=== PATIENT | male | born 1935 | race Caucasian/White ===

== ENCOUNTER 2017-03-03 11:01 | Day surgery (SDC) | payer OTHER ==
--- NOTE | 2017-03-03 15:06 | OPR ---
DATE OF OPERATION: 03/03/2017 PREOPERATIVE DIAGNOSIS: Renal failure. POSTOPERATIVE DIAGNOSIS: Renal failure. OPERATION PERFORMED: 1. Right internal jugular vein tunneled hemodialysis catheter placement. 2. Ultrasound guidance into the central vein. 3. Fluoroscopy. SURGEON: Tom Kiser MD ANESTHESIA: Local plus IV sedation. CONSENT: Risks, benefits, complications, alternative therapies explained to the patient and the fam nandini, consent obtained. OPERATIVE TECHNIQUE: The patient was placed in supine position, prepped and draped in the usual luc rile fashion, 1% lidocaine was used throughout the operation for local anesthesia. Under ultrasonic guidance, access was gained in the right internal jugular vein. Guidewire was advanced through wit hout any difficulties. Subcutaneous tissues dilated. A 19 cm tunneled hemodialysis catheter was br ought into the subcutaneous tunnel, advanced into the right internal jugular vein and superior vena cava, all under fluoroscopic guidance. The tip was placed at the junction of the superior vena cava and right atrium. Both ports of the catheter were aspirated and injected using heparinized saline solution. The catheter was secured to skin using 2-0 nylon sutures. The neck site and the exit sit e were closed using a single 3-0 Vicryl suture in interrupted fashion. Patient tolerated procedure well. Dictated By: TOM SCHROEDER/LUZMARIA Conf#: [id number] DID#: [id number]
== END 2017-03-03 13:22 | disposition short-term general hospital (02) ==
LOC: SDS 11:01
PROVIDERS: ATTEND Thoracic Surgery (Cardiothoracic Vascular Surgery)
DX: I12.9 Hypertensive chronic kidney disease with stage 1 through stage 4 chronic kidney disease, or unspecified chronic kidney disease (principal); N18.9 Chronic kidney disease, unspecified; E11.9 Type 2 diabetes mellitus without complications; E78.5 Hyperlipidemia, unspecified; Q21.1 Atrial septal defect; I25.5 Ischemic cardiomyopathy; J96.00 Acute respiratory failure, unspecified whether with hypoxia or hypercapnia; Z99.81 Dependence on supplemental oxygen
CPT/HCPCS: 36558; C1750; C1769

== ENCOUNTER 2017-03-23 10:14 | Day surgery (SDC) | payer OTHER ==
[2017-03-23] VITALS (13 sets, daily range): BP systolic 132–162; BP diastolic 60–76; PULSE 56–68; RESP 18–26
[~2017-03-23] VITALS: Ht 172.7 cm; Wt 71.4 kg
[2017-03-23] MEDS ORDERED: POLYMYXIN/BACITRACIN 1L IRRIG IRR ONE (11:00)
[2017-03-23] MEDS ORDERED: CHLO473M4 MM (11:11)
[2017-03-23] MEDS ORDERED: BALS60OI TOP (11:13)
[2017-03-23] MEDS ORDERED: POLY30OI TOP (11:14)
[2017-03-23] MEDS ORDERED: ATOR20TA38 GTB (11:15)
[2017-03-23] MEDS ORDERED: ACET325S GTB (11:17)
[2017-03-23] MEDS ORDERED: DEXT38GE15 PO (11:21)
[2017-03-23] MEDS ORDERED: HYDR-3670 PO (11:21)
[2017-03-23] MEDS ORDERED: HYDR-906 PO (11:22)
[2017-03-23] MEDS ORDERED: HDRP454O TOP (11:23)
[2017-03-23] MEDS ORDERED: LORA2ORA2 IV (11:25)
[2017-03-23] MEDS ORDERED: ATILIQ PEG (11:26)
[2017-03-23] MEDS ORDERED: METO-429 PO (11:27)
[2017-03-23] MEDS ORDERED: MORP10DI10 IV (11:29)
[2017-03-23] MEDS ORDERED: AMIKACIN IVPB (11:33)
[2017-03-23] MEDS ORDERED: LIDOCAINE 1%/EPI 30 ML INJ ONE (11:40)
[2017-03-23] MEDS ORDERED: CEFAZOLIN 1 GM/50 ML (PMX) 50 ML IVPB ONE (11:40)
[2017-03-23] MEDS ORDERED: MIDAZOLAM 1 MG/ML 2 ML INJ ONE (11:53)
[2017-03-23] MEDS ORDERED: FENTAnyl 50 MCG/ML VIAL ONE (11:54)
[2017-03-23] MEDS ORDERED: PROPOFOL 20 ML ONE (12:06)
--- NOTE | 2017-03-23 14:42 | SP ---
DATE OF PROCEDURE: 03/23/2017 NAME OF PROCEDURE: 1. Left subclavian venogram radiological interpretation. 2. Implantation of dual-chamber ICD both RV and RA leads. 3. Intracardiac electrocardiogram. SURGEON: Mookie Guajardo MD ANESTHESIOLOGIST: Teodoro Dimas MD CLINICAL INDICATIONS: This is an 81-year-old gentleman with multiple complicated medical history wh o has severe ischemic cardiomyopathy, ejection fraction of 30% despite optimal medical therapy. The last intervention was more than 3 months ago. The patient has had sick sinus syndrome intermittent ly and complete heart block with up to 15 second pauses, for which he required to have pacemaker belen cement. Since the patient already meets the criteria for ICD placement based on the ischemic cardio myopathy and congestive heart failure, he meets the MADIT-II criteria as well as ____ criteria, it w as felt that since we are going to pacemaker, it is better to just get an ICD at this point, so we d o not have to do the procedure twice later on. DESCRIPTION OF PROCEDURE: Written informed consent was obtained after risks and benefits were discu ssed with the patient's brother in detail. The patient was brought to the catheterization lab and p laced in supine position. The patient underwent anesthesia by the anesthesiologist. Left chest are a was prepped and draped in sterile fashion. Left subclavian venogram was performed through the pat ient's subclavian vein and a small cephalic vein. Left AC groove was anesthetized with 1% lidocaine . A 4 cm incision was made in the left AC groove and blunt dissection was carried out. Cephalic vein was identified. It was cannulated and a 0.014 wire was advanced into the inferior vena cava. Micro puncture sheath was placed over it. Exchanged the sheath to a 6-Gibraltarian sheath. Two wires were adva nced through it. It was removed and another 7-Gibraltarian sheath was placed over the one of the cephalic vein into the cephalic vein. Then, right ventricular lead was placed and advanced to the right char tricular apex. Once a good position was found, it was screwed into place. Then, the sheath was pee led away. A second 6-Gibraltarian sheath was placed over the second wire into the left cephalic vein. Ri ght atrial lead was advanced to the right atrial appendage. Once it was in good position, it was sc rewed into place. Thresholds were both checked and showed excellent threshold, no diaphragmatic sti mulation at 10 volts. Leads were tied down with 0 Ethibond. Pocket was irrigated with antibiotic s olution. Device was placed into the pocket and irrigated again. The device was tied down with 0 Et hibond. Leads were tied down with 0 Ethibond. The wound was closed with 1 layer of 2-0 Vicryl and 2 layers of 3-0 Vicryl. Steri-strips were ____. The patient tolerated the procedure without compl ication. The patient is to be transferred back to the recovery room in stable condition. INFORMATION OF DEVICE: The device itself is a [employer] Fortify Assura DR ICD. Right atrial lead i s [employer] E[employer] Tendril lead. Right ventricular lead is [employer] E[employer] Durata lead. P-wave amplitude was 2.7, threshold of 1 at 0.5 msec, impedance 340. RV amplitude is 11.8, threshold of 0.5 at 0.5 msec, imp edance 550. Shock ____ was 29. DFT testing was not performed because the patient had intermittent paroxysmal atrial fibrillation, w orried about the concern about possible clot. CONCLUSION: Successful implantation of ICD. Dictated By: MOOKIE POTTER/LUZMARIA Conf#: [id number] DID#: [id number] CC: NATHALIE NAVARRETE DO;*EndCC*
[2017-03-23] MEDS ORDERED: CEFAZOLIN 1 GM/50 ML (PMX) 50 ML IVPB SCH (21:00)
== END 2017-03-23 18:52 ==
LOC: SDS 10:14 → CCL 10:14
PROVIDERS: ATTEND Internal Medicine Interventional Cardiology
DX: I49.5 Sick sinus syndrome (principal); I10 Essential (primary) hypertension; E11.9 Type 2 diabetes mellitus without complications; E78.5 Hyperlipidemia, unspecified; I50.9 Heart failure, unspecified; N17.9 Acute kidney failure, unspecified; I25.5 Ischemic cardiomyopathy; Z93.0 Tracheostomy status
CPT/HCPCS: 33249; 94002; C1894; J0690; J2250; J3010

== ENCOUNTER 2017-04-06 11:47 | Inpatient (IN) | payer OTHER, MEDICARE ==
[~2017-04-06] VITALS: Ht 170.2 cm; Wt 73.4 kg
[2017-04-06] VITALS (15 sets, daily range): BP systolic 119–146; BP diastolic 51–87; PULSE 58–66; RESP 16–50; TEMP 98.2; Ht 170.2 cm; Wt 73.4 kg
[~2017-04-06 11:47] MED LIST: ACET325S GTB; AMIKACIN IVPB; ATILIQ PEG; ATOR20TA38 GTB; BALS60OI TOP; CHLO473M4 MM; DEXT38GE15 PO; HDRP454O TOP; HYDR-3670 PO; HYDR-906 PO; LORA2ORA2 IV; METO-429 PO; MORP10DI10 IV; POLY30OI TOP
[2017-04-06 12:26] LABS: ADD SCAN DIFF NO
[2017-04-06 12:28] LABS: BASOPHILS % 0.4 % (0.0-2.0); EOSINOPHILS # 0.2 10^3/ul (0.0-0.5); EOSINOPHILS % 2.1 % (0.0-7.0); HEMATOCRIT 25.4 % (42.0-52.0); HEMOGLOBIN 7.9 g/dl (14.0-18.0); LYMPHOCYTES # 1.8 10^3/ul (0.8-2.9); LYMPHOCYTES % 16.8 % (15.0-51.0); MEAN CORPUSCULAR HGB CONC 31.1 g/dl (32.0-37.0); MEAN CORPUSCULAR VOLUME 96.6 fl (82.0-101.0); MEAN PLATELET VOLUME 11.9 fl (7.4-10.4); MONOCYTE # 0.6 10^3/ul (0.3-0.9); NEUTROPHIL # 7.7 10^3/ul (1.6-7.5); NEUTROPHILS % 73.7 % (39.0-77.0); PLATELET COUNT 182 10^3/UL (140-415); RED BLOOD COUNT 2.63 10^6/ul (4.70-6.10); RED CELL DISTRIBUTION WIDTH 16.2 % (11.5-14.5); WHITE BLOOD COUNT 10.5 10^3/ul (4.8-10.8)
[2017-04-06] MEDS ORDERED: LIDOCAINE 1% (MPF) 5 ML VIAL SC ONE (12:30)
[2017-04-06 12:44] LABS: INR 1.33; PROTIME 16.6 Sec (12.2-14.2); PT RATIO 1.3
[2017-04-06 12:45] LABS: PARTIAL THROMBOPLASTIN TIME 39.7 Sec (25.0-35.0)
[2017-04-06 12:48] LABS: ALBUMIN 3.6 g/dl (3.3-4.9); ALBUMIN/GLOBULIN RATIO 0.97; CALCIUM 9.2 mg/dl (8.4-10.2); CREATININE 2.45 mg/dl (0.61-1.24); POTASSIUM 4.6 mmol/L (3.5-5.1); TOTAL PROTEIN 7.3 g/dl (6.1-8.1)
[2017-04-06 12:58] LABS: TROPONIN-I 0.018 ng/ml (0.00-0.12)
[2017-04-06] MEDS ORDERED: CLON-379 GTB (13:04)
[2017-04-06] MEDS ORDERED: CARV3.1260 GTB (13:04)
[2017-04-06] MEDS ORDERED: CLOP75TA27 GTB (13:05)
[2017-04-06] MEDS ORDERED: DIPH12.59 GTB (13:06)
[2017-04-06] MEDS ORDERED: ISOS10TA2 GTB (13:07)
[2017-04-06] MEDS ORDERED: LEVE100018 GTB (13:07)
[2017-04-06] MEDS ORDERED: LACT1CAP57 GTB (13:08)
[2017-04-06] MEDS ORDERED: LANS30CA GTB (13:09)
[2017-04-06] MEDS ORDERED: LEVO88TA42 GTB (13:09)
--- NOTE | 2017-04-06 13:09 | ERA ---
ER Documentation Chief Complaint Date/Time DATE: 04/06/17 TIME: 13:04 Chief Complaint HPI 81-year-old male trach and G-tube dependent with a history of cardiac arrest, chronic respiratory failure, ischemic cardiomyopathy with EF 45%, atrial fibrillation, diabetes, hypertension, ESRD on hemodialysis who was sent from his care facility for a low hemoglobin of 6.8. There was no report of any active bleeding at the facility. ROS Limited review of systems as patient is nonverbal Medications Home Meds Reported Medications Insulin Aspart* (Novolog Insulin Pen*) 100 Unit/Ml Soln, 0 SC .SLIDING SCALE AC , EA 71-150 = 0 UNITS 151-200 = 2 UNITS 201-250 = 4 UNITS 251-300 = 6 UNITS 301-350 = 8 UNITS 351-400 =10 UNITS OVER 400 = 12 UNITS AND CALL MD UNDER 70 GIVE ORANGE JUICE OR IM GLUCAGON AND CALL MD 04/06/17 Spironolactone* (Aldactone*) 25 Mg Tablet, 25 MG GTB DAILY, #30 TAB 04/06/17 Multivitamins* (Theragran*) 1 Tab Tab, 1 TAB GTB DAILY, TAB 04/06/17 Lorazepam* (Lorazepam*) 0.5 Mg Tablet, 0.5 MG GTB Q4 Y for ANXIETY, TAB 04/06/17 Lisinopril* (Lisinopril*) 5 Mg Tablet, 5 MG GTB BID, #30 TAB 04/06/17 Levothyroxine Sodium* (Levoxyl*) 88 Mcg Tablet, 88 MCG GTB BEFORE BREAKFAST, # 30 TAB 04/06/17 Lansoprazole* (Lansoprazole*) 30 Mg Capsule., 30 MG GTB DAILY, CAP 04/06/17 Lactobacillus Rhamnosus* (Culturelle*) 1 Each Cap.sprink, 1 CAP GTB DAILY, CAP 04/06/17 Levetiracetam* (Keppra*) 1,000 Mg Tablet, 1000 MG GTB BID, TAB 04/06/17 Isosorbide Dinitrate* (Isosorbide Dinitrate*) 10 Mg Tablet, 10 MG GTB TID, TAB 04/06/17 Diphenhydramine Hcl* (Diphenhydramine Hcl*) 12.5 Mg/5 Ml Elixir, 25 MG GTB Q6H Y for ITCHING, ML 04/06/17 Clopidogrel Bisulfate (Clopidogrel) 75 Mg Tablet, 75 MG GTB DAILY, #30 TAB 04/06/17 Clonidine Hcl* (Clonidine Hcl*) 0.1 Mg Tab, 0.1 MG GTB Q4H Y for ELEVATED BLOOD PRESSURE, TAB 04/06/17 Carvedilol* (Carvedilol*) 3.125 Mg Tablet, 3.125 MG GTB BID, #60 TAB 04/06/17 Acetaminophen* (Acetaminophen* Susp) 325 Mg/10.15 Ml Solution, 650 MG GTB Q6 Y for PAIN OR TEMP ABOVE 38C, ML 03/23/17 Atorvastatin Calcium* (Atorvastatin Calcium*) 20 Mg Tablet, 20 MG GTB QHS, #30 TAB 03/23/17 Balsam Eddi/Gillespie Oil (Venelex Ointment) 60 Gm Oint..gm., 1 APPLIC TOP NEEDED Y for PRN, #1 TUB APPLY TO SCRITAL AREA 03/23/17 Chlorhexidine Gluconate (Peridex) 473 Ml Mouthwash, 10 ML MM Q12, BOTTLE SWAB AMND SUCTION 03/23/17 Discontinued Reported Medications [Amikacin] No Conflict Check, 340 MG IVPB AFTER DIALYSIS ITEM COMPOUNDED BY PHARMACY WITH 100 ML SODIUM CHLORIDE 0.9% 03/23/17 Morphine Sulfate* (Morphine* Liq) 10 Mg/0.5 Ml Disp.syrin, 2 MG IV Q2H Y for PAIN, ML 03/23/17 Metoprolol Tartrate* (Lopressor*) 50 Mg Tab, 50 MG PO Q8, #60 TAB 03/23/17 Lorazepam* (Ativan* Intensol) 2 Mg/Ml Soln, 0.5 MG PEG Q4H Y for ANXIETY, #1 BOTTLE 03/23/17 Lorazepam* (Ativan* Intensol) 2 Mg/1 Ml Oral.conc, 2 MG IV Q4 Y for ANXIETY, ML 03/23/17 Hydrophilic Base* (Aquaphor*) 454 Gm-Topical Oint, 1 APPLIC TOP BID Y for ITCHING, JAR APPLY TO SKIN AND SCALP 03/23/17 Hydrocodone/Acetaminophen ([place] 5-325 Tablet) 1 Each Tablet, 2 EACH PO Q6, TAB 03/23/17 Hydralazine Hcl* (Hydralazine Hcl*) 10 Mg Tablet, 10 MG PO Q6H Y for ELEVATED BLOOD PRESSURE, #60 TAB 03/23/17 Dextrose (Glucose Gel) 38 Gm Gel..gram., 15 GM PO FOR PT WHO CAN SWALLOW FOR BLOOD SUGAR 51-69 REPEAT EVERY 15 MIN UNTIL GLUCOSE IS GREATER THAN OR EQUAL TO 80 03/23/17 Bacitracin-Polymyxin* (Polysporin* Topical) 28.35 Gm Oint, 1 APPLIC TOP DAILY, TUB APPLY TO PENILE ULCER 03/23/17 Allergies Allergies: Coded Allergies: No Known Allergy (Unverified , 04/06/17) PMhx/Soc History of Surgery: Yes (tracheostomy) Hx Respiratory Disorders: Yes (ventalator dependent ) Hx Cardiac Disorders: No (afib, cardiomyopathy) Hx Miscellaneous Medical Probl: Yes (gout, ESRF, anxiety , hypothyroidism.) Hx Alcohol Use: No Hx Substance Use: No Hx Tobacco Use: No Smoking Status: Unknown if ever smoked FmHx Family History: other (unable to obtain) Physical Exam Vitals Vital Signs Date Time Temp Pulse Resp B/P Pulse Ox O2 Delivery O2 Flow Rate FiO2 04/06/17 12:48 59 17 129/76 100 Mechanical Ventilator 04/06/17 11:49 99.8 70 20 142/67 97 Physical Exam Const: no apparent distress, nontoxic Head: Atraumatic Eyes: Normal Conjunctiva, no scleral icterus ENT: Normal External Ears, Nose and Mouth. Neck: Supple, tracheostomy in place Resp: Clear to auscultation bilaterally Cardio: Regular rate and rhythm, no murmurs Abd: Soft, non tender, non distended. G-tube in place and upper abdomen. Normal bowel sounds Skin: No petechiae or rashes Ext: No cyanosis, trace bilateral lower extremity edema. Extremities warm to palpation distally Neur: Awake and alert, tracks with eyes but does not speak or nod Result Diagram: 04/06/17 1220 04/06/17 1220 Results 24 hrs Laboratory Tests Test 04/06/17 12:20 White Blood Count 10.510^3/ul Red Blood Count 2.6310^6/ul Hemoglobin 7.9g/dl Hematocrit 25.4% Mean Corpuscular Volume 96.6fl Mean Corpuscular Hemoglobin 30.0pg Mean Corpuscular Hemoglobin Concent 31.1g/dl Red Cell Distribution Width 16.2% Platelet Count 57102^3/UL Mean Platelet Volume 11.9fl Neutrophils % 73.7% Lymphocytes % 16.8% Monocytes % 6.0% Eosinophils % 2.1% Basophils % 0.4% Nucleated Red Blood Cells % 0.0/100WBC Neutrophils # 7.710^3/ul Lymphocytes # 1.810^3/ul Monocytes # 0.610^3/ul Eosinophils # 0.210^3/ul Basophils # 0.010^3/ul Nucleated Red Blood Cells # 0.010^3/ul Prothrombin Time 16.6Sec Prothrombin Time Ratio 1.3 INR International Normalized Ratio 1.33 Activated Partial Thromboplast Time 39.7Sec Sodium Level 138mmol/L Potassium Level 4.6mmol/L Chloride Level 97mmol/L Carbon Dioxide Level 24mmol/L Anion Gap 22 Blood Urea Nitrogen 55mg/dl Creatinine 2.45mg/dl Glucose Level 137mg/dl Calcium Level 9.2mg/dl Total Bilirubin 0.0mg/dl Direct Bilirubin 0.00mg/dl Indirect Bilirubin 0.0mg/dl Aspartate Amino Transf (AST/SGOT) 35IU/L Alanine Aminotransferase (ALT/SGPT) 28IU/L Alkaline Phosphatase 256IU/L Troponin I 0.018ng/ml Total Protein 7.3g/dl Albumin 3.6g/dl Globulin 3.70g/dl Albumin/Globulin Ratio 0.97 Current Medications Medications (Trade) Dose Ordered Sig/Khushi Route PRN Reason Start Time Stop Time Status Last Admin Dose Admin Lidocaine (Xylocaine 1% (Mpf)) 5 ml ONCE ONCE SC 04/06/17 12:30 04/06/17 12:31 DC Ondansetron HCl (Zofran Inj) 4 mg ER BRIDGE PRN IV NAUSEA AND/OR VOMITING 04/06/17 14:00 04/07/17 13:59 Acetaminophen (Tylenol Tab) 650 mg ER BRIDGE PRN PO MILD PAIN/FEVER 04/06/17 14:00 04/07/17 13:59 Procedures/MDM EKG: Rate/Rhythm: Normal Sinus Rhythm QRS, ST, T-waves: Nonspecific ST changes, no changes consistent w/ acute ischemia Impression: No evidence of ischemia or arrhythmia Chest x-ray: IMPRESSION: 1. Moderate cardiomegaly with pulmonary venous congestion, unchanged. 2. Overinflated lungs. 3. Mild bilateral pleural effusion, unchanged. Labs: CBC: Hemoglobin 7.9 CMP: Evidence of chronic renal failure Coags: Elevated PT, PTT Troponin within normal limits MDM Patient is presenting with anemia of unknown etiology. He is on a blood thinner but there is no signs of active bleeding on exam. His vitals are stable and he is in no apparent distress. EKG does not show evidence of acute ischemia. Patient will be admitted for further workup of anemia. 2 units of PRBCs ordered. Chest x-ray did show evidence of fluid overload so the patient will need dialysis today after the transfusion most likely. I spoke with Dr. Darby, the admitting physician, who will arrange this. Accepting Care Team: Current data and ongoing care discussed. Time: Time of admission Primary Provider: Wilner Consulting: None Outstanding Data: none Departure Diagnosis: Primary Impression: Anemia of unknown etiology Additional Impressions: Chronic renal failure Qualified Code: N18.9 - Chronic renal failure, unspecified stage Pulmonary vascular congestion Condition: Serious ROCIO REYES MD Apr 06, 2017 13:09
[2017-04-06] MEDS ORDERED: LISI-313 GTB (13:10)
[2017-04-06] MEDS ORDERED: LORA0.5T GTB (13:11)
[2017-04-06] MEDS ORDERED: MULTI GTB (13:11)
[2017-04-06] MEDS ORDERED: SPIR25TA GTB (13:12)
[2017-04-06] MEDS ORDERED: NOVO3I SC (13:16)
--- NOTE | 2017-04-06 13:38 | RADRPT ---
PROCEDURE: XR, Chest. CLINICAL INDICATION: Respiratory distress/GI bleeding. TECHNIQUE: AP chest. COMPARISON: Chest, 03/31/2017. FINDINGS: The heart is moderately enlarged with pulmonary venous congestion. The lungs are overinflated. The re is mild bilateral pleural effusion. The left defibrillator wires/leads remain in good position. The right Perma-Cath remains in good po sition. The tracheostomy tube remains in good position. IMPRESSION: 1. Moderate cardiomegaly with pulmonary venous congestion, unchanged. 2. Overinflated lungs. 3. Mild bilateral pleural effusion, unchanged. RPTAT: GG .Genaro Naylor MD, MD Date Time Electronically viewed and signed by .Genaro Naylor MD, MD on 04/06/2017 13:38 .Y/
[2017-04-06] MEDS ORDERED: ACETAMINOPHEN 325 MG TAB PO PRN (14:00)
[2017-04-06] MEDS ORDERED: ONDANSETRON 4 MG INJ IV PRN (14:00)
[2017-04-06] MEDS ORDERED: DIPHENHYDRAMINE 2.5 MG/ML PO SYG GTB PRN (15:00)
[2017-04-06] MEDS ORDERED: BALSAM PERU/CASTOR OIL 60 GM TUBE TOP PRN (15:00)
--- NOTE | 2017-04-06 15:26 | RADRPT ---
PROCEDURE: XR Chest. CLINICAL INDICATION: Post PICC placement TECHNIQUE: Single frontal chest x-ray. COMPARISON: Same day radiographs at 12:56 p.m. and 03:06 p.m. FINDINGS: There is a left PICC in which the tip is in the region of the upper SVC. A left-sided pacer with pa cer leads are visualized in the region of the right atrium and right ventricle. There is a right in ternal jugular central venous catheter with the tip in the atrial caval junction. A tracheostomy tub e is also visualized. Mild to moderate pulmonary edema is again noted. There are small bilateral pleural effusions with m ild bibasilar atelectasis. No pneumothorax is visualized. The heart is enlarged. There are atherosclerotic calcifications within the aortic arch. Median luc rnotomy wires are noted. There are no acute fractures. RPTAT: QQ IMPRESSION: 1. Left PICC with the tip in the region of the upper SVC. 2. Mild to moderate pulmonary edema with small bilateral pleural effusions and cardiomegaly which c an be seen with congestive heart failure. .Farideh Soler MD, MD Date Time Electronically viewed and signed by .Farideh Soler MD, on 04/06/2017 15:25 .T/
--- NOTE | 2017-04-06 15:26 | RADRPT ---
PROCEDURE: XR Chest. CLINICAL INDICATION: Post PICC placement TECHNIQUE: Single frontal chest x-ray. COMPARISON: Same day radiographs at 12:56 p.m. FINDINGS: There is a new left PICC in which the tip is in the region of the upper SVC. A left-sided pacer wit h pacer leads are visualized in the region of the right atrium and right ventricle. There is a righ t internal jugular central venous catheter with the tip in the atrial caval junction. A tracheostomy tube is also visualized. Mild to moderate pulmonary edema is again noted. There are small bilateral pleural effusions with m ild bibasilar atelectasis. No pneumothorax is visualized. The heart is enlarged. There are atherosclerotic calcifications within the aortic arch. Median luc rnotomy wires are noted. There are no acute fractures. RPTAT: QQ IMPRESSION: 1. Left PICC with the tip in the region of the upper SVC. 2. Mild to moderate pulmonary edema with small bilateral pleural effusions and cardiomegaly which c an be seen with congestive heart failure. .Farideh Soler MD, MD Date Time Electronically viewed and signed by .Farideh Soler MD, MD on 04/06/2017 15:26 .T/
--- NOTE | 2017-04-06 15:28 | RADRPT ---
PROCEDURE: XR Chest. CLINICAL INDICATION: Post PICC placement TECHNIQUE: Single frontal chest x-ray. COMPARISON: Same day radiographs at 12:56 p.m. and 03:06 p.m. FINDINGS: There is a left PICC in which the tip is in the region of the mid to low SVC. A left-sided pacer wi th pacer leads are visualized in the region of the right atrium and right ventricle. There is a rig ht internal jugular central venous catheter with the tip in the atrial caval junction. A tracheostom y tube is also visualized. Mild to moderate pulmonary edema is again noted. There are small bilateral pleural effusions with m ild bibasilar atelectasis. No pneumothorax is visualized. The heart is enlarged. There are atherosclerotic calcifications within the aortic arch. Median luc rnotomy wires are noted. There are no acute fractures. RPTAT: QQ IMPRESSION: 1. Left PICC with the tip in the region of the mid to low SVC. 2. Mild to moderate pulmonary edema with small bilateral pleural effusions and cardiomegaly which c an be seen with congestive heart failure. .Farideh Soler MD, MD Date Time Electronically viewed and signed by .Farideh Soler MD, MD on 04/06/2017 15:28 .T/
[2017-04-06] MEDS ORDERED: [UNRECOGNIZED DRUG - REMARK] XX SCH (15:30)
--- NOTE | 2017-04-06 15:53 | RADRPT ---
PROCEDURE: Ultrasound guidance for placement of needle in left upper extremity vein. CLINICAL INDICATION: Venous access. TECHNIQUE: Limited sonography of the left upper extremity was performed. Ultrasound images were recorded and s tored in the patient's medical record. COMPARISON: None. FINDINGS: The ultrasound images demonstrate a patent left upper extremity vein. The PICC line was inserted by the PICC line nurse. IMPRESSION: 1. Ultrasound guidance for a needle placement in a left upper extremity vein. 2. The left upper extremity vein is patent. RPTAT: QQ .Nic Smith MD, MD Date Time Electronically viewed and signed by .Nic Smith MD, MD on 04/06/2017 15:53 .R/
[2017-04-06] MEDS ORDERED: PENDING SANTYL ORDER FOR WOUND CARE XX PRN (20:30)
[2017-04-06] MEDS: CHLORHEXIDINE GLUCONATE 15 ML UD CUP MM SCH (21:23)
[2017-04-06] MEDS: LORAZEPAM 0.5 MG TAB GTB PRN (21:23)
[2017-04-06] MEDS: ISOSORBIDE DINITRATE 10 MG TAB GTB SCH (21:24)
[2017-04-06] MEDS: LEVETIRACETAM 500 MG TAB GTB SCH (21:24)
[2017-04-06] MEDS: LISINOPRIL 5 MG TAB GTB SCH (21:25)
[2017-04-06] MEDS: ATORVASTATIN 20 MG TAB GTB SCH (21:25)
[2017-04-06] MEDS: ACETAMINOPHEN 650MG/20.3ML CUP GTB PRN (21:40)
[2017-04-07] VITALS (23 sets, daily range): BP systolic 128–162; BP diastolic 60–75; PULSE 50–58; RESP 18–28
[2017-04-07] MEDS: ACETAMINOPHEN 650MG/20.3ML CUP GTB PRN (03:55)
[2017-04-07] MEDS: LORAZEPAM 0.5 MG TAB GTB PRN ×2 (03:55→13:46)
[2017-04-07 06:07] LABS: ADD SCAN DIFF NO
[2017-04-07 06:15] LABS: BASOPHILS % 0.4 % (0.0-2.0); EOSINOPHILS # 0.1 10^3/ul (0.0-0.5); EOSINOPHILS % 1.2 % (0.0-7.0); HEMATOCRIT 27.1 % (42.0-52.0); LYMPHOCYTES # 1.5 10^3/ul (0.8-2.9); LYMPHOCYTES % 15.8 % (15.0-51.0); MEAN CORPUSCULAR HEMOGLOBIN 30.6 pg (29.0-33.0); MEAN CORPUSCULAR HGB CONC 33.2 g/dl (32.0-37.0); MEAN CORPUSCULAR VOLUME 92.2 fl (82.0-101.0); MEAN PLATELET VOLUME 11.4 fl (7.4-10.4); MONOCYTE # 0.6 10^3/ul (0.3-0.9); MONOCYTES % 6.1 % (0.0-11.0); NEUTROPHIL # 7.2 10^3/ul (1.6-7.5); NEUTROPHILS % 76.1 % (39.0-77.0); PLATELET COUNT 169 10^3/UL (140-415); RED BLOOD COUNT 2.94 10^6/ul (4.70-6.10); RED CELL DISTRIBUTION WIDTH 15.6 % (11.5-14.5); WHITE BLOOD COUNT 9.4 10^3/ul (4.8-10.8)
[2017-04-07] MEDS: LEVOTHYROXINE 88 MCG TAB GTB SCH (06:19)
[2017-04-07] MEDS: LANSOPRAZOLE 30 MG CAP GTB SCH (06:19)
[2017-04-07 06:57] LABS: CALCIUM 9.3 mg/dl (8.4-10.2); CREATININE 2.13 mg/dl (0.61-1.24); MAGNESIUM 2.1 mg/dl (1.7-2.5); POTASSIUM 3.5 mmol/L (3.5-5.1)
--- NOTE | 2017-04-07 08:52 | CONS ---
Date/Time of Note Date/Time of Note DATE: 04/07/17 TIME: 08:34 Assessment/Plan Assessment/Plan Additional Assessment/Plan 1. Extensive history of coronary artery disease: Currently with no angina Continue Plavix. off of aspirin due to concerns about anemia and bleeding. Continue Coreg 2. 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 Defer to the pulmonary consultations. 3. Severe anemia: Etiology is unclear. Status post transfusions. To continue with the Plavix 4. History of coronary artery bypass graft. 5. History of multiple PCI most recent PCI was in November 2016 using a drug- eluting stent: Continue with the Plavix Continue beta-staci as tolerated. 6. Congestive heart failure: Chronic and stable due to severe LV dysfunction Continue with ARABELLA inhibitor and Coreg as tolerated. Fluid management as per dialysis per renal. 7. Dyslipidemia: Continue statin 8. History of hypertension currently stable on Coreg and ARABELLA inhibitor. 9. End-stage renal disease on hemodialysis. Will refer to the renal team 10. Sick sinus syndrome: Status post [employer] ICD device 11. Status post dual-chamber ICD: Coronary appears to be stable with no malfunction of the device. We will continue to monitor. Thank you for this referral will continue to follow along with you. Consultation Date/Type/Reason Admit Date/Time Apr 06, 2017 at 14:01 Date of Consultation: Apr 07, 2017 Type of Consultation: CARDIOLOGY Reason for Consultation CAD. CHF, ISCHEMIC CARDIOMYOPATHY. S/P ICD. antiplatelet recommendation Hx of Present Illness Dear Dr. Darby thank you for this referral. History was obtained from extensive review of the old chart discussion with the staff and physicians include Dr. Darby. This is an unfortunate 81-year-old gentleman well-known to me from previous admissions to [facility], who was admitted last night with complaint of severe anemia. She has multiple complicated medical history. He has chronic respiratory failure with tracheostomy on the vent. He has been subacute and was noted to be severely anemic. There is no reported signs of active bleeding that I could obtain. Patient denies any chest pain or pressure to me at this point. Patient has extensive history of coronary artery disease including coronary bypass graft as well as history of PCI in November 2016. He is currently on Plavix. While at the [facility] previously he had noted recurrent tracheal bleeding. Aspirin was discontinued at that time however Plavix was continued due to concern about significant coronary artery disease and recent stents. Past medical history: Significant coronary artery disease history of coronary bypass or history of multiple PCI's. Most recent PCI was in November 2016. At that time using drug- eluting stent was used. Patient with severe ischemic cardiomyopathy. Congestive heart failure. History of sick sinus syndrome. On last admission to [facility] he had episode of up to 15 second sinus arrest and pauses as well as episodes of complete A-V dissociation. He required to have an ICD placed. Patient also respiratory failure with tracheostomy on the vent. Renal failure on dialysis now. History of hypertension. Dyslipidemia anemia. Hypothyroidism. Family history: No reported eloquently artery disease. Medication was reviewed with the medical reconciliation sheet which was personally reviewed. Past surgical history: Coronary bypass graft history of multiple PCI including most recent one in November 2016. Dual-chamber ICD placement by myself ([employer] ICD done a very depressed by myself) in March 2017. Tracheostomy. PEG placement Review of system: As above only the basic was obtained. However limited history can be obtained from the patient since he is trached Social History Smoking Status: Unknown if ever smoked Exam/Review of Systems Vital Signs Vitals Vital Signs Date Time Temp Pulse Resp B/P Pulse Ox O2 Delivery O2 Flow Rate FiO2 04/07/17 08:08 55 04/07/17 07:41 26 98 35 04/07/17 07:34 98.5 128/64 04/06/17 18:45 Mechanical Ventilator Trach Collar Intake and Output 04/06/17 04/06/17 04/07/17 15:00 23:00 07:00 Intake Total 1000 ml 120 ml Output Total 2800 ml Balance -1800 ml 120 ml Exam General: no acute distress. s/p trach on vent HEENT: NC/AT. pupils are equal. round. NECK: s/p trach. no stridor. CV: RRR. systolic murmur; no gallop or rubs. PULM: no wheezing. + mild rhonchi. GI: SOFT, NT, ND, no rebound or guarding s/p PEG Extremity: trace B/L LE edema.+ Upper ext edema. neuro: awake and alert, responds appropriately Psych: calm and pleasant rectal: deferred : normal male Derm: diffuse echymosis in the body chest: s/p ICD left side. no hematoma or bleeding. s/p HD access right chest. ECG reviewed NSR nonspecific ST abn. Results Result Diagram: 04/07/17 0555 04/07/17 0555 Results 24 hrs Laboratory Tests Test 04/06/17 12:20 04/07/17 05:55 White Blood Count 10.5 9.4 Red Blood Count 2.63 L 2.94 L Hemoglobin 7.9 L 9.0 L Hematocrit 25.4 L 27.1 L Mean Corpuscular Volume 96.6 92.2 Mean Corpuscular Hemoglobin 30.0 30.6 Mean Corpuscular Hemoglobin Concent 31.1 L 33.2 Red Cell Distribution Width 16.2 H 15.6 H Platelet Count 182 169 Mean Platelet Volume 11.9 H 11.4 H Neutrophils % 73.7 76.1 Lymphocytes % 16.8 15.8 Monocytes % 6.0 6.1 Eosinophils % 2.1 1.2 Basophils % 0.4 0.4 Nucleated Red Blood Cells % 0.0 0.0 Neutrophils # 7.7 H 7.2 Lymphocytes # 1.8 1.5 Monocytes # 0.6 0.6 Eosinophils # 0.2 0.1 Basophils # 0.0 0.0 Nucleated Red Blood Cells # 0.0 0.0 Prothrombin Time 16.6 H Prothrombin Time Ratio 1.3 INR International Normalized Ratio 1.33 Activated Partial Thromboplast Time 39.7 H Sodium Level 138 142 Potassium Level 4.6 3.5 Chloride Level 97 100 Carbon Dioxide Level 24 24 Anion Gap 22 H 22 H Blood Urea Nitrogen 55 H 37 #H Creatinine 2.45 H 2.13 H Glucose Level 137 88 # Calcium Level 9.2 9.3 Total Bilirubin 0.0 L Direct Bilirubin 0.00 Indirect Bilirubin 0.0 Aspartate Amino Transf (AST/SGOT) 35 Alanine Aminotransferase (ALT/SGPT) 28 Alkaline Phosphatase 256 H Troponin I 0.018 Total Protein 7.3 Albumin 3.6 Globulin 3.70 H Albumin/Globulin Ratio 0.97 Phosphorus Level 2.0 L Magnesium Level 2.1 Medications Medications Current Medications Acetaminophen (Tylenol Liquid) 650 mg Q6H PRN GTB PAIN OR TEMP ABOVE 38C Last administered on 04/07/17 03:55; Admin Dose 650 MG; Start 04/06/17 at 15:00 Atorvastatin Calcium (Lipitor) 20 mg QHS GTB Last administered on 04/06/17 21: 25; Admin Dose 20 MG; Start 04/06/17 at 21:00 Carvedilol (Coreg) 3.125 mg BID GTB Last administered on 04/06/17 21:27; Admin Dose 3.125 MG; Start 04/06/17 at 21:00 Chlorhexidine Gluconate (Peridex) 10 ml Q12 MM Last administered on 04/06/17 21 :23; Admin Dose 10 ML; Start 04/06/17 at 21:00 Clonidine (Catapres) 0.1 mg Q4H PRN GTB SBP > 170; Start 04/06/17 at 15:00 Clopidogrel Bisulfate (plaVIX) 75 mg DAILY GTB ; Start 04/07/17 at 09:00 Diphenhydramine HCl (Benadryl Liquid Po Syr) 25 mg Q6H PRN GTB ITCHING; Start 04/06/17 at 15:00 Isosorbide Dinitrate (Isordil) 10 mg TID GTB Last administered on 04/06/17 21: 24; Admin Dose 10 MG; Start 04/06/17 at 21:00 Lactobacillus Acidophilus/ Rhamnosus (Culturelle) 1 cap DAILY GTB ; Start at 09:00 Lansoprazole (Prevacid) 30 mg DAILY@06 GTB Last administered on 04/07/17 06:19 ; Admin Dose 30 MG; Start 04/07/17 at 06:00 Levetiracetam (Keppra) 1,000 mg BID GTB Last administered on 04/06/17 21:24; Admin Dose 1,000 MG; Start 04/06/17 at 21:00 Lisinopril (Zestril) 5 mg BID GTB Last administered on 04/06/17 21:25; Admin Dose 5 MG; Start 04/06/17 at 21:00 Lorazepam (Ativan) 0.5 mg Q4H PRN GTB ANXIETY Last administered on 04/07/17 03: 55; Admin Dose 0.5 MG; Start 04/06/17 at 15:00 Multivitamins Therapeutic (Theragran) 1 tab DAILY GTB ; Start 04/07/17 at 09:00 Spironolactone (Aldactone) 25 mg DAILY GTB ; Start 04/07/17 at 09:00 IV Flush (NS 10 ml) 10 ml PRN PRN IV flush; Start 04/06/17 at 16:30 Miscellaneous Information (Pending [facility] Order For Wound Care) This patient jenkins... PRN PRN XX WOUND CARE; Start 04/06/17 at 20:30 MOOKIE BESS MD Apr 07, 2017 08:45
--- NOTE | 2017-04-07 08:53 | HP ---
Date/Time of Note Date/Time of Note DATE: 04/07/17 TIME: 08:50 Assessment/Plan Lines/Catheters IV Catheter Type (from Nrs): PICC Line Assessment/Plan Chief Complaint/Hosp Course 1. Anemia, etiology likely from chronic disease, rule out GI bleed. -Patient status post blood transfusion with appropriate response -Plan is to check iron panel, ferritin, stool occult ob -Continue Protonix, GI evaluation, continue Epogen 2. End-stage renal disease. -Continue intermittent hemodialysis 3. Mineral bone disorder -Monitor calcium phosphorus levels 4 volume overload secondary to CHF end-stage renal disease -Continue ultrafiltration with dialysis 5. Dependent respiratory failure -Vent settings, ABG reviewed -Follow-up with pulmonary 6. Coronary disease,/cardiomyopathy -Status post pacemaker ICD placement -Continue medical management -Follow-up with cardiology 7. Seizure disorder -Continue Keppra 8. Hypothyroidism -Continue Synthroid 9. Dysphagia status post PEG -Continue tube feeds 10. Acute on chronic encephalotomy -Etiology toxic metabolic -Continue to monitor 11. Hypertension continue current blood pressure regimen 12. GI/DVT prophylaxis Problems: HPI/ROS Admit Date/Time Admit Date/Time Apr 06, 2017 at 14:01 Hx of Present Illness This is a 81-year-old male with a past medical history of ventilator dependent respiratory failure, end-stage renal disease, coronary artery disease, cardiomyopathy, arrhythmia status post ICD pacemaker placement, hypothyroidism, history of tracheal bleed, who presents to outpatient hospital for evaluation of anemia. Patient was noted to have a hemoglobin of 6.8 g/dL on routine laboratory draw. Patient was transferred to [facility]. In the emergency room patient had laboratory data drawn which showed hemoglobin around 7.5 g/dL. Patient had chest x-ray showed pulmonary congestion. In the emergency room patient was typed and crossed 2 units of PRBC and admitted to telemetry for evaluation. Upon my evaluation of the patient. He is stable no acute distress ROS 14 point ros conducted, positives stated in hpi PMH/Family/Social Past Medical History Per H PI Past Surgical History Status post trach, status post PEG, status post permacath placement, status post AICD placement Social History Smoking Status: Unknown if ever smoked Exam/Review of Systems Vital Signs Vitals Vital Signs Date Time Temp Pulse Resp B/P Pulse Ox O2 Delivery O2 Flow Rate FiO2 04/07/17 08:08 55 04/07/17 07:41 26 98 35 04/07/17 07:34 98.5 128/64 04/06/17 18:45 Mechanical Ventilator Trach Collar Intake and Output 04/06/17 04/06/17 04/07/17 15:00 23:00 07:00 Intake Total 1000 ml 120 ml Output Total 2800 ml Balance -1800 ml 120 ml Exam Exam HEENT head is normocephalic able to react Neck is supple positive straight Cardiovascular regular rate no gallops Lungs show diminished breath sounds at the base Abdomen soft nontender palpation positive Extremity nephrocalcinosis positive Dermatologically no rash Muscle skeletal no joint Neurologically no change in exam Labs Result Diagram: 04/07/1755404/07/1755 Medications Medications Current Medications Acetaminophen (Tylenol Liquid) 650 mg Q6H PRN GTB PAIN OR TEMP ABOVE 38C Last administered on 04/07/17 03:55; Admin Dose 650 MG; Start 04/06/17 at 15:00 Atorvastatin Calcium (Lipitor) 20 mg QHS GTB Last administered on 04/06/17 21: 25; Admin Dose 20 MG; Start 04/06/17 at 21:00 Carvedilol (Coreg) 3.125 mg BID GTB Last administered on 04/06/17 21:27; Admin Dose 3.125 MG; Start 04/06/17 at 21:00 Chlorhexidine Gluconate (Peridex) 10 ml Q12 MM Last administered on 04/06/17 21 :23; Admin Dose 10 ML; Start 04/06/17 at 21:00 Clonidine (Catapres) 0.1 mg Q4H PRN GTB SBP > 170; Start 04/06/17 at 15:00 Clopidogrel Bisulfate (plaVIX) 75 mg DAILY GTB ; Start 04/07/17 at 09:00 Diphenhydramine HCl (Benadryl Liquid Po Syr) 25 mg Q6H PRN GTB ITCHING; Start 04/06/17 at 15:00 Isosorbide Dinitrate (Isordil) 10 mg TID GTB Last administered on 04/06/17 21: 24; Admin Dose 10 MG; Start 04/06/17 at 21:00 Lactobacillus Acidophilus/ Rhamnosus (Culturelle) 1 cap DAILY GTB ; Start at 09:00 Lansoprazole (Prevacid) 30 mg DAILY@06 GTB Last administered on 04/07/17 06:19 ; Admin Dose 30 MG; Start 04/07/17 at 06:00 Levetiracetam (Keppra) 1,000 mg BID GTB Last administered on 04/06/17 21:24; Admin Dose 1,000 MG; Start 04/06/17 at 21:00 Lisinopril (Zestril) 5 mg BID GTB Last administered on 04/06/17 21:25; Admin Dose 5 MG; Start 04/06/17 at 21:00 Lorazepam (Ativan) 0.5 mg Q4H PRN GTB ANXIETY Last administered on 04/07/17 03: 55; Admin Dose 0.5 MG; Start 04/06/17 at 15:00 Multivitamins Therapeutic (Theragran) 1 tab DAILY GTB ; Start 04/07/17 at 09:00 Spironolactone (Aldactone) 25 mg DAILY GTB ; Start 04/07/17 at 09:00 IV Flush (NS 10 ml) 10 ml PRN PRN IV flush; Start 04/06/17 at 16:30 Miscellaneous Information (Pending Santyl Order For Wound Care) This patient jenkins... PRN PRN XX WOUND CARE; Start 04/06/17 at 20:30 ANNABELLE MENDOZA DO Apr 07, 2017 08:53
[2017-04-07] MEDS: MULTIVITAMINS THERAPEUTIC TAB GTB SCH (09:06)
[2017-04-07] MEDS: ISOSORBIDE DINITRATE 10 MG TAB GTB SCH ×3 (09:06→21:16)
[2017-04-07] MEDS: LACTOBACILLUS RHAMNOSUS CAP GTB SCH (09:06)
[2017-04-07] MEDS: LISINOPRIL 5 MG TAB GTB SCH ×2 (09:06→21:16)
[2017-04-07] MEDS: LEVETIRACETAM 500 MG TAB GTB SCH ×2 (09:06→21:16)
[2017-04-07] MEDS: CLOPIDOGREL 75 MG TAB GTB SCH (09:06)
[2017-04-07] MEDS: SPIRONOLACTONE 25 MG TAB GTB SCH (09:06)
[2017-04-07] MEDS: CHLORHEXIDINE GLUCONATE 15 ML UD CUP MM SCH ×2 (09:06→21:16)
[2017-04-07 09:42] LABS: IRON 35 ug/dl (35-150)
[2017-04-07 09:51] LABS: TOTAL IRON BINDING CAPACITY 213 ug/dl (241-421)
--- NOTE | 2017-04-07 17:00 | CONS ---
Date/Time of Note Date/Time of Note DATE: 04/07/17 TIME: 16:56 Assessment/Plan Assessment/Plan Additional Assessment/Plan Assessment 1. Anemia likely multifactorial combination of chronic kidney disease, possible dilutional possible GI bleed. 2. Vent dependent respiratory failure 3. Encephalopathy acute on chronic 4. Dysphagia with G-tube 5. Seizure disorder 6. History of ischemic heart disease with ICD, mild pulmonary edema on chest x- ray Plan 1. Continue mechanical ventilation 2. Anemia workup 3. Monitor H&H posttransfusion 4. Renal recommendations with hemodialysis as needed. 5. Telemetry monitoring Consultation Date/Type/Reason Admit Date/Time Apr 06, 2017 at 14:01 Date of Consultation: Apr 07, 2017 Type of Consultation: Pulmonary Reason for Consultation Ventilator management Hx of Present Illness 81-year-old gentleman with a history of ventilator dependent respiratory failure transferred from [facility] for evaluation of anemia. No evidence of acute GI bleeding no hemodynamic instability patient remains stable on mechanical ventilation. Past Medical History Vent dependent respiratory failure Dysphagia with G-tube Chronic anemia End-stage renal failure requiring hemodialysis Seizure disorder Hypothyroidism Social History Smoking Status: Unknown if ever smoked Exam/Review of Systems Vital Signs Vitals Vital Signs Date Time Temp Pulse Resp B/P Pulse Ox O2 Delivery O2 Flow Rate FiO2 04/07/17 16:18 58 04/07/17 15:44 98.5 18 162/75 99 04/07/17 15:23 35 04/06/17 18:45 Mechanical Ventilator Trach Collar Intake and Output 04/06/17 04/06/17 04/07/17 15:00 23:00 07:00 Intake Total 1000 ml 120 ml Output Total 2800 ml Balance -1800 ml 120 ml Exam PHYSICAL EXAMINATION GENERAL: Elderly gentleman, on mechanical ventilation via tracheostomy VITAL SIGNS: see below. HEENT: Pupils equal, round, and reactive to light. Tracheostomy site clean and intact. CARDIAC: S1, S2, 1/6 systolic ejection murmur CHEST: Diminished air entry bilaterally. ABDOMEN: Mildly distended. Bowel sounds present no guarding or rebound EXTREMITIES: No cyanosis, clubbing edema +1 NEUROLOGIC: Generalized weakness Results Result Diagram: 04/07/17 0555 04/07/17 0555 Results 24 hrs Laboratory Tests Test 04/07/17 05:55 White Blood Count 9.4 Red Blood Count 2.94 L Hemoglobin 9.0 L Hematocrit 27.1 L Mean Corpuscular Volume 92.2 Mean Corpuscular Hemoglobin 30.6 Mean Corpuscular Hemoglobin Concent 33.2 Red Cell Distribution Width 15.6 H Platelet Count 169 Mean Platelet Volume 11.4 H Neutrophils % 76.1 Lymphocytes % 15.8 Monocytes % 6.1 Eosinophils % 1.2 Basophils % 0.4 Nucleated Red Blood Cells % 0.0 Neutrophils # 7.2 Lymphocytes # 1.5 Monocytes # 0.6 Eosinophils # 0.1 Basophils # 0.0 Nucleated Red Blood Cells # 0.0 Sodium Level 142 Potassium Level 3.5 Chloride Level 100 Carbon Dioxide Level 24 Anion Gap 22 H Blood Urea Nitrogen 37 #H Creatinine 2.13 H Glucose Level 88 # Calcium Level 9.3 Phosphorus Level 2.0 L Magnesium Level 2.1 Iron Level 35 Total Iron Binding Capacity 213 L Percent Iron Saturation 16 L Ferritin 471.0 H Medications Medications Current Medications Acetaminophen (Tylenol Liquid) 650 mg Q6H PRN GTB PAIN OR TEMP ABOVE 38C Last administered on 04/07/17 03:55; Admin Dose 650 MG; Start 04/06/17 at 15:00 Atorvastatin Calcium (Lipitor) 20 mg QHS GTB Last administered on 04/06/17 21: 25; Admin Dose 20 MG; Start 04/06/17 at 21:00 Carvedilol (Coreg) 3.125 mg BID GTB Last administered on 04/06/17 21:27; Admin Dose 3.125 MG; Start 04/06/17 at 21:00 Chlorhexidine Gluconate (Peridex) 10 ml Q12 MM Last administered on 04/07/17 09 :06; Admin Dose 10 ML; Start 04/06/17 at 21:00 Clonidine (Catapres) 0.1 mg Q4H PRN GTB SBP > 170; Start 04/06/17 at 15:00 Clopidogrel Bisulfate (plaVIX) 75 mg DAILY GTB Last administered on 04/07/17 09 :06; Admin Dose 75 MG; Start 04/07/17 at 09:00 Diphenhydramine HCl (Benadryl Liquid Po Syr) 25 mg Q6H PRN GTB ITCHING; Start 04/06/17 at 15:00 Isosorbide Dinitrate (Isordil) 10 mg TID GTB Last administered on 04/07/17 12: 46; Admin Dose 10 MG; Start 04/06/17 at 21:00 Lactobacillus Acidophilus/ Rhamnosus (Culturelle) 1 cap DAILY GTB Last administered on 04/07/17 09:06; Admin Dose 1 CAP; Start 04/07/17 at 09:00 Lansoprazole (Prevacid) 30 mg DAILY@06 GTB Last administered on 04/07/17 06:19 ; Admin Dose 30 MG; Start 04/07/17 at 06:00 Levetiracetam (Keppra) 1,000 mg BID GTB Last administered on 04/07/17 09:06; Admin Dose 1,000 MG; Start 04/06/17 at 21:00 Lisinopril (Zestril) 5 mg BID GTB Last administered on 04/07/17 09:06; Admin Dose 5 MG; Start 04/06/17 at 21:00 Lorazepam (Ativan) 0.5 mg Q4H PRN GTB ANXIETY Last administered on 04/07/17 13: 46; Admin Dose 0.5 MG; Start 04/06/17 at 15:00 Multivitamins Therapeutic (Theragran) 1 tab DAILY GTB Last administered on 09:06; Admin Dose 1 TAB; Start 04/07/17 at 09:00 Spironolactone (Aldactone) 25 mg DAILY GTB Last administered on 04/07/17 09:06 ; Admin Dose 25 MG; Start 04/07/17 at 09:00 IV Flush (NS 10 ml) 10 ml PRN PRN IV flush; Start 04/06/17 at 16:30 Miscellaneous Information (Pending [facility] Order For Wound Care) This patient jenkins... PRN PRN XX WOUND CARE; Start 04/06/17 at 20:30 ZULMA MAE MD, [facility] Apr 07, 2017 16:59
[2017-04-07] MEDS: ATORVASTATIN 20 MG TAB GTB SCH (21:16)
[2017-04-08] VITALS (33 sets, daily range): BP systolic 107–164; BP diastolic 47–93; PULSE 51–72; RESP 19–56
[2017-04-08] MEDS: LANSOPRAZOLE 30 MG CAP GTB SCH (05:29)
[2017-04-08] MEDS: LEVOTHYROXINE 88 MCG TAB GTB SCH (06:04)
[2017-04-08 06:49] LABS: ADD SCAN DIFF NO
[2017-04-08 07:02] LABS: BASOPHILS % 0.3 % (0.0-2.0); EOSINOPHILS # 0.1 10^3/ul (0.0-0.5); EOSINOPHILS % 1.1 % (0.0-7.0); HEMOGLOBIN 8.5 g/dl (14.0-18.0); LYMPHOCYTES # 1.3 10^3/ul (0.8-2.9); LYMPHOCYTES % 11.9 % (15.0-51.0); MEAN CORPUSCULAR HEMOGLOBIN 30.1 pg (29.0-33.0); MEAN CORPUSCULAR HGB CONC 31.5 g/dl (32.0-37.0); MEAN CORPUSCULAR VOLUME 95.7 fl (82.0-101.0); MEAN PLATELET VOLUME 12.3 fl (7.4-10.4); MONOCYTE # 0.6 10^3/ul (0.3-0.9); MONOCYTES % 5.4 % (0.0-11.0); NEUTROPHIL # 8.7 10^3/ul (1.6-7.5); NEUTROPHILS % 80.7 % (39.0-77.0); PLATELET COUNT 170 10^3/UL (140-415); RED BLOOD COUNT 2.82 10^6/ul (4.70-6.10); RED CELL DISTRIBUTION WIDTH 16.7 % (11.5-14.5); WHITE BLOOD COUNT 10.8 10^3/ul (4.8-10.8)
[2017-04-08 07:36] LABS: CALCIUM 8.5 mg/dl (8.4-10.2); CREATININE 2.84 mg/dl (0.61-1.24); PHOSPHORUS 1.7 mg/dl (2.5-4.9); POTASSIUM 3.5 mmol/L (3.5-5.1)
--- NOTE | 2017-04-08 08:53 | PN ---
Date/Time of Note Date/Time of Note DATE: 04/08/17 TIME: 08:50 Assessment/Plan VTE Prophylaxis VTE Prophylaxis Intervention: SCD's Lines/Catheters IV Catheter Type (from [facility], [place]): PICC Line Central line still needed: Yes Urinary Cath still in place: No Assessment/Plan Chief Complaint/Hosp Course 1. History of extensive coronary artery disease: Currently with no angina Continue Plavix. off of aspirin due to concerns about anemia and bleeding. Continue Coreg 2. 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 Defer to the pulmonary consultations. 3. Severe anemia: Etiology is unclear. Status post transfusions. will need to continue with the Plavix unfortunately given his recent PCI. 4. History of coronary artery bypass graft. 5. History of multiple PCI. most recent PCI was in November 2016 using a drug- eluting stent: Continue with the Plavix Continue beta-staci as tolerated. 6. Congestive heart failure: Chronic and stable due to severe LV dysfunction Continue with ARABELLA inhibitor and Coreg as tolerated. Fluid management as per dialysis per renal. 7. Dyslipidemia: Continue statin 8. History of hypertension currently stable on Coreg and ARABELLA inhibitor. 9. End-stage renal disease on hemodialysis. Will refer to the renal team 10. Sick sinus syndrome: Status post [employer] Efe's ICD device 11. Status post dual-chamber ICD: Coronary appears to be stable with no malfunction of the device. We will continue to monitor. Problems: Subjective 24 Hr Interval Summary Free Text/Dictation CARDIOLOGY FOLLOW UP NOTE: D/W staff and rhythm was reviewed pt remains in NSR. HR has remained stable pt still s/p trach on vent no reports of chest pain or pressure or palpitations. Meds reviewed. PHYSICAL EXAM: General: no acute distress. s/p trach on vent HEENT: NC/AT. pupils are equal. round. NECK: s/p trach. no stridor. CV: RRR. systolic murmur; no gallop or rubs. PULM: no wheezing. + mild rhonchi. GI: SOFT, NT, ND, no rebound or guarding s/p PEG Extremity: 1+ B/L LE edema.+ Upper ext edema. neuro: awake and alert, responds appropriately Psych: calm and pleasant rectal: deferred : normal male Derm: diffuse echymosis in the body chest: s/p ICD left side. no hematoma or bleeding. s/p HD access right chest. Exam/Review of Systems Vital Signs Vitals Vital Signs Date Time Temp Pulse Resp B/P Pulse Ox O2 Delivery O2 Flow Rate FiO2 04/08/17 08:09 59 04/08/17 07:36 98.1 19 164/74 99 04/08/17 07:15 35 04/06/17 18:45 Mechanical Ventilator Trach Collar Intake and Output 04/07/17 04/07/17 04/08/17 15:00 23:00 07:00 Intake Total 750 ml 800 ml Output Total 50 ml Balance 700 ml 800 ml Results Result Diagram: 04/08/17 0608 04/08/17 0608 Results 24 hrs Laboratory Tests Test 04/08/17 06:08 White Blood Count 10.8 Red Blood Count 2.82 L Hemoglobin 8.5 L Hematocrit 27.0 L Mean Corpuscular Volume 95.7 Mean Corpuscular Hemoglobin 30.1 Mean Corpuscular Hemoglobin Concent 31.5 L Red Cell Distribution Width 16.7 H Platelet Count 170 Mean Platelet Volume 12.3 H Neutrophils % 80.7 H Lymphocytes % 11.9 L Monocytes % 5.4 Eosinophils % 1.1 Basophils % 0.3 Nucleated Red Blood Cells % 0.0 Neutrophils # 8.7 H Lymphocytes # 1.3 Monocytes # 0.6 Eosinophils # 0.1 Basophils # 0.0 Nucleated Red Blood Cells # 0.0 Sodium Level 137 Potassium Level 3.5 Chloride Level 99 Carbon Dioxide Level 24 Anion Gap 18 H Blood Urea Nitrogen 52 H Creatinine 2.84 H Glucose Level 168 Calcium Level 8.5 Phosphorus Level 1.7 L Magnesium Level 2.0 Medications Medications Current Medications Acetaminophen (Tylenol Liquid) 650 mg Q6H PRN GTB PAIN OR TEMP ABOVE 38C Last administered on 04/07/17 03:55; Admin Dose 650 MG; Start 04/06/17 at 15:00 Atorvastatin Calcium (Lipitor) 20 mg QHS GTB Last administered on 04/07/17 21: 16; Admin Dose 20 MG; Start 04/06/17 at 21:00 Carvedilol (Coreg) 3.125 mg BID GTB Last administered on 04/06/17 21:27; Admin Dose 3.125 MG; Start 04/06/17 at 21:00 Chlorhexidine Gluconate (Peridex) 10 ml Q12 MM Last administered on 04/07/17 21 :16; Admin Dose 10 ML; Start 04/06/17 at 21:00 Clonidine (Catapres) 0.1 mg Q4H PRN GTB SBP > 170; Start 04/06/17 at 15:00 Clopidogrel Bisulfate (plaVIX) 75 mg DAILY GTB Last administered on 04/07/17 09 :06; Admin Dose 75 MG; Start 04/07/17 at 09:00 Diphenhydramine HCl (Benadryl Liquid Po Syr) 25 mg Q6H PRN GTB ITCHING; Start 04/06/17 at 15:00 Isosorbide Dinitrate (Isordil) 10 mg TID GTB Last administered on 04/07/17 21: 16; Admin Dose 10 MG; Start 04/06/17 at 21:00 Lactobacillus Acidophilus/ Rhamnosus (Culturelle) 1 cap DAILY GTB Last administered on 04/07/17 09:06; Admin Dose 1 CAP; Start 04/07/17 at 09:00 Lansoprazole (Prevacid) 30 mg DAILY@06 GTB Last administered on 04/08/17 05:29 ; Admin Dose 30 MG; Start 04/07/17 at 06:00 Levetiracetam (Keppra) 1,000 mg BID GTB Last administered on 04/07/17 21:16; Admin Dose 1,000 MG; Start 04/06/17 at 21:00 Lisinopril (Zestril) 5 mg BID GTB Last administered on 04/07/17 21:16; Admin Dose 5 MG; Start 04/06/17 at 21:00 Lorazepam (Ativan) 0.5 mg Q4H PRN GTB ANXIETY Last administered on 04/07/17 13: 46; Admin Dose 0.5 MG; Start 04/06/17 at 15:00 Multivitamins Therapeutic (Theragran) 1 tab DAILY GTB Last administered on 09:06; Admin Dose 1 TAB; Start 04/07/17 at 09:00 Spironolactone (Aldactone) 25 mg DAILY GTB Last administered on 04/07/17 09:06 ; Admin Dose 25 MG; Start 04/07/17 at 09:00 IV Flush (NS 10 ml) 10 ml PRN PRN IV flush; Start 04/06/17 at 16:30 Miscellaneous Information (Pending [facility] Order For Wound Care) This patient jenkins... PRN PRN XX WOUND CARE; Start 04/06/17 at 20:30 MOOKIE BESS MD Apr 08, 2017 08:53
[2017-04-08] MEDS: SPIRONOLACTONE 25 MG TAB GTB SCH (10:43)
[2017-04-08] MEDS: ISOSORBIDE DINITRATE 10 MG TAB GTB SCH ×3 (10:43→20:01)
[2017-04-08] MEDS: MULTIVITAMINS THERAPEUTIC TAB GTB SCH (10:43)
[2017-04-08] MEDS: LACTOBACILLUS RHAMNOSUS CAP GTB SCH (10:43)
[2017-04-08] MEDS: CLOPIDOGREL 75 MG TAB GTB SCH (10:43)
[2017-04-08] MEDS: LEVETIRACETAM 500 MG TAB GTB SCH ×2 (10:44→20:01)
[2017-04-08] MEDS: LISINOPRIL 5 MG TAB GTB SCH ×2 (10:45→20:00)
[2017-04-08] MEDS: CHLORHEXIDINE GLUCONATE 15 ML UD CUP MM SCH ×2 (10:45→20:00)
[2017-04-08] MEDS: NEUTRA-PHOS 250 MG PACKET NGT SCH ×2 (12:53→20:02)
--- NOTE | 2017-04-08 13:36 | CONS ---
Date/Time of Note Date/Time of Note DATE: 04/08/17 TIME: 13:34 Consult Date/Type/Reason Admit Date/Time Apr 08, 2017 at 10:24 Initial Consult Date 04/07/17 Type of Consultation: Pulmonary Subjective Patient appears comfortable this morning no new events Objective Vital Signs Date Time Temp Pulse Resp B/P Pulse Ox O2 Delivery O2 Flow Rate FiO2 04/08/17 13:00 66 25 97 35 04/08/17 11:37 98.3 125/93 04/06/17 18:45 Mechanical Ventilator Trach Collar Intake and Output 04/07/17 04/07/17 04/08/17 15:00 23:00 07:00 Intake Total 750 ml 800 ml Output Total 50 ml Balance 700 ml 800 ml Exam PHYSICAL EXAMINATION GENERAL: Elderly gentleman, on mechanical ventilation via tracheostomy VITAL SIGNS: see below. HEENT: Pupils equal, round, and reactive to light. Tracheostomy site clean and intact. CARDIAC: S1, S2, 1/6 systolic ejection murmur CHEST: Diminished air entry bilaterally. ABDOMEN: Mildly distended. Bowel sounds present no guarding or rebound EXTREMITIES: No cyanosis, clubbing edema +1 NEUROLOGIC: Generalized weakness Results/Medications Result Diagram: 04/08/17 0608 04/08/17 0608 Results 24 hrs Laboratory Tests Test 04/08/17 06:08 White Blood Count 10.8 Red Blood Count 2.82 L Hemoglobin 8.5 L Hematocrit 27.0 L Mean Corpuscular Volume 95.7 Mean Corpuscular Hemoglobin 30.1 Mean Corpuscular Hemoglobin Concent 31.5 L Red Cell Distribution Width 16.7 H Platelet Count 170 Mean Platelet Volume 12.3 H Neutrophils % 80.7 H Lymphocytes % 11.9 L Monocytes % 5.4 Eosinophils % 1.1 Basophils % 0.3 Nucleated Red Blood Cells % 0.0 Neutrophils # 8.7 H Lymphocytes # 1.3 Monocytes # 0.6 Eosinophils # 0.1 Basophils # 0.0 Nucleated Red Blood Cells # 0.0 Sodium Level 137 Potassium Level 3.5 Chloride Level 99 Carbon Dioxide Level 24 Anion Gap 18 H Blood Urea Nitrogen 52 H Creatinine 2.84 H Glucose Level 168 Calcium Level 8.5 Phosphorus Level 1.7 L Magnesium Level 2.0 Medications Current Medications Acetaminophen (Tylenol Liquid) 650 mg Q6H PRN GTB PAIN OR TEMP ABOVE 38C Last administered on 04/07/17 03:55; Admin Dose 650 MG; Start 04/06/17 at 15:00 Atorvastatin Calcium (Lipitor) 20 mg QHS GTB Last administered on 04/07/17 21: 16; Admin Dose 20 MG; Start 04/06/17 at 21:00 Carvedilol (Coreg) 3.125 mg BID GTB Last administered on 04/08/17 10:44; Admin Dose 3.125 MG; Start 04/06/17 at 21:00 Chlorhexidine Gluconate (Peridex) 10 ml Q12 MM Last administered on 04/08/17 10 :45; Admin Dose 10 ML; Start 04/06/17 at 21:00 Clonidine (Catapres) 0.1 mg Q4H PRN GTB SBP > 170; Start 04/06/17 at 15:00 Clopidogrel Bisulfate (plaVIX) 75 mg DAILY GTB Last administered on 04/08/17 10 :43; Admin Dose 75 MG; Start 04/07/17 at 09:00 Diphenhydramine HCl (Benadryl Liquid Po Syr) 25 mg Q6H PRN GTB ITCHING; Start 04/06/17 at 15:00 Isosorbide Dinitrate (Isordil) 10 mg TID GTB Last administered on 04/08/17 10: 43; Admin Dose 10 MG; Start 04/06/17 at 21:00 Lactobacillus Acidophilus/ Rhamnosus (Culturelle) 1 cap DAILY GTB Last administered on 04/08/17 10:43; Admin Dose 1 CAP; Start 04/07/17 at 09:00 Lansoprazole (Prevacid) 30 mg DAILY@06 GTB Last administered on 04/08/17 05:29 ; Admin Dose 30 MG; Start 04/07/17 at 06:00 Levetiracetam (Keppra) 1,000 mg BID GTB Last administered on 04/08/17 10:44; Admin Dose 1,000 MG; Start 04/06/17 at 21:00 Lisinopril (Zestril) 5 mg BID GTB Last administered on 04/08/17 10:45; Admin Dose 5 MG; Start 04/06/17 at 21:00 Lorazepam (Ativan) 0.5 mg Q4H PRN GTB ANXIETY Last administered on 04/07/17 13: 46; Admin Dose 0.5 MG; Start 04/06/17 at 15:00 Multivitamins Therapeutic (Theragran) 1 tab DAILY GTB Last administered on 10:43; Admin Dose 1 TAB; Start 04/07/17 at 09:00 Spironolactone (Aldactone) 25 mg DAILY GTB Last administered on 04/08/17 10:43 ; Admin Dose 25 MG; Start 04/07/17 at 09:00 IV Flush (NS 10 ml) 10 ml PRN PRN IV flush; Start 04/06/17 at 16:30 Miscellaneous Information (Pending [facility] Order For Wound Care) This patient jenkins... PRN PRN XX WOUND CARE; Start 04/06/17 at 20:30 Sodium Phosphate (Neutra-Phos) 250 mg BID NGT Last administered on 04/08/17 12: 53; Admin Dose 250 MG; Start 04/08/17 at 12:00 Assessment/Plan Chief Complaint/Hosp Course 81-year-old gentleman with a history of ventilator dependent respiratory failure transferred from [facility] facility for evaluation of anemia. No evidence of acute GI bleeding no hemodynamic instability patient remains stable on mechanical ventilation. Problems: Additional Assessment/Plan Assessment 1. Anemia likely multifactorial combination of chronic kidney disease, possible dilutional possible GI bleed. 2. Vent dependent respiratory failure 3. Encephalopathy acute on chronic 4. Dysphagia with G-tube 5. Seizure disorder 6. History of ischemic heart disease with ICD, mild pulmonary edema on chest x- ray Plan 1. Continue mechanical ventilation 2. Anemia workup 3. Monitor H&H posttransfusion 4. Renal recommendations with hemodialysis as needed. 5. Telemetry monitoring ZULMA MAE MD, [facility] Apr 08, 2017 13:36
[2017-04-08] MEDS: ATORVASTATIN 20 MG TAB GTB SCH (20:04)
--- NOTE | 2017-04-08 20:56 | CONS ---
Date/Time of Note Date/Time of Note DATE: 04/08/17 TIME: 20:56 Assessment/Plan Assessment/Plan Additional Assessment/Plan Patient examined full notes to follow Consultation Date/Type/Reason Admit Date/Time Apr 08, 2017 at 10:24 Social History Smoking Status: Unknown if ever smoked Exam/Review of Systems Vital Signs Vitals Vital Signs Date Time Temp Pulse Resp B/P Pulse Ox O2 Delivery O2 Flow Rate FiO2 04/08/17 19:59 99.2 57 20 137/65 97 04/08/17 19:42 35 04/06/17 18:45 Mechanical Ventilator Trach Collar Intake and Output 04/07/17 04/07/17 04/08/17 15:00 23:00 07:00 Intake Total 750 ml 800 ml Output Total 50 ml Balance 700 ml 800 ml Results Result Diagram: 04/08/17 0608 04/08/17 0608 Results 24 hrs Laboratory Tests Test 04/08/17 06:08 04/08/17 09:15 White Blood Count 10.8 Red Blood Count 2.82 L Hemoglobin 8.5 L Hematocrit 27.0 L Mean Corpuscular Volume 95.7 Mean Corpuscular Hemoglobin 30.1 Mean Corpuscular Hemoglobin Concent 31.5 L Red Cell Distribution Width 16.7 H Platelet Count 170 Mean Platelet Volume 12.3 H Neutrophils % 80.7 H Lymphocytes % 11.9 L Monocytes % 5.4 Eosinophils % 1.1 Basophils % 0.3 Nucleated Red Blood Cells % 0.0 Neutrophils # 8.7 H Lymphocytes # 1.3 Monocytes # 0.6 Eosinophils # 0.1 Basophils # 0.0 Nucleated Red Blood Cells # 0.0 Sodium Level 137 Potassium Level 3.5 Chloride Level 99 Carbon Dioxide Level 24 Anion Gap 18 H Blood Urea Nitrogen 52 H Creatinine 2.84 H Glucose Level 168 Calcium Level 8.5 Phosphorus Level 1.7 L Magnesium Level 2.0 Stool Occult Blood NEGATIVE Medications Medications Current Medications Acetaminophen (Tylenol Liquid) 650 mg Q6H PRN GTB PAIN OR TEMP ABOVE 38C Last administered on 04/07/17 03:55; Admin Dose 650 MG; Start 04/06/17 at 15:00 Atorvastatin Calcium (Lipitor) 20 mg QHS GTB Last administered on 04/08/17 20: 04; Admin Dose 20 MG; Start 04/06/17 at 21:00 Carvedilol (Coreg) 3.125 mg BID GTB Last administered on 04/08/17 10:44; Admin Dose 3.125 MG; Start 04/06/17 at 21:00 Chlorhexidine Gluconate (Peridex) 10 ml Q12 MM Last administered on 04/08/17 20 :00; Admin Dose 10 ML; Start 04/06/17 at 21:00 Clonidine (Catapres) 0.1 mg Q4H PRN GTB SBP > 170; Start 04/06/17 at 15:00 Clopidogrel Bisulfate (plaVIX) 75 mg DAILY GTB Last administered on 04/08/17 10 :43; Admin Dose 75 MG; Start 04/07/17 at 09:00 Diphenhydramine HCl (Benadryl Liquid Po Syr) 25 mg Q6H PRN GTB ITCHING; Start 04/06/17 at 15:00 Isosorbide Dinitrate (Isordil) 10 mg TID GTB Last administered on 04/08/17 20: 01; Admin Dose 10 MG; Start 04/06/17 at 21:00 Lactobacillus Acidophilus/ Rhamnosus (Culturelle) 1 cap DAILY GTB Last administered on 04/08/17 10:43; Admin Dose 1 CAP; Start 04/07/17 at 09:00 Lansoprazole (Prevacid) 30 mg DAILY@06 GTB Last administered on 04/08/17 05:29 ; Admin Dose 30 MG; Start 04/07/17 at 06:00 Levetiracetam (Keppra) 1,000 mg BID GTB Last administered on 04/08/17 20:01; Admin Dose 1,000 MG; Start 04/06/17 at 21:00 Lisinopril (Zestril) 5 mg BID GTB Last administered on 04/08/17 20:00; Admin Dose 5 MG; Start 04/06/17 at 21:00 Lorazepam (Ativan) 0.5 mg Q4H PRN GTB ANXIETY Last administered on 04/07/17 13: 46; Admin Dose 0.5 MG; Start 04/06/17 at 15:00 Multivitamins Therapeutic (Theragran) 1 tab DAILY GTB Last administered on 10:43; Admin Dose 1 TAB; Start 04/07/17 at 09:00 Spironolactone (Aldactone) 25 mg DAILY GTB Last administered on 04/08/17 10:43 ; Admin Dose 25 MG; Start 04/07/17 at 09:00 IV Flush (NS 10 ml) 10 ml PRN PRN IV flush; Start 04/06/17 at 16:30 Miscellaneous Information (Pending [facility] Order For Wound Care) This patient jenkins... PRN PRN XX WOUND CARE; Start 04/06/17 at 20:30 Sodium Phosphate (Neutra-Phos) 250 mg BID NGT Last administered on 04/08/17 20: 02; Admin Dose 250 MG; Start 04/08/17 at 12:00 LASHAY PATEL MD Apr 08, 2017 20:56
[2017-04-09] VITALS (22 sets, daily range): BP systolic 116–143; BP diastolic 54–76; PULSE 49–64; RESP 16–28
[2017-04-09] MEDS: LORAZEPAM 0.5 MG TAB GTB PRN ×3 (01:03→22:21)
[2017-04-09] MEDS: LANSOPRAZOLE 30 MG CAP GTB SCH (05:11)
[2017-04-09] MEDS: LEVOTHYROXINE 88 MCG TAB GTB SCH (06:03)
[2017-04-09 06:18] LABS: ADD SCAN DIFF NO
[2017-04-09 06:36] LABS: BASOPHILS % 0.2 % (0.0-2.0); EOSINOPHILS # 0.2 10^3/ul (0.0-0.5); EOSINOPHILS % 1.4 % (0.0-7.0); HEMATOCRIT 26.7 % (42.0-52.0); HEMOGLOBIN 8.7 g/dl (14.0-18.0); LYMPHOCYTES # 1.3 10^3/ul (0.8-2.9); MEAN CORPUSCULAR HEMOGLOBIN 31.1 pg (29.0-33.0); MEAN CORPUSCULAR HGB CONC 32.6 g/dl (32.0-37.0); MEAN CORPUSCULAR VOLUME 95.4 fl (82.0-101.0); MONOCYTE # 0.7 10^3/ul (0.3-0.9); MONOCYTES % 5.4 % (0.0-11.0); NEUTROPHIL # 10.7 10^3/ul (1.6-7.5); NEUTROPHILS % 82.5 % (39.0-77.0); PLATELET COUNT 182 10^3/UL (140-415)
[2017-04-09 06:47] LABS: CALCIUM 8.6 mg/dl (8.4-10.2); CREATININE 2.21 mg/dl (0.61-1.24); MAGNESIUM 1.9 mg/dl (1.7-2.5); PHOSPHORUS 1.4 mg/dl (2.5-4.9); POTASSIUM 3.4 mmol/L (3.5-5.1)
--- NOTE | 2017-04-09 08:58 | PN ---
Date/Time of Note Date/Time of Note DATE: 04/09/17 TIME: 08:57 Assessment/Plan VTE Prophylaxis VTE Prophylaxis Intervention: SCD's Lines/Catheters [facility] Central line still needed: Yes Urinary Cath still in place: No Assessment/Plan Chief Complaint/Hosp Course 1. History of extensive coronary artery disease: Currently with no angina Continue Plavix. off of aspirin due to concerns about anemia and bleeding. cont Coreg 2. 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 Defer to the pulmonary consultations. 3. Severe anemia: Etiology is unclear. Status post transfusions. will need to continue with the Plavix unfortunately given his recent PCI. 4. History of coronary artery bypass graft. 5. History of multiple PCI. most recent PCI was in November 2016 using a drug- eluting stent: Continue with the Plavix Continue beta-staci as tolerated. 6. Congestive heart failure: Chronic and stable due to severe LV dysfunction Continue and inc with ARABELLA inhibitor and Coreg as tolerated. Fluid management as per dialysis per renal. 7. Dyslipidemia: Continue statin 8. History of hypertension currently stable on Coreg and ARABELLA inhibitor. 9. End-stage renal disease on hemodialysis. Will refer to the renal team 10. Sick sinus syndrome: Status post [facility] ICD device 11. Status post dual-chamber ICD: Coronary appears to be stable with no malfunction of the device. We will continue to monitor. Problems: Subjective 24 Hr Interval Summary Free Text/Dictation CARDIOLOGY FOLLOW UP NOTE: D/W staff and rhythm was reviewed pt remains in NSR. HR has remained stable pt still s/p trach on vent no reports of chest pain or pressure or palpitations. Meds reviewed. PHYSICAL EXAM: General: no acute distress. s/p trach on vent HEENT: NC/AT. pupils are equal. round. NECK: s/p trach. no stridor. CV: RRR. systolic murmur; no gallop or rubs. PULM: no wheezing. + mild rhonchi. GI: SOFT, NT, ND, no rebound or guarding s/p PEG Extremity: 1+ B/L LE edema.+ Upper ext edema. neuro: awake and alert, responds appropriately Psych: calm and pleasant rectal: deferred : normal male Derm: diffuse echymosis in the body chest: s/p ICD left side. no hematoma or bleeding. s/p HD access right chest. Exam/Review of Systems Vital Signs Vitals Vital Signs Date Time Temp Pulse Resp B/P Pulse Ox O2 Delivery O2 Flow Rate FiO2 04/09/17 08:14 62 04/09/17 07:05 25 98 35 04/09/17 07:05 98.1 134/63 04/06/17 18:45 Mechanical Ventilator Trach Collar Intake and Output 04/08/17 04/08/17 04/09/17 15:00 23:00 07:00 Intake Total 1100 ml 800 ml Output Total 3000 ml 40 ml Balance -1900 ml 760 ml Results Result Diagram: 04/09/17 0555 04/09/17 0555 Results 24 hrs Laboratory Tests Test 04/08/17 09:15 04/09/17 05:55 04/09/17 07:14 Stool Occult Blood NEGATIVE White Blood Count 13.0 #H Red Blood Count 2.80 L Hemoglobin 8.7 L Hematocrit 26.7 L Mean Corpuscular Volume 95.4 Mean Corpuscular Hemoglobin 31.1 Mean Corpuscular Hemoglobin Concent 32.6 Red Cell Distribution Width 17.0 H Platelet Count 182 Mean Platelet Volume 12.0 H Neutrophils % 82.5 H Lymphocytes % 10.0 L Monocytes % 5.4 Eosinophils % 1.4 Basophils % 0.2 Nucleated Red Blood Cells % 0.0 Neutrophils # 10.7 H Lymphocytes # 1.3 Monocytes # 0.7 Eosinophils # 0.2 Basophils # 0.0 Nucleated Red Blood Cells # 0.0 Sodium Level 137 Potassium Level 3.4 L Chloride Level 92 L Carbon Dioxide Level 28 Anion Gap 20 H Blood Urea Nitrogen 42 H Creatinine 2.21 H Glucose Level 128 # Calcium Level 8.6 Phosphorus Level 1.4 L Magnesium Level 1.9 Lab Scanned Report BLOOD TRANSFUSION Medications Medications Current Medications Acetaminophen (Tylenol Liquid) 650 mg Q6H PRN GTB PAIN OR TEMP ABOVE 38C Last administered on 04/07/17 03:55; Admin Dose 650 MG; Start 04/06/17 at 15:00 Atorvastatin Calcium (Lipitor) 20 mg QHS GTB Last administered on 04/08/17 20: 04; Admin Dose 20 MG; Start 04/06/17 at 21:00 Carvedilol (Coreg) 3.125 mg BID GTB Last administered on 04/08/17 10:44; Admin Dose 3.125 MG; Start 04/06/17 at 21:00 Chlorhexidine Gluconate (Peridex) 10 ml Q12 MM Last administered on 04/08/17 20 :00; Admin Dose 10 ML; Start 04/06/17 at 21:00 Clonidine (Catapres) 0.1 mg Q4H PRN GTB SBP > 170; Start 04/06/17 at 15:00 Clopidogrel Bisulfate (plaVIX) 75 mg DAILY GTB Last administered on 04/08/17 10 :43; Admin Dose 75 MG; Start 04/07/17 at 09:00 Diphenhydramine HCl (Benadryl Liquid Po Syr) 25 mg Q6H PRN GTB ITCHING; Start 04/06/17 at 15:00 Isosorbide Dinitrate (Isordil) 10 mg TID GTB Last administered on 04/08/17 20: 01; Admin Dose 10 MG; Start 04/06/17 at 21:00 Lactobacillus Acidophilus/ Rhamnosus (Culturelle) 1 cap DAILY GTB Last administered on 04/08/17 10:43; Admin Dose 1 CAP; Start 04/07/17 at 09:00 Lansoprazole (Prevacid) 30 mg DAILY@06 GTB Last administered on 04/09/17 05:11 ; Admin Dose 30 MG; Start 04/07/17 at 06:00 Levetiracetam (Keppra) 1,000 mg BID GTB Last administered on 04/08/17 20:01; Admin Dose 1,000 MG; Start 04/06/17 at 21:00 Lisinopril (Zestril) 5 mg BID GTB Last administered on 04/08/17 20:00; Admin Dose 5 MG; Start 04/06/17 at 21:00 Lorazepam (Ativan) 0.5 mg Q4H PRN GTB ANXIETY Last administered on 04/09/17 06: 03; Admin Dose 0.5 MG; Start 04/06/17 at 15:00 Multivitamins Therapeutic (Theragran) 1 tab DAILY GTB Last administered on 10:43; Admin Dose 1 TAB; Start 04/07/17 at 09:00 Spironolactone (Aldactone) 25 mg DAILY GTB Last administered on 7/6/17at 10:43 ; Admin Dose 25 MG; Start 04/07/17 at 09:00 IV Flush (NS 10 ml) 10 ml PRN PRN IV flush; Start 04/06/17 at 16:30 Miscellaneous Information (Pending [facility] Order For Wound Care) This patient jenkins... PRN PRN XX WOUND CARE; Start 04/06/17 at 20:30 Sodium Phosphate (Neutra-Phos) 250 mg BID NGT Last administered on 04/08/17 20: 02; Admin Dose 250 MG; Start 04/08/17 at 12:00 MOOKIE BESS MD Apr 09, 2017 08:58
--- NOTE | 2017-04-09 09:17 | PN ---
Date/Time of Note Date/Time of Note DATE: 04/09/17 TIME: 09:13 Assessment/Plan Lines/Catheters IV Catheter Type (from Nrs): PICC Line Urinary Cath still in place: No Assessment/Plan Chief Complaint/Hosp Course 1. Anemia, etiology likely from chronic disease, rule out GI bleed. -Patient status post blood transfusion with appropriate response -Plan is to check iron panel, ferritin, stool occult ob negative x one, repeat stool ob pending -Continue Protonix, GI evaluation, continue Epogen 2. Leukocytosis. Etiology is unclear possibly reactive We will continue to monitor Repeat chest x-ray 2. End-stage renal disease. -Continue intermittent hemodialysis 3. Mineral bone disorder -Monitor calcium phosphorus levels 4 volume overload secondary to CHF end-stage renal disease -Continue ultrafiltration with dialysis 5. Dependent respiratory failure -Vent settings, ABG reviewed -Follow-up with pulmonary 6. Coronary disease,/cardiomyopathy -Status post pacemaker ICD placement -Continue medical management -Follow-up with cardiology 7. Seizure disorder -Continue Keppra 8. Hypothyroidism -Continue Synthroid 9. Dysphagia status post PEG -Continue tube feeds 10. Acute on chronic encephalotomy -Etiology toxic metabolic -Continue to monitor 11. Hypertension continue current blood pressure regimen 12. GI/DVT prophylaxis 13. Hypokalemia hypomagnesemia we will replete as needed Problems: Subjective 24 Hr Interval Summary Free Text/Dictation Patient stable had hemodialysis yesterday No other events noted Exam/Review of Systems Vital Signs Vitals Vital Signs Date Time Temp Pulse Resp B/P Pulse Ox O2 Delivery O2 Flow Rate FiO2 04/09/17 08:14 62 04/09/17 07:05 25 98 35 04/09/17 07:05 98.1 134/63 04/06/17 18:45 Mechanical Ventilator Trach Collar Intake and Output 04/08/17 04/08/17 04/09/17 15:00 23:00 07:00 Intake Total 1100 ml 800 ml Output Total 3000 ml 40 ml Balance -1900 ml 760 ml Exam HEENT head is normocephalic able to react Neck is supple positive straight Cardiovascular regular rate no gallops Lungs show diminished breath sounds at the base Abdomen soft nontender palpation positive Extremity nephrocalcinosis positive Dermatologically no rash Muscle skeletal no joint Neurologically no change in exam Results Result Diagram: 04/09/1755404/09/17554 Results 24 hrs Laboratory Tests Test 04/08/17 09:15 04/09/17 05:55 04/09/17 07:14 Stool Occult Blood NEGATIVE White Blood Count 13.0 #H Red Blood Count 2.80 L Hemoglobin 8.7 L Hematocrit 26.7 L Mean Corpuscular Volume 95.4 Mean Corpuscular Hemoglobin 31.1 Mean Corpuscular Hemoglobin Concent 32.6 Red Cell Distribution Width 17.0 H Platelet Count 182 Mean Platelet Volume 12.0 H Neutrophils % 82.5 H Lymphocytes % 10.0 L Monocytes % 5.4 Eosinophils % 1.4 Basophils % 0.2 Nucleated Red Blood Cells % 0.0 Neutrophils # 10.7 H Lymphocytes # 1.3 Monocytes # 0.7 Eosinophils # 0.2 Basophils # 0.0 Nucleated Red Blood Cells # 0.0 Sodium Level 137 Potassium Level 3.4 L Chloride Level 92 L Carbon Dioxide Level 28 Anion Gap 20 H Blood Urea Nitrogen 42 H Creatinine 2.21 H Glucose Level 128 # Calcium Level 8.6 Phosphorus Level 1.4 L Magnesium Level 1.9 Lab Scanned Report BLOOD TRANSFUSION Medications Medications Current Medications Acetaminophen (Tylenol Liquid) 650 mg Q6H PRN GTB PAIN OR TEMP ABOVE 38C Last administered on 04/07/17 03:55; Admin Dose 650 MG; Start 04/06/17 at 15:00 Atorvastatin Calcium (Lipitor) 20 mg QHS GTB Last administered on 04/08/17 20: 04; Admin Dose 20 MG; Start 04/06/17 at 21:00 Carvedilol (Coreg) 3.125 mg BID GTB Last administered on 04/08/17 10:44; Admin Dose 3.125 MG; Start 04/06/17 at 21:00 Chlorhexidine Gluconate (Peridex) 10 ml Q12 MM Last administered on 04/08/17 20 :00; Admin Dose 10 ML; Start 04/06/17 at 21:00 Clonidine (Catapres) 0.1 mg Q4H PRN GTB SBP > 170; Start 04/06/17 at 15:00 Clopidogrel Bisulfate (plaVIX) 75 mg DAILY GTB Last administered on 04/08/17 10 :43; Admin Dose 75 MG; Start 04/07/17 at 09:00 Diphenhydramine HCl (Benadryl Liquid Po Syr) 25 mg Q6H PRN GTB ITCHING; Start 04/06/17 at 15:00 Isosorbide Dinitrate (Isordil) 10 mg TID GTB Last administered on 04/08/17 20: 01; Admin Dose 10 MG; Start 04/06/17 at 21:00 Lactobacillus Acidophilus/ Rhamnosus (Culturelle) 1 cap DAILY GTB Last administered on 04/08/17 10:43; Admin Dose 1 CAP; Start 04/07/17 at 09:00 Lansoprazole (Prevacid) 30 mg DAILY@06 GTB Last administered on 04/09/17 05:11 ; Admin Dose 30 MG; Start 04/07/17 at 06:00 Levetiracetam (Keppra) 1,000 mg BID GTB Last administered on 04/08/17 20:01; Admin Dose 1,000 MG; Start 04/06/17 at 21:00 Lorazepam (Ativan) 0.5 mg Q4H PRN GTB ANXIETY Last administered on 04/09/17 06: 03; Admin Dose 0.5 MG; Start 04/06/17 at 15:00 Multivitamins Therapeutic (Theragran) 1 tab DAILY GTB Last administered on 10:43; Admin Dose 1 TAB; Start 04/07/17 at 09:00 Spironolactone (Aldactone) 25 mg DAILY GTB Last administered on 04/08/17 10:43 ; Admin Dose 25 MG; Start 04/07/17 at 09:00 IV Flush (NS 10 ml) 10 ml PRN PRN IV flush; Start 04/06/17 at 16:30 Miscellaneous Information (Pending [facility] Order For Wound Care) This patient jenkins... PRN PRN XX WOUND CARE; Start 04/06/17 at 20:30 Sodium Phosphate (Neutra-Phos) 250 mg BID NGT Last administered on 04/08/17 20: 02; Admin Dose 250 MG; Start 04/08/17 at 12:00 Lisinopril (Zestril) 10 mg BID GTB ; Start 04/09/17 at 09:00 ANNABELLE MENDOZA DO Apr 09, 2017 09:17
[2017-04-09] MEDS: CHLORHEXIDINE GLUCONATE 15 ML UD CUP MM SCH ×2 (09:58→20:22)
[2017-04-09] MEDS: LISINOPRIL 10 MG TAB GTB SCH ×2 (09:58→20:25)
[2017-04-09] MEDS: ISOSORBIDE DINITRATE 10 MG TAB GTB SCH ×3 (09:58→20:25)
[2017-04-09] MEDS: CLOPIDOGREL 75 MG TAB GTB SCH (09:58)
[2017-04-09] MEDS: LACTOBACILLUS RHAMNOSUS CAP GTB SCH (09:58)
[2017-04-09] MEDS: SPIRONOLACTONE 25 MG TAB GTB SCH (09:59)
[2017-04-09] MEDS: COLLAGENASE 30 GM TUBE TOP PRN (09:59)
[2017-04-09] MEDS: MULTIVITAMINS THERAPEUTIC TAB GTB SCH (09:59)
[2017-04-09] MEDS: LEVETIRACETAM 500 MG TAB GTB SCH ×2 (09:59→20:30)
[2017-04-09] MEDS: NEUTRA-PHOS 250 MG PACKET NGT SCH ×2 (09:59→20:22)
[2017-04-09] MEDS ORDERED: POTASSIUM PHOSPHATE 20 MEQ in SOD CHLORIDE 0.9% 250 ML IVPB ONE (10:30)
--- NOTE | 2017-04-09 13:37 | CONS ---
Date/Time of Note Date/Time of Note DATE: 04/09/17 TIME: 13:37 Consult Date/Type/Reason Admit Date/Time Apr 08, 2017 at 10:24 Initial Consult Date 04/07/17 Type of Consultation: Pulmonary Subjective Patient comfortable this morning no new events Objective Vital Signs Date Time Temp Pulse Resp B/P Pulse Ox O2 Delivery O2 Flow Rate FiO2 04/09/17 13:00 55 25 97 35 04/09/17 11:29 98.3 138/60 04/06/17 18:45 Mechanical Ventilator Trach Collar Intake and Output 04/08/17 04/08/17 04/09/17 15:00 23:00 07:00 Intake Total 1100 ml 800 ml Output Total 3000 ml 40 ml Balance -1900 ml 760 ml Exam PHYSICAL EXAMINATION GENERAL: Elderly gentleman, on mechanical ventilation via tracheostomy VITAL SIGNS: see below. HEENT: Pupils equal, round, and reactive to light. Tracheostomy site clean and intact. CARDIAC: S1, S2, 1/6 systolic ejection murmur CHEST: Diminished air entry bilaterally. ABDOMEN: Mildly distended. Bowel sounds present no guarding or rebound EXTREMITIES: No cyanosis, clubbing edema +1 NEUROLOGIC: Generalized weakness Results/Medications Result Diagram: 04/09/17 0555 04/09/17 0555 Results 24 hrs Laboratory Tests Test 04/09/17 05:55 04/09/17 07:14 White Blood Count 13.0 #H Red Blood Count 2.80 L Hemoglobin 8.7 L Hematocrit 26.7 L Mean Corpuscular Volume 95.4 Mean Corpuscular Hemoglobin 31.1 Mean Corpuscular Hemoglobin Concent 32.6 Red Cell Distribution Width 17.0 H Platelet Count 182 Mean Platelet Volume 12.0 H Neutrophils % 82.5 H Lymphocytes % 10.0 L Monocytes % 5.4 Eosinophils % 1.4 Basophils % 0.2 Nucleated Red Blood Cells % 0.0 Neutrophils # 10.7 H Lymphocytes # 1.3 Monocytes # 0.7 Eosinophils # 0.2 Basophils # 0.0 Nucleated Red Blood Cells # 0.0 Sodium Level 137 Potassium Level 3.4 L Chloride Level 92 L Carbon Dioxide Level 28 Anion Gap 20 H Blood Urea Nitrogen 42 H Creatinine 2.21 H Glucose Level 128 # Calcium Level 8.6 Phosphorus Level 1.4 L Magnesium Level 1.9 Lab Scanned Report BLOOD TRANSFUSION Medications Current Medications Acetaminophen (Tylenol Liquid) 650 mg Q6H PRN GTB PAIN OR TEMP ABOVE 38C Last administered on 04/07/17 03:55; Admin Dose 650 MG; Start 04/06/17 at 15:00 Atorvastatin Calcium (Lipitor) 20 mg QHS GTB Last administered on 04/08/17 20: 04; Admin Dose 20 MG; Start 04/06/17 at 21:00 Carvedilol (Coreg) 3.125 mg BID GTB Last administered on 04/09/17 09:58; Admin Dose 3.125 MG; Start 04/06/17 at 21:00 Chlorhexidine Gluconate (Peridex) 10 ml Q12 MM Last administered on 04/09/17 09 :58; Admin Dose 10 ML; Start 04/06/17 at 21:00 Clonidine (Catapres) 0.1 mg Q4H PRN GTB SBP > 170; Start 04/06/17 at 15:00 Clopidogrel Bisulfate (plaVIX) 75 mg DAILY GTB Last administered on 04/09/17 09 :58; Admin Dose 75 MG; Start 04/07/17 at 09:00 Diphenhydramine HCl (Benadryl Liquid Po Syr) 25 mg Q6H PRN GTB ITCHING; Start 04/06/17 at 15:00 Isosorbide Dinitrate (Isordil) 10 mg TID GTB Last administered on 04/09/17 09: 58; Admin Dose 10 MG; Start 04/06/17 at 21:00 Lactobacillus Acidophilus/ Rhamnosus (Culturelle) 1 cap DAILY GTB Last administered on 04/09/17 09:58; Admin Dose 1 CAP; Start 04/07/17 at 09:00 Lansoprazole (Prevacid) 30 mg DAILY@06 GTB Last administered on 04/09/17 05:11 ; Admin Dose 30 MG; Start 04/07/17 at 06:00 Levetiracetam (Keppra) 1,000 mg BID GTB Last administered on 04/09/17 09:59; Admin Dose 1,000 MG; Start 04/06/17 at 21:00 Lorazepam (Ativan) 0.5 mg Q4H PRN GTB ANXIETY Last administered on 04/09/17 06: 03; Admin Dose 0.5 MG; Start 04/06/17 at 15:00 Multivitamins Therapeutic (Theragran) 1 tab DAILY GTB Last administered on 09:59; Admin Dose 1 TAB; Start 04/07/17 at 09:00 Spironolactone (Aldactone) 25 mg DAILY GTB Last administered on 04/09/17 09:59 ; Admin Dose 25 MG; Start 04/07/17 at 09:00 IV Flush (NS 10 ml) 10 ml PRN PRN IV flush; Start 04/06/17 at 16:30 [facility] This patient jenkins... PRN PRN XX WOUND CARE; Start 04/06/17 at 20:30 Sodium Phosphate (Neutra-Phos) 250 mg BID NGT Last administered on 04/09/17 09: 59; Admin Dose 250 MG; Start 04/08/17 at 12:00 Lisinopril 10 mg 10 mg BID GTB Last administered on 04/09/17 09:58; Admin Dose 10 MG; Start 04/09/17 at 09:00 Potassium Phosphate/Sodium Chloride (K Phos (Meq)/NS) 254.5455 ml @ 63.636 m... ONCE ONCE IVPB Last administered on 04/09/17 11:18; Admin Dose 63.636 MLS /HR; Start 04/09/17 at 10:30; Stop 04/09/17 at 14:29 Assessment/Plan Chief Complaint/Hosp Course Assessment 1. Anemia likely multifactorial combination of chronic kidney disease, possible dilutional possible GI bleed. 2. Vent dependent respiratory failure 3. Encephalopathy acute on chronic 4. Dysphagia with G-tube 5. Seizure disorder 6. History of ischemic heart disease with ICD, mild pulmonary edema on chest x- ray Plan 1. Continue mechanical ventilation 2. Anemia workup 3. Monitor H&H posttransfusion 4. Renal recommendations with hemodialysis as needed. 5. Telemetry monitoring Consider discharge planning soon Problems: ZULMA MAE MD, [facility] Apr 09, 2017 13:37
--- NOTE | 2017-04-09 13:45 | RADRPT ---
PROCEDURE: XR Chest. CLINICAL INDICATION: 81-year-old male with renal failure. TECHNIQUE: Single frontal view of the chest was obtained. COMPARISON: Chest x-ray 02/05/2017 10:39 a.m. FINDINGS: A dual-chamber a pacemaker is noted with electrode leads at the level of the right atrium and right ventricle. There are degenerative osteophytes in the thoracic spine. Mediastinotomy has been per formed. A tracheostomy tube is well positioned near T3-T4. A dialysis catheter was placed over the interval with its tip in the superior vena cava. No pneumothorax is identified. The heart, cardio mediastinal silhouette and hilar structures are normal. The pulmonary vasculature is equilibrated. There are vascular calcifications and ectasia of the thoracic aorta. There are perihilar and basilar infiltrates which are slightly improved when compared to 02/05/2017. These are more extensive in t he right lung than left. Bilateral pleural effusions are noted. The right is larger than the left. IMPRESSION: 1. Congestive heart failure with interstitial pulmonary edema and bilateral pleural effusions. 2. Cardiomegaly. 3. Interval placement of a dual channel cardiac pacemaker with electrode leads projecting at the [place] christine of the right atrium and right ventricle. 4. Interval placement of a dialysis catheter with its tip in the superior vena cava. 5. The tracheostomy tube is well positioned near T4. 6. A PICC line catheter was removed over the interval. RPTAT:AAJJ Physician Fatoumata Date Time Electronically viewed and signed by Physician Fatoumata on 04/09/2017 13:44 SHARMAINE/
[2017-04-09] MEDS: CEFEPIME 1GM/50 ML (PMX) 50 ML IVPB SCH (18:28)
[2017-04-09] MEDS: ATORVASTATIN 20 MG TAB GTB SCH (20:22)
--- NOTE | 2017-04-09 22:27 | CONS ---
Date/Time of Note Date/Time of Note DATE: 04/09/17 TIME: 22:21 Assessment/Plan Assessment/Plan Additional Assessment/Plan 1,anemia mostly of chronic disease,r/o gi bleeding 2,VDRF 3,s/p AICD 5,ischemic cardiomyopathy 6,ESRD Plan stool for occult blood monitor H&H continue all supportive care Consultation Date/Type/Reason Admit Date/Time Apr 08, 2017 at 10:24 Initial Consult Date 04/07/17 Type of Consultation: Pulmonary Exam/Review of Systems Vital Signs Vitals Vital Signs Date Time Temp Pulse Resp B/P Pulse Ox O2 Delivery O2 Flow Rate FiO2 04/09/17 20:03 50 04/09/17 20:01 98.9 16 116/55 98 04/09/17 19:58 35 04/06/17 18:45 Mechanical Ventilator Trach Collar Intake and Output 04/08/17 04/08/17 04/09/17 15:00 23:00 07:00 Intake Total 1100 ml 800 ml Output Total 3000 ml 40 ml Balance -1900 ml 760 ml Exam Eyes: EOMI, PERRL, nl conjunctiva, nl lids, nl sclera ENMT: nl external ears & nose, nl lips & teeth, nl nasal mucosa & septum Respiratory: diminished breath sounds Cardiovascular: nl pulses, regular rate and rhythm Gastrointestinal: nl liver, spleen, non-tender, soft Musculoskeletal: nl extremities to inspection, nl gait and stance Extremities: normal pulses Neurological: confused Skin: nl turgor, No rash or lesions Results Result Diagram: 04/09/17 0555 04/09/17 0555 Results 24 hrs Laboratory Tests Test 04/09/17 05:55 04/09/17 07:14 04/09/17 18:00 White Blood Count 13.0 #H Red Blood Count 2.80 L Hemoglobin 8.7 L Hematocrit 26.7 L Mean Corpuscular Volume 95.4 Mean Corpuscular Hemoglobin 31.1 Mean Corpuscular Hemoglobin Concent 32.6 Red Cell Distribution Width 17.0 H Platelet Count 182 Mean Platelet Volume 12.0 H Neutrophils % 82.5 H Lymphocytes % 10.0 L Monocytes % 5.4 Eosinophils % 1.4 Basophils % 0.2 Nucleated Red Blood Cells % 0.0 Neutrophils # 10.7 H Lymphocytes # 1.3 Monocytes # 0.7 Eosinophils # 0.2 Basophils # 0.0 Nucleated Red Blood Cells # 0.0 Sodium Level 137 Potassium Level 3.4 L Chloride Level 92 L Carbon Dioxide Level 28 Anion Gap 20 H Blood Urea Nitrogen 42 H Creatinine 2.21 H Glucose Level 128 # Calcium Level 8.6 Phosphorus Level 1.4 L Magnesium Level 1.9 Lab Scanned Report BLOOD TRANSFUSION Stool Occult Blood NEGATIVE Medications Medications Current Medications Acetaminophen (Tylenol Liquid) 650 mg Q6H PRN GTB PAIN OR TEMP ABOVE 38C Last administered on 04/07/17 03:55; Admin Dose 650 MG; Start 04/06/17 at 15:00 Atorvastatin Calcium (Lipitor) 20 mg QHS GTB Last administered on 04/09/17 20: 22; Admin Dose 20 MG; Start 04/06/17 at 21:00 Carvedilol (Coreg) 3.125 mg BID GTB Last administered on 04/09/17 09:58; Admin Dose 3.125 MG; Start 04/06/17 at 21:00 Chlorhexidine Gluconate (Peridex) 10 ml Q12 MM Last administered on 04/09/17 20 :22; Admin Dose 10 ML; Start 04/06/17 at 21:00 Clonidine (Catapres) 0.1 mg Q4H PRN GTB SBP > 170; Start 04/06/17 at 15:00 Clopidogrel Bisulfate (plaVIX) 75 mg DAILY GTB Last administered on 04/09/17 09 :58; Admin Dose 75 MG; Start 04/07/17 at 09:00 Diphenhydramine HCl (Benadryl Liquid Po Syr) 25 mg Q6H PRN GTB ITCHING; Start 04/06/17 at 15:00 Isosorbide Dinitrate (Isordil) 10 mg TID GTB Last administered on 04/09/17 20: 25; Admin Dose 10 MG; Start 04/06/17 at 21:00 Lactobacillus Acidophilus/ Rhamnosus (Culturelle) 1 cap DAILY GTB Last administered on 04/09/17 09:58; Admin Dose 1 CAP; Start 04/07/17 at 09:00 Lansoprazole (Prevacid) 30 mg DAILY@06 GTB Last administered on 04/09/17 05:11 ; Admin Dose 30 MG; Start 04/07/17 at 06:00 Levetiracetam (Keppra) 1,000 mg BID GTB Last administered on 04/09/17 20:30; Admin Dose 1,000 MG; Start 04/06/17 at 21:00 Lorazepam (Ativan) 0.5 mg Q4H PRN GTB ANXIETY Last administered on 04/09/17 06: 03; Admin Dose 0.5 MG; Start 04/06/17 at 15:00 Multivitamins Therapeutic (Theragran) 1 tab DAILY GTB Last administered on 09:59; Admin Dose 1 TAB; Start 04/07/17 at 09:00 Spironolactone (Aldactone) 25 mg DAILY GTB Last administered on 04/09/17 09:59 ; Admin Dose 25 MG; Start 04/07/17 at 09:00 IV Flush (NS 10 ml) 10 ml PRN PRN IV flush; Start 04/06/17 at 16:30 Miscellaneous Information (Pending [facility] Order For Wound Care) This patient jenkins... PRN PRN XX WOUND CARE; Start 04/06/17 at 20:30 Sodium Phosphate (Neutra-Phos) 250 mg BID NGT Last administered on 04/09/17 20: 22; Admin Dose 250 MG; Start 04/08/17 at 12:00 Lisinopril 10 mg 10 mg BID GTB Last administered on 04/09/17 20:25; Admin Dose 10 MG; Start 04/09/17 at 09:00 Cefepime HCl (Maxipime 1gm/50 ml (Pmx)) 50 ml @ 100 mls/hr Q24H IVPB Last administered on 04/09/17 18:28; Admin Dose 100 MLS/HR; Start 04/09/17 at 17:00 LASHAY PATEL MD Apr 09, 2017 22:27
[2017-04-10] VITALS (36 sets, daily range): BP systolic 101–157; BP diastolic 54–77; PULSE 50–62; RESP 12–28
[2017-04-10] MEDS ORDERED: NACL 3% FOR INHALATION 15 ML NEBU NEB ONE (02:00)
[2017-04-10] MEDS: LANSOPRAZOLE 30 MG CAP GTB SCH (05:11)
[2017-04-10] MEDS: LEVOTHYROXINE 88 MCG TAB GTB SCH (05:11)
[2017-04-10 07:44] LABS: ADD SCAN DIFF NO
[2017-04-10 07:50] LABS: BASOPHILS % 0.3 % (0.0-2.0); EOSINOPHILS # 0.3 10^3/ul (0.0-0.5); EOSINOPHILS % 2.6 % (0.0-7.0); HEMATOCRIT 25.9 % (42.0-52.0); HEMOGLOBIN 8.4 g/dl (14.0-18.0); LYMPHOCYTES # 1.2 10^3/ul (0.8-2.9); LYMPHOCYTES % 11.1 % (15.0-51.0); MEAN CORPUSCULAR HEMOGLOBIN 30.8 pg (29.0-33.0); MEAN CORPUSCULAR HGB CONC 32.4 g/dl (32.0-37.0); MEAN CORPUSCULAR VOLUME 94.9 fl (82.0-101.0); MEAN PLATELET VOLUME 12.4 fl (7.4-10.4); MONOCYTE # 0.8 10^3/ul (0.3-0.9); MONOCYTES % 6.9 % (0.0-11.0); NEUTROPHIL # 8.8 10^3/ul (1.6-7.5); NEUTROPHILS % 78.3 % (39.0-77.0); PLATELET COUNT 187 10^3/UL (140-415); RED BLOOD COUNT 2.73 10^6/ul (4.70-6.10); RED CELL DISTRIBUTION WIDTH 17.2 % (11.5-14.5); WHITE BLOOD COUNT 11.2 10^3/ul (4.8-10.8)
[2017-04-10 08:15] LABS: CREATININE 2.92 mg/dl (0.61-1.24); MAGNESIUM 1.8 mg/dl (1.7-2.5); PHOSPHORUS 2.2 mg/dl (2.5-4.9); POTASSIUM 3.8 mmol/L (3.5-5.1)
[2017-04-10] MEDS: MULTIVITAMINS THERAPEUTIC TAB GTB SCH (09:23)
[2017-04-10] MEDS: NEUTRA-PHOS 250 MG PACKET NGT SCH ×2 (09:23→21:01)
[2017-04-10] MEDS: CHLORHEXIDINE GLUCONATE 15 ML UD CUP MM SCH ×2 (09:23→21:01)
[2017-04-10] MEDS: CLOPIDOGREL 75 MG TAB GTB SCH (09:23)
[2017-04-10] MEDS: ISOSORBIDE DINITRATE 10 MG TAB GTB SCH ×3 (09:23→21:02)
[2017-04-10] MEDS: LEVETIRACETAM 500 MG TAB GTB SCH ×2 (09:23→21:01)
[2017-04-10] MEDS: LISINOPRIL 10 MG TAB GTB SCH ×2 (09:23→21:01)
[2017-04-10] MEDS: LACTOBACILLUS RHAMNOSUS CAP GTB SCH (09:23)
[2017-04-10] MEDS: SPIRONOLACTONE 25 MG TAB GTB SCH (09:23)
--- NOTE | 2017-04-10 10:39 | CONS ---
Date/Time of Note Date/Time of Note DATE: 04/10/17 TIME: 10:35 Consult Date/Type/Reason Admit Date/Time Apr 08, 2017 at 10:24 Initial Consult Date 04/07/17 Type of Consultation: neph Subjective Patient stable on hd today. poc reviewed with dr. saenz. noted to have agitation and pulling tubes and combative. Exam HEENT head is normocephalic able to react Neck is supple positive straight Cardiovascular regular rate no gallops Lungs show diminished breath sounds at the base Abdomen soft nontender palpation positive Extremity nephrocalcinosis positive Dermatologically no rash Muscle skeletal no joint Neurologically no change in exam Objective Vital Signs Date Time Temp Pulse Resp B/P Pulse Ox O2 Delivery O2 Flow Rate FiO2 04/10/17 10:19 98.6 55 28 140/60 96 04/10/17 05:20 35 04/06/17 18:45 Mechanical Ventilator Trach Collar Intake and Output 04/09/17 04/09/17 04/10/17 15:00 23:00 07:00 Intake Total 1104.5455 ml Output Total 20 ml Balance 1084.5455 ml Results/Medications Result Diagram: 04/10/17 0600 04/10/17 0600 Results 24 hrs Laboratory Tests Test 04/09/17 18:00 04/10/17 06:00 Stool Occult Blood NEGATIVE White Blood Count 11.2 H Red Blood Count 2.73 L Hemoglobin 8.4 L Hematocrit 25.9 L Mean Corpuscular Volume 94.9 Mean Corpuscular Hemoglobin 30.8 Mean Corpuscular Hemoglobin Concent 32.4 Red Cell Distribution Width 17.2 H Platelet Count 187 Mean Platelet Volume 12.4 H Neutrophils % 78.3 H Lymphocytes % 11.1 L Monocytes % 6.9 Eosinophils % 2.6 Basophils % 0.3 Nucleated Red Blood Cells % 0.0 Neutrophils # 8.8 H Lymphocytes # 1.2 Monocytes # 0.8 Eosinophils # 0.3 Basophils # 0.0 Nucleated Red Blood Cells # 0.0 Sodium Level 133 L Potassium Level 3.8 Chloride Level 95 L Carbon Dioxide Level 26 Anion Gap 16 Blood Urea Nitrogen 63 H Creatinine 2.92 H Glucose Level 100 Calcium Level 8.0 L Phosphorus Level 2.2 L Magnesium Level 1.8 Medications Current Medications Acetaminophen (Tylenol Liquid) 650 mg Q6H PRN GTB PAIN OR TEMP ABOVE 38C Last administered on 04/07/17 03:55; Admin Dose 650 MG; Start 04/06/17 at 15:00 Atorvastatin Calcium (Lipitor) 20 mg QHS GTB Last administered on 04/09/17 20: 22; Admin Dose 20 MG; Start 04/06/17 at 21:00 Carvedilol (Coreg) 3.125 mg BID GTB Last administered on 04/10/17 09:24; Admin Dose 3.125 MG; Start 04/06/17 at 21:00 Chlorhexidine Gluconate (Peridex) 10 ml Q12 MM Last administered on 04/10/17 09 :23; Admin Dose 10 ML; Start 04/06/17 at 21:00 Clonidine (Catapres) 0.1 mg Q4H PRN GTB SBP > 170; Start 04/06/17 at 15:00 Clopidogrel Bisulfate (plaVIX) 75 mg DAILY GTB Last administered on 04/10/17 09 :23; Admin Dose 75 MG; Start 04/07/17 at 09:00 Diphenhydramine HCl (Benadryl Liquid Po Syr) 25 mg Q6H PRN GTB ITCHING; Start 04/06/17 at 15:00 Isosorbide Dinitrate (Isordil) 10 mg TID GTB Last administered on 04/10/17 09: 23; Admin Dose 10 MG; Start 04/06/17 at 21:00 Lactobacillus Acidophilus/ Rhamnosus (Culturelle) 1 cap DAILY GTB Last administered on 04/10/17 09:23; Admin Dose 1 CAP; Start 04/07/17 at 09:00 Lansoprazole (Prevacid) 30 mg DAILY@06 GTB Last administered on 04/10/17 05:11 ; Admin Dose 30 MG; Start 04/07/17 at 06:00 Levetiracetam (Keppra) 1,000 mg BID GTB Last administered on 04/10/17 09:23; Admin Dose 1,000 MG; Start 04/06/17 at 21:00 Lorazepam (Ativan) 0.5 mg Q4H PRN GTB ANXIETY Last administered on 04/09/17 22: 21; Admin Dose 0.5 MG; Start 04/06/17 at 15:00 Multivitamins Therapeutic (Theragran) 1 tab DAILY GTB Last administered on 09:23; Admin Dose 1 TAB; Start 04/07/17 at 09:00 Spironolactone (Aldactone) 25 mg DAILY GTB Last administered on 04/10/17 09:23 ; Admin Dose 25 MG; Start 04/07/17 at 09:00 IV Flush (NS 10 ml) 10 ml PRN PRN IV flush; Start 04/06/17 at 16:30 [facility] This patient jenkins... PRN PRN XX WOUND CARE; Start 04/06/17 at 20:30 Sodium Phosphate (Neutra-Phos) 250 mg BID NGT Last administered on 04/10/17 09: 23; Admin Dose 250 MG; Start 04/08/17 at 12:00 Lisinopril 10 mg 10 mg BID GTB Last administered on 04/10/17 09:23; Admin Dose 10 MG; Start 04/09/17 at 09:00 Cefepime HCl (Maxipime 1gm/50 ml (Pmx)) 50 ml @ 100 mls/hr Q24H IVPB Last administered on 04/09/17 18:28; Admin Dose 100 MLS/HR; Start 04/09/17 at 17:00 Assessment/Plan Chief Complaint/Hosp Course 1. Anemia, etiology likely from chronic disease, rule out GI bleed. -Patient status post blood transfusion with appropriate response -Plan is to check iron panel, ferritin, stool occult ob negative x one, repeat stool ob pending -Continue Protonix, GI evaluation, continue Epogen 2. Leukocytosis. Etiology is unclear possibly reactive We will continue to monitor Repeat chest x-ray 2. End-stage renal disease. -Continue intermittent hemodialysis -assess daily for hd need. 3. Mineral bone disorder -Monitor calcium phosphorus levels 4 volume overload secondary to CHF end-stage renal disease -Continue ultrafiltration with dialysis 5. Dependent respiratory failure -Vent settings, ABG reviewed -Follow-up with pulmonary 6. Coronary disease,/cardiomyopathy -Status post pacemaker ICD placement -Continue medical management -Follow-up with cardiology 7. Seizure disorder -Continue Keppra 8. Hypothyroidism -Continue Synthroid 9. Dysphagia status post PEG -Continue tube feeds 10. Acute on chronic encephalotomy -Etiology toxic metabolic -Continue to monitor 11. Hypertension continue current blood pressure regimen 12. GI/DVT prophylaxis 13. Hypokalemia hypomagnesemia we will replete as needed Problems: ANNIE GUTIERREZ MD Apr 10, 2017 10:39
--- NOTE | 2017-04-10 12:57 | CONS ---
Date/Time of Note Date/Time of Note DATE: 04/10/17 TIME: 12:57 Assessment/Plan Assessment/Plan Additional Assessment/Plan 1,anemia mostly of chronic disease,r/o gi bleeding 2,VDRF 3,s/p AICD 5,ischemic cardiomyopathy 6,ESRD Plan stool for occult blood, it is negative. Patient had a few positive stool guaiac when he was in [place] monitor H&H continue all supportive care Consultation Date/Type/Reason Admit Date/Time Apr 08, 2017 at 10:24 Initial Consult Date 04/07/17 Type of Consultation: neph 24 HR Interval Summary Constitutional: no complaints Exam/Review of Systems Vital Signs Vitals Vital Signs Date Time Temp Pulse Resp B/P Pulse Ox O2 Delivery O2 Flow Rate FiO2 04/10/17 12:16 52 04/10/17 12:13 98.5 25 155/77 96 04/10/17 05:20 35 04/06/17 18:45 Mechanical Ventilator Trach Collar Intake and Output 04/09/17 04/09/17 04/10/17 15:00 23:00 07:00 Intake Total 1104.5455 ml Output Total 20 ml Balance 1084.5455 ml Exam Constitutional: alert, oriented, well developed Psych: nl mood/affect, no complaints Head: atraumatic, normocephalic Eyes: EOMI, PERRL, nl conjunctiva, nl lids, nl sclera ENMT: nl external ears & nose, nl lips & teeth, nl nasal mucosa & septum Neck: non-tender, supple Respiratory: clear to auscultation, normal air movement Cardiovascular: nl pulses, regular rate and rhythm Gastrointestinal: nl liver, spleen, non-tender, soft Musculoskeletal: nl extremities to inspection, nl gait and stance Extremities: normal pulses Neurological: CHIP [employer] TENDER II-XII intact, nl mental status, nl speech, nl strength Skin: nl turgor, No rash or lesions Lymph: nl lymph nodes Results Result Diagram: 04/10/17 0600 04/10/17 0600 Results 24 hrs Laboratory Tests Test 04/09/17 18:00 04/10/17 06:00 Stool Occult Blood NEGATIVE White Blood Count 11.2 H Red Blood Count 2.73 L Hemoglobin 8.4 L Hematocrit 25.9 L Mean Corpuscular Volume 94.9 Mean Corpuscular Hemoglobin 30.8 Mean Corpuscular Hemoglobin Concent 32.4 Red Cell Distribution Width 17.2 H Platelet Count 187 Mean Platelet Volume 12.4 H Neutrophils % 78.3 H Lymphocytes % 11.1 L Monocytes % 6.9 Eosinophils % 2.6 Basophils % 0.3 Nucleated Red Blood Cells % 0.0 Neutrophils # 8.8 H Lymphocytes # 1.2 Monocytes # 0.8 Eosinophils # 0.3 Basophils # 0.0 Nucleated Red Blood Cells # 0.0 Sodium Level 133 L Potassium Level 3.8 Chloride Level 95 L Carbon Dioxide Level 26 Anion Gap 16 Blood Urea Nitrogen 63 H Creatinine 2.92 H Glucose Level 100 Calcium Level 8.0 L Phosphorus Level 2.2 L Magnesium Level 1.8 Medications Medications Current Medications Acetaminophen (Tylenol Liquid) 650 mg Q6H PRN GTB PAIN OR TEMP ABOVE 38C Last administered on 04/07/17 03:55; Admin Dose 650 MG; Start 04/06/17 at 15:00 Atorvastatin Calcium (Lipitor) 20 mg QHS GTB Last administered on 04/09/17 20: 22; Admin Dose 20 MG; Start 04/06/17 at 21:00 Carvedilol (Coreg) 3.125 mg BID GTB Last administered on 04/10/17 09:24; Admin Dose 3.125 MG; Start 04/06/17 at 21:00 Chlorhexidine Gluconate (Peridex) 10 ml Q12 MM Last administered on 04/10/17 09 :23; Admin Dose 10 ML; Start 04/06/17 at 21:00 Clonidine (Catapres) 0.1 mg Q4H PRN GTB SBP > 170; Start 04/06/17 at 15:00 Clopidogrel Bisulfate (plaVIX) 75 mg DAILY GTB Last administered on 04/10/17 09 :23; Admin Dose 75 MG; Start 04/07/17 at 09:00 Diphenhydramine HCl (Benadryl Liquid Po Syr) 25 mg Q6H PRN GTB ITCHING; Start 04/06/17 at 15:00 Isosorbide Dinitrate (Isordil) 10 mg TID GTB Last administered on 04/10/17 09: 23; Admin Dose 10 MG; Start 04/06/17 at 21:00 Lactobacillus Acidophilus/ Rhamnosus (Culturelle) 1 cap DAILY GTB Last administered on 04/10/17 09:23; Admin Dose 1 CAP; Start 04/07/17 at 09:00 Lansoprazole (Prevacid) 30 mg DAILY@06 GTB Last administered on 04/10/17 05:11 ; Admin Dose 30 MG; Start 04/07/17 at 06:00 Levetiracetam (Keppra) 1,000 mg BID GTB Last administered on 04/10/17 09:23; Admin Dose 1,000 MG; Start 04/06/17 at 21:00 Lorazepam (Ativan) 0.5 mg Q4H PRN GTB ANXIETY Last administered on 04/09/17 22: 21; Admin Dose 0.5 MG; Start 04/06/17 at 15:00 Multivitamins Therapeutic (Theragran) 1 tab DAILY GTB Last administered on 09:23; Admin Dose 1 TAB; Start 04/07/17 at 09:00 Spironolactone (Aldactone) 25 mg DAILY GTB Last administered on 04/10/17 09:23 ; Admin Dose 25 MG; Start 04/07/17 at 09:00 IV Flush (NS 10 ml) 10 ml PRN PRN IV flush; Start 04/06/17 at 16:30 Miscellaneous Information (Pending Santyl Order For Wound Care) This patient jenkins... PRN PRN XX WOUND CARE; Start 04/06/17 at 20:30 Sodium Phosphate (Neutra-Phos) 250 mg BID NGT Last administered on 04/10/17 09: 23; Admin Dose 250 MG; Start 04/08/17 at 12:00 Lisinopril 10 mg 10 mg BID GTB Last administered on 04/10/17 09:23; Admin Dose 10 MG; Start 04/09/17 at 09:00 Cefepime HCl (Maxipime 1gm/50 ml (Pmx)) 50 ml @ 100 mls/hr Q24H IVPB Last administered on 04/09/17 18:28; Admin Dose 100 MLS/HR; Start 04/09/17 at 17:00 LASHAY PATEL MD Apr 10, 2017 12:57
[2017-04-10] MEDS: CEFEPIME 1GM/50 ML (PMX) 50 ML IVPB SCH (16:45)
[2017-04-10] MEDS: EPOETIN 10000 UNITS/1 ML INJ (ESRD) SC SCH (17:18)
--- NOTE | 2017-04-10 18:06 | CONS ---
Date/Time of Note Date/Time of Note DATE: 04/10/17 TIME: 18:05 Consult Date/Type/Reason Admit Date/Time Apr 08, 2017 at 10:24 Initial Consult Date 04/07/17 Type of Consultation: Pulm Subjective No events[facility] Objective Vital Signs Date Time Temp Pulse Resp B/P Pulse Ox O2 Delivery O2 Flow Rate FiO2 04/10/17 16:57 59 04/10/17 16:26 98.5 22 134/62 94 Mechanical Ventilator 04/10/17 08:30 35 Intake and Output 04/09/17 04/09/17 04/10/17 15:00 23:00 07:00 Intake Total 1104.5455 ml Output Total 20 ml Balance 1084.5455 ml Exam HEENT: Pupils equal, round, and reactive to light. Tracheostomy site clean and intact. CARDIAC: S1, S2, 1/6 systolic ejection murmur CHEST: Diminished air entry bilaterally. ABDOMEN: Mildly distended. Bowel sounds present no guarding or rebound EXTREMITIES: No cyanosis, clubbing edema +1 Results/Medications Result Diagram: 04/10/17 0600 04/10/17 0600 Results 24 hrs Laboratory Tests Test 04/10/17 06:00 White Blood Count 11.2 H Red Blood Count 2.73 L Hemoglobin 8.4 L Hematocrit 25.9 L Mean Corpuscular Volume 94.9 Mean Corpuscular Hemoglobin 30.8 Mean Corpuscular Hemoglobin Concent 32.4 Red Cell Distribution Width 17.2 H Platelet Count 187 Mean Platelet Volume 12.4 H Neutrophils % 78.3 H Lymphocytes % 11.1 L Monocytes % 6.9 Eosinophils % 2.6 Basophils % 0.3 Nucleated Red Blood Cells % 0.0 Neutrophils # 8.8 H Lymphocytes # 1.2 Monocytes # 0.8 Eosinophils # 0.3 Basophils # 0.0 Nucleated Red Blood Cells # 0.0 Sodium Level 133 L Potassium Level 3.8 Chloride Level 95 L Carbon Dioxide Level 26 Anion Gap 16 Blood Urea Nitrogen 63 H Creatinine 2.92 H Glucose Level 100 Calcium Level 8.0 L Phosphorus Level 2.2 L Magnesium Level 1.8 Medications Current Medications Acetaminophen (Tylenol Liquid) 650 mg Q6H PRN GTB PAIN OR TEMP ABOVE 38C Last administered on 04/07/17t 03:55; Admin Dose 650 MG; Start 04/06/17 at 15:00 Atorvastatin Calcium (Lipitor) 20 mg QHS GTB Last administered on 04/09/17 20: 22; Admin Dose 20 MG; Start 04/06/17 at 21:00 Carvedilol (Coreg) 3.125 mg BID GTB Last administered on 04/10/17 09:24; Admin Dose 3.125 MG; Start 04/06/17 at 21:00 Chlorhexidine Gluconate (Peridex) 10 ml Q12 MM Last administered on 04/10/17 09 :23; Admin Dose 10 ML; Start 04/06/17 at 21:00 Clonidine (Catapres) 0.1 mg Q4H PRN GTB SBP > 170; Start 04/06/17 at 15:00 Clopidogrel Bisulfate (plaVIX) 75 mg DAILY GTB Last administered on 04/10/17 09 :23; Admin Dose 75 MG; Start 04/07/17 at 09:00 Diphenhydramine HCl (Benadryl Liquid Po Syr) 25 mg Q6H PRN GTB ITCHING; Start 04/06/17 at 15:00 Isosorbide Dinitrate (Isordil) 10 mg TID GTB Last administered on 04/10/17 15: 55; Admin Dose 10 MG; Start 04/06/17 at 21:00 Lactobacillus Acidophilus/ Rhamnosus (Culturelle) 1 cap DAILY GTB Last administered on 04/10/17 09:23; Admin Dose 1 CAP; Start 04/07/17 at 09:00 Lansoprazole (Prevacid) 30 mg DAILY@06 GTB Last administered on 04/10/17 05:11 ; Admin Dose 30 MG; Start 04/07/17 at 06:00 Levetiracetam (Keppra) 1,000 mg BID GTB Last administered on 04/10/17 09:23; Admin Dose 1,000 MG; Start 04/06/17 at 21:00 Lorazepam (Ativan) 0.5 mg Q4H PRN GTB ANXIETY Last administered on 04/09/17 22: 21; Admin Dose 0.5 MG; Start 04/06/17 at 15:00 Multivitamins Therapeutic (Theragran) 1 tab DAILY GTB Last administered on 09:23; Admin Dose 1 TAB; Start 04/07/17 at 09:00 Spironolactone (Aldactone) 25 mg DAILY GTB Last administered on 04/10/17 09:23 ; Admin Dose 25 MG; Start 04/07/17 at 09:00 IV Flush (NS 10 ml) 10 ml PRN PRN IV flush; Start 04/06/17 at 16:30 Miscellaneous Information (Pending [facility]yl Order For Wound Care) This patient jenkins... PRN PRN XX WOUND CARE; Start 04/06/17 at 20:30 Sodium Phosphate (Neutra-Phos) 250 mg BID NGT Last administered on 04/10/17 09: 23; Admin Dose 250 MG; Start 04/08/17 at 12:00 Lisinopril 10 mg 10 mg BID GTB Last administered on 04/10/17 09:23; Admin Dose 10 MG; Start 04/09/17 at 09:00 Cefepime HCl (Maxipime 1gm/50 ml (Pmx)) 50 ml @ 100 mls/hr Q24H IVPB Last administered on 04/10/17 16:45; Admin Dose 100 MLS/HR; Start 04/09/17 at 17:00 Assessment/Plan Additional Assessment/Plan IMP: 1. Anemia likely multifactorial combination of chronic kidney disease, possible dilutional possible GI bleed. 2. Vent dependent respiratory failure 3. Encephalopathy acute on chronic 4. Dysphagia with G-tube 5. Seizure disorder 6. History of ischemic heart disease with ICD, mild pulmonary edema on chest x- ray RECS: 1. Adjust vent settings 2. Am ALBARO READ MD Apr 10, 2017 18:06
[2017-04-10] MEDS: ATORVASTATIN 20 MG TAB GTB SCH (21:01)
[2017-04-10] MEDS: LORAZEPAM 0.5 MG TAB GTB PRN (22:42)
[2017-04-11] VITALS (31 sets, daily range): BP systolic 105–150; BP diastolic 51–82; PULSE 52–60; RESP 12–31
[2017-04-11] MEDS: ACETAMINOPHEN 650MG/20.3ML CUP GTB PRN ×2 (04:11→21:13)
[2017-04-11] MEDS: COLLAGENASE 30 GM TUBE TOP PRN (05:00)
[2017-04-11] MEDS: LEVOTHYROXINE 88 MCG TAB GTB SCH (05:34)
[2017-04-11] MEDS: LANSOPRAZOLE 30 MG CAP GTB SCH (05:34)
[2017-04-11 07:47] LABS: AADO2 Arterial 125.8 mmHg (7.0-24.0); Allen Test ACCEPTAB; Arterial Base Excess 0.5 mmol/L (-3.0-3); Arterial COHb 0.2 % (0.0-3.0); Arterial Fraction of Oxyhgb 96.6 % (93.0-99.0); Arterial HCO3 22.3 mmol/L (22.0-26.0); Arterial MetHb 0.2 % (0.0-1.5); Arterial Total Hemglobin 11.2 g/dl (12.0-18.0); MODE VENT - AC
[2017-04-11] MEDS: MULTIVITAMINS THERAPEUTIC TAB GTB SCH (09:11)
[2017-04-11] MEDS: LEVETIRACETAM 500 MG TAB GTB SCH ×2 (09:12→21:12)
[2017-04-11] MEDS: LISINOPRIL 10 MG TAB GTB SCH ×2 (09:12→21:12)
[2017-04-11] MEDS: LACTOBACILLUS RHAMNOSUS CAP GTB SCH (09:12)
[2017-04-11] MEDS: CHLORHEXIDINE GLUCONATE 15 ML UD CUP MM SCH ×2 (09:12→21:13)
[2017-04-11] MEDS: CLOPIDOGREL 75 MG TAB GTB SCH (09:12)
[2017-04-11] MEDS: ISOSORBIDE DINITRATE 10 MG TAB GTB SCH ×3 (09:12→21:14)
[2017-04-11] MEDS: SPIRONOLACTONE 25 MG TAB GTB SCH (09:12)
[2017-04-11] MEDS: NEUTRA-PHOS 250 MG PACKET NGT SCH ×2 (09:12→21:13)
--- NOTE | 2017-04-11 11:33 | CONS ---
Date/Time of Note Date/Time of Note DATE: 04/11/17 TIME: 11:31 Consult Date/Type/Reason Admit Date/Time Apr 08, 2017 at 10:24 Initial Consult Date 04/07/17 Type of Consultation: neph Subjective Patient stable on hd yesterday poc reviewed with dr. saenz. noted to have agitation and pulling tubes and combative. Exam HEENT head is normocephalic able to react Neck is supple positive straight Cardiovascular regular rate no gallops Lungs show diminished breath sounds at the base Abdomen soft nontender palpation positive Extremity nephrocalcinosis positive Dermatologically no rash Muscle skeletal no joint Neurologically no change in exam Objective Vital Signs Date Time Temp Pulse Resp B/P Pulse Ox O2 Delivery O2 Flow Rate FiO2 04/11/17 11:11 55 31 99 35 04/11/17 10:00 97.9 137/63 04/11/17 06:00 Mechanical Ventilator Intake and Output 04/10/17 04/10/17 04/11/17 15:00 23:00 07:00 Intake Total 800 ml 1200 ml 850 ml Output Total 3800 ml 0 ml Balance 800 ml -2600 ml 850 ml Results/Medications Result Diagram: 04/10/17 0600 04/10/17 0600 Results 24 hrs Laboratory Tests Test 04/11/17 05:00 Blood Gas Specimen Source Blood arterial Arterial Blood Date Drawn 04/11/2017 4:46:49 AM Arterial Blood pH (Temp corrected) 7.529 H Arterial Blood pCO2 (Temp correct) 27.4 L Arterial Blood pO2 (Temp corrected) 91.9 H Arterial Blood HCO3 22.3 Arterial Blood Base Excess 0.5 Arterial Blood Oxygen Saturation 97.0 Migel Test ACCEPTAB Arterial Blood Gas Puncture Site Right Radial Arterial Blood Carboxyhemoglobin 0.2 Arterial Blood Methemoglobin 0.2 Blood Gas A-a O2 Differential 125.8 H Oxyhemoglobin Percent 96.6 Total Hemoglobin 11.2 L Blood Gas Temperature 37.0 Blood Gas Respiration Rate 12.0 Blood Gas Actual Respiration Rate 23 Blood Gas Modality VENT - AC FiO2 35.0 Blood Gas Tidal Volume 500.0 Blood Gas Low PEEP Setting 5.0 Blood Gas Inspiratory Pressure 49.0 Blood Gas Notified Whom LW Blood Gas Notified Time 04/11/2017 4:57:28 AM Medications Current Medications Acetaminophen (Tylenol Liquid) 650 mg Q6H PRN GTB PAIN OR TEMP ABOVE 38C Last administered on 04/11/17 04:11; Admin Dose 650 MG; Start 04/06/17 at 15:00 Atorvastatin Calcium (Lipitor) 20 mg QHS GTB Last administered on 04/10/17 21: 01; Admin Dose 20 MG; Start 04/06/17 at 21:00 Carvedilol (Coreg) 3.125 mg BID GTB Last administered on 04/11/17 09:13; Admin Dose 3.125 MG; Start 04/06/17 at 21:00 Chlorhexidine Gluconate (Peridex) 10 ml Q12 MM Last administered on 04/11/17 09 :12; Admin Dose 10 ML; Start 04/06/17 at 21:00 Clonidine (Catapres) 0.1 mg Q4H PRN GTB SBP > 170; Start 04/06/17 at 15:00 Clopidogrel Bisulfate (plaVIX) 75 mg DAILY GTB Last administered on 04/11/17 09 :12; Admin Dose 75 MG; Start 04/07/17 at 09:00 Diphenhydramine HCl (Benadryl Liquid Po Syr) 25 mg Q6H PRN GTB ITCHING; Start 04/06/17 at 15:00 Isosorbide Dinitrate (Isordil) 10 mg TID GTB Last administered on 04/11/17 09: 12; Admin Dose 10 MG; Start 04/06/17 at 21:00 Lactobacillus Acidophilus/ Rhamnosus (Culturelle) 1 cap DAILY GTB Last administered on 04/11/17 09:12; Admin Dose 1 CAP; Start 04/07/17 at 09:00 Lansoprazole (Prevacid) 30 mg DAILY@06 GTB Last administered on 04/11/17 05:34 ; Admin Dose 30 MG; Start 04/07/17 at 06:00 Levetiracetam (Keppra) 1,000 mg BID GTB Last administered on 04/11/17 09:12; Admin Dose 1,000 MG; Start 04/06/17 at 21:00 Lorazepam (Ativan) 0.5 mg Q4H PRN GTB ANXIETY Last administered on 04/10/17 22: 42; Admin Dose 0.5 MG; Start 04/06/17 at 15:00 Multivitamins Therapeutic (Theragran) 1 tab DAILY GTB Last administered on 09:11; Admin Dose 1 TAB; Start 04/07/17 at 09:00 Spironolactone (Aldactone) 25 mg DAILY GTB Last administered on 04/11/17 09:12 ; Admin Dose 25 MG; Start 04/07/17 at 09:00 IV Flush (NS 10 ml) 10 ml PRN PRN IV flush; Start 04/06/17 at 16:30 Miscellaneous Information (Pending Santyl Order For Wound Care) This patient jenkins... PRN PRN XX WOUND CARE; Start 04/06/17 at 20:30 Sodium Phosphate (Neutra-Phos) 250 mg BID NGT Last administered on 04/11/17 09: 12; Admin Dose 250 MG; Start 04/08/17 at 12:00 Lisinopril 10 mg 10 mg BID GTB Last administered on 04/11/17 09:12; Admin Dose 10 MG; Start 04/09/17 at 09:00 Cefepime HCl (Maxipime 1gm/50 ml (Pmx)) 50 ml @ 100 mls/hr Q24H IVPB Last administered on 04/10/17 16:45; Admin Dose 100 MLS/HR; Start 04/09/17 at 17:00 Assessment/Plan Chief Complaint/Hosp Course 1. Anemia, etiology likely from chronic disease, rule out GI bleed. -Patient status post blood transfusion with appropriate response -Plan is to check iron panel, ferritin, stool occult ob negative x one, repeat stool ob -Continue Protonix, GI evaluation, continue Epogen 2. Leukocytosis. Etiology is unclear possibly reactive We will continue to monitor Repeat chest x-ray 2. End-stage renal disease. -Continue intermittent hemodialysis -assess daily for hd need. 3. Mineral bone disorder -Monitor calcium phosphorus levels 4 volume overload secondary to CHF end-stage renal disease -Continue ultrafiltration with dialysis 5. Dependent respiratory failure -Vent settings, ABG reviewed -Follow-up with pulmonary 6. Coronary disease,/cardiomyopathy -Status post pacemaker ICD placement -Continue medical management -Follow-up with cardiology 7. Seizure disorder -Continue Keppra 8. Hypothyroidism -Continue Synthroid 9. Dysphagia status post PEG -Continue tube feeds 10. Acute on chronic encephalotomy -Etiology toxic metabolic -Continue to monitor 11. Hypertension continue current blood pressure regimen 12. GI/DVT prophylaxis 13. Hypokalemia hypomagnesemia we will replete as needed Problems: ANNIE GUTIERREZ MD Apr 11, 2017 11:33
[2017-04-11 14:21] LABS: ADD SCAN DIFF NO
[2017-04-11 14:24] LABS: BASOPHILS % 0.3 % (0.0-2.0); EOSINOPHILS # 0.3 10^3/ul (0.0-0.5); EOSINOPHILS % 3.2 % (0.0-7.0); HEMATOCRIT 24.9 % (42.0-52.0); HEMOGLOBIN 8.1 g/dl (14.0-18.0); LYMPHOCYTES # 1.1 10^3/ul (0.8-2.9); LYMPHOCYTES % 11.4 % (15.0-51.0); MEAN CORPUSCULAR HGB CONC 32.5 g/dl (32.0-37.0); MEAN CORPUSCULAR VOLUME 95.4 fl (82.0-101.0); MEAN PLATELET VOLUME 11.9 fl (7.4-10.4); MONOCYTE # 0.8 10^3/ul (0.3-0.9); MONOCYTES % 8.1 % (0.0-11.0); NEUTROPHIL # 7.5 10^3/ul (1.6-7.5); NEUTROPHILS % 76.2 % (39.0-77.0); PLATELET COUNT 194 10^3/UL (140-415); RED BLOOD COUNT 2.61 10^6/ul (4.70-6.10); RED CELL DISTRIBUTION WIDTH 16.9 % (11.5-14.5); WHITE BLOOD COUNT 9.8 10^3/ul (4.8-10.8)
--- NOTE | 2017-04-11 16:19 | CONS ---
Date/Time of Note Date/Time of Note DATE: 04/11/17 TIME: 16:17 Consult Date/Type/Reason Admit Date/Time Apr 08, 2017 at 10:24 Initial Consult Date 04/07/17 Type of Consultation: Pulm Subjective No events. ABG reviewed. Objective Vital Signs Date Time Temp Pulse Resp B/P Pulse Ox O2 Delivery O2 Flow Rate FiO2 04/11/17 16:00 97.4 51 17 142/67 100 04/11/17 15:00 35 04/11/17 06:00 Mechanical Ventilator Intake and Output 04/10/17 04/10/17 04/11/17 15:00 23:00 07:00 Intake Total 800 ml 1250 ml 850 ml Output Total 3800 ml 0 ml Balance 800 ml -2550 ml 850 ml Exam HEENT: Pupils equal, round, and reactive to light. Tracheostomy site clean and intact. CARDIAC: S1, S2, 1/6 systolic ejection murmur CHEST: Diminished air entry bilaterally. ABDOMEN: Mildly distended. Bowel sounds present no guarding or rebound EXTREMITIES: No cyanosis, clubbing edema +1 Results/Medications Result Diagram: 04/11/17 1350 04/10/17 0600 Results 24 hrs Laboratory Tests Test 04/11/17 05:00 04/11/17 13:50 Blood Gas Specimen Source Blood arterial Arterial Blood Date Drawn 04/11/2017 4:46:49 AM Arterial Blood pH (Temp corrected) 7.529 H Arterial Blood pCO2 (Temp correct) 27.4 L Arterial Blood pO2 (Temp corrected) 91.9 H Arterial Blood HCO3 22.3 Arterial Blood Base Excess 0.5 Arterial Blood Oxygen Saturation 97.0 Migel Test ACCEPTAB Arterial Blood Gas Puncture Site Right Radial Arterial Blood Carboxyhemoglobin 0.2 Arterial Blood Methemoglobin 0.2 Blood Gas A-a O2 Differential 125.8 H Oxyhemoglobin Percent 96.6 Total Hemoglobin 11.2 L Blood Gas Temperature 37.0 Blood Gas Respiration Rate 12.0 Blood Gas Actual Respiration Rate 23 Blood Gas Modality VENT - AC FiO2 35.0 Blood Gas Tidal Volume 500.0 Blood Gas Low PEEP Setting 5.0 Blood Gas Inspiratory Pressure 49.0 Blood Gas Notified Whom LW Blood Gas Notified Time 04/11/2017 4:57:28 AM White Blood Count 9.8 Red Blood Count 2.61 L Hemoglobin 8.1 L Hematocrit 24.9 L Mean Corpuscular Volume 95.4 Mean Corpuscular Hemoglobin 31.0 Mean Corpuscular Hemoglobin Concent 32.5 Red Cell Distribution Width 16.9 H Platelet Count 194 Mean Platelet Volume 11.9 H Neutrophils % 76.2 Lymphocytes % 11.4 L Monocytes % 8.1 Eosinophils % 3.2 Basophils % 0.3 Nucleated Red Blood Cells % 0.0 Neutrophils # 7.5 Lymphocytes # 1.1 Monocytes # 0.8 Eosinophils # 0.3 Basophils # 0.0 Nucleated Red Blood Cells # 0.0 Medications Current Medications Acetaminophen (Tylenol Liquid) 650 mg Q6H PRN GTB PAIN OR TEMP ABOVE 38C Last administered on 04/11/17 04:11; Admin Dose 650 MG; Start 04/06/17 at 15:00 Atorvastatin Calcium (Lipitor) 20 mg QHS GTB Last administered on 04/10/17 21: 01; Admin Dose 20 MG; Start 04/06/17 at 21:00 Carvedilol (Coreg) 3.125 mg BID GTB Last administered on 04/11/17 09:13; Admin Dose 3.125 MG; Start 04/06/17 at 21:00 Chlorhexidine Gluconate (Peridex) 10 ml Q12 MM Last administered on 04/11/17 09 :12; Admin Dose 10 ML; Start 04/06/17 at 21:00 Clonidine (Catapres) 0.1 mg Q4H PRN GTB SBP > 170; Start 04/06/17 at 15:00 Clopidogrel Bisulfate (plaVIX) 75 mg DAILY GTB Last administered on 04/11/17 09 :12; Admin Dose 75 MG; Start 04/07/17 at 09:00 Diphenhydramine HCl (Benadryl Liquid Po Syr) 25 mg Q6H PRN GTB ITCHING; Start 04/06/17 at 15:00 Isosorbide Dinitrate (Isordil) 10 mg TID GTB Last administered on 04/11/17 12: 41; Admin Dose 10 MG; Start 04/06/17 at 21:00 Lactobacillus Acidophilus/ Rhamnosus (Culturelle) 1 cap DAILY GTB Last administered on 04/11/17 09:12; Admin Dose 1 CAP; Start 04/07/17 at 09:00 Lansoprazole (Prevacid) 30 mg DAILY@06 GTB Last administered on 04/11/17 05:34 ; Admin Dose 30 MG; Start 04/07/17 at 06:00 Levetiracetam (Keppra) 1,000 mg BID GTB Last administered on 04/11/17 09:12; Admin Dose 1,000 MG; Start 04/06/17 at 21:00 Lorazepam (Ativan) 0.5 mg Q4H PRN GTB ANXIETY Last administered on 04/10/17 22: 42; Admin Dose 0.5 MG; Start 04/06/17 at 15:00 Multivitamins Therapeutic (Theragran) 1 tab DAILY GTB Last administered on 09:11; Admin Dose 1 TAB; Start 04/07/17 at 09:00 Spironolactone (Aldactone) 25 mg DAILY GTB Last administered on 04/11/17 09:12 ; Admin Dose 25 MG; Start 04/07/17 at 09:00 IV Flush (NS 10 ml) 10 ml PRN PRN IV flush; Start 04/06/17 at 16:30 Miscellaneous Information (Pending [facility] Order For Wound Care) This patient jenkins... PRN PRN XX WOUND CARE; Start 04/06/17 at 20:30 Sodium Phosphate (Neutra-Phos) 250 mg BID NGT Last administered on 04/11/17 09: 12; Admin Dose 250 MG; Start 04/08/17 at 12:00 Lisinopril 10 mg 10 mg BID GTB Last administered on 04/11/17 09:12; Admin Dose 10 MG; Start 04/09/17 at 09:00 Cefepime HCl (Maxipime 1gm/50 ml (Pmx)) 50 ml @ 100 mls/hr Q24H IVPB Last administered on 04/10/17 16:45; Admin Dose 100 MLS/HR; Start 04/09/17 at 17:00 Acetaminophen/ Hydrocodone Bitart ([place] (5/325)) 1 tab Q8H PRN PO PAIN Last administered on 04/11/17 16:15; Admin Dose 1 TAB; Start 04/11/17 at 16:30 Assessment/Plan Additional Assessment/Plan IMP: 1. Anemia likely multifactorial combination of chronic kidney disease, possible dilutional possible GI bleed. 2. Vent dependent respiratory failure 3. Encephalopathy acute on chronic 4. CKD 5. Seizure disorder 6. History of ischemic heart disease with ICD, mild pulmonary edema on chest x- ray RECS: 1. Reduce Vt to 450 2. follow labs 3. BD's/CPT ALBARO ENRIQUEZ MD Apr 11, 2017 16:19
--- NOTE | 2017-04-11 16:20 | CONS ---
Date/Time of Note Date/Time of Note DATE: 04/11/17 TIME: 16:19 Assessment/Plan Assessment/Plan Chief Complaint/Hosp Course No acute events, alert, looks comfortable, no fevers, no vomiting/ diarrhea Indwelling: Left upper extremity PICC line, right chest permacath, trach PEG Antimicrobials: Cefepime Physical examination: Well-developed, chronically ill-appearing elderly male who is in no distress. Head atraumatic normocephalic sclera nonicteric. Neck is supple tracheostomy present. Chest rise symmetrical, breath sounds diminished basis. Abdomen soft, bowel tones present. Extremities with trace edema. Assessment: 1. Leukocytosis possibly reactive 2. Chronic respiratory failure 3. End-stage renal disease, hemodialysis dependent 4. Acute on chronic anemia 5. Dysphasia 6. Encephalopathy 7. Coronary artery disease history permanent pacemaker Plan: Remain stable, continue antibiotics, follow final sputum cultures Discussed with staff Problems: Consultation Date/Type/Reason Admit Date/Time Apr 08, 2017 at 10:24 Initial Consult Date 04/07/17 Type of Consultation: ID Exam/Review of Systems Vital Signs Vitals Vital Signs Date Time Temp Pulse Resp B/P Pulse Ox O2 Delivery O2 Flow Rate FiO2 04/11/17 16:00 97.4 51 17 142/67 100 04/11/17 15:00 35 04/11/17 06:00 Mechanical Ventilator Intake and Output 04/10/17 04/10/17 04/11/17 15:00 23:00 07:00 Intake Total 800 ml 1250 ml 850 ml Output Total 3800 ml 0 ml Balance 800 ml -2550 ml 850 ml Results Result Diagram: 04/11/17 1350 04/10/17 0600 Results 24 hrs Laboratory Tests Test 04/11/17 05:00 04/11/17 13:50 Blood Gas Specimen Source Blood arterial Arterial Blood Date Drawn 04/11/2017 4:46:49 AM Arterial Blood pH (Temp corrected) 7.529 H Arterial Blood pCO2 (Temp correct) 27.4 L Arterial Blood pO2 (Temp corrected) 91.9 H Arterial Blood HCO3 22.3 Arterial Blood Base Excess 0.5 Arterial Blood Oxygen Saturation 97.0 Migel Test ACCEPTAB Arterial Blood Gas Puncture Site Right Radial Arterial Blood Carboxyhemoglobin 0.2 Arterial Blood Methemoglobin 0.2 Blood Gas A-a O2 Differential 125.8 H Oxyhemoglobin Percent 96.6 Total Hemoglobin 11.2 L Blood Gas Temperature 37.0 Blood Gas Respiration Rate 12.0 Blood Gas Actual Respiration Rate 23 Blood Gas Modality VENT - AC FiO2 35.0 Blood Gas Tidal Volume 500.0 Blood Gas Low PEEP Setting 5.0 Blood Gas Inspiratory Pressure 49.0 Blood Gas Notified Whom LW Blood Gas Notified Time 04/11/2017 4:57:28 AM White Blood Count 9.8 Red Blood Count 2.61 L Hemoglobin 8.1 L Hematocrit 24.9 L Mean Corpuscular Volume 95.4 Mean Corpuscular Hemoglobin 31.0 Mean Corpuscular Hemoglobin Concent 32.5 Red Cell Distribution Width 16.9 H Platelet Count 194 Mean Platelet Volume 11.9 H Neutrophils % 76.2 Lymphocytes % 11.4 L Monocytes % 8.1 Eosinophils % 3.2 Basophils % 0.3 Nucleated Red Blood Cells % 0.0 Neutrophils # 7.5 Lymphocytes # 1.1 Monocytes # 0.8 Eosinophils # 0.3 Basophils # 0.0 Nucleated Red Blood Cells # 0.0 Medications Medications Current Medications Acetaminophen (Tylenol Liquid) 650 mg Q6H PRN GTB PAIN OR TEMP ABOVE 38C Last administered on 04/11/17 04:11; Admin Dose 650 MG; Start 04/06/17 at 15:00 Atorvastatin Calcium (Lipitor) 20 mg QHS GTB Last administered on 04/10/17 21: 01; Admin Dose 20 MG; Start 04/06/17 at 21:00 Carvedilol (Coreg) 3.125 mg BID GTB Last administered on 04/11/17 09:13; Admin Dose 3.125 MG; Start 04/06/17 at 21:00 Chlorhexidine Gluconate (Peridex) 10 ml Q12 MM Last administered on 04/11/17 09 :12; Admin Dose 10 ML; Start 04/06/17 at 21:00 Clonidine (Catapres) 0.1 mg Q4H PRN GTB SBP > 170; Start 04/06/17 at 15:00 Clopidogrel Bisulfate (plaVIX) 75 mg DAILY GTB Last administered on 04/11/17 09 :12; Admin Dose 75 MG; Start 04/07/17 at 09:00 Diphenhydramine HCl (Benadryl Liquid Po Syr) 25 mg Q6H PRN GTB ITCHING; Start 04/06/17 at 15:00 Isosorbide Dinitrate (Isordil) 10 mg TID GTB Last administered on 04/11/17 12: 41; Admin Dose 10 MG; Start 04/06/17 at 21:00 Lactobacillus Acidophilus/ Rhamnosus (Culturelle) 1 cap DAILY GTB Last administered on 04/11/17 09:12; Admin Dose 1 CAP; Start 04/07/17 at 09:00 Lansoprazole (Prevacid) 30 mg DAILY@06 GTB Last administered on 04/11/17 05:34 ; Admin Dose 30 MG; Start 04/07/17 at 06:00 Levetiracetam (Keppra) 1,000 mg BID GTB Last administered on 04/11/17 09:12; Admin Dose 1,000 MG; Start 04/06/17 at 21:00 Lorazepam (Ativan) 0.5 mg Q4H PRN GTB ANXIETY Last administered on 04/10/17 22: 42; Admin Dose 0.5 MG; Start 04/06/17 at 15:00 Multivitamins Therapeutic (Theragran) 1 tab DAILY GTB Last administered on 09:11; Admin Dose 1 TAB; Start 04/07/17 at 09:00 Spironolactone (Aldactone) 25 mg DAILY GTB Last administered on 04/11/17 09:12 ; Admin Dose 25 MG; Start 04/07/17 at 09:00 IV Flush (NS 10 ml) 10 ml PRN PRN IV flush; Start 04/06/17 at 16:30 Miscellaneous Information (Pending Santyl Order For Wound Care) This patient jenkins... PRN PRN XX WOUND CARE; Start 04/06/17 at 20:30 Sodium Phosphate (Neutra-Phos) 250 mg BID NGT Last administered on 04/11/17 09: 12; Admin Dose 250 MG; Start 04/08/17 at 12:00 Lisinopril 10 mg 10 mg BID GTB Last administered on 04/11/17 09:12; Admin Dose 10 MG; Start 04/09/17 at 09:00 Cefepime HCl (Maxipime 1gm/50 ml (Pmx)) 50 ml @ 100 mls/hr Q24H IVPB Last administered on 04/10/17 16:45; Admin Dose 100 MLS/HR; Start 04/09/17 at 17:00 Acetaminophen/ Hydrocodone Bitart ([place] (5/325)) 1 tab Q8H PRN PO PAIN Last administered on 04/11/17 16:15; Admin Dose 1 TAB; Start 04/11/17 at 16:30 MAIRA HUIZAR NP Apr 11, 2017 16:20
[2017-04-11] MEDS ORDERED: HYDROCODONE/APAP (5/325) TAB PO PRN (16:30)
--- NOTE | 2017-04-11 17:12 | CONS ---
Date/Time of Note Date/Time of Note DATE: 04/11/17 TIME: 17:11 Assessment/Plan Assessment/Plan Additional Assessment/Plan Assessment/Plan Additional Assessment/Plan 1,anemia mostly of chronic disease,r/o gi bleeding 2,VDRF 3,s/p AICD 5,ischemic cardiomyopathy 6,ESRD Plan stool for occult blood, it is negative. Patient had a few positive stool guaiac when he was in [place] monitor H&H continue all supportive care KUB Consultation Date/Type/Reason Admit Date/Time Apr 08, 2017 at 10:24 Initial Consult Date 04/07/17 Type of Consultation: ID [id number] HR Interval Summary Free Text/Dictation As per the staff patient is abdominal pain. He also had 2 loose bowel movements Exam/Review of Systems Vital Signs Vitals Vital Signs Date Time Temp Pulse Resp B/P Pulse Ox O2 Delivery O2 Flow Rate FiO2 04/11/17 17:08 54 24 100 35 04/11/17 16:00 97.4 142/67 04/11/17 06:00 Mechanical Ventilator Intake and Output 04/10/17 04/10/17 04/11/17 15:00 23:00 07:00 Intake Total 800 ml 1250 ml 850 ml Output Total 3800 ml 0 ml Balance 800 ml -2550 ml 850 ml Exam Constitutional: alert, oriented, well developed Psych: nl mood/affect, no complaints Head: atraumatic, normocephalic Eyes: EOMI, PERRL, nl conjunctiva, nl lids, nl sclera ENMT: nl external ears & nose, nl lips & teeth, nl nasal mucosa & septum Neck: non-tender, supple Respiratory: clear to auscultation, normal air movement Cardiovascular: nl pulses, regular rate and rhythm Gastrointestinal: nl liver, spleen, non-tender, other (G-tube well positioned no evidence of cellulitis.), soft Musculoskeletal: nl extremities to inspection, nl gait and stance Extremities: normal pulses Neurological: [employer] II-XII intact, nl mental status, nl speech, nl strength Skin: nl turgor, No rash or lesions Lymph: nl lymph nodes Results Result Diagram: 04/11/17 1350 04/10/17 0600 Results 24 hrs Laboratory Tests Test 04/11/17 05:00 04/11/17 13:50 Blood Gas Specimen Source Blood arterial Arterial Blood Date Drawn 04/11/2017 4:46:49 AM Arterial Blood pH (Temp corrected) 7.529 H Arterial Blood pCO2 (Temp correct) 27.4 L Arterial Blood pO2 (Temp corrected) 91.9 H Arterial Blood HCO3 22.3 Arterial Blood Base Excess 0.5 Arterial Blood Oxygen Saturation 97.0 Migel Test ACCEPTAB Arterial Blood Gas Puncture Site Right Radial Arterial Blood Carboxyhemoglobin 0.2 Arterial Blood Methemoglobin 0.2 Blood Gas A-a O2 Differential 125.8 H Oxyhemoglobin Percent 96.6 Total Hemoglobin 11.2 L Blood Gas Temperature 37.0 Blood Gas Respiration Rate 12.0 Blood Gas Actual Respiration Rate 23 Blood Gas Modality VENT - AC FiO2 35.0 Blood Gas Tidal Volume 500.0 Blood Gas Low PEEP Setting 5.0 Blood Gas Inspiratory Pressure 49.0 Blood Gas Notified Whom LW Blood Gas Notified Time 04/11/2017 4:57:28 AM White Blood Count 9.8 Red Blood Count 2.61 L Hemoglobin 8.1 L Hematocrit 24.9 L Mean Corpuscular Volume 95.4 Mean Corpuscular Hemoglobin 31.0 Mean Corpuscular Hemoglobin Concent 32.5 Red Cell Distribution Width 16.9 H Platelet Count 194 Mean Platelet Volume 11.9 H Neutrophils % 76.2 Lymphocytes % 11.4 L Monocytes % 8.1 Eosinophils % 3.2 Basophils % 0.3 Nucleated Red Blood Cells % 0.0 Neutrophils # 7.5 Lymphocytes # 1.1 Monocytes # 0.8 Eosinophils # 0.3 Basophils # 0.0 Nucleated Red Blood Cells # 0.0 Medications Medications Current Medications Acetaminophen (Tylenol Liquid) 650 mg Q6H PRN GTB PAIN OR TEMP ABOVE 38C Last administered on 04/11/17 04:11; Admin Dose 650 MG; Start 04/06/17 at 15:00 Atorvastatin Calcium (Lipitor) 20 mg QHS GTB Last administered on 04/10/17 21: 01; Admin Dose 20 MG; Start 04/06/17 at 21:00 Carvedilol (Coreg) 3.125 mg BID GTB Last administered on 04/11/17 09:13; Admin Dose 3.125 MG; Start 04/06/17 at 21:00 Chlorhexidine Gluconate (Peridex) 10 ml Q12 MM Last administered on 04/11/17 09 :12; Admin Dose 10 ML; Start 04/06/17 at 21:00 Clonidine (Catapres) 0.1 mg Q4H PRN GTB SBP > 170; Start 04/06/17 at 15:00 Clopidogrel Bisulfate (plaVIX) 75 mg DAILY GTB Last administered on 04/11/17 09 :12; Admin Dose 75 MG; Start 04/07/17 at 09:00 Diphenhydramine HCl (Benadryl Liquid Po Syr) 25 mg Q6H PRN GTB ITCHING; Start 04/06/17 at 15:00 Isosorbide Dinitrate (Isordil) 10 mg TID GTB Last administered on 04/11/17 12: 41; Admin Dose 10 MG; Start 04/06/17 at 21:00 Lactobacillus Acidophilus/ Rhamnosus (Culturelle) 1 cap DAILY GTB Last administered on 04/11/17 09:12; Admin Dose 1 CAP; Start 04/07/17 at 09:00 Lansoprazole (Prevacid) 30 mg DAILY@06 GTB Last administered on 04/11/17 05:34 ; Admin Dose 30 MG; Start 04/07/17 at 06:00 Levetiracetam (Keppra) 1,000 mg BID GTB Last administered on 04/11/17 09:12; Admin Dose 1,000 MG; Start 04/06/17 at 21:00 Lorazepam (Ativan) 0.5 mg Q4H PRN GTB ANXIETY Last administered on 04/10/17 22: 42; Admin Dose 0.5 MG; Start 04/06/17 at 15:00 Multivitamins Therapeutic (Theragran) 1 tab DAILY GTB Last administered on 09:11; Admin Dose 1 TAB; Start 04/07/17 at 09:00 Spironolactone (Aldactone) 25 mg DAILY GTB Last administered on 04/11/17 09:12 ; Admin Dose 25 MG; Start 04/07/17 at 09:00 IV Flush (NS 10 ml) 10 ml PRN PRN IV flush; Start 04/06/17 at 16:30 Miscellaneous Information (Pending Santyl Order For Wound Care) This patient jenkins... PRN PRN XX WOUND CARE; Start 04/06/17 at 20:30 Sodium Phosphate (Neutra-Phos) 250 mg BID NGT Last administered on 04/11/17 09: 12; Admin Dose 250 MG; Start 04/08/17 at 12:00 Lisinopril 10 mg 10 mg BID GTB Last administered on 04/11/17 09:12; Admin Dose 10 MG; Start 04/09/17 at 09:00 Cefepime HCl (Maxipime 1gm/50 ml (Pmx)) 50 ml @ 100 mls/hr Q24H IVPB Last administered on 04/10/17 16:45; Admin Dose 100 MLS/HR; Start 04/09/17 at 17:00 Acetaminophen/ Hydrocodone Bitart ([place] (5/325)) 1 tab Q8H PRN PO PAIN Last administered on 04/11/17 16:15; Admin Dose 1 TAB; Start 04/11/17 at 16:30 LASHAY PATEL MD Apr 11, 2017 17:12
[2017-04-11] MEDS: CEFEPIME 1GM/50 ML (PMX) 50 ML IVPB SCH (17:17)
[2017-04-11] MEDS ORDERED: DIPHENHYDRAMINE 2.5 MG/ML 5ML CUP PO PRN (20:30)
[2017-04-11] MEDS: ATORVASTATIN 20 MG TAB GTB SCH (21:12)
--- NOTE | 2017-04-11 22:18 | RADRPT ---
PROCEDURE: XR Abdomen. CLINICAL INDICATION: Abdomen pain. TECHNIQUE: AP supine abdomen x-ray. COMPARISON: None. FINDINGS: There is a gastrostomy tube overlying the stomach. There is gas throughout nondilated small bowel and colon. There is no evidence of obstruction. There are no abnormal calcifications overlying the urinary tracts. There are degenerative changes of the spine. IMPRESSION: 1. Gastrostomy tube overlying the stomach. 2. No evidence of obstruction. 3. Degenerative changes of the spine. RPTAT: QQ .Nic Smith MD, MD Date Time Electronically viewed and signed by .Nic Smith MD, MD on 04/11/2017 22:18 .R/
[2017-04-12] VITALS (39 sets, daily range): BP systolic 123–155; BP diastolic 57–99; PULSE 50–64; RESP 16–30
[2017-04-12] MEDS ORDERED: DIPHENHYDRAMINE 2.5 MG/ML 5ML CUP GTB PRN (02:30)
[2017-04-12] MEDS: LANSOPRAZOLE 30 MG CAP GTB SCH (05:46)
[2017-04-12] MEDS: LEVOTHYROXINE 88 MCG TAB GTB SCH (05:46)
[2017-04-12 07:03] LABS: ADD SCAN DIFF NO
[2017-04-12 07:07] LABS: BASOPHILS % 0.4 % (0.0-2.0); EOSINOPHILS # 0.3 10^3/ul (0.0-0.5); EOSINOPHILS % 3.7 % (0.0-7.0); HEMATOCRIT 25.2 % (42.0-52.0); LYMPHOCYTES # 1.1 10^3/ul (0.8-2.9); LYMPHOCYTES % 13.5 % (15.0-51.0); MEAN CORPUSCULAR HEMOGLOBIN 30.3 pg (29.0-33.0); MEAN CORPUSCULAR HGB CONC 31.7 g/dl (32.0-37.0); MEAN CORPUSCULAR VOLUME 95.5 fl (82.0-101.0); MEAN PLATELET VOLUME 11.9 fl (7.4-10.4); MONOCYTE # 0.8 10^3/ul (0.3-0.9); MONOCYTES % 9.9 % (0.0-11.0); NEUTROPHIL # 6.1 10^3/ul (1.6-7.5); NEUTROPHILS % 71.6 % (39.0-77.0); PLATELET COUNT 189 10^3/UL (140-415); RED BLOOD COUNT 2.64 10^6/ul (4.70-6.10); RED CELL DISTRIBUTION WIDTH 16.9 % (11.5-14.5); WHITE BLOOD COUNT 8.5 10^3/ul (4.8-10.8)
[2017-04-12 07:40] LABS: ALBUMIN 3.2 g/dl (3.3-4.9); ALBUMIN/GLOBULIN RATIO 0.88; CALCIUM 8.3 mg/dl (8.4-10.2); CREATININE 2.77 mg/dl (0.61-1.24); MAGNESIUM 1.8 mg/dl (1.7-2.5); PHOSPHORUS 3.6 mg/dl (2.5-4.9); POTASSIUM 3.4 mmol/L (3.5-5.1); TOTAL PROTEIN 6.8 g/dl (6.1-8.1)
[2017-04-12] MEDS ORDERED: EPOETIN 4000 UNITS/1 ML INJ (ESRD) SC ONE (10:00)
--- NOTE | 2017-04-12 10:31 | PN ---
Date/Time of Note Date/Time of Note DATE: 04/12/17 TIME: 10:28 Assessment/Plan VTE Prophylaxis VTE Prophylaxis Intervention: ambulation Lines/Catheters IV Catheter Type (from Nrsg): PICC Line Central line still needed: Yes Urinary Cath still in place: No Assessment/Plan Chief Complaint/Hosp Course 1. Anemia, etiology likely from chronic disease, rule out GI bleed. -Patient status post blood transfusion with appropriate response -Stool occult blood negative 2 -Continue Protonix, continue Epogen -Follow-up with GI 2. Bronchitis possible pneumonia We will continue to monitor Patient on antibiotic -Follow-up with infectious disease 2. End-stage renal disease. -Continue intermittent hemodialysis 3. Mineral bone disorder -Monitor calcium phosphorus levels 4 volume overload secondary to CHF end-stage renal disease -Continue ultrafiltration with dialysis 5. Dependent respiratory failure -Vent settings, ABG reviewed -Follow-up with pulmonary 6. Coronary disease,/cardiomyopathy -Status post pacemaker ICD placement -Continue medical management -Follow-up with cardiology 7. Seizure disorder -Continue Keppra 8. Hypothyroidism -Continue Synthroid 9. Dysphagia status post PEG -Continue tube feeds 10. Acute on chronic encephalotomy -Etiology toxic metabolic -Continue to monitor 11. Hypertension continue current blood pressure regimen 12. GI/DVT prophylaxis 13. Hypokalemia hypomagnesemia we will replete as needed Problems: Subjective 24 Hr Interval Summary Free Text/Dictation Patient currently on hemodialysis. No other events noted Exam/Review of Systems Vital Signs Vitals Vital Signs Date Time Temp Pulse Resp B/P Pulse Ox O2 Delivery O2 Flow Rate FiO2 04/12/17 10:18 58 04/12/17 10:10 98.0 20 147/78 99 04/12/17 09:20 35 04/12/17 06:00 Mechanical Ventilator Intake and Output 04/11/17 04/11/17 04/12/17 15:00 23:00 07:00 Intake Total 950 ml 900 ml Balance 950 ml 900 ml Exam HEENT head is normocephalic able to react Neck is supple positive straight Cardiovascular regular rate no gallops Lungs show diminished breath sounds at the base Abdomen soft nontender palpation positive Extremity nephrocalcinosis positive Dermatologically no rash Muscle skeletal no joint Neurologically no change in exam Results Result Diagram: 04/12/17 0630 04/12/17 0630 Results 24 hrs Laboratory Tests Test 04/11/17 13:50 04/12/17 06:30 White Blood Count 9.8 8.5 Red Blood Count 2.61 L 2.64 L Hemoglobin 8.1 L 8.0 L Hematocrit 24.9 L 25.2 L Mean Corpuscular Volume 95.4 95.5 Mean Corpuscular Hemoglobin 31.0 30.3 Mean Corpuscular Hemoglobin Concent 32.5 31.7 L Red Cell Distribution Width 16.9 H 16.9 H Platelet Count 194 189 Mean Platelet Volume 11.9 H 11.9 H Neutrophils % 76.2 71.6 Lymphocytes % 11.4 L 13.5 L Monocytes % 8.1 9.9 Eosinophils % 3.2 3.7 Basophils % 0.3 0.4 Nucleated Red Blood Cells % 0.0 0.0 Neutrophils # 7.5 6.1 Lymphocytes # 1.1 1.1 Monocytes # 0.8 0.8 Eosinophils # 0.3 0.3 Basophils # 0.0 0.0 Nucleated Red Blood Cells # 0.0 0.0 Sodium Level 135 Potassium Level 3.4 L Chloride Level 89 L Carbon Dioxide Level 28 Anion Gap 21 H Blood Urea Nitrogen 62 H Creatinine 2.77 H Glucose Level 120 Calcium Level 8.3 L Phosphorus Level 3.6 Magnesium Level 1.8 Total Bilirubin 0.0 L Direct Bilirubin 0.00 Indirect Bilirubin 0.0 Aspartate Amino Transf (AST/SGOT) 41 Alanine Aminotransferase (ALT/SGPT) 44 Alkaline Phosphatase 296 H Total Protein 6.8 Albumin 3.2 L Globulin 3.60 H Albumin/Globulin Ratio 0.88 Carcinoembryonic Antigen 6.2 H Medications Medications Current Medications Acetaminophen (Tylenol Liquid) 650 mg Q6H PRN GTB PAIN OR TEMP ABOVE 38C Last administered on 04/11/17 21:13; Admin Dose 650 MG; Start 04/06/17 at 15:00 Atorvastatin Calcium (Lipitor) 20 mg QHS GTB Last administered on 04/11/17 21: 12; Admin Dose 20 MG; Start 04/06/17 at 21:00 Carvedilol (Coreg) 3.125 mg BID GTB Last administered on 04/11/17 21:12; Admin Dose 3.125 MG; Start 04/06/17 at 21:00 Chlorhexidine Gluconate (Peridex) 10 ml Q12 MM Last administered on 04/11/17 21 :13; Admin Dose 10 ML; Start 04/06/17 at 21:00 Clonidine (Catapres) 0.1 mg Q4H PRN GTB SBP > 170; Start 04/06/17 at 15:00 Clopidogrel Bisulfate (plaVIX) 75 mg DAILY GTB Last administered on 04/11/17 09 :12; Admin Dose 75 MG; Start 04/07/17 at 09:00 Isosorbide Dinitrate (Isordil) 10 mg TID GTB Last administered on 04/11/17 21: 14; Admin Dose 10 MG; Start 04/06/17 at 21:00 Lactobacillus Acidophilus/ Rhamnosus (Culturelle) 1 cap DAILY GTB Last administered on 04/11/17 09:12; Admin Dose 1 CAP; Start 04/07/17 at 09:00 Lansoprazole (Prevacid) 30 mg DAILY@06 GTB Last administered on 04/12/17 05:46 ; Admin Dose 30 MG; Start 04/07/17 at 06:00 Levetiracetam (Keppra) 1,000 mg BID GTB Last administered on 04/11/17 21:12; Admin Dose 1,000 MG; Start 04/06/17 at 21:00 Lorazepam (Ativan) 0.5 mg Q4H PRN GTB ANXIETY Last administered on 04/10/17 22: 42; Admin Dose 0.5 MG; Start 04/06/17 at 15:00 Multivitamins Therapeutic (Theragran) 1 tab DAILY GTB Last administered on 09:11; Admin Dose 1 TAB; Start 04/07/17 at 09:00 Spironolactone (Aldactone) 25 mg DAILY GTB Last administered on 04/11/17 09:12 ; Admin Dose 25 MG; Start 04/07/17 at 09:00 IV Flush (NS 10 ml) 10 ml PRN PRN IV flush; Start 04/06/17 at 16:30 Miscellaneous Information (Pending Santyl Order For Wound Care) This patient jenkins... PRN PRN XX WOUND CARE; Start 04/06/17 at 20:30 Sodium Phosphate (Neutra-Phos) 250 mg BID NGT Last administered on 04/11/17 21: 13; Admin Dose 250 MG; Start 04/08/17 at 12:00 Lisinopril 10 mg 10 mg BID GTB Last administered on 04/11/17 21:12; Admin Dose 10 MG; Start 04/09/17 at 09:00 Cefepime HCl (Maxipime 1gm/50 ml (Pmx)) 50 ml @ 100 mls/hr Q24H IVPB Last administered on 04/11/17 17:17; Admin Dose 100 MLS/HR; Start 04/09/17 at 17:00 Acetaminophen/ Hydrocodone Bitart ([place] (5/325)) 1 tab Q8H PRN PO PAIN Last administered on 04/11/17 16:15; Admin Dose 1 TAB; Start 04/11/17 at 16:30 Diphenhydramine HCl (Benadryl Liquid Cup) 10 mg Q6H PRN GTB ITCHING; Start 07/20 at 02:30 ANNABELLE MENDOZA DO Apr 12, 2017 10:30
[2017-04-12] MEDS: CHLORHEXIDINE GLUCONATE 15 ML UD CUP MM SCH ×2 (11:51→20:37)
[2017-04-12] MEDS: SPIRONOLACTONE 25 MG TAB GTB SCH (11:51)
[2017-04-12] MEDS: LEVETIRACETAM 500 MG TAB GTB SCH ×2 (11:52→20:37)
[2017-04-12] MEDS: LACTOBACILLUS RHAMNOSUS CAP GTB SCH (11:52)
[2017-04-12] MEDS: MULTIVITAMINS THERAPEUTIC TAB GTB SCH (11:52)
[2017-04-12] MEDS: LISINOPRIL 10 MG TAB GTB SCH (11:52)
[2017-04-12] MEDS: ISOSORBIDE DINITRATE 10 MG TAB GTB SCH ×3 (11:52→20:39)
[2017-04-12] MEDS: CLOPIDOGREL 75 MG TAB GTB SCH (11:52)
[2017-04-12] MEDS: NEUTRA-PHOS 250 MG PACKET NGT SCH ×2 (11:53→20:37)
--- NOTE | 2017-04-12 12:57 | CONS ---
Date/Time of Note Date/Time of Note DATE: 04/12/17 TIME: 12:56 Assessment/Plan Assessment/Plan Chief Complaint/Hosp Course No acute events, alert, looks comfortable, no fevers, no vomiting/ diarrhea Indwelling: Left upper extremity PICC line, right chest permacath, trach PEG Antimicrobials: Cefepime Microbiology: Sputum culture growing pseudomonas aeruginosa Physical examination: Well-developed, chronically ill-appearing elderly male who is in no distress. Head atraumatic normocephalic sclera nonicteric. Neck is supple tracheostomy present. Chest rise symmetrical, breath sounds diminished basis. Abdomen soft, bowel tones present. Extremities with trace edema. Assessment: 1. Leukocytosis possibly reactive 2. Chronic respiratory failure 3. End-stage renal disease, hemodialysis dependent 4. Acute on chronic anemia 5. Dysphasia 6. Encephalopathy 7. Coronary artery disease history permanent pacemaker Plan: Remain stable, will change antibiotics to gentamicin. Discussed with staff Problems: Consultation Date/Type/Reason Admit Date/Time Apr 08, 2017 at 10:24 Initial Consult Date 04/07/17 Type of Consultation: ID Exam/Review of Systems Vital Signs Vitals Vital Signs Date Time Temp Pulse Resp B/P Pulse Ox O2 Delivery O2 Flow Rate FiO2 04/12/17 12:16 56 04/12/17 12:01 98.2 18 136/67 98 04/12/17 11:00 35 04/12/17 06:00 Mechanical Ventilator Intake and Output 04/11/17 04/11/17 04/12/17 15:00 23:00 07:00 Intake Total 950 ml 900 ml Balance 950 ml 900 ml Results Result Diagram: 04/12/17 0630 04/12/17 0630 Results 24 hrs Laboratory Tests Test 04/11/17 13:50 04/12/17 06:30 White Blood Count 9.8 8.5 Red Blood Count 2.61 L 2.64 L Hemoglobin 8.1 L 8.0 L Hematocrit 24.9 L 25.2 L Mean Corpuscular Volume 95.4 95.5 Mean Corpuscular Hemoglobin 31.0 30.3 Mean Corpuscular Hemoglobin Concent 32.5 31.7 L Red Cell Distribution Width 16.9 H 16.9 H Platelet Count 194 189 Mean Platelet Volume 11.9 H 11.9 H Neutrophils % 76.2 71.6 Lymphocytes % 11.4 L 13.5 L Monocytes % 8.1 9.9 Eosinophils % 3.2 3.7 Basophils % 0.3 0.4 Nucleated Red Blood Cells % 0.0 0.0 Neutrophils # 7.5 6.1 Lymphocytes # 1.1 1.1 Monocytes # 0.8 0.8 Eosinophils # 0.3 0.3 Basophils # 0.0 0.0 Nucleated Red Blood Cells # 0.0 0.0 Sodium Level 135 Potassium Level 3.4 L Chloride Level 89 L Carbon Dioxide Level 28 Anion Gap 21 H Blood Urea Nitrogen 62 H Creatinine 2.77 H Glucose Level 120 Calcium Level 8.3 L Phosphorus Level 3.6 Magnesium Level 1.8 Total Bilirubin 0.0 L Direct Bilirubin 0.00 Indirect Bilirubin 0.0 Aspartate Amino Transf (AST/SGOT) 41 Alanine Aminotransferase (ALT/SGPT) 44 Alkaline Phosphatase 296 H Total Protein 6.8 Albumin 3.2 L Globulin 3.60 H Albumin/Globulin Ratio 0.88 Carcinoembryonic Antigen 6.2 H Medications Medications Current Medications Acetaminophen (Tylenol Liquid) 650 mg Q6H PRN GTB PAIN OR TEMP ABOVE 38C Last administered on 04/11/17 21:13; Admin Dose 650 MG; Start 04/06/17 at 15:00 Atorvastatin Calcium (Lipitor) 20 mg QHS GTB Last administered on 04/11/17 21: 12; Admin Dose 20 MG; Start 04/06/17 at 21:00 Carvedilol (Coreg) 3.125 mg BID GTB Last administered on 04/12/17 11:52; Admin Dose 3.125 MG; Start 04/06/17 at 21:00 Chlorhexidine Gluconate (Peridex) 10 ml Q12 MM Last administered on 04/12/17 11:51; Admin Dose 10 ML; Start 04/06/17 at 21:00 Clonidine (Catapres) 0.1 mg Q4H PRN GTB SBP > 170; Start 04/06/17 at 15:00 Clopidogrel Bisulfate (plaVIX) 75 mg DAILY GTB Last administered on 04/12/17 11:52; Admin Dose 75 MG; Start 04/07/17 at 09:00 Isosorbide Dinitrate (Isordil) 10 mg TID GTB Last administered on 04/12/17 11: 52; Admin Dose 10 MG; Start 04/06/17 at 21:00 Lactobacillus Acidophilus/ Rhamnosus (Culturelle) 1 cap DAILY GTB Last administered on 04/12/17 11:52; Admin Dose 1 CAP; Start 04/07/17 at 09:00 Lansoprazole (Prevacid) 30 mg DAILY@06 GTB Last administered on 04/12/17 05:46 ; Admin Dose 30 MG; Start 04/07/17 at 06:00 Levetiracetam (Keppra) 1,000 mg BID GTB Last administered on 04/12/17 11:52; Admin Dose 1,000 MG; Start 04/06/17 at 21:00 Lorazepam (Ativan) 0.5 mg Q4H PRN GTB ANXIETY Last administered on 04/10/17 22: 42; Admin Dose 0.5 MG; Start 04/06/17 at 15:00 Multivitamins Therapeutic (Theragran) 1 tab DAILY GTB Last administered on 04/12 11:52; Admin Dose 1 TAB; Start 04/07/17 at 09:00 Spironolactone (Aldactone) 25 mg DAILY GTB Last administered on 04/12/17 11:51 ; Admin Dose 25 MG; Start 04/07/17 at 09:00 IV Flush (NS 10 ml) 10 ml PRN PRN IV flush; Start 04/06/17 at 16:30 Miscellaneous Information (Pending [facility] Order For Wound Care) This patient jenkins... PRN PRN XX WOUND CARE; Start 04/06/17 at 20:30 Sodium Phosphate (Neutra-Phos) 250 mg BID NGT Last administered on 04/12/17 11 :53; Admin Dose 250 MG; Start 04/08/17 at 12:00 Lisinopril 10 mg 10 mg BID GTB Last administered on 04/12/17 11:52; Admin Dose 10 MG; Start 04/09/17 at 09:00 Cefepime HCl (Maxipime 1gm/50 ml (Pmx)) 50 ml @ 100 mls/hr Q24H IVPB Last administered on 04/11/17 17:17; Admin Dose 100 MLS/HR; Start 04/09/17 at 17:00 Acetaminophen/ Hydrocodone Bitart ([place] (5/325)) 1 tab Q8H PRN PO PAIN Last administered on 04/11/17t 16:15; Admin Dose 1 TAB; Start 04/11/17 at 16:30 Diphenhydramine HCl (Benadryl Liquid Cup) 10 mg Q6H PRN GTB ITCHING; Start 07/20 at 02:30 MAIRA HUIZAR NP Apr 12, 2017 12:56
[2017-04-12] MEDS ORDERED: GENTAMICIN IV PER PHARMACY XX SCH (13:00)
--- NOTE | 2017-04-12 15:52 | CONS ---
Date/Time of Note Date/Time of Note DATE: 04/12/17 TIME: 15:51 Consult Date/Type/Reason Admit Date/Time Apr 08, 2017 at 10:24 Initial Consult Date 04/07/17 Type of Consultation: pulm Subjective comfortable Objective Vital Signs Date Time Temp Pulse Resp B/P Pulse Ox O2 Delivery O2 Flow Rate FiO2 04/12/17 14:16 98.0 73 18 129/73 100 04/12/17 13:00 35 04/12/17 06:00 Mechanical Ventilator Intake and Output 04/11/17 04/11/17 04/12/17 14:59 22:59 06:59 Intake Total 950 ml 900 ml Balance 950 ml 900 ml Results/Medications Result Diagram: 04/12/17 0630 04/12/17 0630 Results 24 hrs Laboratory Tests Test 04/12/17 06:30 White Blood Count 8.5 Red Blood Count 2.64 L Hemoglobin 8.0 L Hematocrit 25.2 L Mean Corpuscular Volume 95.5 Mean Corpuscular Hemoglobin 30.3 Mean Corpuscular Hemoglobin Concent 31.7 L Red Cell Distribution Width 16.9 H Platelet Count 189 Mean Platelet Volume 11.9 H Neutrophils % 71.6 Lymphocytes % 13.5 L Monocytes % 9.9 Eosinophils % 3.7 Basophils % 0.4 Nucleated Red Blood Cells % 0.0 Neutrophils # 6.1 Lymphocytes # 1.1 Monocytes # 0.8 Eosinophils # 0.3 Basophils # 0.0 Nucleated Red Blood Cells # 0.0 Sodium Level 135 Potassium Level 3.4 L Chloride Level 89 L Carbon Dioxide Level 28 Anion Gap 21 H Blood Urea Nitrogen 62 H Creatinine 2.77 H Glucose Level 120 Calcium Level 8.3 L Phosphorus Level 3.6 Magnesium Level 1.8 Total Bilirubin 0.0 L Direct Bilirubin 0.00 Indirect Bilirubin 0.0 Aspartate Amino Transf (AST/SGOT) 41 Alanine Aminotransferase (ALT/SGPT) 44 Alkaline Phosphatase 296 H Total Protein 6.8 Albumin 3.2 L Globulin 3.60 H Albumin/Globulin Ratio 0.88 Carcinoembryonic Antigen 6.2 H Medications Current Medications Acetaminophen (Tylenol Liquid) 650 mg Q6H PRN GTB PAIN OR TEMP ABOVE 38C Last administered on 04/11/17t 21:13; Admin Dose 650 MG; Start 04/06/17 at 15:00 Atorvastatin Calcium (Lipitor) 20 mg QHS GTB Last administered on 04/11/17 21: 12; Admin Dose 20 MG; Start 04/06/17 at 21:00 Carvedilol (Coreg) 3.125 mg BID GTB Last administered on 04/12/17 11:52; Admin Dose 3.125 MG; Start 04/06/17 at 21:00 Chlorhexidine Gluconate (Peridex) 10 ml Q12 MM Last administered on 04/12/17 11:51; Admin Dose 10 ML; Start 04/06/17 at 21:00 Clonidine (Catapres) 0.1 mg Q4H PRN GTB SBP > 170; Start 04/06/17 at 15:00 Clopidogrel Bisulfate (plaVIX) 75 mg DAILY GTB Last administered on 04/12/17 11:52; Admin Dose 75 MG; Start 04/07/17 at 09:00 Isosorbide Dinitrate (Isordil) 10 mg TID GTB Last administered on 04/12/17 14: 59; Admin Dose 10 MG; Start 04/06/17 at 21:00 Lactobacillus Acidophilus/ Rhamnosus (Culturelle) 1 cap DAILY GTB Last administered on 04/12/17 11:52; Admin Dose 1 CAP; Start 04/07/17 at 09:00 Lansoprazole (Prevacid) 30 mg DAILY@06 GTB Last administered on 04/12/17 05:46 ; Admin Dose 30 MG; Start 04/07/17 at 06:00 Levetiracetam (Keppra) 1,000 mg BID GTB Last administered on 04/12/17 11:52; Admin Dose 1,000 MG; Start 04/06/17 at 21:00 Lorazepam (Ativan) 0.5 mg Q4H PRN GTB ANXIETY Last administered on 04/10/17 22: 42; Admin Dose 0.5 MG; Start 04/06/17 at 15:00 Multivitamins Therapeutic (Theragran) 1 tab DAILY GTB Last administered on 04/12 11:52; Admin Dose 1 TAB; Start 04/07/17 at 09:00 Spironolactone (Aldactone) 25 mg DAILY GTB Last administered on 04/12/17 11:51 ; Admin Dose 25 MG; Start 04/07/17 at 09:00 IV Flush (NS 10 ml) 10 ml PRN PRN IV flush; Start 04/06/17 at 16:30 Misc[facility] This patient jenkins... PRN PRN XX WOUND CARE; Start 04/06/17 at 20:30 Sodium Phosphate (Neutra-Phos) 250 mg BID NGT Last administered on 04/12/17 11 :53; Admin Dose 250 MG; Start 04/08/17 at 12:00 Lisinopril (Zestril) 10 mg BID GTB Last administered on 04/12/17 11:52; Admin Dose 10 MG; Start 04/09/17 at 09:00 Acetaminophen/ Hydrocodone Bitart ([place] (5/325)) 1 tab Q8H PRN PO PAIN Last administered on 04/11/17 16:15; Admin Dose 1 TAB; Start 04/11/17 at 16:30 Diphenhydramine HCl (Benadryl Liquid Cup) 10 mg Q6H PRN GTB ITCHING; Start 07/20 at 02:30 Gentamicin Sulfate GENTAMICIN PER PHARMACY NOTE XX ; Start 04/12/17 at 13:00 Gentamicin Sulfate/Sodium Chloride (Gentamicin/NS) 103.5 ml @ 103.5 mls/ hr ONCE IVPB ; Start 04/12/17 at 16:00; Stop 04/12/17 at 19:00 Assessment/Plan Chief Complaint/Hosp Course IMP: 1. Anemia likely multifactorial combination of chronic kidney disease, possible dilutional possible GI bleed. 2. Vent dependent respiratory failure 3. Encephalopathy acute on chronic 4. CKD 5. Seizure disorder 6. History of ischemic heart disease with ICD, mild pulmonary edema on chest x- ray RECS: 1. Reduce Vt to 450 2. follow labs 3. BD's/CPT Discharge planning Problems: ZULMA MAE MD, FCCP Apr 12, 2017 15:52
[2017-04-12] MEDS ORDERED: GENTAMICIN 140 MG in SOD CHLORIDE 0.9% 100 ML IVPB SCH (16:00)
--- NOTE | 2017-04-12 19:07 | PN ---
Date/Time of Note Date/Time of Note DATE: 04/12/17 TIME: 19:06 Assessment/Plan VTE Prophylaxis VTE Prophylaxis Intervention: SCD's Lines/Catheters IV [facility] Type ([facility] PICC Line Central line still needed: Yes Urinary Cath still in place: No Assessment/Plan Chief Complaint/Hosp Course 1. History of extensive coronary artery disease: Currently with no angina Continue Plavix. off of aspirin due to concerns about anemia and bleeding. cont Coreg 2. 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 Defer to the pulmonary consultations. 3. Severe anemia: Etiology is unclear. Status post transfusions. will need to continue with the Plavix unfortunately given his recent PCI. 4. History of coronary artery bypass graft. 5. History of multiple PCI. most recent PCI was in November 2016 using a drug- eluting stent: Continue with the Plavix Continue beta-staci as tolerated. 6. Congestive heart failure: Chronic and stable due to severe LV dysfunction Continue and inc ARABELLA inhibitor and Coreg as tolerated. Fluid management as per dialysis per renal. 7. Dyslipidemia: Continue statin 8. History of hypertension currently stable on Coreg and ARABELLA inhibitor. 9. End-stage renal disease on hemodialysis. Will refer to the renal team 10. Sick sinus syndrome: Status post [facility] ICD device 11. Status post dual-chamber ICD: Coronary appears to be stable with no malfunction of the device. We will continue to monitor. Problems: Subjective 24 Hr Interval Summary Free Text/Dictation D/W staff and pt's brother. rhythm was reviewed pt remains in NSR. HR has remained stable pt still s/p trach on vent no reports of chest pain or pressure or palpitations. Meds reviewed. PHYSICAL EXAM: General: no acute distress. s/p trach on vent HEENT: NC/AT. pupils are equal. round. NECK: s/p trach. no stridor. CV: RRR. systolic murmur; no gallop or rubs. PULM: no wheezing. + mild rhonchi. GI: SOFT, NT, ND, no rebound or guarding s/p PEG Extremity: 1+ B/L LE edema.+ Upper ext edema. neuro: awake and alert, responds appropriately Psych: calm and pleasant rectal: deferred : normal male Derm: diffuse echymosis in the body chest: s/p ICD left side. no hematoma or bleeding. s/p HD access right chest. Exam/Review of Systems Vital Signs Vitals Vital Signs Date Time Temp Pulse Resp B/P Pulse Ox O2 Delivery O2 Flow Rate FiO2 04/12/17 18:00 98.9 60 20 142/68 100 Mechanical Ventilator 04/12/17 17:10 35 Intake and Output 04/11/17 04/11/17 04/12/17 15:00 23:00 07:00 Intake Total 950 ml 900 ml Balance 950 ml 900 ml Results Result Diagram: 04/12/17 0630 04/12/17 0630 Results 24 hrs Laboratory Tests Test 04/12/17 06:30 White Blood Count 8.5 Red Blood Count 2.64 L Hemoglobin 8.0 L Hematocrit 25.2 L Mean Corpuscular Volume 95.5 Mean Corpuscular Hemoglobin 30.3 Mean Corpuscular Hemoglobin Concent 31.7 L Red Cell Distribution Width 16.9 H Platelet Count 189 Mean Platelet Volume 11.9 H Neutrophils % 71.6 Lymphocytes % 13.5 L Monocytes % 9.9 Eosinophils % 3.7 Basophils % 0.4 Nucleated Red Blood Cells % 0.0 Neutrophils # 6.1 Lymphocytes # 1.1 Monocytes # 0.8 Eosinophils # 0.3 Basophils # 0.0 Nucleated Red Blood Cells # 0.0 Sodium Level 135 Potassium Level 3.4 L Chloride Level 89 L Carbon Dioxide Level 28 Anion Gap 21 H Blood Urea Nitrogen 62 H Creatinine 2.77 H Glucose Level 120 Calcium Level 8.3 L Phosphorus Level 3.6 Magnesium Level 1.8 Total Bilirubin 0.0 L Direct Bilirubin 0.00 Indirect Bilirubin 0.0 Aspartate Amino Transf (AST/SGOT) 41 Alanine Aminotransferase (ALT/SGPT) 44 Alkaline Phosphatase 296 H Total Protein 6.8 Albumin 3.2 L Globulin 3.60 H Albumin/Globulin Ratio 0.88 Carcinoembryonic Antigen 6.2 H Medications Medications Current Medications Acetaminophen (Tylenol Liquid) 650 mg Q6H PRN GTB PAIN OR TEMP ABOVE 38C Last administered on 04/11/17 21:13; Admin Dose 650 MG; Start 04/06/17 at 15:00 Atorvastatin Calcium (Lipitor) 20 mg QHS GTB Last administered on 04/11/17 21: 12; Admin Dose 20 MG; Start 04/06/17 at 21:00 Carvedilol (Coreg) 3.125 mg BID GTB Last administered on 04/12/17 11:52; Admin Dose 3.125 MG; Start 04/06/17 at 21:00 Chlorhexidine Gluconate (Peridex) 10 ml Q12 MM Last administered on 04/12/17 11:51; Admin Dose 10 ML; Start 04/06/17 at 21:00 Clonidine (Catapres) 0.1 mg Q4H PRN GTB SBP > 170; Start 04/06/17 at 15:00 Clopidogrel Bisulfate (plaVIX) 75 mg DAILY GTB Last administered on 04/12/17 11:52; Admin Dose 75 MG; Start 04/07/17 at 09:00 Isosorbide Dinitrate (Isordil) 10 mg TID GTB Last administered on 04/12/17 14: 59; Admin Dose 10 MG; Start 04/06/17 at 21:00 Lactobacillus Acidophilus/ Rhamnosus (Culturelle) 1 cap DAILY GTB Last administered on 04/12/17 11:52; Admin Dose 1 CAP; Start 04/07/17 at 09:00 Lansoprazole (Prevacid) 30 mg DAILY@06 GTB Last administered on 04/12/17 05:46 ; Admin Dose 30 MG; Start 04/07/17 at 06:00 Levetiracetam (Keppra) 1,000 mg BID GTB Last administered on 04/12/17 11:52; Admin Dose 1,000 MG; Start 04/06/17 at 21:00 Lorazepam (Ativan) 0.5 mg Q4H PRN GTB ANXIETY Last administered on 04/10/17 22: 42; Admin Dose 0.5 MG; Start 04/06/17 at 15:00 Multivitamins Therapeutic (Theragran) 1 tab DAILY GTB Last administered on 04/12 11:52; Admin Dose 1 TAB; Start 04/07/17 at 09:00 Spironolactone (Aldactone) 25 mg DAILY GTB Last administered on 04/12/17 11:51 ; Admin Dose 25 MG; Start 04/07/17 at 09:00 IV Flush (NS 10 ml) 10 ml PRN PRN IV flush; Start 04/06/17 at 16:30 [facility]isc[facility] This patient jenkins... PRN PRN XX WOUND CARE; Start 04/06/17 at 20:30 Sodium Phosphate (Neutra-Phos) 250 mg BID NGT Last administered on 04/12/17 11 :53; Admin Dose 250 MG; Start 04/08/17 at 12:00 Lisinopril (Zestril) 10 mg BID GTB Last administered on 04/12/17 11:52; Admin Dose 10 MG; Start 04/09/17 at 09:00 Acetaminophen/ Hydrocodone Bitart ([place] (5/325)) 1 tab Q8H PRN PO PAIN Last administered on 04/11/17 16:15; Admin Dose 1 TAB; Start 04/11/17 at 16:30 Diphenhydramine HCl (Benadryl Liquid Cup) 10 mg Q6H PRN GTB ITCHING; Start 07/20 at 02:30 Gentamicin Sulfate (Gentamicin Iv Per Pharmacy) GENTAMICIN PER PHARMACY NOTE XX ; Start 04/12/17 at 13:00 MOOKIE BESS MD Apr 12, 2017 19:07
[2017-04-12] MEDS: LISINOPRIL 20 MG TAB GTB SCH (20:38)
[2017-04-12] MEDS: ATORVASTATIN 20 MG TAB GTB SCH (20:39)
[2017-04-12] MEDS ORDERED: VITAMIN A & D 5 GM OINT PACKET TOP ONE (20:49)
[2017-04-13] VITALS (29 sets, daily range): BP systolic 105–146; BP diastolic 49–81; PULSE 50–61; RESP 18–33
[2017-04-13] MEDS: LEVOTHYROXINE 88 MCG TAB GTB SCH (05:28)
[2017-04-13] MEDS: LANSOPRAZOLE 30 MG CAP GTB SCH (05:28)
[2017-04-13] MEDS: COLLAGENASE 30 GM TUBE TOP PRN (06:05)
[2017-04-13 07:03] LABS: ADD SCAN DIFF NO
[2017-04-13 07:09] LABS: BASOPHILS % 0.4 % (0.0-2.0); EOSINOPHILS # 0.2 10^3/ul (0.0-0.5); EOSINOPHILS % 1.9 % (0.0-7.0); HEMATOCRIT 25.9 % (42.0-52.0); HEMOGLOBIN 8.6 g/dl (14.0-18.0); LYMPHOCYTES # 1.5 10^3/ul (0.8-2.9); LYMPHOCYTES % 18.4 % (15.0-51.0); MEAN CORPUSCULAR HGB CONC 33.2 g/dl (32.0-37.0); MEAN CORPUSCULAR VOLUME 93.5 fl (82.0-101.0); MEAN PLATELET VOLUME 11.5 fl (7.4-10.4); MONOCYTE # 0.8 10^3/ul (0.3-0.9); NEUTROPHIL # 5.7 10^3/ul (1.6-7.5); PLATELET COUNT 208 10^3/UL (140-415); RED BLOOD COUNT 2.77 10^6/ul (4.70-6.10); RED CELL DISTRIBUTION WIDTH 16.3 % (11.5-14.5); WHITE BLOOD COUNT 8.3 10^3/ul (4.8-10.8)
[2017-04-13 07:44] LABS: CALCIUM 8.3 mg/dl (8.4-10.2); CREATININE 2.31 mg/dl (0.61-1.24); MAGNESIUM 1.6 mg/dl (1.7-2.5); PHOSPHORUS 2.5 mg/dl (2.5-4.9); POTASSIUM 3.3 mmol/L (3.5-5.1)
[2017-04-13] MEDS: MULTIVITAMINS THERAPEUTIC TAB GTB SCH (09:50)
[2017-04-13] MEDS: CHLORHEXIDINE GLUCONATE 15 ML UD CUP MM SCH ×2 (09:50→21:37)
[2017-04-13] MEDS: NEUTRA-PHOS 250 MG PACKET NGT SCH ×2 (09:50→21:36)
[2017-04-13] MEDS: LACTOBACILLUS RHAMNOSUS CAP GTB SCH (09:50)
[2017-04-13] MEDS: LEVETIRACETAM 500 MG TAB GTB SCH ×2 (09:51→21:36)
[2017-04-13] MEDS: SPIRONOLACTONE 25 MG TAB GTB SCH (09:51)
[2017-04-13] MEDS: LISINOPRIL 20 MG TAB GTB SCH ×2 (09:51→21:36)
[2017-04-13] MEDS: ISOSORBIDE DINITRATE 10 MG TAB GTB SCH ×3 (09:51→21:36)
[2017-04-13] MEDS: CLOPIDOGREL 75 MG TAB GTB SCH (09:53)
--- NOTE | 2017-04-13 10:19 | PN ---
Date/Time of Note Date/Time of Note DATE: 04/13/17 TIME: :17 Assessment/Plan Lines/Catheters IV Catheter Type (from Nrs): PICC Line Urinary Cath still in place: No Assessment/Plan Chief Complaint/Hosp Course 1. Anemia, etiology likely from chronic disease, rule out GI bleed. -Patient status post blood transfusion with appropriate response -Stool occult blood negative 2 -Continue Protonix, continue Epogen -Follow-up with GI 2. Bronchitis possible pneumonia We will continue to monitor Patient on antibiotic -Follow-up with infectious disease 2. End-stage renal disease. -Continue intermittent hemodialysis -Possible HD today as labs were markedly abnormal repeat stat BMP 3. Mineral bone disorder -Monitor calcium phosphorus levels 4 volume overload secondary to CHF end-stage renal disease -Continue ultrafiltration with dialysis 5. Dependent respiratory failure -Vent settings, ABG reviewed -Follow-up with pulmonary 6. Coronary disease,/cardiomyopathy -Status post pacemaker ICD placement -Continue medical management -Follow-up with cardiology 7. Seizure disorder -Continue Keppra 8. Hypothyroidism -Continue Synthroid 9. Dysphagia status post PEG -Continue tube feeds 10. Acute on chronic encephalotomy -Etiology toxic metabolic -Continue to monitor 11. Hypertension continue current blood pressure regimen 12. GI/DVT prophylaxis 13. Hypokalemia hypomagnesemia/hyponatremia -We will repeat BMP Problems: Subjective 24 Hr Interval Summary Free Text/Dictation Patient had hemodialysis yesterday tolerated well -No other events noted overnight Exam/Review of Systems Vital Signs Vitals Vital Signs Date Time Temp Pulse Resp B/P Pulse Ox O2 Delivery O2 Flow Rate FiO2 04/13/17 09:00 52 24 98 30 04/13/17 08:22 98.7 114/54 04/12/17 18:00 Mechanical Ventilator Intake and Output 04/12/17 04/12/17 04/13/17 15:00 23:00 07:00 Intake Total 300 ml 900 ml 900 ml Output Total 2300 ml 2000 ml Balance -2000 ml -1100 ml 900 ml Exam HEENT head is normocephalic able to react Neck is supple positive straight Cardiovascular regular rate no gallops Lungs show diminished breath sounds at the base Abdomen soft nontender palpation positive Extremity no edema Dermatologically no rash Muscle skeletal no joint Neurologically no change in exam Results Result Diagram: 04/13/1738 04/13/17637 Results 24 hrs Laboratory Tests Test 04/13/17 06:38 White Blood Count 8.3 Red Blood Count 2.77 L Hemoglobin 8.6 L Hematocrit 25.9 L Mean Corpuscular Volume 93.5 Mean Corpuscular Hemoglobin 31.0 Mean Corpuscular Hemoglobin Concent 33.2 Red Cell Distribution Width 16.3 H Platelet Count 208 Mean Platelet Volume 11.5 H Neutrophils % 69.0 Lymphocytes % 18.4 Monocytes % 9.0 Eosinophils % 1.9 Basophils % 0.4 Nucleated Red Blood Cells % 0.0 Neutrophils # 5.7 Lymphocytes # 1.5 Monocytes # 0.8 Eosinophils # 0.2 Basophils # 0.0 Nucleated Red Blood Cells # 0.0 Sodium Level 123 L Potassium Level 3.3 L Chloride Level 86 L Carbon Dioxide Level 30 Anion Gap 10 # Blood Urea Nitrogen 54 H Creatinine 2.31 H Glucose Level 91 Calcium Level 8.3 L Phosphorus Level 2.5 Magnesium Level 1.6 L Medications Medications Current Medications Acetaminophen (Tylenol Liquid) 650 mg Q6H PRN GTB PAIN OR TEMP ABOVE 38C Last administered on 04/11/17 21:13; Admin Dose 650 MG; Start 04/06/17 at 15:00 Atorvastatin Calcium (Lipitor) 20 mg QHS GTB Last administered on 04/12/17 20: 39; Admin Dose 20 MG; Start 04/06/17 at 21:00 Carvedilol (Coreg) 3.125 mg BID GTB Last administered on 04/12/17 20:38; Admin Dose 3.125 MG; Start 04/06/17 at 21:00 Chlorhexidine Gluconate (Peridex) 10 ml Q12 MM Last administered on 04/13/17 09:50; Admin Dose 10 ML; Start 04/06/17 at 21:00 Clonidine (Catapres) 0.1 mg Q4H PRN GTB SBP > 170; Start 04/06/17 at 15:00 Clopidogrel Bisulfate (plaVIX) 75 mg DAILY GTB Last administered on 04/13/17 09:53; Admin Dose 75 MG; Start 04/07/17 at 09:00 Isosorbide Dinitrate (Isordil) 10 mg TID GTB Last administered on 04/13/17 09: 51; Admin Dose 10 MG; Start 04/06/17 at 21:00 Lactobacillus Acidophilus/ Rhamnosus (Culturelle) 1 cap DAILY GTB Last administered on 04/13/17 09:50; Admin Dose 1 CAP; Start 04/07/17 at 09:00 Lansoprazole (Prevacid) 30 mg DAILY@06 GTB Last administered on 04/13/17 05:28 ; Admin Dose 30 MG; Start 04/07/17 at 06:00 Levetiracetam (Keppra) 1,000 mg BID GTB Last administered on 04/13/17 09:51; Admin Dose 1,000 MG; Start 04/06/17 at 21:00 Lorazepam (Ativan) 0.5 mg Q4H PRN GTB ANXIETY Last administered on 04/10/17 22: 42; Admin Dose 0.5 MG; Start 04/06/17 at 15:00 Multivitamins Therapeutic (Theragran) 1 tab DAILY GTB Last administered on 04/13 09:50; Admin Dose 1 TAB; Start 04/07/17 at 09:00 Spironolactone (Aldactone) 25 mg DAILY GTB Last administered on 04/13/17 09:51 ; Admin Dose 25 MG; Start 04/07/17 at 09:00 IV Flush (NS 10 ml) 10 ml PRN PRN IV flush; Start 04/06/17 at 16:30 Miscellaneous Information (Pending [facility] Order For Wound Care) This patient jenkins... PRN PRN XX WOUND CARE; Start 04/06/17 at 20:30 Sodium Phosphate (Neutra-Phos) 250 mg BID NGT Last administered on 04/13/17 09 :50; Admin Dose 250 MG; Start 04/08/17 at 12:00 Acetaminophen/ Hydrocodone Bitart ([place] (5/325)) 1 tab Q8H PRN PO PAIN Last administered on 04/11/17 16:15; Admin Dose 1 TAB; Start 04/11/17 at 16:30 Diphenhydramine HCl (Benadryl Liquid Cup) 10 mg Q6H PRN GTB ITCHING Last administered on 04/12/17 20:44; Admin Dose 10 MG; Start 04/12/17 at 02:30 Gentamicin Sulfate (Gentamicin Iv Per Pharmacy) GENTAMICIN PER PHARMACY NOTE XX ; Start 04/12/17 at 13:00 Lisinopril (Zestril) 20 mg BID GTB Last administered on 04/13/17t 09:51; Admin Dose 20 MG; Start 04/12/17 at 21:00 ANNABELLE MENDOZA DO Apr 13, 2017 10:18
[2017-04-13] MEDS ORDERED: MAGNESIUM SULFATE 2 GM/50 ML 50 ML IVPB ONE (10:30)
--- NOTE | 2017-04-13 12:22 | CONS ---
Date/Time of Note Date/Time of Note DATE: 04/13/17 TIME: 12:21 Assessment/Plan Assessment/Plan Additional Assessment/Plan Assessment/Plan Additional Assessment/Plan 1,anemia mostly of chronic disease,r/o gi bleeding 2,VDRF 3,s/p AICD 5,ischemic cardiomyopathy 6,ESRD Plan stool for occult blood, it is negative twice monitor H&H continue all supportive care KUB negative Consultation Date/Type/Reason Admit Date/Time Apr 08, 2017 at 10:24 Initial Consult Date 04/07/17 Type of Consultation: pulm 24 HR Interval Summary Constitutional: improved, no complaints Exam/Review of Systems Vital Signs Vitals Vital Signs Date Time Temp Pulse Resp B/P Pulse Ox O2 Delivery O2 Flow Rate FiO2 04/13/17 12:15 51 04/13/17 12:12 97.9 18 127/59 99 04/13/17 11:00 35 04/12/17 18:00 Mechanical Ventilator Intake and Output 04/12/17 04/12/17 04/13/17 15:00 23:00 07:00 Intake Total 300 ml 900 ml 900 ml Output Total 2300 ml 2000 ml Balance -2000 ml -1100 ml 900 ml Exam Constitutional: alert, oriented, well developed Psych: nl mood/affect, no complaints Head: atraumatic, normocephalic Eyes: EOMI, PERRL, nl conjunctiva, nl lids, nl sclera ENMT: nl external ears & nose, nl lips & teeth, nl nasal mucosa & septum Neck: non-tender, supple Respiratory: clear to auscultation, normal air movement Cardiovascular: nl pulses, regular rate and rhythm Gastrointestinal: nl liver, spleen, non-tender, soft Musculoskeletal: nl extremities to inspection, nl gait and stance Extremities: normal pulses Neurological: STRING STUDIES DIRECTOR II-XII intact, nl mental status, nl speech, nl strength Skin: nl turgor, No rash or lesions Lymph: nl lymph nodes Results Result Diagram: 04/13/17 0638 04/13/17 0638 Results 24 hrs Laboratory Tests Test 04/13/17 06:38 White Blood Count 8.3 Red Blood Count 2.77 L Hemoglobin 8.6 L Hematocrit 25.9 L Mean Corpuscular Volume 93.5 Mean Corpuscular Hemoglobin 31.0 Mean Corpuscular Hemoglobin Concent 33.2 Red Cell Distribution Width 16.3 H Platelet Count 208 Mean Platelet Volume 11.5 H Neutrophils % 69.0 Lymphocytes % 18.4 Monocytes % 9.0 Eosinophils % 1.9 Basophils % 0.4 Nucleated Red Blood Cells % 0.0 Neutrophils # 5.7 Lymphocytes # 1.5 Monocytes # 0.8 Eosinophils # 0.2 Basophils # 0.0 Nucleated Red Blood Cells # 0.0 Sodium Level 123 L Potassium Level 3.3 L Chloride Level 86 L Carbon Dioxide Level 30 Anion Gap 10 # Blood Urea Nitrogen 54 H Creatinine 2.31 H Glucose Level 91 Calcium Level 8.3 L Phosphorus Level 2.5 Magnesium Level 1.6 L Medications Medications Current Medications Acetaminophen (Tylenol Liquid) 650 mg Q6H PRN GTB PAIN OR TEMP ABOVE 38C Last administered on 04/11/17 21:13; Admin Dose 650 MG; Start 04/06/17 at 15:00 Atorvastatin Calcium (Lipitor) 20 mg QHS GTB Last administered on 04/12/17 20: 39; Admin Dose 20 MG; Start 04/06/17 at 21:00 Carvedilol (Coreg) 3.125 mg BID GTB Last administered on 04/12/17 20:38; Admin Dose 3.125 MG; Start 04/06/17 at 21:00 Chlorhexidine Gluconate (Peridex) 10 ml Q12 MM Last administered on 04/13/17 09:50; Admin Dose 10 ML; Start 04/06/17 at 21:00 Clonidine (Catapres) 0.1 mg Q4H PRN GTB SBP > 170; Start 04/06/17 at 15:00 Clopidogrel Bisulfate (plaVIX) 75 mg DAILY GTB Last administered on 04/13/17 09:53; Admin Dose 75 MG; Start 04/07/17 at 09:00 Isosorbide Dinitrate (Isordil) 10 mg TID GTB Last administered on 04/13/17 09: 51; Admin Dose 10 MG; Start 04/06/17 at 21:00 Lactobacillus Acidophilus/ Rhamnosus (Culturelle) 1 cap DAILY GTB Last administered on 04/13/17 09:50; Admin Dose 1 CAP; Start 04/07/17 at 09:00 Lansoprazole (Prevacid) 30 mg DAILY@06 GTB Last administered on 04/13/17 05:28 ; Admin Dose 30 MG; Start 04/07/17 at 06:00 Levetiracetam (Keppra) 1,000 mg BID GTB Last administered on 04/13/17 09:51; Admin Dose 1,000 MG; Start 04/06/17 at 21:00 Lorazepam (Ativan) 0.5 mg Q4H PRN GTB ANXIETY Last administered on 04/10/17 22: 42; Admin Dose 0.5 MG; Start 04/06/17 at 15:00 Multivitamins Therapeutic (Theragran) 1 tab DAILY GTB Last administered on 04/13 09:50; Admin Dose 1 TAB; Start 04/07/17 at 09:00 Spironolactone (Aldactone) 25 mg DAILY GTB Last administered on 04/13/17 09:51 ; Admin Dose 25 MG; Start 04/07/17 at 09:00 IV Flush (NS 10 ml) 10 ml PRN PRN IV flush; Start 04/06/17 at 16:30 Miscellaneous Information (Pending [facility] Order For Wound Care) This patient jenkins... PRN PRN XX WOUND CARE; Start 04/06/17 at 20:30 Sodium Phosphate (Neutra-Phos) 250 mg BID NGT Last administered on 04/13/17 09 :50; Admin Dose 250 MG; Start 04/08/17 at 12:00 Acetaminophen/ Hydrocodone Bitart ([place] (5/325)) 1 tab Q8H PRN PO PAIN Last administered on 04/11/17 16:15; Admin Dose 1 TAB; Start 04/11/17 at 16:30 Diphenhydramine HCl (Benadryl Liquid Cup) 10 mg Q6H PRN GTB ITCHING Last administered on 04/12/17 20:44; Admin Dose 10 MG; Start 04/12/17 at 02:30 Gentamicin Sulfate (Gentamicin Iv Per Pharmacy) GENTAMICIN PER PHARMACY NOTE XX ; Start 04/12/17 at 13:00 Lisinopril 20 mg 20 mg BID GTB Last administered on 04/13/17 09:51; Admin Dose 20 MG; Start 04/12/17 at 21:00 Magnesium Sulfate (Magnesium Sulfate 2 Gm/50 ml) 50 ml @ 25 mls/hr ONCE ONCE IVPB Last administered on 7/11/17at 10:58; Admin Dose 25 MLS/HR; Start at 10:30; Stop 04/13/17 at 12:29 LASHAY PATEL MD Apr 13, 2017 12:22
[2017-04-13 12:28] LABS: CREATININE 2.48 mg/dl (0.61-1.24); POTASSIUM 3.3 mmol/L (3.5-5.1)
--- NOTE | 2017-04-13 12:54 | CONS ---
Date/Time of Note Date/Time of Note DATE: 04/13/17 TIME: 12:52 Consult Date/Type/Reason Admit Date/Time Apr 08, 2017 at 10:24 Initial Consult Date 04/07/17 Type of Consultation: pulm Subjective No new events. Objective Vital Signs Date Time Temp Pulse Resp B/P Pulse Ox O2 Delivery O2 Flow Rate FiO2 04/13/17 12:15 51 04/13/17 12:12 97.9 18 127/59 99 04/13/17 11:00 35 04/12/17 18:00 Mechanical Ventilator Intake and Output 04/12/17 04/12/17 04/13/17 15:00 23:00 07:00 Intake Total 300 ml 900 ml 900 ml Output Total 2300 ml 2000 ml Balance -2000 ml -1100 ml 900 ml Exam PHYSICAL EXAMINATION GENERAL: Chronically ill-appearing gentleman comfortable ventilation VITAL SIGNS: see below. HEENT: Pupils equal, round, and reactive to light. Tracheostomy site clean and intact. CARDIAC: S1, S2, 1/6 systolic ejection murmur CHEST: Diminished air entry bilaterally. Right chest tube in place ABDOMEN: Mildly distended. Bowel sounds present no guarding or rebound EXTREMITIES: No cyanosis, clubbing edema +1 NEUROLOGIC: Generalized weakness Results/Medications Result Diagram: 04/13/17 0638 04/13/17 1150 Results 24 hrs Laboratory Tests Test 04/13/17 06:38 04/13/17 11:50 White Blood Count 8.3 Red Blood Count 2.77 L Hemoglobin 8.6 L Hematocrit 25.9 L Mean Corpuscular Volume 93.5 Mean Corpuscular Hemoglobin 31.0 Mean Corpuscular Hemoglobin Concent 33.2 Red Cell Distribution Width 16.3 H Platelet Count 208 Mean Platelet Volume 11.5 H Neutrophils % 69.0 Lymphocytes % 18.4 Monocytes % 9.0 Eosinophils % 1.9 Basophils % 0.4 Nucleated Red Blood Cells % 0.0 Neutrophils # 5.7 Lymphocytes # 1.5 Monocytes # 0.8 Eosinophils # 0.2 Basophils # 0.0 Nucleated Red Blood Cells # 0.0 Sodium Level 123 L 124 L Potassium Level 3.3 L 3.3 L Chloride Level 86 L 86 L Carbon Dioxide Level 30 29 Anion Gap 10 # 12 Blood Urea Nitrogen 54 H 58 H Creatinine 2.31 H 2.48 H Glucose Level 91 136 # Calcium Level 8.3 L 8.0 L Phosphorus Level 2.5 Magnesium Level 1.6 L Medications Current Medications Acetaminophen (Tylenol Liquid) 650 mg Q6H PRN GTB PAIN OR TEMP ABOVE 38C Last administered on 04/11/17 21:13; Admin Dose 650 MG; Start 04/06/17 at 15:00 Atorvastatin Calcium (Lipitor) 20 mg QHS GTB Last administered on 04/12/17 20: 39; Admin Dose 20 MG; Start 04/06/17 at 21:00 Carvedilol (Coreg) 3.125 mg BID GTB Last administered on 04/12/17 20:38; Admin Dose 3.125 MG; Start 04/06/17 at 21:00 Chlorhexidine Gluconate (Peridex) 10 ml Q12 MM Last administered on 04/13/17 09:50; Admin Dose 10 ML; Start 04/06/17 at 21:00 Clonidine (Catapres) 0.1 mg Q4H PRN GTB SBP > 170; Start 04/06/17 at 15:00 Clopidogrel Bisulfate (plaVIX) 75 mg DAILY GTB Last administered on 04/13/17 09:53; Admin Dose 75 MG; Start 04/07/17 at 09:00 Isosorbide Dinitrate (Isordil) 10 mg TID GTB Last administered on 04/13/17 09: 51; Admin Dose 10 MG; Start 04/06/17 at 21:00 Lactobacillus Acidophilus/ Rhamnosus (Culturelle) 1 cap DAILY GTB Last administered on 04/13/17 09:50; Admin Dose 1 CAP; Start 04/07/17 at 09:00 Lansoprazole (Prevacid) 30 mg DAILY@06 GTB Last administered on 04/13/17 05:28 ; Admin Dose 30 MG; Start 04/07/17 at 06:00 Levetiracetam (Keppra) 1,000 mg BID GTB Last administered on 04/13/17 09:51; Admin Dose 1,000 MG; Start 04/06/17 at 21:00 Lorazepam (Ativan) 0.5 mg Q4H PRN GTB ANXIETY Last administered on 04/10/17 22: 42; Admin Dose 0.5 MG; Start 04/06/17 at 15:00 Multivitamins Therapeutic (Theragran) 1 tab DAILY GTB Last administered on 04/13 09:50; Admin Dose 1 TAB; Start 04/07/17 at 09:00 Spironolactone (Aldactone) 25 mg DAILY GTB Last administered on 04/13/17 09:51 ; Admin Dose 25 MG; Start 04/07/17 at 09:00 IV Flush (NS 10 ml) 10 ml PRN PRN IV flush; Start 04/06/17 at 16:30 [facility] This patient jenkins... PRN PRN XX WOUND CARE; Start 04/06/17 at 20:30 Sodium Phosphate (Neutra-Phos) 250 mg BID NGT Last administered on 04/13/17 09 :50; Admin Dose 250 MG; Start 04/08/17 at 12:00 Acetaminophen/ Hydrocodone Bitart ([place] (5/325)) 1 tab Q8H PRN PO PAIN Last administered on 04/11/17 16:15; Admin Dose 1 TAB; Start 04/11/17 at 16:30 Diphenhydramine HCl (Benadryl Liquid Cup) 10 mg Q6H PRN GTB ITCHING Last administered on 04/12/17 20:44; Admin Dose 10 MG; Start 04/12/17 at 02:30 Gentamicin Sulfate (Gentamicin Iv Per Pharmacy) GENTAMICIN PER PHARMACY NOTE XX ; Start 04/12/17 at 13:00 Lisinopril (Zestril) 20 mg BID GTB Last administered on 04/13/17 09:51; Admin Dose 20 MG; Start 04/12/17 at 21:00 Assessment/Plan Chief Complaint/Hosp Course IMP: 1. Anemia likely multifactorial combination of chronic kidney disease, possible dilutional possible GI bleed. 2. Vent dependent respiratory failure 3. Encephalopathy acute on chronic 4. CKD, electrolyte abnormality 5. Seizure disorder 6. History of ischemic heart disease with ICD, mild pulmonary edema on chest x- ray RECS: 1. continue current vent settings. 2. follow labs 3. BD's/CPT 4. renal recs. Discharge planning ? Problems: [facility] MAE [facility], [facility] Apr 13, 2017 12:53
--- NOTE | 2017-04-13 14:06 | CONS ---
Date/Time of Note Date/Time of Note DATE: 04/13/17 TIME: 14:05 Assessment/Plan Assessment/Plan Chief Complaint/Hosp Course No acute events, alert, looks comfortable, no fevers, no vomiting/ diarrhea Indwelling: Left upper extremity PICC line, right chest permacath, trach PEG Antimicrobials: Gentamicin Microbiology: Sputum culture growing pseudomonas aeruginosa Physical examination: Well-developed, chronically ill-appearing elderly male who is in no distress. Head atraumatic normocephalic sclera nonicteric. Neck is supple tracheostomy present. Chest rise symmetrical, breath sounds diminished basis. Abdomen soft, bowel tones present. Extremities with trace edema. Assessment: 1. Leukocytosis possibly reactive 2. Chronic respiratory failure with pseudomonas aeruginosa sputum colonization 3. End-stage renal disease, hemodialysis dependent 4. Acute on chronic anemia 5. Dysphasia 6. Encephalopathy 7. Coronary artery disease history permanent pacemaker Plan: Remain stable, continue present care as per primary team and consultants. Discussed with staff Problems: Consultation Date/Type/Reason Admit Date/Time Apr 08, 2017 at 10:24 Initial Consult Date 04/07/17 Type of Consultation: ID Exam/Review of Systems Vital Signs Vitals Vital Signs Date Time Temp Pulse Resp B/P Pulse Ox O2 Delivery O2 Flow Rate FiO2 04/13/17 12:15 51 04/13/17 12:12 97.9 18 127/59 99 04/13/17 11:00 35 04/12/17 18:00 Mechanical Ventilator Intake and Output 04/12/17 04/12/17 04/13/17 15:00 23:00 07:00 Intake Total 300 ml 900 ml 900 ml Output Total 2300 ml 2000 ml Balance -2000 ml -1100 ml 900 ml Results Result Diagram: 04/13/17 0638 04/13/17 1150 Results 24 hrs Laboratory Tests Test 04/13/17 06:38 04/13/17 11:50 White Blood Count 8.3 Red Blood Count 2.77 L Hemoglobin 8.6 L Hematocrit 25.9 L Mean Corpuscular Volume 93.5 Mean Corpuscular Hemoglobin 31.0 Mean Corpuscular Hemoglobin Concent 33.2 Red Cell Distribution Width 16.3 H Platelet Count 208 Mean Platelet Volume 11.5 H Neutrophils % 69.0 Lymphocytes % 18.4 Monocytes % 9.0 Eosinophils % 1.9 Basophils % 0.4 Nucleated Red Blood Cells % 0.0 Neutrophils # 5.7 Lymphocytes # 1.5 Monocytes # 0.8 Eosinophils # 0.2 Basophils # 0.0 Nucleated Red Blood Cells # 0.0 Sodium Level 123 L 124 L Potassium Level 3.3 L 3.3 L Chloride Level 86 L 86 L Carbon Dioxide Level 30 29 Anion Gap 10 # 12 Blood Urea Nitrogen 54 H 58 H Creatinine 2.31 H 2.48 H Glucose Level 91 136 # Calcium Level 8.3 L 8.0 L Phosphorus Level 2.5 Magnesium Level 1.6 L Medications Medications Current Medications Acetaminophen (Tylenol Liquid) 650 mg Q6H PRN GTB PAIN OR TEMP ABOVE 38C Last administered on 04/11/17 21:13; Admin Dose 650 MG; Start 04/06/17 at 15:00 Atorvastatin Calcium (Lipitor) 20 mg QHS GTB Last administered on 04/12/17 20: 39; Admin Dose 20 MG; Start 04/06/17 at 21:00 Carvedilol (Coreg) 3.125 mg BID GTB Last administered on 04/12/17 20:38; Admin Dose 3.125 MG; Start 04/06/17 at 21:00 Chlorhexidine Gluconate (Peridex) 10 ml Q12 MM Last administered on 04/13/17 09:50; Admin Dose 10 ML; Start 04/06/17 at 21:00 Clonidine (Catapres) 0.1 mg Q4H PRN GTB SBP > 170; Start 04/06/17 at 15:00 Clopidogrel Bisulfate (plaVIX) 75 mg DAILY GTB Last administered on 04/13/17 09:53; Admin Dose 75 MG; Start 04/07/17 at 09:00 Isosorbide Dinitrate (Isordil) 10 mg TID GTB Last administered on 04/13/17 13: 27; Admin Dose 10 MG; Start 04/06/17 at 21:00 Lactobacillus Acidophilus/ Rhamnosus (Culturelle) 1 cap DAILY GTB Last administered on 04/13/17 09:50; Admin Dose 1 CAP; Start 04/07/17 at 09:00 Lansoprazole (Prevacid) 30 mg DAILY@06 GTB Last administered on 04/13/17 05:28 ; Admin Dose 30 MG; Start 04/07/17 at 06:00 Levetiracetam (Keppra) 1,000 mg BID GTB Last administered on 04/13/17 09:51; Admin Dose 1,000 MG; Start 04/06/17 at 21:00 Lorazepam (Ativan) 0.5 mg Q4H PRN GTB ANXIETY Last administered on 04/10/17 22: 42; Admin Dose 0.5 MG; Start 04/06/17 at 15:00 Multivitamins Therapeutic (Theragran) 1 tab DAILY GTB Last administered on 04/13 09:50; Admin Dose 1 TAB; Start 04/07/17 at 09:00 Spironolactone (Aldactone) 25 mg DAILY GTB Last administered on 04/13/17 09:51 ; Admin Dose 25 MG; Start 04/07/17 at 09:00 IV Flush (NS 10 ml) 10 ml PRN PRN IV flush; Start 04/06/17 at 16:30 Miscellaneous Information (Pending [facility] Order For Wound Care) This patient jenkins... PRN PRN XX WOUND CARE; Start 04/06/17 at 20:30 Sodium Phosphate (Neutra-Phos) 250 mg BID NGT Last administered on 04/13/17 09 :50; Admin Dose 250 MG; Start 04/08/17 at 12:00 Acetaminophen/ Hydrocodone Bitart ([place] (5/325)) 1 tab Q8H PRN PO PAIN Last administered on 04/11/17 16:15; Admin Dose 1 TAB; Start 04/11/17 at 16:30 Diphenhydramine HCl (Benadryl Liquid Cup) 10 mg Q6H PRN GTB ITCHING Last administered on 04/12/17 20:44; Admin Dose 10 MG; Start 04/12/17 at 02:30 Gentamicin Sulfate (Gentamicin Iv Per Pharmacy) GENTAMICIN PER PHARMACY NOTE XX ; Start 04/12/17 at 13:00 Lisinopril (Zestril) 20 mg BID GTB Last administered on 04/13/17 09:51; Admin Dose 20 MG; Start 04/12/17 at 21:00 MAIRA HUIZAR NP Apr 13, 2017 14:06
[2017-04-13] MEDS ORDERED: POTASSIUM CHLORIDE (SR) 20 MEQ TAB PO STA (14:33)
--- NOTE | 2017-04-13 14:53 | PN ---
Date/Time of Note Date/Time of Note DATE: 04/13/17 TIME: 14:51 Assessment/Plan VTE Prophylaxis VTE Prophylaxis Intervention: other Lines/Catheters IV Catheter Type (from [facility]): PICC Line Central line still needed: Yes Urinary Cath still in place: No Assessment/Plan Chief Complaint/Hosp Course 1. History of extensive coronary artery disease: Currently with no angina Continue Plavix. off of aspirin due to concerns about anemia and bleeding. cont Coreg 2. 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 Defer to the pulmonary consultations. 3. Severe anemia: Etiology is unclear. Status post transfusions. will need to continue with the Plavix unfortunately given his recent PCI. 4. History of coronary artery bypass graft. 5. History of multiple PCI. most recent PCI was in November 2016 using a drug- eluting stent: Continue with the Plavix Continue beta-staci as tolerated. 6. Congestive heart failure: Chronic and stable due to severe LV dysfunction Continue with and inc ARABELLA inhibitor and Coreg as tolerated. Fluid management as per dialysis per renal. 7. Dyslipidemia: Continue statin 8. History of hypertension currently stable on Coreg and ARABELLA inhibitor. 9. End-stage renal disease on hemodialysis. Will refer to the renal team 10. Sick sinus syndrome: Status post [employer] ICD device 11. Status post dual-chamber ICD: Coronary appears to be stable with no malfunction of the device. We will continue to monitor. Problems: Subjective 24 Hr Interval Summary Free Text/Dictation D/W staff and rhythm was reviewed pt remains in NSR, demand A paced. HR has remained stable pt still s/p trach on vent no reports of chest pain or pressure or palpitations. Meds reviewed. PHYSICAL EXAM: General: no acute distress. s/p trach on vent HEENT: NC/AT. pupils are equal. round. NECK: s/p trach. no stridor. CV: RRR. systolic murmur; no gallop or rubs. PULM: no wheezing. + mild rhonchi. GI: SOFT, NT, ND, no rebound or guarding s/p PEG Extremity: 1+ B/L LE edema.+ Upper ext edema. neuro: awake and alert, responds appropriately Psych: calm and pleasant rectal: deferred : normal male Derm: diffuse echymosis in the body chest: s/p ICD left side. no hematoma or bleeding. s/p HD access right chest. Exam/Review of Systems Vital Signs Vitals Vital Signs Date Time Temp Pulse Resp B/P Pulse Ox O2 Delivery O2 Flow Rate FiO2 04/13/17 13:25 88 27 98 35 04/13/17 12:12 97.9 127/59 04/12/17 18:00 Mechanical Ventilator Intake and Output 04/12/17 04/12/17 04/13/17 15:00 23:00 07:00 Intake Total 300 ml 900 ml 900 ml Output Total 2300 ml 2000 ml Balance -2000 ml -1100 ml 900 ml Results Result Diagram: 04/13/17 0638 04/13/17 1150 Results 24 hrs Laboratory Tests Test 04/13/17 06:38 04/13/17 11:50 White Blood Count 8.3 Red Blood Count 2.77 L Hemoglobin 8.6 L Hematocrit 25.9 L Mean Corpuscular Volume 93.5 Mean Corpuscular Hemoglobin 31.0 Mean Corpuscular Hemoglobin Concent 33.2 Red Cell Distribution Width 16.3 H Platelet Count 208 Mean Platelet Volume 11.5 H Neutrophils % 69.0 Lymphocytes % 18.4 Monocytes % 9.0 Eosinophils % 1.9 Basophils % 0.4 Nucleated Red Blood Cells % 0.0 Neutrophils # 5.7 Lymphocytes # 1.5 Monocytes # 0.8 Eosinophils # 0.2 Basophils # 0.0 Nucleated Red Blood Cells # 0.0 Sodium Level 123 L 124 L Potassium Level 3.3 L 3.3 L Chloride Level 86 L 86 L Carbon Dioxide Level 30 29 Anion Gap 10 # 12 Blood Urea Nitrogen 54 H 58 H Creatinine 2.31 H 2.48 H Glucose Level 91 136 # Calcium Level 8.3 L 8.0 L Phosphorus Level 2.5 Magnesium Level 1.6 L Medications Medications Current Medications Acetaminophen (Tylenol Liquid) 650 mg Q6H PRN GTB PAIN OR TEMP ABOVE 38C Last administered on 04/11/17 21:13; Admin Dose 650 MG; Start 04/06/17 at 15:00 Atorvastatin Calcium (Lipitor) 20 mg QHS GTB Last administered on 04/12/17 20: 39; Admin Dose 20 MG; Start 04/06/17 at 21:00 Carvedilol (Coreg) 3.125 mg BID GTB Last administered on 04/12/17 20:38; Admin Dose 3.125 MG; Start 04/06/17 at 21:00 Chlorhexidine Gluconate (Peridex) 10 ml Q12 MM Last administered on 04/13/17 09:50; Admin Dose 10 ML; Start 04/06/17 at 21:00 Clonidine (Catapres) 0.1 mg Q4H PRN GTB SBP > 170; Start 04/06/17 at 15:00 Clopidogrel Bisulfate (plaVIX) 75 mg DAILY GTB Last administered on 04/13/17 09:53; Admin Dose 75 MG; Start 04/07/17 at 09:00 Isosorbide Dinitrate (Isordil) 10 mg TID GTB Last administered on 04/13/17 13: 27; Admin Dose 10 MG; Start 04/06/17 at 21:00 Lactobacillus Acidophilus/ Rhamnosus (Culturelle) 1 cap DAILY GTB Last administered on 04/13/17 09:50; Admin Dose 1 CAP; Start 04/07/17 at 09:00 Lansoprazole (Prevacid) 30 mg DAILY@06 GTB Last administered on 04/13/17 05:28 ; Admin Dose 30 MG; Start 04/07/17 at 06:00 Levetiracetam (Keppra) 1,000 mg BID GTB Last administered on 04/13/17 09:51; Admin Dose 1,000 MG; Start 04/06/17 at 21:00 Lorazepam (Ativan) 0.5 mg Q4H PRN GTB ANXIETY Last administered on 04/10/17 22: 42; Admin Dose 0.5 MG; Start 04/06/17 at 15:00 Multivitamins Therapeutic (Theragran) 1 tab DAILY GTB Last administered on 04/13 09:50; Admin Dose 1 TAB; Start 04/07/17 at 09:00 Spironolactone (Aldactone) 25 mg DAILY GTB Last administered on 04/13/17 09:51 ; Admin Dose 25 MG; Start 04/07/17 at 09:00 IV Flush (NS 10 ml) 10 ml PRN PRN IV flush; Start 04/06/17 at 16:30 Miscellaneous Information (Pending [facility] Order For Wound Care) This patient jenkins... PRN PRN XX WOUND CARE; Start 04/06/17 at 20:30 Sodium Phosphate (Neutra-Phos) 250 mg BID NGT Last administered on 04/13/17 09 :50; Admin Dose 250 MG; Start 04/08/17 at 12:00 Acetaminophen/ Hydrocodone Bitart ([place] (5/325)) 1 tab Q8H PRN PO PAIN Last administered on 04/11/17 16:15; Admin Dose 1 TAB; Start 04/11/17 at 16:30 Diphenhydramine HCl (Benadryl Liquid Cup) 10 mg Q6H PRN GTB ITCHING Last administered on 04/12/17 20:44; Admin Dose 10 MG; Start 04/12/17 at 02:30 Gentamicin Sulfate (Gentamicin Iv Per Pharmacy) GENTAMICIN PER PHARMACY NOTE XX ; Start 04/12/17 at 13:00 Lisinopril (Zestril) 20 mg BID GTB Last administered on 04/13/17 09:51; Admin Dose 20 MG; Start 04/12/17 at 21:00 MOOKIE BESS MD Apr 13, 2017 14:53
[2017-04-13] MEDS: EPOETIN 10000 UNITS/1 ML INJ (ESRD) SC SCH (18:43)
[2017-04-13] MEDS: GENTAMICIN 80 MG/NS (PMX) 50 ML IVPB SCH (18:45)
[2017-04-13] MEDS: ATORVASTATIN 20 MG TAB GTB SCH (21:36)
[2017-04-13] MEDS: LORAZEPAM 0.5 MG TAB GTB PRN (22:58)
[2017-04-14] VITALS (37 sets, daily range): BP systolic 107–154; BP diastolic 52–90; PULSE 55–69; RESP 18–32
[2017-04-14] MEDS: LORAZEPAM 0.5 MG TAB GTB PRN ×2 (03:39→16:50)
[2017-04-14] MEDS: LACTOBACILLUS RHAMNOSUS CAP GTB SCH (06:16)
[2017-04-14] MEDS: LANSOPRAZOLE 30 MG CAP GTB SCH (06:16)
[2017-04-14] MEDS: COLLAGENASE 30 GM TUBE TOP PRN (06:17)
[2017-04-14] MEDS: LEVOTHYROXINE 88 MCG TAB GTB SCH (06:32)
--- NOTE | 2017-04-14 09:05 | PN ---
Date/Time of Note Date/Time of Note DATE: 04/14/17 TIME: 09:03 Assessment/Plan VTE Prophylaxis VTE Prophylaxis Intervention: other Lines/Catheters IV Catheter Type (from [facility]): Permacath Urinary Cath still in place: No Assessment/Plan Chief Complaint/Hosp Course 1. History of extensive coronary artery disease: Currently with no angina Continue Plavix. off of aspirin due to concerns about anemia and bleeding. cont Coreg 2. 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 Defer to the pulmonary consultants. 3. Severe anemia: Etiology is unclear. Status post transfusions. will need to continue with the Plavix unfortunately given his recent PCI. 4. History of coronary artery bypass graft. 5. History of multiple PCI. most recent PCI was in November 2016 using a drug- eluting stent: Continue with the Plavix Continue beta-staci as tolerated. 6. Congestive heart failure: Chronic and stable due to severe LV dysfunction Continue with and inc ARABELLA inhibitor and Coreg as tolerated. Fluid management as per dialysis per renal. 7. Dyslipidemia: Continue statin 8. History of hypertension currently stable on Coreg and ARABELLA inhibitor. will inc as needed and tolerated. 9. End-stage renal disease on hemodialysis. Will refer to the renal team 10. Sick sinus syndrome: Status post [employer] ICD device 11. Status post dual-chamber ICD: Coronary appears to be stable with no malfunction of the device. We will continue to monitor. Problems: Subjective 24 Hr Interval Summary Free Text/Dictation D/W staff and rhythm was reviewed pt remains in NSR, demand A paced. HR has remained stable pt still s/p trach on vent no reports of chest pain or pressure or palpitations. Meds reviewed. PHYSICAL EXAM: General: no acute distress. s/p trach on vent HEENT: NC/AT. pupils are equal. round. NECK: s/p trach. no stridor. CV: RRR. systolic murmur; no gallop or rubs. PULM: no wheezing. + mild rhonchi. GI: SOFT, NT, ND, no rebound or guarding s/p PEG Extremity: 1+ B/L LE edema.+ Upper ext edema. neuro: awake and alert, responds appropriately Psych: calm and pleasant rectal: deferred : normal male Derm: diffuse echymosis in the body chest: s/p ICD left side. no hematoma or bleeding. s/p HD access right chest. Exam/Review of Systems Vital Signs Vitals Vital Signs Date Time Temp Pulse Resp B/P Pulse Ox O2 Delivery O2 Flow Rate FiO2 04/14/17 08:18 98.4 59 18 135/62 99 04/14/17 07:44 35 04/14/17 06:21 Mechanical Ventilator Intake and Output 04/13/17 04/13/17 04/14/17 15:00 23:00 07:00 Intake Total 520 ml 583 ml Output Total 3300 ml Balance -2780 ml 583 ml Results Result Diagram: 04/13/17 0638 04/13/17 1150 Results 24 hrs Laboratory Tests Test 04/13/17 11:50 Sodium Level 124 L Potassium Level 3.3 L Chloride Level 86 L Carbon Dioxide Level 29 Anion Gap 12 Blood Urea Nitrogen 58 H Creatinine 2.48 H Glucose Level 136 # Calcium Level 8.0 L Medications Medications Current Medications Acetaminophen (Tylenol Liquid) 650 mg Q6H PRN GTB PAIN OR TEMP ABOVE 38C Last administered on 04/11/17 21:13; Admin Dose 650 MG; Start 04/06/17 at 15:00 Atorvastatin Calcium (Lipitor) 20 mg QHS GTB Last administered on 04/13/17 21: 36; Admin Dose 20 MG; Start 04/06/17 at 21:00 Carvedilol (Coreg) 3.125 mg BID GTB Last administered on 04/12/17 20:38; Admin Dose 3.125 MG; Start 04/06/17 at 21:00 Chlorhexidine Gluconate (Peridex) 10 ml Q12 MM Last administered on 04/13/17 21:37; Admin Dose 10 ML; Start 04/06/17 at 21:00 Clonidine (Catapres) 0.1 mg Q4H PRN GTB SBP > 170; Start 04/06/17 at 15:00 Clopidogrel Bisulfate (plaVIX) 75 mg DAILY GTB Last administered on 04/13/17 09:53; Admin Dose 75 MG; Start 04/07/17 at 09:00 Isosorbide Dinitrate (Isordil) 10 mg TID GTB Last administered on 04/13/17 21: 36; Admin Dose 10 MG; Start 04/06/17 at 21:00 Lactobacillus Acidophilus/ Rhamnosus (Culturelle) 1 cap DAILY GTB Last administered on 04/14/17 06:16; Admin Dose 1 CAP; Start 04/07/17 at 09:00 Lansoprazole (Prevacid) 30 mg DAILY@06 GTB Last administered on 04/14/17 06:16 ; Admin Dose 30 MG; Start 04/07/17 at 06:00 Levetiracetam (Keppra) 1,000 mg BID GTB Last administered on 04/13/17 21:36; Admin Dose 1,000 MG; Start 04/06/17 at 21:00 Lorazepam (Ativan) 0.5 mg Q4H PRN GTB ANXIETY Last administered on 04/14/17 03 :39; Admin Dose 0.5 MG; Start 04/06/17 at 15:00 Multivitamins Therapeutic (Theragran) 1 tab DAILY GTB Last administered on 04/13 09:50; Admin Dose 1 TAB; Start 04/07/17 at 09:00 Spironolactone (Aldactone) 25 mg DAILY GTB Last administered on 04/13/17 09:51 ; Admin Dose 25 MG; Start 04/07/17 at 09:00 IV Flush (NS 10 ml) 10 ml PRN PRN IV flush; Start 04/06/17 at 16:30 Miscellaneous Information (Pending [facility] Order For Wound Care) This patient jenkins... PRN PRN XX WOUND CARE; Start 04/06/17 at 20:30 Sodium Phosphate (Neutra-Phos) 250 mg BID NGT Last administered on 04/13/17 21 :36; Admin Dose 250 MG; Start 04/08/17 at 12:00 Acetaminophen/ Hydrocodone Bitart ([place] (5/325)) 1 tab Q8H PRN PO PAIN Last administered on 04/11/17 16:15; Admin Dose 1 TAB; Start 04/11/17 at 16:30 Diphenhydramine HCl (Benadryl Liquid Cup) 10 mg Q6H PRN GTB ITCHING Last administered on 04/12/17 20:44; Admin Dose 10 MG; Start 04/12/17 at 02:30 Gentamicin Sulfate (Gentamicin Iv Per Pharmacy) GENTAMICIN PER PHARMACY NOTE XX ; Start 04/12/17 at 13:00 Lisinopril (Zestril) 20 mg BID GTB Last administered on 04/13/17t 21:36; Admin Dose 20 MG; Start 04/12/17 at 21:00 MOOKIE BESS MD Apr 14, 2017 09:05
[2017-04-14] MEDS: NEUTRA-PHOS 250 MG PACKET NGT SCH ×2 (09:14→22:24)
[2017-04-14] MEDS: LEVETIRACETAM 500 MG TAB GTB SCH ×2 (09:15→22:23)
[2017-04-14] MEDS: LISINOPRIL 20 MG TAB GTB SCH ×2 (09:15→22:24)
[2017-04-14] MEDS: SPIRONOLACTONE 25 MG TAB GTB SCH (09:15)
[2017-04-14] MEDS: CLOPIDOGREL 75 MG TAB GTB SCH (09:15)
[2017-04-14] MEDS: ISOSORBIDE DINITRATE 10 MG TAB GTB SCH ×3 (09:16→22:23)
[2017-04-14] MEDS: MULTIVITAMINS THERAPEUTIC TAB GTB SCH (09:16)
[2017-04-14] MEDS: CHLORHEXIDINE GLUCONATE 15 ML UD CUP MM SCH ×2 (09:17→22:24)
[2017-04-14] MEDS ORDERED: HEPARIN 1000 UNITS/ML 10 ML INJ CATHETER SCH (11:00)
--- NOTE | 2017-04-14 12:16 | CONS ---
Date/Time of Note Date/Time of Note DATE: 04/14/17 TIME: 12:15 Assessment/Plan Assessment/Plan Chief Complaint/Hosp Course No acute events, alert, in hemodialysis, looks comfortable, no fevers, no vomiting/ diarrhea Indwelling: Left upper extremity PICC line, right chest permacath, trach PEG Antimicrobials: Gentamicin Microbiology: Sputum culture growing pseudomonas aeruginosa Physical examination: Well-developed, chronically ill-appearing elderly male who is in no distress. Head atraumatic normocephalic sclera nonicteric. Neck is supple tracheostomy present. Chest rise symmetrical, breath sounds diminished basis. Abdomen soft, bowel tones present. Extremities with trace edema. Assessment: 1. Leukocytosis possibly reactive 2. Chronic respiratory failure with pseudomonas aeruginosa sputum colonization 3. End-stage renal disease, hemodialysis dependent 4. Acute on chronic anemia 5. Dysphasia 6. Encephalopathy 7. Coronary artery disease history permanent pacemaker Plan: Remain stable, continue present care, anticipate discharge of antibiotics Discussed with staff Problems: Consultation Date/Type/Reason Admit Date/Time Apr 08, 2017 at 10:24 Initial Consult Date 04/07/17 Type of Consultation: ID Exam/Review of Systems Vital Signs Vitals Vital Signs Date Time Temp Pulse Resp B/P Pulse Ox O2 Delivery O2 Flow Rate FiO2 04/14/17 12:14 61 04/14/17 11:44 98.3 18 137/63 99 04/14/17 11:02 35 04/14/17 06:21 Mechanical Ventilator Intake and Output 04/13/17 04/13/17 04/14/17 15:00 23:00 07:00 Intake Total 520 ml 583 ml Output Total 3300 ml Balance -2780 ml 583 ml Results Result Diagram: 04/13/17 0638 04/13/17 1150 Medications Medications Current Medications Acetaminophen (Tylenol Liquid) 650 mg Q6H PRN GTB PAIN OR TEMP ABOVE 38C Last administered on 04/11/17 21:13; Admin Dose 650 MG; Start 04/06/17 at 15:00 Atorvastatin Calcium (Lipitor) 20 mg QHS GTB Last administered on 04/13/17 21: 36; Admin Dose 20 MG; Start 04/06/17 at 21:00 Carvedilol (Coreg) 3.125 mg BID GTB Last administered on 04/12/17 20:38; Admin Dose 3.125 MG; Start 04/06/17 at 21:00 Chlorhexidine Gluconate (Peridex) 10 ml Q12 MM Last administered on 04/14/17 09:17; Admin Dose 10 ML; Start 04/06/17 at 21:00 Clonidine (Catapres) 0.1 mg Q4H PRN GTB SBP > 170; Start 04/06/17 at 15:00 Clopidogrel Bisulfate (plaVIX) 75 mg DAILY GTB Last administered on 04/14/17 09:15; Admin Dose 75 MG; Start 04/07/17 at 09:00 Isosorbide Dinitrate (Isordil) 10 mg TID GTB Last administered on 04/14/17 09: 16; Admin Dose 10 MG; Start 04/06/17 at 21:00 Lactobacillus Acidophilus/ Rhamnosus (Culturelle) 1 cap DAILY GTB Last administered on 04/14/17 06:16; Admin Dose 1 CAP; Start 04/07/17 at 09:00 Lansoprazole (Prevacid) 30 mg DAILY@06 GTB Last administered on 04/14/17 06:16 ; Admin Dose 30 MG; Start 04/07/17 at 06:00 Levetiracetam (Keppra) 1,000 mg BID GTB Last administered on 04/14/17 09:15; Admin Dose 1,000 MG; Start 04/06/17 at 21:00 Lorazepam (Ativan) 0.5 mg Q4H PRN GTB ANXIETY Last administered on 04/14/17 03 :39; Admin Dose 0.5 MG; Start 04/06/17 at 15:00 Multivitamins Therapeutic (Theragran) 1 tab DAILY GTB Last administered on 04/14 09:16; Admin Dose 1 TAB; Start 04/07/17 at 09:00 Spironolactone (Aldactone) 25 mg DAILY GTB Last administered on 04/14/17 09:15 ; Admin Dose 25 MG; Start 04/07/17 at 09:00 IV Flush (NS 10 ml) 10 ml PRN PRN IV flush; Start 04/06/17 at 16:30 Miscellaneous Information (Pending Santyl Order For Wound Care) This patient jenkins... PRN PRN XX WOUND CARE; Start 04/06/17 at 20:30 Sodium Phosphate (Neutra-Phos) 250 mg BID NGT Last administered on 04/14/17 09 :14; Admin Dose 250 MG; Start 04/08/17 at 12:00 Acetaminophen/ Hydrocodone Bitart ([place] (5/325)) 1 tab Q8H PRN PO PAIN Last administered on 04/11/17 16:15; Admin Dose 1 TAB; Start 04/11/17 at 16:30 Diphenhydramine HCl (Benadryl Liquid Cup) 10 mg Q6H PRN GTB ITCHING Last administered on 04/12/17 20:44; Admin Dose 10 MG; Start 04/12/17 at 02:30 Gentamicin Sulfate (Gentamicin Iv Per Pharmacy) GENTAMICIN PER PHARMACY NOTE XX ; Start 04/12/17 at 13:00 Lisinopril (Zestril) 20 mg BID GTB Last administered on 04/14/17 09:15; Admin Dose 20 MG; Start 04/12/17 at 21:00 Heparin Sodium (Porcine) (Heparin (1000 Units/ml)) 4,000 unit ONCE CATHETER ; Start 04/14/17 at 11:00; Stop 04/15/17 at 10:59 MAIRA HUIZAR NP Apr 14, 2017 12:16
[2017-04-14 13:33] LABS: ADD SCAN DIFF NO
[2017-04-14 13:35] LABS: BASOPHILS % 0.4 % (0.0-2.0); EOSINOPHILS # 0.1 10^3/ul (0.0-0.5); EOSINOPHILS % 1.9 % (0.0-7.0); HEMATOCRIT 27.1 % (42.0-52.0); HEMOGLOBIN 8.6 g/dl (14.0-18.0); LYMPHOCYTES # 1.3 10^3/ul (0.8-2.9); LYMPHOCYTES % 17.5 % (15.0-51.0); MEAN CORPUSCULAR HEMOGLOBIN 30.2 pg (29.0-33.0); MEAN CORPUSCULAR HGB CONC 31.7 g/dl (32.0-37.0); MEAN CORPUSCULAR VOLUME 95.1 fl (82.0-101.0); MEAN PLATELET VOLUME 10.3 fl (7.4-10.4); MONOCYTE # 0.8 10^3/ul (0.3-0.9); MONOCYTES % 10.8 % (0.0-11.0); NEUTROPHIL # 5.1 10^3/ul (1.6-7.5); NEUTROPHILS % 68.3 % (39.0-77.0); PLATELET COUNT 218 10^3/UL (140-415); RED BLOOD COUNT 2.85 10^6/ul (4.70-6.10); RED CELL DISTRIBUTION WIDTH 16.6 % (11.5-14.5); WHITE BLOOD COUNT 7.4 10^3/ul (4.8-10.8)
[2017-04-14 13:54] LABS: CALCIUM 8.3 mg/dl (8.4-10.2); CREATININE 1.58 mg/dl (0.61-1.24); MAGNESIUM 1.9 mg/dl (1.7-2.5); PHOSPHORUS 2.2 mg/dl (2.5-4.9); POTASSIUM 3.5 mmol/L (3.5-5.1)
--- NOTE | 2017-04-14 15:30 | CONS ---
Date/Time of Note Date/Time of Note DATE: 04/14/17 TIME: 15:29 Consult Date/Type/Reason Admit Date/Time Apr 08, 2017 at 10:24 Initial Consult Date 04/07/17 Type of Consultation: Pulmonary Subjective Patient appears comfortable no new events Objective Vital Signs Date Time Temp Pulse Resp B/P Pulse Ox O2 Delivery O2 Flow Rate FiO2 04/14/17 15:03 49 27 100 35 04/14/17 11:44 98.3 137/63 04/14/17 06:21 Mechanical Ventilator Intake and Output 04/13/17 04/13/17 04/14/17 14:59 22:59 06:59 Intake Total 520 ml 583 ml Output Total 3300 ml Balance -2780 ml 583 ml Exam PHYSICAL EXAMINATION GENERAL: Chronically ill-appearing gentleman comfortable ventilation VITAL SIGNS: see below. HEENT: Pupils equal, round, and reactive to light. Tracheostomy site clean and intact. CARDIAC: S1, S2, 1/6 systolic ejection murmur CHEST: Diminished air entry bilaterally. Right chest tube in place ABDOMEN: Mildly distended. Bowel sounds present no guarding or rebound EXTREMITIES: No cyanosis, clubbing edema +1 NEUROLOGIC: Generalized weakness Results/Medications Result Diagram: 04/14/17 1325 04/14/17 1325 Results 24 hrs Laboratory Tests Test 04/14/17 13:25 White Blood Count 7.4 Red Blood Count 2.85 L Hemoglobin 8.6 L Hematocrit 27.1 L Mean Corpuscular Volume 95.1 Mean Corpuscular Hemoglobin 30.2 Mean Corpuscular Hemoglobin Concent 31.7 L Red Cell Distribution Width 16.6 H Platelet Count 218 Mean Platelet Volume 10.3 Neutrophils % 68.3 Lymphocytes % 17.5 Monocytes % 10.8 Eosinophils % 1.9 Basophils % 0.4 Nucleated Red Blood Cells % 0.0 Neutrophils # 5.1 Lymphocytes # 1.3 Monocytes # 0.8 Eosinophils # 0.1 Basophils # 0.0 Nucleated Red Blood Cells # 0.0 Sodium Level 135 Potassium Level 3.5 Chloride Level 97 # Carbon Dioxide Level 30 Anion Gap 12 Blood Urea Nitrogen 29 #H Creatinine 1.58 H Glucose Level 102 Calcium Level 8.3 L Phosphorus Level 2.2 L Magnesium Level 1.9 Medications Current Medications Acetaminophen (Tylenol Liquid) 650 mg Q6H PRN GTB PAIN OR TEMP ABOVE 38C Last administered on 04/11/17 21:13; Admin Dose 650 MG; Start 04/06/17 at 15:00 Atorvastatin Calcium (Lipitor) 20 mg QHS GTB Last administered on 04/13/17 21: 36; Admin Dose 20 MG; Start 04/06/17 at 21:00 Carvedilol (Coreg) 3.125 mg BID GTB Last administered on 04/12/17 20:38; Admin Dose 3.125 MG; Start 04/06/17 at 21:00 Chlorhexidine Gluconate (Peridex) 10 ml Q12 MM Last administered on 04/14/17 09:17; Admin Dose 10 ML; Start 04/06/17 at 21:00 Clonidine (Catapres) 0.1 mg Q4H PRN GTB SBP > 170; Start 04/06/17 at 15:00 Clopidogrel Bisulfate (plaVIX) 75 mg DAILY GTB Last administered on 04/14/17 09:15; Admin Dose 75 MG; Start 04/07/17 at 09:00 Isosorbide Dinitrate (Isordil) 10 mg TID GTB Last administered on 04/14/17 13: 22; Admin Dose 10 MG; Start 04/06/17 at 21:00 Lactobacillus Acidophilus/ Rhamnosus (Culturelle) 1 cap DAILY GTB Last administered on 04/14/17 06:16; Admin Dose 1 CAP; Start 04/07/17 at 09:00 Lansoprazole (Prevacid) 30 mg DAILY@06 GTB Last administered on 04/14/17 06:16 ; Admin Dose 30 MG; Start 04/07/17 at 06:00 Levetiracetam (Keppra) 1,000 mg BID GTB Last administered on 04/14/17 09:15; Admin Dose 1,000 MG; Start 04/06/17 at 21:00 Lorazepam (Ativan) 0.5 mg Q4H PRN GTB ANXIETY Last administered on 04/14/17 03 :39; Admin Dose 0.5 MG; Start 04/06/17 at 15:00 Multivitamins Therapeutic (Theragran) 1 tab DAILY GTB Last administered on 04/14 09:16; Admin Dose 1 TAB; Start 04/07/17 at 09:00 Spironolactone (Aldactone) 25 mg DAILY GTB Last administered on 04/14/17 09:15 ; Admin Dose 25 MG; Start 04/07/17 at 09:00 IV Flush (NS 10 ml) 10 ml PRN PRN IV flush; Start 04/06/17 at 16:30 Miscellaneous Information (Pending [facility] Order For Wound Care) This patient jenkins... PRN PRN XX WOUND CARE; Start 04/06/17 at 20:30 Sodium Phosphate (Neutra-Phos) 250 mg BID NGT Last administered on 04/14/17 09 :14; Admin Dose 250 MG; Start 04/08/17 at 12:00 Acetaminophen/ Hydrocodone Bitart ([place] (5/325)) 1 tab Q8H PRN PO PAIN Last administered on 04/11/17 16:15; Admin Dose 1 TAB; Start 04/11/17 at 16:30 Diphenhydramine HCl (Benadryl Liquid Cup) 10 mg Q6H PRN GTB ITCHING Last administered on 04/12/17 20:44; Admin Dose 10 MG; Start 04/12/17 at 02:30 Gentamicin Sulfate (Gentamicin Iv Per Pharmacy) GENTAMICIN PER PHARMACY NOTE XX ; Start 04/12/17 at 13:00 Lisinopril (Zestril) 20 mg BID GTB Last administered on 04/14/17 09:15; Admin Dose 20 MG; Start 04/12/17 at 21:00 Heparin Sodium (Porcine) (Heparin (1000 Units/ml)) 4,000 unit ONCE CATHETER ; Start 04/14/17 at 11:00; Stop 04/15/17 at 10:59 Assessment/Plan Chief Complaint/Hosp Course IMP: 1. Anemia likely multifactorial combination of chronic kidney disease, possible dilutional possible GI bleed. 2. Vent dependent respiratory failure 3. Encephalopathy acute on chronic 4. CKD, electrolyte abnormality 5. Seizure disorder 6. History of ischemic heart disease with ICD, mild pulmonary edema on chest x- ray RECS: 1. continue current vent settings. 2. follow labs 3. BD's/CPT 4. renal recs. Discharge planning ? Problems: ZULMA MAE MD, [facility] Apr 14, 2017 15:30
[2017-04-14] MEDS: GENTAMICIN 80 MG/NS (PMX) 50 ML IVPB SCH (16:21)
[2017-04-14] MEDS: ATORVASTATIN 20 MG TAB GTB SCH (22:23)
[2017-04-15] VITALS (19 sets, daily range): BP systolic 126–168; BP diastolic 58–89; PULSE 52–55; RESP 18–35
[2017-04-15] MEDS: LANSOPRAZOLE 30 MG CAP GTB SCH (06:05)
[2017-04-15] MEDS: LEVOTHYROXINE 88 MCG TAB GTB SCH (06:08)
--- NOTE | 2017-04-15 08:57 | PN ---
Date/Time of Note Date/Time of Note DATE: 04/15/17 TIME: 08:54 Assessment/Plan Lines/Catheters IV Catheter Type (from Nrs): Permacath Urinary Cath still in place: No Assessment/Plan Chief Complaint/Hosp Course 1. Anemia, etiology likely from chronic disease, rule out GI bleed. -Patient status post blood transfusion with appropriate response -Stool occult blood negative 2 -Continue Protonix, continue Epogen -Follow-up with GI 2. Bronchitis possible pneumonia We will continue to monitor Patient on antibiotic -Follow-up with infectious disease 2. End-stage renal disease. -Continue intermittent hemodialysis - HD tomorrow as 3. Mineral bone disorder -Monitor calcium phosphorus levels 4 volume overload secondary to CHF end-stage renal disease -Continue ultrafiltration with dialysis 5. Dependent respiratory failure -Vent settings, ABG reviewed -Follow-up with pulmonary 6. Coronary disease,/cardiomyopathy -Status post pacemaker ICD placement -Continue medical management -Follow-up with cardiology 7. Seizure disorder -Continue Keppra 8. Hypothyroidism -Continue Synthroid 9. Dysphagia status post PEG -Continue tube feeds 10. Acute on chronic encephalotomy -Etiology toxic metabolic -Continue to monitor 11. Hypertension continue current blood pressure regimen 12. GI/DVT prophylaxis 13. Hypokalemia hypomagnesemia/hyponatremia -Improved with HD Problems: Subjective 24 Hr Interval Summary Free Text/Dictation Patient is pending discharge back to longterm facility, once bed is found -Had hemodialysis yesterday tolerated well Exam/Review of Systems Vital Signs Vitals Vital Signs Date Time Temp Pulse Resp B/P Pulse Ox O2 Delivery O2 Flow Rate FiO2 04/15/17 08:38 75 35 100 35 04/15/17 07:28 97.8 126/58 04/14/17 22:20 Mechanical Ventilator Intake and Output 04/14/17 04/14/17 04/15/17 15:00 23:00 07:00 Intake Total 300 ml 590 ml 530 ml Output Total 1800 ml Balance -1500 ml 590 ml 530 ml Exam HEENT head is normocephalic able to react Neck is supple positive straight Cardiovascular regular rate no gallops Lungs show diminished breath sounds at the base Abdomen soft nontender palpation positive Extremity no edema Dermatologically no rash Muscle skeletal no joint Neurologically no change in exam Results Result Diagram: 04/14/17 1325 04/14/17 1325 Results 24 hrs Laboratory Tests Test 04/14/17 13:25 White Blood Count 7.4 Red Blood Count 2.85 L Hemoglobin 8.6 L Hematocrit 27.1 L Mean Corpuscular Volume 95.1 Mean Corpuscular Hemoglobin 30.2 Mean Corpuscular Hemoglobin Concent 31.7 L Red Cell Distribution Width 16.6 H Platelet Count 218 Mean Platelet Volume 10.3 Neutrophils % 68.3 Lymphocytes % 17.5 Monocytes % 10.8 Eosinophils % 1.9 Basophils % 0.4 Nucleated Red Blood Cells % 0.0 Neutrophils # 5.1 Lymphocytes # 1.3 Monocytes # 0.8 Eosinophils # 0.1 Basophils # 0.0 Nucleated Red Blood Cells # 0.0 Sodium Level 135 Potassium Level 3.5 Chloride Level 97 # Carbon Dioxide Level 30 Anion Gap 12 Blood Urea Nitrogen 29 #H Creatinine 1.58 H Glucose Level 102 Calcium Level 8.3 L Phosphorus Level 2.2 L Magnesium Level 1.9 Medications Medications Current Medications Acetaminophen (Tylenol Liquid) 650 mg Q6H PRN GTB PAIN OR TEMP ABOVE 38C Last administered on 04/11/17 21:13; Admin Dose 650 MG; Start 04/06/17 at 15:00 Atorvastatin Calcium (Lipitor) 20 mg QHS GTB Last administered on 04/14/17 22: 23; Admin Dose 20 MG; Start 04/06/17 at 21:00 Carvedilol (Coreg) 3.125 mg BID GTB Last administered on 04/12/17 20:38; Admin Dose 3.125 MG; Start 04/06/17 at 21:00 Chlorhexidine Gluconate (Peridex) 10 ml Q12 MM Last administered on 04/14/17 22:24; Admin Dose 10 ML; Start 04/06/17 at 21:00 Clonidine (Catapres) 0.1 mg Q4H PRN GTB SBP > 170; Start 04/06/17 at 15:00 Clopidogrel Bisulfate (plaVIX) 75 mg DAILY GTB Last administered on 04/14/17 09:15; Admin Dose 75 MG; Start 04/07/17 at 09:00 Isosorbide Dinitrate (Isordil) 10 mg TID GTB Last administered on 04/14/17 22: 23; Admin Dose 10 MG; Start 04/06/17 at 21:00 Lactobacillus Acidophilus/ Rhamnosus (Culturelle) 1 cap DAILY GTB Last administered on 04/14/17 06:16; Admin Dose 1 CAP; Start 04/07/17 at 09:00 Lansoprazole (Prevacid) 30 mg DAILY@06 GTB Last administered on 04/15/17 06:05 ; Admin Dose 30 MG; Start 04/07/17 at 06:00 Levetiracetam (Keppra) 1,000 mg BID GTB Last administered on 04/14/17 22:23; Admin Dose 1,000 MG; Start 04/06/17 at 21:00 Lorazepam (Ativan) 0.5 mg Q4H PRN GTB ANXIETY Last administered on 04/14/17 16 :50; Admin Dose 0.5 MG; Start 04/06/17 at 15:00 Multivitamins Therapeutic (Theragran) 1 tab DAILY GTB Last administered on 04/14 09:16; Admin Dose 1 TAB; Start 04/07/17 at 09:00 Spironolactone (Aldactone) 25 mg DAILY GTB Last administered on 04/14/17 09:15 ; Admin Dose 25 MG; Start 04/07/17 at 09:00 IV Flush (NS 10 ml) 10 ml PRN PRN IV flush; Start 04/06/17 at 16:30 Miscellaneous Information (Pending [facility] Order For Wound Care) This patient jenkins... PRN PRN XX WOUND CARE; Start 04/06/17 at 20:30 Sodium Phosphate (Neutra-Phos) 250 mg BID NGT Last administered on 04/14/17 22 :24; Admin Dose 250 MG; Start 04/08/17 at 12:00 Acetaminophen/ Hydrocodone Bitart ([place] (5/325)) 1 tab Q8H PRN PO PAIN Last administered on 04/11/17 16:15; Admin Dose 1 TAB; Start 04/11/17 at 16:30 Diphenhydramine HCl (Benadryl Liquid Cup) 10 mg Q6H PRN GTB ITCHING Last administered on 04/12/17 20:44; Admin Dose 10 MG; Start 04/12/17 at 02:30 Gentamicin Sulfate (Gentamicin Iv Per Pharmacy) GENTAMICIN PER PHARMACY NOTE XX ; Start 04/12/17 at 13:00 Lisinopril (Zestril) 20 mg BID GTB Last administered on 04/14/17t 22:24; Admin Dose 20 MG; Start 04/12/17 at 21:00 Heparin Sodium (Porcine) (Heparin (1000 Units/ml)) 4,000 unit ONCE CATHETER ; Start 04/14/17 at 11:00; Stop 04/15/17 at 10:59 ANNABELLE MENDOZA DO Apr 15, 2017 08:57
[2017-04-15] MEDS: LEVETIRACETAM 500 MG TAB GTB SCH (09:04)
[2017-04-15] MEDS: NEUTRA-PHOS 250 MG PACKET NGT SCH (09:04)
[2017-04-15] MEDS: CHLORHEXIDINE GLUCONATE 15 ML UD CUP MM SCH (09:04)
[2017-04-15] MEDS: MULTIVITAMINS THERAPEUTIC TAB GTB SCH (09:05)
[2017-04-15] MEDS: ISOSORBIDE DINITRATE 10 MG TAB GTB SCH ×2 (09:05→14:37)
[2017-04-15] MEDS: SPIRONOLACTONE 25 MG TAB GTB SCH (09:05)
[2017-04-15] MEDS: LISINOPRIL 20 MG TAB GTB SCH (09:05)
[2017-04-15] MEDS: LACTOBACILLUS RHAMNOSUS CAP GTB SCH (09:05)
[2017-04-15] MEDS: CLOPIDOGREL 75 MG TAB GTB SCH (09:05)
--- NOTE | 2017-04-15 09:20 | PN ---
Date/Time of Note Date/Time of Note DATE: 04/15/17 TIME: 09:18 Assessment/Plan VTE Prophylaxis VTE Prophylaxis Intervention: SCD's Lines/Catheters [facility]from [facility] Permacath Urinary Cath still in place: No Assessment/Plan Chief Complaint/Hosp Course 1. History of extensive coronary artery disease: Currently with no angina Continue Plavix. off of aspirin due to concerns about anemia and bleeding. cont Coreg 2. 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 Defer to the pulmonary consultants. 3. Severe anemia: Etiology is unclear. Status post transfusions. will need to continue with the Plavix unfortunately given his recent PCI. 4. History of coronary artery bypass graft. 5. History of multiple PCI. most recent PCI was in November 2016 using a drug- eluting stent: Continue with the Plavix Continue beta-staci as tolerated. 6. Congestive heart failure: Chronic and stable due to severe LV dysfunction Continue with and inc ARABELLA inhibitor and Coreg as tolerated. Fluid management as per dialysis per renal. 7. Dyslipidemia: Continue statin 8. History of hypertension currently stable on Coreg and ARABELLA inhibitor. will inc as needed and tolerated. 9. End-stage renal disease on hemodialysis. Will refer to the renal team 10. Sick sinus syndrome: Status post [employer] ICD device with normal function. 11. Status post dual-chamber ICD: Coronary appears to be stable with no malfunction of the device. We will continue to monitor. Problems: Subjective 24 Hr Interval Summary Free Text/Dictation D/W staff and rhythm was reviewed pt remains in NSR, demand paced. HR has remained stable pt still s/p trach on vent no reports of chest pain or pressure or palpitations. Meds reviewed. PHYSICAL EXAM: General: no acute distress. s/p trach on vent HEENT: NC/AT. pupils are equal. round. NECK: s/p trach. no stridor. CV: RRR. systolic murmur; no gallop or rubs. PULM: no wheezing. + mild rhonchi. GI: SOFT, NT, ND, no rebound or guarding s/p PEG Extremity: 1+ B/L LE edema.+ Upper ext edema. neuro: awake and alert, responds appropriately Psych: calm and pleasant rectal: deferred : normal male Derm: diffuse echymosis in the body chest: s/p ICD left side. no hematoma or bleeding. s/p HD access right chest. Exam/Review of Systems Vital Signs Vitals Vital Signs Date Time Temp Pulse Resp B/P Pulse Ox O2 Delivery O2 Flow Rate FiO2 04/15/17 08:38 75 35 100 35 04/15/17 07:28 97.8 126/58 04/14/17 22:20 Mechanical Ventilator Intake and Output 04/14/17 04/14/17 04/15/17 15:00 23:00 07:00 Intake Total 300 ml 590 ml 530 ml Output Total 1800 ml Balance -1500 ml 590 ml 530 ml Results Result Diagram: 04/14/17 1325 04/14/17 1325 Results 24 hrs Laboratory Tests Test 04/14/17 13:25 White Blood Count 7.4 Red Blood Count 2.85 L Hemoglobin 8.6 L Hematocrit 27.1 L Mean Corpuscular Volume 95.1 Mean Corpuscular Hemoglobin 30.2 Mean Corpuscular Hemoglobin Concent 31.7 L Red Cell Distribution Width 16.6 H Platelet Count 218 Mean Platelet Volume 10.3 Neutrophils % 68.3 Lymphocytes % 17.5 Monocytes % 10.8 Eosinophils % 1.9 Basophils % 0.4 Nucleated Red Blood Cells % 0.0 Neutrophils # 5.1 Lymphocytes # 1.3 Monocytes # 0.8 Eosinophils # 0.1 Basophils # 0.0 Nucleated Red Blood Cells # 0.0 Sodium Level 135 Potassium Level 3.5 Chloride Level 97 # Carbon Dioxide Level 30 Anion Gap 12 Blood Urea Nitrogen 29 #H Creatinine 1.58 H Glucose Level 102 Calcium Level 8.3 L Phosphorus Level 2.2 L Magnesium Level 1.9 Medications Medications Current Medications Acetaminophen (Tylenol Liquid) 650 mg Q6H PRN GTB PAIN OR TEMP ABOVE 38C Last administered on 04/11/17 21:13; Admin Dose 650 MG; Start 04/06/17 at 15:00 Atorvastatin Calcium (Lipitor) 20 mg QHS GTB Last administered on 04/14/17 22: 23; Admin Dose 20 MG; Start 04/06/17 at 21:00 Carvedilol (Coreg) 3.125 mg BID GTB Last administered on 04/15/17 09:06; Admin Dose 3.125 MG; Start 04/06/17 at 21:00 Chlorhexidine Gluconate (Peridex) 10 ml Q12 MM Last administered on 04/15/17 09:04; Admin Dose 10 ML; Start 04/06/17 at 21:00 Clonidine (Catapres) 0.1 mg Q4H PRN GTB SBP > 170; Start 04/06/17 at 15:00 Clopidogrel Bisulfate (plaVIX) 75 mg DAILY GTB Last administered on 04/15/17 09:05; Admin Dose 75 MG; Start 04/07/17 at 09:00 Isosorbide Dinitrate (Isordil) 10 mg TID GTB Last administered on 04/15/17 09: 05; Admin Dose 10 MG; Start 04/06/17 at 21:00 Lactobacillus Acidophilus/ Rhamnosus (Culturelle) 1 cap DAILY GTB Last administered on 04/15/17 09:05; Admin Dose 1 CAP; Start 04/07/17 at 09:00 Lansoprazole (Prevacid) 30 mg DAILY@06 GTB Last administered on 04/15/17 06:05 ; Admin Dose 30 MG; Start 04/07/17 at 06:00 Levetiracetam (Keppra) 1,000 mg BID GTB Last administered on 04/15/17 09:04; Admin Dose 1,000 MG; Start 04/06/17 at 21:00 Lorazepam (Ativan) 0.5 mg Q4H PRN GTB ANXIETY Last administered on 04/14/17 16 :50; Admin Dose 0.5 MG; Start 04/06/17 at 15:00 Multivitamins Therapeutic (Theragran) 1 tab DAILY GTB Last administered on 04/15 09:05; Admin Dose 1 TAB; Start 04/07/17 at 09:00 Spironolactone (Aldactone) 25 mg DAILY GTB Last administered on 04/15/17 09:05 ; Admin Dose 25 MG; Start 04/07/17 at 09:00 IV Flush (NS 10 ml) 10 ml PRN PRN IV flush; Start 04/06/17 at 16:30 Miscellaneous Information (Pending Santyl Order For Wound Care) This patient jenkins... PRN PRN XX WOUND CARE; Start 04/06/17 at 20:30 Sodium Phosphate (Neutra-Phos) 250 mg BID NGT Last administered on 04/15/17 09 :04; Admin Dose 250 MG; Start 04/08/17 at 12:00 Acetaminophen/ Hydrocodone Bitart ([place] (5/325)) 1 tab Q8H PRN PO PAIN Last administered on 04/11/17 16:15; Admin Dose 1 TAB; Start 04/11/17 at 16:30 Diphenhydramine HCl (Benadryl Liquid Cup) 10 mg Q6H PRN GTB ITCHING Last administered on 04/12/17 20:44; Admin Dose 10 MG; Start 04/12/17 at 02:30 Gentamicin Sulfate (Gentamicin Iv Per Pharmacy) GENTAMICIN PER PHARMACY NOTE XX ; Start 04/12/17 at 13:00 Lisinopril (Zestril) 20 mg BID GTB Last administered on 04/15/17 09:05; Admin Dose 20 MG; Start 04/12/17 at 21:00 Heparin Sodium (Porcine) (Heparin (1000 Units/ml)) 4,000 unit ONCE CATHETER ; Start 04/14/17 at 11:00; Stop 04/15/17 at 10:59 MOOKIE BESS MD Apr 15, 2017 09:19
--- NOTE | 2017-04-15 10:18 | CONS ---
DATE OF ADMISSION: 04/08/2017 DATE OF CONSULTATION: 04/09/2017 REASON FOR CONSULTATION: Antibiotic management. CHIEF COMPLAINT: Jose Mann is an 81-year-old male who was admitted on April 06 with numerous problems, is being seen for antibiotic management. PAST MEDICAL HISTORY: Include: 1. Status post tracheostomy. 2. Status post G-tube placement. 3. Status post Permcath placement. 4. Status post AICD placement acutely on a patient who has ventilator-dependent respiratory failure and end-stage renal disease. 5. Cardiomyopathy. 6. Arrhythmia status post ICD placement. 7. Pacemaker placement. 8. Hypothyroidism. 9. History of tracheal bleed. HISTORY OF PRESENT ILLNESS: The patient now presents to the outpatient hospital for evaluation of anemia. His hemoglobin was 6.8. He is transferred to [facility]. In the emergency room, laboratories showed hemoglobin of 7.5. Chest x- ray showed pulmonary congestion. He was type and crossed for 2 units and admitted to telemetry for evaluation. On admission, a PICC line was inserted. His chest x-ray shows congestive heart failure with interstitial pulmonary edema, bilateral pleural effusions, cardiomegaly, interval placement of dual-chamber cardiac pacemaker with electrode leads projecting at the level of the right atrium and the right ventricle, interval placement of a dialysis catheter with its tip in the superior vena cava, a tracheostomy tube was well positioned near T4. PICC line catheter was removed over the interval. Patient currently has a white count of 13,000. BUN and creatinine 32/2.2. PHYSICAL EXAMINATION: GENERAL: Patient is an elderly gentleman. VITAL SIGNS: Patient is afebrile. He has as noted a tracheostomy. HEENT: Within normal limits NECK: Supple without drainage from tracheostomy. CHEST: Decreased breath sounds at the bases. CARDIAC: Without murmur or gallop. ABDOMEN: Soft, nontender without organosplenomegaly or masses. EXTREMITIES: Without cyanosis, clubbing or edema. RECTAL AND GENITAL: Exam deferred. NEUROLOGIC: No focal neurological abnormalities. IMPRESSION/PLAN: There are perihilar infiltrates which are slightly improved compared to 02/05/2017. They are more extensive in the right lung than the left, bilateral pleural effusions are noted, the right is larger than the left. Therefore, the patient has pneumonia. He is currently on no antibiotic therapy. The patient has anemia, likely multifactorial, with chronic renal disease, ventilator-dependent respiratory failure, encephalopathy, dysphagia, seizure disorder, ischemic heart disease with implantable cardioverter defibrillator, mild pulmonary edema on chest x-ray. As noted, his white count is somewhat elevated at 13.0. I am going to get a sputum culture and start him on cefepime. I will dictate my findings to the hospitalist. Dictated By: Jose Arreola MD JD/[email or web address]/[email or web address] /Document#: [id number]
--- NOTE | 2017-04-15 12:13 | CONS ---
Date/Time of Note Date/Time of Note DATE: 04/15/17 TIME: 12:12 Assessment/Plan Assessment/Plan Additional Assessment/Plan Assessment/Plan Additional Assessment/Plan Assessment/Plan Additional Assessment/Plan 1,anemia mostly of chronic disease,r/o gi bleeding 2,VDRF 3,s/p AICD 5,ischemic cardiomyopathy 6,ESRD Plan stool for occult blood, it is negative twice monitor H&H continue all supportive care KUB negative Patient CEA was reported high 6.4. He may need a colonoscopy if he is or the family is agreeable Consultation Date/Type/Reason Admit Date/Time Apr 08, 2017 at 10:24 Initial Consult Date 04/07/17 Type of Consultation: Pulmonary 24 HR Interval Summary Constitutional: improved, no complaints Exam/Review of Systems Vital Signs Vitals Vital Signs Date Time Temp Pulse Resp B/P Pulse Ox O2 Delivery O2 Flow Rate FiO2 04/15/17 10:00 98.2 64 19 135/64 98 04/15/17 08:38 35 04/14/17 22:20 Mechanical Ventilator Intake and Output 04/14/17 04/14/17 04/15/17 15:00 23:00 07:00 Intake Total 300 ml 590 ml 530 ml Output Total 1800 ml Balance -1500 ml 590 ml 530 ml Exam Constitutional: alert, oriented, well developed Psych: nl mood/affect, no complaints Head: atraumatic, normocephalic Eyes: EOMI, PERRL, nl conjunctiva, nl lids, nl sclera ENMT: nl external ears & nose, nl lips & teeth, nl nasal mucosa & septum Neck: non-tender, supple Respiratory: clear to auscultation, normal air movement Cardiovascular: nl pulses, regular rate and rhythm Gastrointestinal: nl liver, spleen, non-tender, soft Musculoskeletal: nl extremities to inspection, nl gait and stance Extremities: normal pulses 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, nl mental status, nl speech, nl strength Skin: nl turgor, No rash or lesions Lymph: nl lymph nodes Results Result Diagram: 04/14/17 1325 04/14/17 1325 Results 24 hrs Laboratory Tests Test 04/14/17 13:25 White Blood Count 7.4 Red Blood Count 2.85 L Hemoglobin 8.6 L Hematocrit 27.1 L Mean Corpuscular Volume 95.1 Mean Corpuscular Hemoglobin 30.2 Mean Corpuscular Hemoglobin Concent 31.7 L Red Cell Distribution Width 16.6 H Platelet Count 218 Mean Platelet Volume 10.3 Neutrophils % 68.3 Lymphocytes % 17.5 Monocytes % 10.8 Eosinophils % 1.9 Basophils % 0.4 Nucleated Red Blood Cells % 0.0 Neutrophils # 5.1 Lymphocytes # 1.3 Monocytes # 0.8 Eosinophils # 0.1 Basophils # 0.0 Nucleated Red Blood Cells # 0.0 Sodium Level 135 Potassium Level 3.5 Chloride Level 97 # Carbon Dioxide Level 30 Anion Gap 12 Blood Urea Nitrogen 29 #H Creatinine 1.58 H Glucose Level 102 Calcium Level 8.3 L Phosphorus Level 2.2 L Magnesium Level 1.9 Medications Medications Current Medications Acetaminophen (Tylenol Liquid) 650 mg Q6H PRN GTB PAIN OR TEMP ABOVE 38C Last administered on 04/11/17 21:13; Admin Dose 650 MG; Start 04/06/17 at 15:00 Atorvastatin Calcium (Lipitor) 20 mg QHS GTB Last administered on 04/14/17 22: 23; Admin Dose 20 MG; Start 04/06/17 at 21:00 Carvedilol (Coreg) 3.125 mg BID GTB Last administered on 04/15/17 09:06; Admin Dose 3.125 MG; Start 04/06/17 at 21:00 Chlorhexidine Gluconate (Peridex) 10 ml Q12 MM Last administered on 04/15/17 09:04; Admin Dose 10 ML; Start 04/06/17 at 21:00 Clonidine (Catapres) 0.1 mg Q4H PRN GTB SBP > 170; Start 04/06/17 at 15:00 Clopidogrel Bisulfate (plaVIX) 75 mg DAILY GTB Last administered on 04/15/17 09:05; Admin Dose 75 MG; Start 04/07/17 at 09:00 Isosorbide Dinitrate (Isordil) 10 mg TID GTB Last administered on 04/15/17 09: 05; Admin Dose 10 MG; Start 04/06/17 at 21:00 Lactobacillus Acidophilus/ Rhamnosus (Culturelle) 1 cap DAILY GTB Last administered on 04/15/17 09:05; Admin Dose 1 CAP; Start 04/07/17 at 09:00 Lansoprazole (Prevacid) 30 mg DAILY@06 GTB Last administered on 04/15/17 06:05 ; Admin Dose 30 MG; Start 04/07/17 at 06:00 Levetiracetam (Keppra) 1,000 mg BID GTB Last administered on 04/15/17 09:04; Admin Dose 1,000 MG; Start 04/06/17 at 21:00 Lorazepam (Ativan) 0.5 mg Q4H PRN GTB ANXIETY Last administered on 04/14/17 16 :50; Admin Dose 0.5 MG; Start 04/06/17 at 15:00 Multivitamins Therapeutic (Theragran) 1 tab DAILY GTB Last administered on 04/15 09:05; Admin Dose 1 TAB; Start 04/07/17 at 09:00 Spironolactone (Aldactone) 25 mg DAILY GTB Last administered on 04/15/17 09:05 ; Admin Dose 25 MG; Start 04/07/17 at 09:00 IV Flush (NS 10 ml) 10 ml PRN PRN IV flush; Start 04/06/17 at 16:30 Miscellaneous Information (Pending [facility] Order For Wound Care) This patient jenkins... PRN PRN XX WOUND CARE; Start 04/06/17 at 20:30 Sodium Phosphate (Neutra-Phos) 250 mg BID NGT Last administered on 04/15/17 09 :04; Admin Dose 250 MG; Start 04/08/17 at 12:00 Acetaminophen/ Hydrocodone Bitart ([place] (5/325)) 1 tab Q8H PRN PO PAIN Last administered on 04/11/17 16:15; Admin Dose 1 TAB; Start 04/11/17 at 16:30 Diphenhydramine HCl (Benadryl Liquid Cup) 10 mg Q6H PRN GTB ITCHING Last administered on 04/12/17 20:44; Admin Dose 10 MG; Start 04/12/17 at 02:30 Gentamicin Sulfate (Gentamicin Iv Per Pharmacy) GENTAMICIN PER PHARMACY NOTE XX ; Start 04/12/17 at 13:00 Lisinopril (Zestril) 20 mg BID GTB Last administered on 04/15/17 09:05; Admin Dose 20 MG; Start 04/12/17 at 21:00 LASHAY PATEL MD Apr 15, 2017 12:13
--- NOTE | 2017-04-15 12:14 | CONS ---
Date/Time of Note Date/Time of Note DATE: 04/15/17 TIME: 12:12 Consult Date/Type/Reason Admit Date/Time Apr 08, 2017 at 10:24 Initial Consult Date 04/07/17 Type of Consultation: Pulmonary Subjective Patient comfortable at rest no new events Objective Vital Signs Date Time Temp Pulse Resp B/P Pulse Ox O2 Delivery O2 Flow Rate FiO2 04/15/17 10:00 98.2 64 19 135/64 98 04/15/17 08:38 35 04/14/17 22:20 Mechanical Ventilator Intake and Output 04/14/17 04/14/17 04/15/17 15:00 23:00 07:00 Intake Total 300 ml 590 ml 530 ml Output Total 1800 ml Balance -1500 ml 590 ml 530 ml Exam PHYSICAL EXAMINATION GENERAL: Chronically ill-appearing gentleman comfortable ventilation VITAL SIGNS: see below. HEENT: Pupils equal, round, and reactive to light. Tracheostomy site clean and intact. CARDIAC: S1, S2, 1/6 systolic ejection murmur CHEST: Diminished air entry bilaterally. Right chest tube in place ABDOMEN: Mildly distended. Bowel sounds present no guarding or rebound EXTREMITIES: No cyanosis, clubbing edema +1 NEUROLOGIC: Generalized weakness Results/Medications Result Diagram: 04/14/17 1325 04/14/17 1325 Results 24 hrs Laboratory Tests Test 04/14/17 13:25 White Blood Count 7.4 Red Blood Count 2.85 L Hemoglobin 8.6 L Hematocrit 27.1 L Mean Corpuscular Volume 95.1 Mean Corpuscular Hemoglobin 30.2 Mean Corpuscular Hemoglobin Concent 31.7 L Red Cell Distribution Width 16.6 H Platelet Count 218 Mean Platelet Volume 10.3 Neutrophils % 68.3 Lymphocytes % 17.5 Monocytes % 10.8 Eosinophils % 1.9 Basophils % 0.4 Nucleated Red Blood Cells % 0.0 Neutrophils # 5.1 Lymphocytes # 1.3 Monocytes # 0.8 Eosinophils # 0.1 Basophils # 0.0 Nucleated Red Blood Cells # 0.0 Sodium Level 135 Potassium Level 3.5 Chloride Level 97 # Carbon Dioxide Level 30 Anion Gap 12 Blood Urea Nitrogen 29 #H Creatinine 1.58 H Glucose Level 102 Calcium Level 8.3 L Phosphorus Level 2.2 L Magnesium Level 1.9 Medications Current Medications Acetaminophen (Tylenol Liquid) 650 mg Q6H PRN GTB PAIN OR TEMP ABOVE 38C Last administered on 04/11/17 21:13; Admin Dose 650 MG; Start 04/06/17 at 15:00 Atorvastatin Calcium (Lipitor) 20 mg QHS GTB Last administered on 04/14/17 22: 23; Admin Dose 20 MG; Start 04/06/17 at 21:00 Carvedilol (Coreg) 3.125 mg BID GTB Last administered on 04/15/17 09:06; Admin Dose 3.125 MG; Start 04/06/17 at 21:00 Chlorhexidine Gluconate (Peridex) 10 ml Q12 MM Last administered on 04/15/17 09:04; Admin Dose 10 ML; Start 04/06/17 at 21:00 Clonidine (Catapres) 0.1 mg Q4H PRN GTB SBP > 170; Start 04/06/17 at 15:00 Clopidogrel Bisulfate (plaVIX) 75 mg DAILY GTB Last administered on 04/15/17 09:05; Admin Dose 75 MG; Start 04/07/17 at 09:00 Isosorbide Dinitrate (Isordil) 10 mg TID GTB Last administered on 04/15/17 09: 05; Admin Dose 10 MG; Start 04/06/17 at 21:00 Lactobacillus Acidophilus/ Rhamnosus (Culturelle) 1 cap DAILY GTB Last administered on 04/15/17 09:05; Admin Dose 1 CAP; Start 04/07/17 at 09:00 Lansoprazole (Prevacid) 30 mg DAILY@06 GTB Last administered on 04/15/17 06:05 ; Admin Dose 30 MG; Start 04/07/17 at 06:00 Levetiracetam (Keppra) 1,000 mg BID GTB Last administered on 04/15/17 09:04; Admin Dose 1,000 MG; Start 04/06/17 at 21:00 Lorazepam (Ativan) 0.5 mg Q4H PRN GTB ANXIETY Last administered on 04/14/17 16 :50; Admin Dose 0.5 MG; Start 04/06/17 at 15:00 Multivitamins Therapeutic (Theragran) 1 tab DAILY GTB Last administered on 04/15 09:05; Admin Dose 1 TAB; Start 04/07/17 at 09:00 Spironolactone (Aldactone) 25 mg DAILY GTB Last administered on 04/15/17 09:05 ; Admin Dose 25 MG; Start 04/07/17 at 09:00 IV Flush (NS 10 ml) 10 ml PRN PRN IV flush; Start 04/06/17 at 16:30 Miscellaneous Information (Pending [facility]) This patient jenkins... PRN PRN XX WOUND CARE; Start 04/06/17 at 20:30 Sodium Phosphate (Neutra-Phos) 250 mg BID NGT Last administered on 04/15/17 09 :04; Admin Dose 250 MG; Start 04/08/17 at 12:00 Acetaminophen/ Hydrocodone Bitart ([place] (5/325)) 1 tab Q8H PRN PO PAIN Last administered on 04/11/17 16:15; Admin Dose 1 TAB; Start 04/11/17 at 16:30 Diphenhydramine HCl (Benadryl Liquid Cup) 10 mg Q6H PRN GTB ITCHING Last administered on 04/12/17 20:44; Admin Dose 10 MG; Start 04/12/17 at 02:30 Gentamicin Sulfate (Gentamicin Iv Per Pharmacy) GENTAMICIN PER PHARMACY NOTE XX ; Start 04/12/17 at 13:00 Lisinopril (Zestril) 20 mg BID GTB Last administered on 04/15/17 09:05; Admin Dose 20 MG; Start 04/12/17 at 21:00 Assessment/Plan Chief Complaint/Hosp Course IMP: 1. Anemia likely multifactorial combination of chronic kidney disease, possible dilutional possible GI bleed. 2. Vent dependent respiratory failure 3. Encephalopathy acute on chronic 4. CKD, electrolyte abnormality 5. Seizure disorder 6. History of ischemic heart disease with ICD, mild pulmonary edema on chest x- ray RECS: 1. continue current vent settings. 2. follow labs 3. BD's/CPT 4. renal recs. Discharge planning okay with pulmonary Problems: ZULMA MAE MD, [facility] Apr 15, 2017 12:14
--- NOTE | 2017-04-15 12:55 | CONS ---
Date/Time of Note Date/Time of Note DATE: 04/15/17 TIME: 12:55 Assessment/Plan Assessment/Plan Chief Complaint/Hosp Course No acute events, alert, in hemodialysis, looks comfortable, no fevers, no vomiting/ diarrhea Indwelling: Left upper extremity PICC line, right chest permacath, trach PEG Antimicrobials: Gentamicin Microbiology: Sputum culture growing pseudomonas aeruginosa Physical examination: Well-developed, chronically ill-appearing elderly male who is in no distress. Head atraumatic normocephalic sclera nonicteric. Neck is supple tracheostomy present. Chest rise symmetrical, breath sounds diminished basis. Abdomen soft, bowel tones present. Extremities with trace edema. Assessment: 1. Leukocytosis possibly reactive 2. Chronic respiratory failure with pseudomonas aeruginosa sputum colonization 3. End-stage renal disease, hemodialysis dependent 4. Acute on chronic anemia 5. Dysphasia 6. Encephalopathy 7. Coronary artery disease history permanent pacemaker Plan: Remain stable, continue present care, okay discharge off antibiotics Discussed with staff Problems: Consultation Date/Type/Reason Admit Date/Time Apr 08, 2017 at 10:24 Initial Consult Date 04/07/17 Type of Consultation: ID Exam/Review of Systems Vital Signs Vitals Vital Signs Date Time Temp Pulse Resp B/P Pulse Ox O2 Delivery O2 Flow Rate FiO2 04/15/17 12:43 55 04/15/17 12:43 98.1 19 164/76 100 04/15/17 08:38 35 04/14/17 22:20 Mechanical Ventilator Intake and Output 04/14/17 04/14/17 04/15/17 15:00 23:00 07:00 Intake Total 300 ml 590 ml 530 ml Output Total 1800 ml Balance -1500 ml 590 ml 530 ml Results Result Diagram: 04/14/17 1325 04/14/17 1325 Results 24 hrs Laboratory Tests Test 04/14/17 13:25 White Blood Count 7.4 Red Blood Count 2.85 L Hemoglobin 8.6 L Hematocrit 27.1 L Mean Corpuscular Volume 95.1 Mean Corpuscular Hemoglobin 30.2 Mean Corpuscular Hemoglobin Concent 31.7 L Red Cell Distribution Width 16.6 H Platelet Count 218 Mean Platelet Volume 10.3 Neutrophils % 68.3 Lymphocytes % 17.5 Monocytes % 10.8 Eosinophils % 1.9 Basophils % 0.4 Nucleated Red Blood Cells % 0.0 Neutrophils # 5.1 Lymphocytes # 1.3 Monocytes # 0.8 Eosinophils # 0.1 Basophils # 0.0 Nucleated Red Blood Cells # 0.0 Sodium Level 135 Potassium Level 3.5 Chloride Level 97 # Carbon Dioxide Level 30 Anion Gap 12 Blood Urea Nitrogen 29 #H Creatinine 1.58 H Glucose Level 102 Calcium Level 8.3 L Phosphorus Level 2.2 L Magnesium Level 1.9 Medications Medications Current Medications Acetaminophen (Tylenol Liquid) 650 mg Q6H PRN GTB PAIN OR TEMP ABOVE 38C Last administered on 04/11/17 21:13; Admin Dose 650 MG; Start 04/06/17 at 15:00 Atorvastatin Calcium (Lipitor) 20 mg QHS GTB Last administered on 04/14/17 22: 23; Admin Dose 20 MG; Start 04/06/17 at 21:00 Carvedilol (Coreg) 3.125 mg BID GTB Last administered on 04/15/17 09:06; Admin Dose 3.125 MG; Start 04/06/17 at 21:00 Chlorhexidine Gluconate (Peridex) 10 ml Q12 MM Last administered on 04/15/17 09:04; Admin Dose 10 ML; Start 04/06/17 at 21:00 Clonidine (Catapres) 0.1 mg Q4H PRN GTB SBP > 170; Start 04/06/17 at 15:00 Clopidogrel Bisulfate (plaVIX) 75 mg DAILY GTB Last administered on 04/15/17 09:05; Admin Dose 75 MG; Start 04/07/17 at 09:00 Isosorbide Dinitrate (Isordil) 10 mg TID GTB Last administered on 04/15/17 09: 05; Admin Dose 10 MG; Start 04/06/17 at 21:00 Lactobacillus Acidophilus/ Rhamnosus (Culturelle) 1 cap DAILY GTB Last administered on 04/15/17 09:05; Admin Dose 1 CAP; Start 04/07/17 at 09:00 Lansoprazole (Prevacid) 30 mg DAILY@06 GTB Last administered on 04/15/17 06:05 ; Admin Dose 30 MG; Start 04/07/17 at 06:00 Levetiracetam (Keppra) 1,000 mg BID GTB Last administered on 04/15/17 09:04; Admin Dose 1,000 MG; Start 04/06/17 at 21:00 Lorazepam (Ativan) 0.5 mg Q4H PRN GTB ANXIETY Last administered on 04/14/17 16 :50; Admin Dose 0.5 MG; Start 04/06/17 at 15:00 Multivitamins Therapeutic (Theragran) 1 tab DAILY GTB Last administered on 04/15 09:05; Admin Dose 1 TAB; Start 04/07/17 at 09:00 Spironolactone (Aldactone) 25 mg DAILY GTB Last administered on 04/15/17 09:05 ; Admin Dose 25 MG; Start 04/07/17 at 09:00 IV Flush (NS 10 ml) 10 ml PRN PRN IV flush; Start 04/06/17 at 16:30 Miscellaneous Information (Pending [facility] Order For Wound Care) This patient jenkins... PRN PRN XX WOUND CARE; Start 04/06/17 at 20:30 Sodium Phosphate (Neutra-Phos) 250 mg BID NGT Last administered on 04/15/17 09 :04; Admin Dose 250 MG; Start 04/08/17 at 12:00 Acetaminophen/ Hydrocodone Bitart ([place] (5/325)) 1 tab Q8H PRN PO PAIN Last administered on 04/11/17 16:15; Admin Dose 1 TAB; Start 04/11/17 at 16:30 Diphenhydramine HCl (Benadryl Liquid Cup) 10 mg Q6H PRN GTB ITCHING Last administered on 04/12/17 20:44; Admin Dose 10 MG; Start 04/12/17 at 02:30 Gentamicin Sulfate (Gentamicin Iv Per Pharmacy) GENTAMICIN PER PHARMACY NOTE XX ; Start 04/12/17 at 13:00 Lisinopril (Zestril) 20 mg BID GTB Last administered on 04/15/17 09:05; Admin Dose 20 MG; Start 04/12/17 at 21:00 MAIRA HUIZAR NP Apr 15, 2017 12:55
--- NOTE | 2017-04-15 12:56 | PN ---
PROGRESS NOTE DATE: 04/08/2017 SUBJECTIVE: The patient had hemodialysis and he tolerated it well without complications. The patient is scheduled for dialysis today. OBJECTIVE DATA: VITAL SIGNS: Blood pressure 164/74, respirations 19, pulse 67, temperature 98.1. HEENT: Head is normocephalic. Pupils are reactive to light. NECK: Supple. HEART: Regular rate. LUNGS: Diminished breath sounds at the bases. ABDOMEN: Soft, nontender to palpation. No rebound or guarding. EXTREMITIES: No clubbing or cyanosis. Positive edema. DERMATOLOGIC: No rashes. No scalp tenderness. MUSCULOSKELETAL: No joint effusion. NEUROLOGIC: No change in exam. MEDICATIONS: Patient's medications were reviewed. LABORATORY DATA: White count 10.8, hemoglobin 9.5, hematocrit 27.0, platelet count 170. Sodium 137, potassium 3.5, chloride 99, BUN 52, creatinine 1.85, phosphorus 1.7. ASSESSMENT AND PLAN: 1. Anemia, etiology likely secondary to chronic kidney disease, however, will rule out gastrointestinal bleed. Patient's stool ova and parasites pending. Patient is status post blood transfusion. Continue monitoring H and H levels. Continue Epogen and follow up with gastroenterology for evaluation. 2. End-stage renal disease. Plan for dialysis today for 3 hours 2.5. 3. Mineral bone disorder. Will give the patient sodium phosphate as the patient has hypophosphatemia. 4. secondary to congestive heart failure. Continue ultra filtration dialysis. 5. Ventilator dependent, respiratory failure. were reviewed, ABG was reviewed. Continue to monitor Followup with pulmonary. 6. Coronary artery disease, cardiomyopathy. Patient is status post ICD placement. Continue medical management. 7. Seizures. Continue Keppra. 8. Hypothyroidism. Continue Synthroid. 9. Dysphagia test Continue tube feeding. 10. Acute on chronic encephalopathy, etiology is toxic metabolic. 11. Hypertension. Continue blood pressure regimen. 12. , gastrointestinal and deep vein thrombosis prophylaxis. Dictated By: Marciano Darby DO /anjali/[email or web address] /Document#: [id number] Conf#:[id number] DID#: [id number]
== END 2017-04-15 15:40 | DRG 811 ==
LOC: E/R 11:47 → TEL 14:01 → OBSVTOIN 04-08 10:24
PROVIDERS: ADMIT Internal Medicine; ATTEND Internal Medicine
PROC: 02HV33Z Insertion of Infusion Device into Superior Vena Cava, Percutaneous Approach (ICD-10-PCS; principal; 2017-04-06)
DX: D64.9 Anemia, unspecified (principal); J18.9 Pneumonia, unspecified organism; I13.2 Hypertensive heart and chronic kidney disease with heart failure and with stage 5 chronic kidney disease, or end stage renal disease; G92 Toxic encephalopathy; Z99.11 Dependence on respirator [ventilator] status; J96.11 Chronic respiratory failure with hypoxia; N18.6 End stage renal disease; J40 Bronchitis, not specified as acute or chronic; I25.10 Atherosclerotic heart disease of native coronary artery without angina pectoris; I49.5 Sick sinus syndrome; I25.5 Ischemic cardiomyopathy; I50.9 Heart failure, unspecified; E11.22 Type 2 diabetes mellitus with diabetic chronic kidney disease; E78.5 Hyperlipidemia, unspecified; E87.5 Hyperkalemia; E83.9 Disorder of mineral metabolism, unspecified; E03.9 Hypothyroidism, unspecified; G40.909 Epilepsy, unspecified, not intractable, without status epilepticus; D63.1 Anemia in chronic kidney disease; R13.10 Dysphagia, unspecified; Z96.89 Presence of other specified functional implants; Z99.2 Dependence on renal dialysis; Z79.02 Long term (current) use of antithrombotics/antiplatelets; Z95.1 Presence of aortocoronary bypass graft; Z86.74 Personal history of sudden cardiac arrest
CPT/HCPCS: 36415; 36430; 36569; 36600; 71010; 74000; 76937; 80048; 80053; 82270; 82378; 82728; 82803; 83540; 83735; 84100; 84484; 85025; 85610; 85730; 86850; 86900; 86901; 86920; 87070; 87081; 89220; 90935; 93005; 94002; 94003; G0378; J0692; J1580; J1644; J3475; J7050; P9016; Q4081

== ENCOUNTER 2017-04-23 06:52 | Inpatient (IN) | payer MEDICARE, BC ==
[~2017-04-23] VITALS: Ht 170.2 cm; Wt 75.0 kg
[2017-04-23] VITALS (15 sets, daily range): BP systolic 108–150; BP diastolic 59–76; PULSE 56–79; RESP 14–26; TEMP 98.3; Ht 170.2 cm; Wt 75.0 kg
[~2017-04-23 06:52] MED LIST changes: -AMIKACIN IVPB; -ATILIQ PEG; +CARV3.1260 GTB; +CLON-379 GTB; +CLOP75TA27 GTB; -DEXT38GE15 PO; +DIPH12.59 GTB; -HDRP454O TOP; -HYDR-3670 PO; -HYDR-906 PO; +ISOS10TA2 GTB; +LACT1CAP57 GTB; +LANS30CA GTB; +LEVE100018 GTB; +LEVO88TA42 GTB; +LISI-313 GTB; +LORA0.5T GTB; -LORA2ORA2 IV; -METO-429 PO; -MORP10DI10 IV; +MULTI GTB; +NOVO3I SC; -POLY30OI TOP; +SPIR25TA GTB
[2017-04-23] MEDS ORDERED: CEFEPIME 2GM/50 ML (PMX) 50 ML IVPB STA (06:59)
[2017-04-23] MEDS ORDERED: SOD CHLORIDE 0.9% 1,000 ML IV ONE ×2 (07:00)
[2017-04-23 07:16] LABS: ADD SCAN DIFF NO
--- NOTE | 2017-04-23 07:17 | ERA ---
ER Documentation Chief Complaint Date/Time DATE: 04/23/17 TIME: 07:07 Chief Complaint VENT PT FROM SNF FOR EVAL OF SOB HPI This 81-year-old male was sent in from the stiff for pain apparent difficulty breathing.. Patient is trach vent dependent for unknown reasons. When the paramedics the nursing staff was not aware of the reason. According to the records that came with him he also has a history of atrial fibrillation, dialysis dependence, decubitus ulcers. According to paramedics today suction the patient removing a good amount of mucus prior to leaving after which the oxygen saturation improved somewhat. ROS All systems reviewed and are negative except as per history of present illness. Medications Home Meds Reported Medications Sodium Phosphate* (Phos-Nak*) 250 Mg/Pkt Soln, 250 MG GTB BID, PACKET 04/23/17 Protein Supplement (Promod) 946 Ml Liquid, 30 ML GTB BID 04/23/17 Multivit/Ca Carb/B Cmplx/Fa* (Thelma-Bebeto*) 1 Tab Tab, 1 TAB GTB DAILY, TAB 04/23/17 Hydrocodone/Acetaminophen ([place] 5-325 Tablet) 1 Each Tablet, 1 EACH GTB Q8 Y for SEVERE PAIN LEVEL 7-10, TAB 04/23/17 Ipratropium-Albuterol (Ipratropium-Albuterol) 0.5-3 Mg/3 Ml Ampul.neb, 3 ML INHALATION Q2H Y for WHEEZING AND SOB, #30 VIAL 04/23/17 Ipratropium-Albuterol (Ipratropium-Albuterol) 0.5-3 Mg/3 Ml Ampul.neb, 3 ML INHALATION Q6 Y for WHEEZING AND SOB, #30 VIAL 04/23/17 Insulin Aspart* (Novolog Insulin Pen*) 100 Unit/Ml Soln, 0 SC .SLIDING SCALE AC , EA 71-150 = 0 UNITS 151-200 = 2 UNITS 201-250 = 4 UNITS 251-300 = 6 UNITS 301-350 = 8 UNITS 351-400 =10 UNITS OVER 400 = 12 UNITS AND CALL MD UNDER 70 GIVE ORANGE JUICE OR IM GLUCAGON AND CALL 04/06/17 Spironolactone* (Aldactone*) 25 Mg Tablet, 25 MG GTB DAILY, #30 TAB 04/06/17 Multivitamins* (Theragran*) 1 Tab Tab, 1 TAB GTB DAILY, TAB 04/06/17 Lorazepam* (Lorazepam*) 0.5 Mg Tablet, 0.5 MG GTB Q4 Y for ANXIETY, TAB 04/06/17 Lisinopril* (Lisinopril*) 5 Mg Tablet, 5 MG GTB BID, #30 TAB 04/06/17 Levothyroxine Sodium* (Levoxyl*) 88 Mcg Tablet, 88 MCG GTB BEFORE BREAKFAST, # 30 TAB 04/06/17 Lansoprazole* (Lansoprazole*) 30 Mg Capsule.dr, 30 MG GTB DAILY, CAP 04/06/17 Lactobacillus Rhamnosus* (Culturelle*) 1 Each Cap.sprink, 1 CAP GTB DAILY, CAP 04/06/17 Levetiracetam* (Keppra*) 1,000 Mg Tablet, 1000 MG GTB BID, TAB 04/06/17 Isosorbide Dinitrate* (Isosorbide Dinitrate*) 10 Mg Tablet, 10 MG GTB TID, TAB 04/06/17 Diphenhydramine Hcl* (Diphenhydramine Hcl*) 12.5 Mg/5 Ml Elixir, 25 MG GTB Q6H Y for ITCHING, ML 04/06/17 Clopidogrel Bisulfate (Clopidogrel) 75 Mg Tablet, 75 MG GTB DAILY, #30 TAB 04/06/17 Clonidine Hcl* (Clonidine Hcl*) 0.1 Mg Tab, 0.1 MG GTB Q4H Y for ELEVATED BLOOD PRESSURE, TAB 04/06/17 Carvedilol* (Carvedilol*) 3.125 Mg Tablet, 3.125 MG GTB BID, #60 TAB 04/06/17 Acetaminophen* (Acetaminophen* Susp) 325 Mg/10.15 Ml Solution, 650 MG GTB Q6 Y for PAIN OR TEMP ABOVE 38C, ML 03/23/17 Atorvastatin Calcium* (Atorvastatin Calcium*) 20 Mg Tablet, 20 MG GTB QHS, #30 TAB 03/23/17 Chlorhexidine Gluconate (Peridex) 473 Ml Mouthwash, 10 ML MM Q12, BOTTLE SWAB AMND SUCTION 03/23/17 Discontinued Reported Medications Balsam Eddi/[place] Oil (Venelex Ointment) 60 Gm Oint..gm., 1 APPLIC TOP NEEDED Y for PRN, #1 TUB APPLY TO SCRITAL AREA 03/23/17 Allergies Allergies: Coded Allergies: No Known Allergy (Unverified , 04/23/17) PMhx/Soc History of Surgery: Yes (permacath placement,pacemaker placement,trach) Hx Neurological Disorder: Yes (epilepsy) Hx Respiratory Disorders: Yes ([facility]tracheostomy) Hx Cardiac Disorders: Yes (Afib, cardiomyopathy,HPN) Hx Psychiatric Problems: Yes (anxiety) Hx Substance Use: No Hx Tobacco Use: No (per previous records) Physical Exam Vitals Vital Signs Date Time Temp Pulse Resp B/P Pulse Ox O2 Delivery O2 Flow Rate FiO2 04/23/17 13:03 97.0 63 16 134/70 100 Mechanical Ventilator 10.0 04/23/17 12:46 56 25 99 40 04/23/17 12:00 99.0 53 20 135/71 100 Mechanical Ventilator 10.0 04/23/17 11:00 99.0 53 24 138/71 100 Mechanical Ventilator 10.0 04/23/17 10:20 55 26 99 40 04/23/17 10:00 99.0 59 20 130/69 100 Mechanical Ventilator 10.0 04/23/17 09:00 99.0 63 20 116/61 99 Mechanical Ventilator 10.0 04/23/17 08:08 Bag Valve Mask 10 04/23/17 08:07 Bag Valve Mask 10.0 04/23/17 08:00 99.0 63 20 114/71 98 Mechanical Ventilator 10.0 04/23/17 07:15 115 30 97 40 04/23/17 07:04 99.0 122 24 145/80 97 Physical Exam Const: [] Mild to moderate distress Head: Atraumatic Eyes: Normal Conjunctiva, apparent EOMI, PERRL ENT: Normal External Ears, Nose and Mouth. Neck: Full range of motion..~ No meningismus. Resp: Bilateral rhonchorous breath sounds bilateral decreased bibasilar sounds. Cardio: Irregularly irregular tachycardia, no murmurs Abd: Soft, non tender, non distended. Normal bowel sounds Skin: No petechiae or rashes, clammy Back: No midline or flank tenderness Ext: No cyanosis, or edema Neur: Awake, does not follow commands or respond to questions. Patellar reflexes intact. Result Diagram: 04/23/17 0710 04/23/17 0710 Results 24 hrs Laboratory Tests Test 04/23/17 07:10 04/23/17 09:28 04/23/17 11:20 White Blood Count 19.310^3/ul Red Blood Count 3.2010^6/ul Hemoglobin 9.6g/dl Hematocrit 32.1% Mean Corpuscular Volume 100.3fl Mean Corpuscular Hemoglobin 30.0pg Mean Corpuscular Hemoglobin Concent 29.9g/dl Red Cell Distribution Width 17.8% Platelet Count 09189^3/UL Mean Platelet Volume 10.6fl Neutrophils % 89.1% Lymphocytes % 4.7% Monocytes % 4.8% Eosinophils % 0.5% Basophils % 0.2% Neutrophils # 17.210^3/ul Lymphocytes # 0.910^3/ul Monocytes # 0.910^3/ul Eosinophils # 0.110^3/ul Basophils # 0.010^3/ul Nucleated Red Blood Cells # 0.010^3/ul Prothrombin Time 17.2Sec Prothrombin Time Ratio 1.3 INR International Normalized Ratio 1.40 Activated Partial Thromboplast Time 39.4Sec Blood Gas Specimen Source Blood arterial Arterial Blood Date Drawn 04/23/2017 7:36:19 AM Arterial Blood pH (Temp corrected) 7.400 Arterial Blood pCO2 (Temp correct) 38.2mmhg Arterial Blood pO2 (Temp corrected) 87.1mmHG Arterial Blood HCO3 23.1mmol/L Arterial Blood Base Excess -1.4mmol/L Arterial Blood Oxygen Saturation 96.2mmHG Migel Test ACCEPTAB Arterial Blood Gas Puncture Site Right Radial Arterial Blood Carboxyhemoglobin 0.1% Arterial Blood Methemoglobin 0.4% Blood Gas A-a O2 Differential 154.2mmHg Oxyhemoglobin Percent 95.7% Total Hemoglobin 11.0g/dl Blood Gas Temperature 37.0C Blood Gas Respiration Rate 14.0 Blood Gas Actual Respiration Rate 29 Blood Gas Modality VENT - AC FiO2 40.0% Blood Gas Tidal Volume 450.0mL Blood Gas Low PEEP Setting 5.0cmH2O Blood Gas Critical Value Read Back DR. LAN Blood Gas Notified Harris Simms Blood Gas Notified Time 04/23/2017 7:44:05 AM Sodium Level 140mmol/L Potassium Level 4.7mmol/L Chloride Level 95mmol/L Carbon Dioxide Level 25mmol/L Anion Gap 25 Blood Urea Nitrogen 58mg/dl Creatinine 2.78mg/dl Glucose Level 161mg/dl Lactic Acid Level 1.6mmol/L 1.8mmol/L 1.4mmol/L Calcium Level 9.2mg/dl Total Bilirubin 0.0mg/dl Direct Bilirubin 0.00mg/dl Indirect Bilirubin 0.0mg/dl Aspartate Amino Transf (AST/SGOT) 24IU/L Alanine Aminotransferase (ALT/SGPT) 36IU/L Alkaline Phosphatase 284IU/L Troponin I 0.020ng/ml Total Protein 7.4g/dl Albumin 3.2g/dl Globulin 4.20g/dl Albumin/Globulin Ratio 0.76 Current Medications Medications (Trade) Dose Ordered Sig/Khushi Route PRN Reason Start Time Stop Time Status Last Admin Dose Admin Cefepime HCl 50 ml @ 100 mls/hr ONCE STAT IVPB 04/23/17 06:59 04/23/17 07:28 DC 04/23/17 07:40 Sodium Chloride 1,000 ml @ 1,000 mls/hr Q1H ONCE IV 04/23/17 07:00 04/23/17 07:59 DC 04/23/17 07:36 Sodium Chloride (NS) 1,000 ml @ 1,000 mls/hr Q1H ONCE IV 04/23/17 07:00 04/23/17 07:59 DC 04/23/17 07:44 Lorazepam 1 mg 1 mg ONCE ONCE IV 04/23/17 08:30 04/23/17 08:31 DC 04/23/17 09:09 Sodium Chloride (NS) 500 ml @ 500 mls/hr Q1H ONCE IV 04/23/17 08:30 04/23/17 09:29 DC 04/23/17 09:11 Ondansetron HCl (Zofran Inj) 4 mg ER BRIDGE PRN IV NAUSEA AND/OR VOMITING 04/23/17 10:00 04/24/17 09:59 Acetaminophen (Tylenol Tab) 650 mg ER BRIDGE PRN PO MILD PAIN/FEVER 04/23/17 10:00 04/24/17 09:59 Atorvastatin Calcium (Lipitor) 20 mg QHS GTB 04/23/17 21:00 Carvedilol (Coreg) 3.125 mg BID GTB 04/23/17 21:00 Chlorhexidine Gluconate (Peridex) 10 ml Q12 MM 04/23/17 21:00 Clonidine (Catapres) 0.1 mg Q4H PRN GTB ELEVATED BLOOD PRESSURE 04/23/17 12:00 UNV Clopidogrel Bisulfate (plaVIX) 75 mg DAILY GTB 04/24/17 09:00 Diphenhydramine HCl (Benadryl Liquid Cup) 25 mg Q6H PRN GTB ITCHING 04/23/17 12:00 Acetaminophen/ Hydrocodone Bitart ([place] (5/325)) 1 tab Q8 PRN GTB SEVERE PAIN LEVEL 7-10 04/23/17 12:00 Albuterol/ Ipratropium (Duoneb) 3 ml Q2H RESP THERAPY PRN NEB WHEEZING AND SOB 04/23/17 12:00 Albuterol/ Ipratropium (Duoneb) 3 ml Q6H RESP THERAPY PRN NEB WHEEZING AND SOB 04/23/17 12:00 04/23/17 12:22 DC Isosorbide Dinitrate (Isordil) 10 mg TID GTB 04/23/17 13:00 UNV Lactobacillus Acidophilus/ Rhamnosus (Culturelle) 1 cap DAILY GTB 04/24/17 09:00 Lansoprazole (Prevacid) 30 mg DAILY@06 GTB 04/24/17 06:00 Levetiracetam (Keppra) 1,000 mg BID GTB 04/23/17 21:00 Levothyroxine Sodium (Synthroid) 88 mcg BEFORE BREAKFAST GTB 04/24/17 07:00 UNV Lisinopril (Zestril) 5 mg BID GTB 04/23/17 21:00 Lorazepam (Ativan) 0.5 mg Q4 PRN GTB ANXIETY 04/23/17 12:00 Multivit/Ca Carb/ B Cmplx/FA/Prenat (Thelma-Bebeto) 1 tab DAILY GTB 04/24/17 09:00 Multivitamins Therapeutic (Theragran) 1 tab DAILY GTB 04/24/17 09:00 Sodium Phosphate (Neutra-Phos) 250 mg BID GTB 04/23/17 21:00 UNV Spironolactone (Aldactone) 25 mg DAILY GTB 04/24/17 09:00 Miscellaneous Information 30 ml BID GTB 04/23/17 21:00 04/23/17 21:00 DC Albuterol/ Ipratropium (Duoneb) 3 ml Q6H RESP THERAPY NEB 04/23/17 14:00 Procedures/MDM This 89-year-old male presents with sepsis possibly secondary pneumonia. Possible infiltrates on chest x-ray. Patient was stabilized. Initially in A. fib with RVR his heart rate decreased with fluid administration only. Persistently tachypneic. Significantly his leukocytosis. started on cefepime and 30 cc/kg of IV fluid. His condition did improve. Vital signs became more stable. Still with some tachypnea. Renal insufficiency without hyperkalemia. Patient is being admitted to telemetry by Dr. Darby who is patient in the emergency room and saw the patient at bedside. EKG interpretation: A. fib with RVR, rate of 121, flat or inverted T waves in lateral leads concerning for some ischemia, normal axis. Chest x-ray interpretation: Hazy obscuration of most of right lung, concerning for infiltrative process versus true atelectasis. No pneumothorax, no acute fractures media monitor interpretation: Initially irregularly irregular with rapid rate , heart rate improved dramatically to mild bradycardia. No other arrhythmias Critical care time 42 minutes: This includes treatment of unstable vital signs and likely sepsis from pneumonia, A. fib with RVR, careful fluid administration , early antibiotic administration, multiple visits patient's bedside to reassess status, review of chart, discussion with admitting doctor. This does not include any billable procedures Departure Diagnosis: Primary Impression: Sepsis due to pneumonia Additional Impressions: Atrial fibrillation with RVR Respiratory distress Condition: Serious ANTONIO LAN DO Apr 23, 2017 07:17
[2017-04-23 07:21] LABS: BASOPHILS % 0.2 % (0.0-2.0); EOSINOPHILS # 0.1 10^3/ul (0.0-0.5); EOSINOPHILS % 0.5 % (0.0-7.0); HEMATOCRIT 32.1 % (42.0-52.0); HEMOGLOBIN 9.6 g/dl (14.0-18.0); LYMPHOCYTES # 0.9 10^3/ul (0.8-2.9); LYMPHOCYTES % 4.7 % (15.0-51.0); MEAN CORPUSCULAR HGB CONC 29.9 g/dl (32.0-37.0); MEAN CORPUSCULAR VOLUME 100.3 fl (82.0-101.0); MEAN PLATELET VOLUME 10.6 fl (7.4-10.4); MONOCYTE # 0.9 10^3/ul (0.3-0.9); MONOCYTES % 4.8 % (0.0-11.0); NEUTROPHIL # 17.2 10^3/ul (1.6-7.5); NEUTROPHILS % 89.1 % (39.0-77.0); PLATELET COUNT 287 10^3/UL (140-415); RED CELL DISTRIBUTION WIDTH 17.8 % (11.5-14.5); WHITE BLOOD COUNT 19.3 10^3/ul (4.8-10.8)
[2017-04-23 07:40] LABS: INR 1.4; PROTIME 17.2 Sec (12.2-14.2); PT RATIO 1.3
[2017-04-23 07:41] LABS: PARTIAL THROMBOPLASTIN TIME 39.4 Sec (25.0-35.0)
[2017-04-23 07:44] LABS: AADO2 Arterial 154.2 mmHg (7.0-24.0); Allen Test ACCEPTAB; Arterial Base Excess -1.4 mmol/L (-3.0-3); Arterial COHb 0.1 % (0.0-3.0); Arterial Fraction of Oxyhgb 95.7 % (93.0-99.0); Arterial HCO3 23.1 mmol/L (22.0-26.0); Arterial MetHb 0.4 % (0.0-1.5); MODE VENT - AC
[2017-04-23 07:45] LABS: ALBUMIN 3.2 g/dl (3.3-4.9); ALBUMIN/GLOBULIN RATIO 0.76; CALCIUM 9.2 mg/dl (8.4-10.2); CREATININE 2.78 mg/dl (0.61-1.24); POTASSIUM 4.7 mmol/L (3.5-5.1); TOTAL PROTEIN 7.4 g/dl (6.1-8.1)
--- NOTE | 2017-04-23 07:47 | RADRPT ---
PROCEDURE: XR Chest. CLINICAL INDICATION: Respiratory distress TECHNIQUE: Single frontal view of the chest was obtained COMPARISON: Chest x-ray 02/05/2017 FINDINGS: There is a new left chest wall dual lead pacer / AICD device with lead tip projecting over the right atrium and right ventricle. There is a new right central venous catheter with tip projecting over the lower superior vena cava. Tracheostomy tube and mediasternotomy wires are similar positions. The cardiac silhouette is mildly enlarged, unchanged. There are dense atherosclerotic calcification s of the thoracic aorta. There is pulmonary vascular congestion. Again seen are diffuse bilateral interstitial opacities, li russell representing a component of interstitial edema. There has been interval improvement in patchy air space disease in the left lower lung. Hazy opacit y in the right mid and lower lung has not changed significantly. There is a small moderate pleural effusion, likely slightly increased compared to prior study. A sm all left pleural effusion appears stable. Underlying atelectasis and / or consolidation cannot be e xcluded. No pneumothorax is identified. There are degenerative changes of the visualized spine. IMPRESSION: 1. Mild cardiomegaly with persistent pulmonary vascular congestion and interstitial edema. 2. Interval improvement in airspace disease in the left lower lung. 3. Persistent air space disease in the right mid and lower lung, not significantly changed. 4. Small to moderate right pleural effusion, slightly increased compared to prior study. 5. Stable small left pleural effusion. 6. Interval placement of left chest wall dual lead pacer device and right-sided central venous cath eter. RPTAT: PP Physician Ravi Date Time Electronically viewed and signed by Physician Ravi on 04/23/2017 07:46 RAJNI/
[2017-04-23 07:56] LABS: TROPONIN-I 0.02 ng/ml (0.00-0.12)
[2017-04-23] MEDS ORDERED: LORAZEPAM 2 MG INJ IV ONE ×2 (08:30→16:00)
[2017-04-23] MEDS ORDERED: SOD CHLORIDE 0.9% 500 ML IV ONE (08:30)
[2017-04-23] MEDS ORDERED: IPRA3AMP INHALATION ×2 (09:18)
[2017-04-23] MEDS ORDERED: HYDR-906 GTB (09:19)
[2017-04-23] MEDS ORDERED: NEPH GTB (09:20)
[2017-04-23] MEDS ORDERED: PROT946L GTB (09:21)
[2017-04-23] MEDS ORDERED: NEUTPHOS GTB (09:22)
[2017-04-23] MEDS ORDERED: ACETAMINOPHEN 325 MG TAB PO PRN (10:00)
[2017-04-23] MEDS ORDERED: ONDANSETRON 4 MG INJ IV PRN (10:00)
[2017-04-23] MEDS ORDERED: ALBUTEROL/IPRATROPIUM (NEB) 3 ML AMP NEB PRN ×2 (12:00)
[2017-04-23] MEDS ORDERED: HYDROCODONE/APAP (5/325) TAB GTB PRN (12:00)
[2017-04-23] MEDS ORDERED: DIPHENHYDRAMINE 2.5 MG/ML 5ML CUP GTB PRN (12:00)
[2017-04-23] MEDS ORDERED: ALBUTEROL/IPRATROPIUM (NEB) 3 ML AMP NEB SCH (14:00)
--- NOTE | 2017-04-23 14:38 | CONS ---
Date/Time of Note Date/Time of Note DATE: 04/23/17 TIME: 14:34 Assessment/Plan Assessment/Plan Additional Assessment/Plan Chest x-ray was reviewed from today which is showing infiltrative changes involving the right lung. Ventilator setting; AC of 14, tidal volume 450, PEEP of 5, 40% FiO2. Assessment and recommendations; 1. Patient admitted for sepsis and right lower lobe pneumonia possibly aspiration currently on cefepime. 2. History of renal insufficiency. 3. Chronic respiratory failure ventilator dependent. 4. Generalized muscular weakness. 5. History of cardiac arrhythmia. Continue current treatment. Add vancomycin intravenously. Monitor renal function. Consultation Date/Type/Reason Admit Date/Time Date of Consultation: Apr 23, 2017 Type of Consultation: Pulmonary/critical care Reason for Consultation Pulmonary consultation requested for evaluation of respiratory failure, sepsis and pneumonia. History presenting any; patient is a 81-year-old white male who [facility] with complaints of shortness of breath. Upon evaluation a chest x-ray was done which is showing extensive infiltrative changes involving the right lung in association with mild pulmonary edema. Patient also is having significant leukocytosis as well. By the time I saw the patient and ER the patient is on ventilator via tracheostomy he is awake and follows simple commands but is exhibiting profound generalized weakness likely the etiology of his ventilator dependence. No reported history of any nausea or vomiting. Past medical history; 1. Patient with history of chronic respiratory failure, ventilator dependent. 2. Renal insufficiency. 3. History of cardiac arrhythmia, status post pacemaker placement. 4. Diabetes. 5. Status post tracheostomy and G-tube. Medications; reviewed. Allergies; none. Social history; patient never smoked. Family history; noncontributory. Occupational history; not available. Review systems; patient denies any headache, chest pain, shortness of breath is slightly improved. Denies any abdominal pain, vomiting. General exam; elderly male, on ventilator via tracheostomy, awake and alert. Currently in no distress. Social History Smoking Status: Never smoker Exam/Review of Systems Vital Signs Vitals Vital Signs Date Time Temp Pulse Resp B/P Pulse Ox O2 Delivery O2 Flow Rate FiO2 04/23/17 13:03 97.0 63 16 134/70 100 Mechanical Ventilator 10.0 04/23/17 12:46 40 Exam HEENT exam; supple neck, positive JVD. No lymphadenopathy. Midline trachea. No thyromegaly. Patient has fair dentition. Has midsize pupils bilaterally reactive to light. Tracheostomy in place with clean insertion site. No neck masses. Chest exam; diminished but clear breath sound. S1-S2 audible, no murmurs. Pacemaker in left chest wall. Abdomen exam; soft, nondistended. Nontender. G-tube in place. Bowel sounds audible. Extremity exam; no peripheral edema. Patient has a multiple ecchymosis involving all 4 extremities. 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 Results Result Diagram: 04/23/17 0710 04/23/17 0710 Results 24 hrs Laboratory Tests Test 04/23/17 07:10 04/23/17 09:28 04/23/17 11:20 White Blood Count 19.3 #H Red Blood Count 3.20 L Hemoglobin 9.6 L Hematocrit 32.1 L Mean Corpuscular Volume 100.3 Mean Corpuscular Hemoglobin 30.0 Mean Corpuscular Hemoglobin Concent 29.9 L Red Cell Distribution Width 17.8 H Platelet Count 287 # Mean Platelet Volume 10.6 H Neutrophils % 89.1 H Lymphocytes % 4.7 L Monocytes % 4.8 Eosinophils % 0.5 Basophils % 0.2 Neutrophils # 17.2 H Lymphocytes # 0.9 Monocytes # 0.9 Eosinophils # 0.1 Basophils # 0.0 Nucleated Red Blood Cells # 0.0 Prothrombin Time 17.2 H Prothrombin Time Ratio 1.3 INR International Normalized Ratio 1.40 Activated Partial Thromboplast Time 39.4 H Blood Gas Specimen Source Blood arterial Arterial Blood Date Drawn 04/23/2017 7:36:19 AM Arterial Blood pH (Temp corrected) 7.400 Arterial Blood pCO2 (Temp correct) 38.2 Arterial Blood pO2 (Temp corrected) 87.1 Arterial Blood HCO3 23.1 Arterial Blood Base Excess -1.4 Arterial Blood Oxygen Saturation 96.2 Migel Test ACCEPTAB Arterial Blood Gas Puncture Site Right Radial Arterial Blood Carboxyhemoglobin 0.1 Arterial Blood Methemoglobin 0.4 Blood Gas A-a O2 Differential 154.2 H Oxyhemoglobin Percent 95.7 Total Hemoglobin 11.0 L Blood Gas Temperature 37.0 Blood Gas Respiration Rate 14.0 Blood Gas Actual Respiration Rate 29 Blood Gas Modality VENT - AC FiO2 40.0 Blood Gas Tidal Volume 450.0 Blood Gas Low PEEP Setting 5.0 Blood Gas Critical Value Read Back DR. LAN Blood Gas Notified Whom Demi Blood Gas Notified Time 04/23/2017 7:44:05 AM Sodium Level 140 Potassium Level 4.7 Chloride Level 95 L Carbon Dioxide Level 25 Anion Gap 25 H Blood Urea Nitrogen 58 H Creatinine 2.78 H Glucose Level 161 Lactic Acid Level 1.6 1.8 1.4 Calcium Level 9.2 Total Bilirubin 0.0 L Direct Bilirubin 0.00 Indirect Bilirubin 0.0 Aspartate Amino Transf (AST/SGOT) 24 Alanine Aminotransferase (ALT/SGPT) 36 Alkaline Phosphatase 284 H Troponin I 0.020 Total Protein 7.4 Albumin 3.2 L Globulin 4.20 H Albumin/Globulin Ratio 0.76 Medications Medications Current Medications Atorvastatin Calcium (Lipitor) 20 mg QHS GTB ; Start 04/23/17 at 21:00 Carvedilol (Coreg) 3.125 mg BID GTB ; Start 04/23/17 at 21:00 Chlorhexidine Gluconate (Peridex) 10 ml Q12 MM ; Start 04/23/17 at 21:00 Clonidine (Catapres) 0.1 mg Q4H PRN GTB ELEVATED BLOOD PRESSURE; Start at 12:00; Status UNV Clopidogrel Bisulfate (plaVIX) 75 mg DAILY GTB ; Start 04/24/17 at 09:00 Diphenhydramine HCl (Benadryl Liquid Cup) 25 mg Q6H PRN GTB ITCHING; Start at 12:00 Acetaminophen/ Hydrocodone Bitart ([place] (5/325)) 1 tab Q8 PRN GTB SEVERE PAIN LEVEL 7-10; Start 04/23/17 at 12:00 Isosorbide Dinitrate (Isordil) 10 mg TID GTB ; Start 04/23/17 at 13:00; Status UNV Lactobacillus Acidophilus/ Rhamnosus (Culturelle) 1 cap DAILY GTB ; Start at 09:00 Lansoprazole (Prevacid) 30 mg DAILY@06 GTB ; Start 04/24/17 at 06:00 Levetiracetam (Keppra) 1,000 mg BID GTB ; Start 04/23/17 at 21:00 Lisinopril (Zestril) 5 mg BID GTB ; Start 04/23/17 at 21:00 Lorazepam (Ativan) 0.5 mg Q4 PRN GTB ANXIETY; Start 04/23/17 at 12:00 Multivit/Ca Carb/ B Cmplx/FA/Prenat (Thelma-Bebeto) 1 tab DAILY GTB ; Start at 09:00 Multivitamins Therapeutic (Theragran) 1 tab DAILY GTB ; Start 04/24/17 at 09:00 Sodium Phosphate (Neutra-Phos) 250 mg BID GTB ; Start 04/23/17 at 21:00; Status UNV Spironolactone (Aldactone) 25 mg DAILY GTB ; Start 04/24/17 at 09:00 RADHA PRO Apr 23, 2017 14:38
[2017-04-23] MEDS ORDERED: VANCOMYCIN IV PER PHARMACY XX SCH (15:00)
[2017-04-23] MEDS ORDERED: PENDING SANTYL ORDER FOR WOUND CARE XX PRN (18:30)
[2017-04-23] MEDS ORDERED: [UNRECOGNIZED DRUG - OTHER] XX SCH (19:30)
[2017-04-23] MEDS ORDERED: VANCOMYCIN 1.5 GM in SOD CHLORIDE 0.9% 250 ML IVPB SCH (20:00)
[2017-04-23] MEDS: NEUTRA-PHOS 250 MG PACKET GTB SCH (20:27)
[2017-04-23] MEDS: LEVETIRACETAM 500 MG TAB GTB SCH (20:27)
[2017-04-23] MEDS: ATORVASTATIN 20 MG TAB GTB SCH (20:27)
[2017-04-23] MEDS: CHLORHEXIDINE GLUCONATE 15 ML UD CUP MM SCH (20:27)
[2017-04-23] MEDS: LISINOPRIL 5 MG TAB GTB SCH (20:28)
[2017-04-23] MEDS ORDERED: NON-FORMULARY/PATIENT OWN MED (Protein Supplement (Promod) 30 ML) GTB SCH (21:00)
[2017-04-24] VITALS (23 sets, daily range): BP systolic 145–163; BP diastolic 65–88; PULSE 55–63; RESP 18–27
[2017-04-24] MEDS: ALBUTEROL 18 GM INHALER INH SCH ×4 (03:41→20:39)
[2017-04-24] MEDS: LEVOTHYROXINE 88 MCG TAB GTB SCH (06:19)
[2017-04-24] MEDS: LANSOPRAZOLE 30 MG CAP GTB SCH (06:19)
[2017-04-24 07:41] LABS: BASOPHILS % 0.3 % (0.0-2.0); EOSINOPHILS # 0.2 10^3/ul (0.0-0.5); EOSINOPHILS % 1.7 % (0.0-7.0); HEMATOCRIT 28.7 % (42.0-52.0); HEMOGLOBIN 8.7 g/dl (14.0-18.0); LYMPHOCYTES # 1.2 10^3/ul (0.8-2.9); LYMPHOCYTES % 12.8 % (15.0-51.0); MEAN CORPUSCULAR HEMOGLOBIN 30.3 pg (29.0-33.0); MEAN CORPUSCULAR HGB CONC 30.3 g/dl (32.0-37.0); MEAN PLATELET VOLUME 10.6 fl (7.4-10.4); MONOCYTE # 0.6 10^3/ul (0.3-0.9); MONOCYTES % 6.5 % (0.0-11.0); NEUTROPHIL # 7.1 10^3/ul (1.6-7.5); PLATELET COUNT 249 10^3/UL (140-415); RED BLOOD COUNT 2.87 10^6/ul (4.70-6.10); RED CELL DISTRIBUTION WIDTH 18.6 % (11.5-14.5); WHITE BLOOD COUNT 9.1 10^3/ul (4.8-10.8)
[2017-04-24 07:58] LABS: CALCIUM 8.6 mg/dl (8.4-10.2); CREATININE 2.26 mg/dl (0.61-1.24); PHOSPHORUS 2.5 mg/dl (2.5-4.9); POTASSIUM 3.5 mmol/L (3.5-5.1)
[2017-04-24] MEDS: ISOSORBIDE DINITRATE 10 MG TAB GTB SCH ×3 (09:00→20:26)
[2017-04-24] MEDS: LISINOPRIL 5 MG TAB GTB SCH ×2 (09:00→12:12)
[2017-04-24] MEDS: IPRATROPIUM (HFA) 12.9 GM INHALER INH SCH ×3 (09:06→20:39)
--- NOTE | 2017-04-24 09:38 | PN ---
Date/Time of Note Date/Time of Note DATE: 04/24/17 TIME: 09:38 Assessment/Plan VTE Prophylaxis VTE Prophylaxis Intervention: other Lines/Catheters IV Catheter Type (from Nrsg): PERM A CATH Urinary Cath still in place: Yes Reason Cath still needed: other (indicate) Assessment/Plan Chief Complaint/Hosp Course 1. Sepsis secondary to healthcare associated pneumonia Patient's on broad-spectrum antibiotics to tolerating well Blood cultures have been reviewed Continue to monitor follow-up with infectious disease 2. End-stage renal disease. -Continue intermittent hemodialysis - HD tomorrow as 3. Mineral bone disorder -Monitor calcium phosphorus levels 4 volume overload secondary to CHF end-stage renal disease -Continue ultrafiltration with dialysis 5. Ventilator dependent respiratory failure -Vent settings, ABG reviewed -Follow-up with pulmonary 6. Coronary disease,/cardiomyopathy -Status post pacemaker ICD placement -Continue medical management -Follow-up with cardiology 7. Seizure disorder -Continue Keppra 8. Hypothyroidism -Continue Synthroid 9. Dysphagia status post PEG -Continue tube feeds 10. Acute on chronic encephalotomy -Etiology toxic metabolic -Continue to monitor 11. Hypertension continue current blood pressure regimen 12. GI/DVT prophylaxis 13. Hypokalemia hypomagnesemia/hyponatremia -Improved with HD Problems: Subjective 24 Hr Interval Summary Free Text/Dictation Patient seen and examined Had hemodialysis yesterday tolerated well Patient had no acute events noted overnight Exam/Review of Systems Vital Signs Vitals Vital Signs Date Time Temp Pulse Resp B/P Pulse Ox O2 Delivery O2 Flow Rate FiO2 04/24/17 09:07 69 20 100 40 04/24/17 08:38 98.8 158/67 04/23/17 17:00 Mechanical Ventilator 10.0 Intake and Output 04/23/17 04/23/17 04/24/17 15:00 23:00 07:00 Intake Total 500 ml Output Total 3500 ml Balance -3000 ml Exam EENT: Head is normocephalic. NECK: Supple. HEART: Regular rate LUNGS: Show diminished breath sounds at base. ABDOMEN: Soft, nontender to palpation without rebound or guarding. EXTREMITIES: Negative for clubbing, cyanosis. DERMATOLOGIC: No rashes. MUSCULOSKELETAL: No joint effusions, NEUROLOGIC: No change in exam. Results Result Diagram: 04/24/17 0704/24/17 07 Results 24 hrs Laboratory Tests Test 04/23/17 11:20 04/24/17 07:03 Lactic Acid Level 1.4 White Blood Count 9.1 # Red Blood Count 2.87 L Hemoglobin 8.7 L Hematocrit 28.7 L Mean Corpuscular Volume 100.0 Mean Corpuscular Hemoglobin 30.3 Mean Corpuscular Hemoglobin Concent 30.3 L Red Cell Distribution Width 18.6 H Platelet Count 249 Mean Platelet Volume 10.6 H Neutrophils % 78.0 H Lymphocytes % 12.8 L Monocytes % 6.5 Eosinophils % 1.7 Basophils % 0.3 Nucleated Red Blood Cells % 0.0 Neutrophils # 7.1 Lymphocytes # 1.2 Monocytes # 0.6 Eosinophils # 0.2 Basophils # 0.0 Nucleated Red Blood Cells # 0.0 Sodium Level 147 H Potassium Level 3.5 Chloride Level 104 Carbon Dioxide Level 28 Anion Gap 19 H Blood Urea Nitrogen 43 #H Creatinine 2.26 H Glucose Level 151 Calcium Level 8.6 Phosphorus Level 2.5 Magnesium Level 2.0 Medications Medications Current Medications Atorvastatin Calcium (Lipitor) 20 mg QHS GTB Last administered on 04/23/17 20: 27; Admin Dose 20 MG; Start 04/23/17 at 21:00 Carvedilol (Coreg) 3.125 mg BID GTB Last administered on 04/23/17 20:28; Admin Dose 3.125 MG; Start 04/23/17 at 21:00 Chlorhexidine Gluconate (Peridex) 10 ml Q12 MM Last administered on 04/23/17 20:27; Admin Dose 10 ML; Start 04/23/17 at 21:00 Clonidine (Catapres) 0.1 mg Q4H PRN GTB ELEVATED BLOOD PRESSURE; Start at 12:00; Status UNV Clopidogrel Bisulfate (plaVIX) 75 mg DAILY GTB ; Start 04/24/17 at 09:00 Diphenhydramine HCl (Benadryl Liquid Cup) 25 mg Q6H PRN GTB ITCHING; Start at 12:00 Acetaminophen/ Hydrocodone Bitart ([place] (5/325)) 1 tab Q8 PRN GTB SEVERE PAIN LEVEL 7-10; Start 04/23/17 at 12:00 Isosorbide Dinitrate (Isordil) 10 mg TID GTB ; Start 04/23/17 at 13:00 Lactobacillus Acidophilus/ Rhamnosus (Culturelle) 1 cap DAILY GTB ; Start at 09:00 Lansoprazole (Prevacid) 30 mg DAILY@06 GTB Last administered on 04/24/17 06:19 ; Admin Dose 30 MG; Start 04/24/17 at 06:00 Levetiracetam (Keppra) 1,000 mg BID GTB Last administered on 04/23/17 20:27; Admin Dose 1,000 MG; Start 04/23/17 at 21:00 Levothyroxine Sodium (Synthroid) 88 mcg DAILY@06 GTB Last administered on 06:19; Admin Dose 88 MCG; Start 04/24/17 at 06:00 Lisinopril (Zestril) 5 mg BID GTB Last administered on 04/23/17 20:28; Admin Dose 5 MG; Start 04/23/17 at 21:00 Lorazepam (Ativan) 0.5 mg Q4 PRN GTB ANXIETY; Start 04/23/17 at 12:00 Multivit/Ca Carb/ B Cmplx/FA/Prenat (Thelma-Bebeto) 1 tab DAILY GTB ; Start at 09:00 Multivitamins Therapeutic (Theragran) 1 tab DAILY GTB ; Start 04/24/17 at 09:00 Sodium Phosphate (Neutra-Phos) 250 mg BID GTB Last administered on 04/23/17 20 :27; Admin Dose 250 MG; Start 04/23/17 at 21:00 Spironolactone (Aldactone) 25 mg DAILY GTB ; Start 04/24/17 at 09:00 Miscellaneous Information (Pending Santyl Order For Wound Care) This patient jenkins... PRN PRN XX WOUND CARE; Start 04/23/17 at 18:30 Miscellaneous Information (*Order Clarification Bulletin) CLONIDINE PRN BP PARAMETE... Q8H XX ; Start 04/23/17 at 19:30 Miscellaneous Information (*Rx Drug Level Order Reminder*) RANDOM VANCOMYCIN LEVEL 7... ONCE ONCE XX ; Start 04/25/17 at 05:00; Stop 04/25/17 at 05:01 ANNABELLE MENDOZA DO Apr 24, 2017 09:38
[2017-04-24] MEDS: MULTIVITAMINS THERAPEUTIC TAB GTB SCH (09:49)
[2017-04-24] MEDS: NEUTRA-PHOS 250 MG PACKET GTB SCH ×2 (09:49→20:26)
[2017-04-24] MEDS: CLOPIDOGREL 75 MG TAB GTB SCH (09:49)
[2017-04-24] MEDS: LEVETIRACETAM 500 MG TAB GTB SCH ×2 (09:49→20:26)
[2017-04-24] MEDS: MULTIVIT/CA CARB/B CMPLX/FA TAB GTB SCH (09:49)
[2017-04-24] MEDS: CHLORHEXIDINE GLUCONATE 15 ML UD CUP MM SCH ×2 (09:49→20:25)
[2017-04-24] MEDS: LACTOBACILLUS RHAMNOSUS CAP GTB SCH (09:49)
[2017-04-24] MEDS: SPIRONOLACTONE 25 MG TAB GTB SCH (09:49)
[2017-04-24] MEDS: CEFEPIME 1GM/50 ML (PMX) 50 ML IVPB SCH (12:11)
--- NOTE | 2017-04-24 12:12 | HP ---
DATE OF ADMISSION: 04/23/2017 CHIEF COMPLAINT: Sepsis, respiratory failure. HISTORY OF PRESENT ILLNESS: This is an 81-year-old male with a past medical history of ventilator-dependent respiratory failure, history of end-stage renal disease, history of coronary artery disease, cardiomyopathy, arrhythmias, status post ICD placement, history of hypothyroidism, previous history of tracheal bleed, who presents to [facility] for evaluation of respiratory distress. The patient was in a care home facility and was noted to develop respiratory distress. As a result, the patient was brought over to the emergency room. In the emergency room, the patient had a chest x-ray performed, which showed findings of pulmonary congestion airspace disease. The patient also had an elevated white count 19,000. The patient was placed on sepsis protocol, given IV fluids, IV antibiotics. The patient's lactic acid level on admission was within normal limits. There were no reports of hemoptysis, hematemesis or hematochezia. PAST MEDICAL HISTORY: As stated above. History of ventilator- dependent respiratory failure, history of end-stage renal disease, history of dysphagia, history of coronary disease, status post PCI . The patient has history of hypothyroidism with history of cardiomyopathy, who has previous history of GI bleed. PAST SURGICAL HISTORY: Status post trach, status post PEG, status post PermCath, status post ICD placement. FAMILY HISTORY: Noncontributory. SOCIAL HISTORY: Patient lives in a care home facility. MEDICATIONS: Reviewed and reconciled. ALLERGIES: NO KNOWN DRUG ALLERGIES. FAMILY HISTORY: Noncontributory. REVIEW OF SYSTEMS: Unable to adequately review of systems, patient is altered. Pertinent positive in HPI, otherwise negative. PHYSICAL EXAMINATION: VITAL SIGNS: Blood pressure is 138/71, respirations 24, pulse 53, temperature 99.0. HEENT: Head is normocephalic. Pupils are reactive to light. NECK: Supple. HEART: Regular rate. LUNGS: Show diminished breath sounds, rales or rhonchi. ABDOMEN: Soft, nontender to palpation. Positive bowel sounds. EXTREMITIES: Negative for clubbing, cyanosis. Trace edema. DERMATOLOGY: No rashes, no joints. NEUROLOGICAL: Limited examination, patient is uncooperative. LABORATORY DATA: Shows white count 19.3, hemoglobin 9.6, hematocrit 32.1, platelet count is 287. Sodium 140, potassium 4.7, chloride 95, BUN 15, creatinine 2.78. ASSESSMENT AND PLAN: This is an 81-year-old male presents with problem, 1. Sepsis secondary to healthcare associated pneumonia. Plan is to check blood cultures and urine cultures. Will check procalcitonin level, monitor lactic acid levels. Continue current antibiotic regimen of cefepime, will follow. Will place an infectious disease consult with for evaluation. 2. Ventilator dependent respiratory failure. Vent management reviewed. ABGs reviewed. Will follow up with pulmonary, for vent management. 3. End-stage renal disease. Patient is on dialysis Wednesday, Wednesday, Wednesday. Plan for dialysis today. Will minimize ultrafiltration. 4. Anemia. Will monitor hemoglobin and hematocrit levels. Keep as needed. 5. Assessment of bone disorder. Will monitor counts and phos levels. Will defer phos binders at this time. 6. History of congestive heart failure. Will continue medical management. Minimize ultrafiltration with dialysis at this time. 7. History of coronary artery disease, cardiomyopathy. Patient status post ICD placement. Continue medical management. 8. Seizure disorder. Continue Keppra. 9. Hepatitis. Continue Synthroid. 10. Dysphagia/PEG. Continue tube feeding. 11. Chronic encephalopathy. The etiology is toxic metabolic, and continue to monitor. 12. Hypertension. Continue current blood pressure regimen. 13. Gastrointestinal, deep vein thrombosis prophylaxis. 14. Continue PPI and sequential leg squeezes. Dictated By: Marciano Darby DO /[email or web address] /Document#: [id number]
--- NOTE | 2017-04-24 14:26 | CONS ---
Date/Time of Note Date/Time of Note DATE: 04/24/17 TIME: 14:21 Assessment/Plan Assessment/Plan Chief Complaint/Hosp Course Awake noncommunicative, looks comfortable Temperature 98.5 pulse 60 respirations 18 blood pressure 163/74 saturation 100 on 40 FiO2 WBC 9.1 H&H 8.7 and 28.7 platelets 249 neutrophils 78 Indwelling's: Trach, PICC right IJ permacath, permanent pacemaker Blood cultures preliminary negative Antimicrobials: Cefepime vancomycin Physical examination: Well-developed, chronically ill-appearing elderly male who is in no distress. Head atraumatic normocephalic sclera nonicteric. Neck is supple tracheostomy present. Chest rise symmetrical, breath sounds diminished basis. Abdomen soft, bowel tones present. Extremities with trace edema. Assessment: 1. Sepsis 2. HCAP 3. Chronic respiratory failure with pseudomonas aeruginosa + sputum 3. End-stage renal disease, hemodialysis dependent 4. Anemia 5. Dysphasia 6. Encephalopathy 7. Coronary artery disease, history permanent pacemaker Plan: Stable, continue abx, follow final cultures, pulmonary recommendations Discussed with staff Problems: Consultation Date/Type/Reason Admit Date/Time Apr 23, 2017 at 09:56 Initial Consult Date 04/23/17 Type of Consultation: ID Exam/Review of Systems Vital Signs Vitals Vital Signs Date Time Temp Pulse Resp B/P Pulse Ox O2 Delivery O2 Flow Rate FiO2 04/24/17 12:41 57 04/24/17 11:47 98.5 18 163/74 100 04/24/17 09:07 40 04/23/17 17:00 Mechanical Ventilator 10.0 Intake and Output 04/23/17 04/23/17 04/24/17 15:00 23:00 07:00 Intake Total 500 ml Output Total 3500 ml Balance -3000 ml Results Result Diagram: 04/24/17 0703 04/24/17 0703 Results 24 hrs Laboratory Tests Test 04/24/17 07:03 White Blood Count 9.1 # Red Blood Count 2.87 L Hemoglobin 8.7 L Hematocrit 28.7 L Mean Corpuscular Volume 100.0 Mean Corpuscular Hemoglobin 30.3 Mean Corpuscular Hemoglobin Concent 30.3 L Red Cell Distribution Width 18.6 H Platelet Count 249 Mean Platelet Volume 10.6 H Neutrophils % 78.0 H Lymphocytes % 12.8 L Monocytes % 6.5 Eosinophils % 1.7 Basophils % 0.3 Nucleated Red Blood Cells % 0.0 Neutrophils # 7.1 Lymphocytes # 1.2 Monocytes # 0.6 Eosinophils # 0.2 Basophils # 0.0 Nucleated Red Blood Cells # 0.0 Sodium Level 147 H Potassium Level 3.5 Chloride Level 104 Carbon Dioxide Level 28 Anion Gap 19 H Blood Urea Nitrogen 43 #H Creatinine 2.26 H Glucose Level 151 Calcium Level 8.6 Phosphorus Level 2.5 Magnesium Level 2.0 Medications Medications Current Medications Atorvastatin Calcium (Lipitor) 20 mg QHS GTB Last administered on 04/23/17 20: 27; Admin Dose 20 MG; Start 04/23/17 at 21:00 Carvedilol (Coreg) 3.125 mg BID GTB Last administered on 04/24/17 12:12; Admin Dose 3.125 MG; Start 04/23/17 at 21:00 Chlorhexidine Gluconate (Peridex) 10 ml Q12 MM Last administered on 04/24/17 09:49; Admin Dose 10 ML; Start 04/23/17 at 21:00 Clonidine (Catapres) 0.1 mg Q4H PRN GTB SBP GREATER THAN 170; Start 04/23/17 at 12:00 Clopidogrel Bisulfate (plaVIX) 75 mg DAILY GTB Last administered on 04/24/17 09:49; Admin Dose 75 MG; Start 04/24/17 at 09:00 Diphenhydramine HCl (Benadryl Liquid Cup) 25 mg Q6H PRN GTB ITCHING; Start at 12:00 Acetaminophen/ Hydrocodone Bitart ([place] (5/325)) 1 tab Q8 PRN GTB SEVERE PAIN LEVEL 7-10; Start 04/23/17 at 12:00 Isosorbide Dinitrate (Isordil) 10 mg TID GTB Last administered on 04/24/17 12: 11; Admin Dose 10 MG; Start 04/23/17 at 13:00 Lactobacillus Acidophilus/ Rhamnosus (Culturelle) 1 cap DAILY GTB Last administered on 04/24/17 09:49; Admin Dose 1 CAP; Start 04/24/17 at 09:00 Lansoprazole (Prevacid) 30 mg DAILY@06 GTB Last administered on 04/24/17 06:19 ; Admin Dose 30 MG; Start 04/24/17 at 06:00 Levetiracetam (Keppra) 1,000 mg BID GTB Last administered on 04/24/17 09:49; Admin Dose 1,000 MG; Start 04/23/17 at 21:00 Levothyroxine Sodium (Synthroid) 88 mcg DAILY@06 GTB Last administered on 06:19; Admin Dose 88 MCG; Start 04/24/17 at 06:00 Lisinopril (Zestril) 5 mg BID GTB Last administered on 04/24/17 12:12; Admin Dose 5 MG; Start 04/23/17 at 21:00 Lorazepam (Ativan) 0.5 mg Q4 PRN GTB ANXIETY; Start 04/23/17 at 12:00 Multivit/Ca Carb/ B Cmplx/FA/Prenat (Thelma-Bebeto) 1 tab DAILY GTB Last administered on 04/24/17 09:49; Admin Dose 1 TAB; Start 04/24/17 at 09:00 Multivitamins Therapeutic (Theragran) 1 tab DAILY GTB Last administered on 04/24 09:49; Admin Dose 1 TAB; Start 04/24/17 at 09:00 Sodium Phosphate (Neutra-Phos) 250 mg BID GTB Last administered on 04/24/17 09 :49; Admin Dose 250 MG; Start 04/23/17 at 21:00 Spironolactone (Aldactone) 25 mg DAILY GTB Last administered on 04/24/17 09:49 ; Admin Dose 25 MG; Start 04/24/17 at 09:00 Miscellaneous Information (Pending [facility] Order For Wound Care) This patient jenkins... PRN PRN XX WOUND CARE; Start 04/23/17 at 18:30 Miscellaneous Information RANDOM VANCOMYCIN LEVEL 7... ONCE ONCE XX ; Start at 05:00; Stop 04/25/17 at 05:01 Cefepime HCl (Maxipime 1gm/50 ml (Pmx)) 50 ml @ 100 mls/hr Q24H IVPB Last administered on 04/24/17 12:11; Admin Dose 100 MLS/HR; Start 04/24/17 at 10:00 MAIRA HUIZAR NP Apr 24, 2017 14:26
--- NOTE | 2017-04-24 17:05 | PN ---
Date/Time of Note Date/Time of Note DATE: 04/24/17 TIME: 17:00 Assessment/Plan VTE Prophylaxis VTE Prophylaxis Intervention: other Lines/Catheters IV [facility] Type ([facility] PERM A CATH Urinary Cath still in place: Yes Reason Cath still needed: other (indicate) Assessment/Plan Chief Complaint/Hosp Course 1. Sepsis secondary to healthcare associated pneumonia Patient's on broad-spectrum antibiotics to be managed as per IM/ and infectious disease 2. End-stage renal disease. -Continue intermittent hemodialysis - HD per renal 3. CAD; S/P NE, S/P CABG, S/P PCI ( most recently in Nov 2016) cont plavix. coreg 4 CHF / ischemic cardiomyopathy: cont betablocker and [employer] inc as tolerated. 5. Ventilator dependent respiratory failure; s/p trach -Follow-up with pulmonary 6. sick sinus syndrome/ ischemic cardiomyopathy: -Status post pacemaker ICD placement -Continue medical management 7. Seizure disorder -will defer to IM. PT IS ON Keppra 8. Hypothyroidism -Continue Synthroid 9. Dysphagia status post PEG -Continue tube feeds Problems: Subjective 24 Hr Interval Summary Free Text/Dictation CARDIOLOGY FOLLOW UP NOTE: D/W staff and rhythm was reviewed. pt remains in NSR / A paced. he is still s/p trach on vent. no reports of any chest pain or pressure. no reported bleeding OBJECTIVE: General: S/P trach on vent. HEENT: NC/AT. pupils are equal. round. NECK: s/p trach. . no stridor. CV: RRR. systolic murmur; no gallop or rubs. PULM:+ diffuse rhonchi. GI: SOFT, NT, ND, no rebound or guarding Extremity: trace B/L LE edema. no clubbing. neuro: awake and alert, . Psych: calm and pleasant rectal: deferred : normal male chest: s/p L ICD, S/P R HD access Exam/Review of Systems Vital Signs Vitals Vital Signs Date Time Temp Pulse Resp B/P Pulse Ox O2 Delivery O2 Flow Rate FiO2 04/24/17 16:44 57 04/24/17 16:29 98.5 18 145/65 98 04/24/17 09:07 40 04/23/17 17:00 Mechanical Ventilator 10.0 Intake and Output 04/23/17 04/23/17 04/24/17 15:00 23:00 07:00 Intake Total 500 ml Output Total 3500 ml Balance -3000 ml Results Result Diagram: 04/24/17 0703 04/24/17 0703 Results 24 hrs Laboratory Tests Test 04/24/17 07:03 White Blood Count 9.1 # Red Blood Count 2.87 L Hemoglobin 8.7 L Hematocrit 28.7 L Mean Corpuscular Volume 100.0 Mean Corpuscular Hemoglobin 30.3 Mean Corpuscular Hemoglobin Concent 30.3 L Red Cell Distribution Width 18.6 H Platelet Count 249 Mean Platelet Volume 10.6 H Neutrophils % 78.0 H Lymphocytes % 12.8 L Monocytes % 6.5 Eosinophils % 1.7 Basophils % 0.3 Nucleated Red Blood Cells % 0.0 Neutrophils # 7.1 Lymphocytes # 1.2 Monocytes # 0.6 Eosinophils # 0.2 Basophils # 0.0 Nucleated Red Blood Cells # 0.0 Sodium Level 147 H Potassium Level 3.5 Chloride Level 104 Carbon Dioxide Level 28 Anion Gap 19 H Blood Urea Nitrogen 43 #H Creatinine 2.26 H Glucose Level 151 Calcium Level 8.6 Phosphorus Level 2.5 Magnesium Level 2.0 Medications Medications Current Medications Atorvastatin Calcium (Lipitor) 20 mg QHS GTB Last administered on 04/23/17 20: 27; Admin Dose 20 MG; Start 04/23/17 at 21:00 Carvedilol (Coreg) 3.125 mg BID GTB Last administered on 04/24/17 12:12; Admin Dose 3.125 MG; Start 04/23/17 at 21:00 Chlorhexidine Gluconate (Peridex) 10 ml Q12 MM Last administered on 04/24/17 09:49; Admin Dose 10 ML; Start 04/23/17 at 21:00 Clonidine (Catapres) 0.1 mg Q4H PRN GTB SBP GREATER THAN 170; Start 04/23/17 at 12:00 Clopidogrel Bisulfate (plaVIX) 75 mg DAILY GTB Last administered on 04/24/17 09:49; Admin Dose 75 MG; Start 04/24/17 at 09:00 Diphenhydramine HCl (Benadryl Liquid Cup) 25 mg Q6H PRN GTB ITCHING; Start at 12:00 Acetaminophen/ Hydrocodone Bitart ([place] (5/325)) 1 tab Q8 PRN GTB SEVERE PAIN LEVEL 7-10; Start 04/23/17 at 12:00 Isosorbide Dinitrate (Isordil) 10 mg TID GTB Last administered on 04/24/17 12: 11; Admin Dose 10 MG; Start 04/23/17 at 13:00 Lactobacillus Acidophilus/ Rhamnosus (Culturelle) 1 cap DAILY GTB Last administered on 04/24/17 09:49; Admin Dose 1 CAP; Start 04/24/17 at 09:00 Lansoprazole (Prevacid) 30 mg DAILY@06 GTB Last administered on 04/24/17 06:19 ; Admin Dose 30 MG; Start 04/24/17 at 06:00 Levetiracetam (Keppra) 1,000 mg BID GTB Last administered on 04/24/17 09:49; Admin Dose 1,000 MG; Start 04/23/17 at 21:00 Levothyroxine Sodium (Synthroid) 88 mcg DAILY@06 GTB Last administered on 06:19; Admin Dose 88 MCG; Start 04/24/17 at 06:00 Lorazepam (Ativan) 0.5 mg Q4 PRN GTB ANXIETY; Start 04/23/17 at 12:00 Multivit/Ca Carb/ B Cmplx/FA/Prenat (Thelma-Bebeto) 1 tab DAILY GTB Last administered on 04/24/17 09:49; Admin Dose 1 TAB; Start 04/24/17 at 09:00 Multivitamins Therapeutic (Theragran) 1 tab DAILY GTB Last administered on 04/24 09:49; Admin Dose 1 TAB; Start 04/24/17 at 09:00 Sodium Phosphate (Neutra-Phos) 250 mg BID GTB Last administered on 04/24/17 09 :49; Admin Dose 250 MG; Start 04/23/17 at 21:00 Spironolactone (Aldactone) 25 mg DAILY GTB Last administered on 04/24/17 09:49 ; Admin Dose 25 MG; Start 04/24/17 at 09:00 Miscellaneous Information (Pending Santyl Order For Wound Care) This patient jenkins... PRN PRN XX WOUND CARE; Start 04/23/17 at 18:30 Miscellaneous Information RANDOM VANCOMYCIN LEVEL 7... ONCE ONCE XX ; Start at 05:00; Stop 04/25/17 at 05:01 Cefepime HCl (Maxipime 1gm/50 ml (Pmx)) 50 ml @ 100 mls/hr Q24H IVPB Last administered on 04/24/17t 12:11; Admin Dose 100 MLS/HR; Start 04/24/17 at 10:00 Lisinopril (Zestril) 10 mg BID GTB ; Start 04/24/17 at 21:00 MOOKIE BESS MD Apr 24, 2017 17:05
[2017-04-24] MEDS: ATORVASTATIN 20 MG TAB GTB SCH (20:26)
[2017-04-24] MEDS: LISINOPRIL 10 MG TAB GTB SCH (20:27)
[2017-04-25] VITALS (24 sets, daily range): BP systolic 143–164; BP diastolic 70–82; PULSE 54–57; RESP 17–30
[2017-04-25] MEDS: LORAZEPAM 0.5 MG TAB GTB PRN ×2 (00:01→21:16)
[2017-04-25] MEDS: ALBUTEROL 18 GM INHALER INH SCH ×4 (01:38→20:42)
[2017-04-25] MEDS: IPRATROPIUM (HFA) 12.9 GM INHALER INH SCH ×4 (01:38→20:42)
[2017-04-25] MEDS: LANSOPRAZOLE 30 MG CAP GTB SCH (05:21)
[2017-04-25] MEDS: LEVOTHYROXINE 88 MCG TAB GTB SCH (05:21)
[2017-04-25 06:39] LABS: BASOPHILS % 0.4 % (0.0-2.0); EOSINOPHILS # 0.2 10^3/ul (0.0-0.5); EOSINOPHILS % 2.1 % (0.0-7.0); HEMATOCRIT 27.7 % (42.0-52.0); HEMOGLOBIN 8.5 g/dl (14.0-18.0); LYMPHOCYTES # 1.3 10^3/ul (0.8-2.9); LYMPHOCYTES % 13.1 % (15.0-51.0); MEAN CORPUSCULAR HEMOGLOBIN 30.5 pg (29.0-33.0); MEAN CORPUSCULAR HGB CONC 30.7 g/dl (32.0-37.0); MEAN CORPUSCULAR VOLUME 99.3 fl (82.0-101.0); MEAN PLATELET VOLUME 10.8 fl (7.4-10.4); MONOCYTE # 0.7 10^3/ul (0.3-0.9); MONOCYTES % 6.7 % (0.0-11.0); NEUTROPHIL # 7.6 10^3/ul (1.6-7.5); NEUTROPHILS % 76.7 % (39.0-77.0); PLATELET COUNT 248 10^3/UL (140-415); RED BLOOD COUNT 2.79 10^6/ul (4.70-6.10); RED CELL DISTRIBUTION WIDTH 18.3 % (11.5-14.5)
[2017-04-25 06:59] LABS: CALCIUM 8.4 mg/dl (8.4-10.2); CREATININE 2.88 mg/dl (0.61-1.24); MAGNESIUM 1.9 mg/dl (1.7-2.5); PHOSPHORUS 2.2 mg/dl (2.5-4.9); POTASSIUM 3.6 mmol/L (3.5-5.1)
[2017-04-25] MEDS: CHLORHEXIDINE GLUCONATE 15 ML UD CUP MM SCH ×2 (09:32→20:47)
[2017-04-25] MEDS: MULTIVITAMINS THERAPEUTIC TAB GTB SCH (09:32)
[2017-04-25] MEDS: CLOPIDOGREL 75 MG TAB GTB SCH (09:32)
[2017-04-25] MEDS: SPIRONOLACTONE 25 MG TAB GTB SCH (09:33)
[2017-04-25] MEDS: LEVETIRACETAM 500 MG TAB GTB SCH ×2 (09:33→20:46)
[2017-04-25] MEDS: ISOSORBIDE DINITRATE 10 MG TAB GTB SCH ×3 (09:33→21:17)
[2017-04-25] MEDS: NEUTRA-PHOS 250 MG PACKET GTB SCH ×2 (09:33→20:47)
[2017-04-25] MEDS: LISINOPRIL 10 MG TAB GTB SCH ×2 (09:33→20:47)
[2017-04-25] MEDS: MULTIVIT/CA CARB/B CMPLX/FA TAB GTB SCH (09:33)
[2017-04-25] MEDS: LACTOBACILLUS RHAMNOSUS CAP GTB SCH (09:33)
[2017-04-25] MEDS: CEFEPIME 1GM/50 ML (PMX) 50 ML IVPB SCH (09:49)
[2017-04-25] MEDS ORDERED: VANCOMYCIN 1 GM in NS 250 ML IVPB SCH (11:00)
--- NOTE | 2017-04-25 15:44 | CONS ---
Date/Time of Note Date/Time of Note DATE: 04/25/17 TIME: 15:43 Assessment/Plan Assessment/Plan Chief Complaint/Hosp Course No acute changes, looks comfortable and afebrile Temperature 97.8 pulse 60 respirations 18 blood pressure 160/82 saturation 98 on 40 FiO2 WBC 10 H&H 8.5 and 27.7 platelets 248 neutrophils 76.7 Blood culture since admission remain negative Indwelling's: Trach, PICC right IJ permacath, permanent pacemaker Antimicrobials: Cefepime vancomycin Physical examination: Well-developed, chronically ill-appearing elderly male who is in no distress. Head atraumatic normocephalic sclera nonicteric. Neck is supple tracheostomy present. Chest rise symmetrical, breath sounds diminished basis. Abdomen soft, bowel tones present. Extremities with trace edema. Assessment: 1. Sepsis 2. HCAP 3. Chronic respiratory failure with pseudomonas aeruginosa + sputum 3. End-stage renal disease, hemodialysis dependent 4. Anemia 5. Dysphasia 6. Encephalopathy 7. Coronary artery disease, history permanent pacemaker Plan: Remains stable, continue abx, follow pulmonary recommendations, hemodialysis per renal Discussed with staff Problems: Consultation Date/Type/Reason Admit Date/Time Apr 23, 2017 at 09:56 Initial Consult Date 04/23/17 Type of Consultation: ID Exam/Review of Systems Vital Signs Vitals Vital Signs Date Time Temp Pulse Resp B/P Pulse Ox O2 Delivery O2 Flow Rate FiO2 04/25/17 14:09 59 30 97 40 04/25/17 11:41 97.8 160/82 04/23/17 17:00 Mechanical Ventilator 10.0 Intake and Output 04/24/17 04/24/17 04/25/17 15:00 23:00 07:00 Intake Total 1115 ml Output Total 40 ml Balance -40 ml 1115 ml Results Result Diagram: 04/25/17 0600 04/25/17 0600 Results 24 hrs Laboratory Tests Test 04/25/17 06:00 White Blood Count 10.0 Red Blood Count 2.79 L Hemoglobin 8.5 L Hematocrit 27.7 L Mean Corpuscular Volume 99.3 Mean Corpuscular Hemoglobin 30.5 Mean Corpuscular Hemoglobin Concent 30.7 L Red Cell Distribution Width 18.3 H Platelet Count 248 Mean Platelet Volume 10.8 H Neutrophils % 76.7 Lymphocytes % 13.1 L Monocytes % 6.7 Eosinophils % 2.1 Basophils % 0.4 Nucleated Red Blood Cells % 0.0 Neutrophils # 7.6 H Lymphocytes # 1.3 Monocytes # 0.7 Eosinophils # 0.2 Basophils # 0.0 Nucleated Red Blood Cells # 0.0 Sodium Level 145 H Potassium Level 3.6 Chloride Level 102 Carbon Dioxide Level 26 Anion Gap 21 H Blood Urea Nitrogen 65 H Creatinine 2.88 H Glucose Level 155 Calcium Level 8.4 Phosphorus Level 2.2 L Magnesium Level 1.9 Random Vancomycin Level 17.5 Medications Medications Current Medications Atorvastatin Calcium (Lipitor) 20 mg QHS GTB Last administered on 04/24/17 20: 26; Admin Dose 20 MG; Start 04/23/17 at 21:00 Carvedilol (Coreg) 3.125 mg BID GTB Last administered on 04/25/17 09:33; Admin Dose 3.125 MG; Start 04/23/17 at 21:00 Chlorhexidine Gluconate (Peridex) 10 ml Q12 MM Last administered on 04/25/17 09:32; Admin Dose 10 ML; Start 04/23/17 at 21:00 Clonidine (Catapres) 0.1 mg Q4H PRN GTB SBP GREATER THAN 170; Start 04/23/17 at 12:00 Clopidogrel Bisulfate (plaVIX) 75 mg DAILY GTB Last administered on 04/25/17 09:32; Admin Dose 75 MG; Start 04/24/17 at 09:00 Diphenhydramine HCl (Benadryl Liquid Cup) 25 mg Q6H PRN GTB ITCHING; Start at 12:00 Acetaminophen/ Hydrocodone Bitart ([place] (5/325)) 1 tab Q8 PRN GTB SEVERE PAIN LEVEL 7-10; Start 04/23/17 at 12:00 Isosorbide Dinitrate (Isordil) 10 mg TID GTB Last administered on 04/25/17 13: 00; Admin Dose 10 MG; Start 04/23/17 at 13:00 Lactobacillus Acidophilus/ Rhamnosus (Culturelle) 1 cap DAILY GTB Last administered on 04/25/17 09:33; Admin Dose 1 CAP; Start 04/24/17 at 09:00 Lansoprazole (Prevacid) 30 mg DAILY@06 GTB Last administered on 04/25/17 05:21 ; Admin Dose 30 MG; Start 04/24/17 at 06:00 Levetiracetam (Keppra) 1,000 mg BID GTB Last administered on 04/25/17 09:33; Admin Dose 1,000 MG; Start 04/23/17 at 21:00 Levothyroxine Sodium (Synthroid) 88 mcg DAILY@06 GTB Last administered on 05:21; Admin Dose 88 MCG; Start 04/24/17 at 06:00 Lorazepam (Ativan) 0.5 mg Q4 PRN GTB ANXIETY Last administered on 04/25/17 00: 01; Admin Dose 0.5 MG; Start 04/23/17 at 12:00 Multivit/Ca Carb/ B Cmplx/FA/Prenat (Thelma-Bebeto) 1 tab DAILY GTB Last administered on 04/25/17 09:33; Admin Dose 1 TAB; Start 04/24/17 at 09:00 Multivitamins Therapeutic (Theragran) 1 tab DAILY GTB Last administered on 04/25 09:32; Admin Dose 1 TAB; Start 04/24/17 at 09:00 Sodium Phosphate (Neutra-Phos) 250 mg BID GTB Last administered on 04/25/17 09 :33; Admin Dose 250 MG; Start 04/23/17 at 21:00 Spironolactone (Aldactone) 25 mg DAILY GTB Last administered on 04/25/17 09:33 ; Admin Dose 25 MG; Start 04/24/17 at 09:00 Miscellaneous Information This patient jenkins... PRN PRN XX WOUND CARE; Start 04/23 at 18:30 Cefepime HCl (Maxipime 1gm/50 ml (Pmx)) 50 ml @ 100 mls/hr Q24H IVPB Last administered on 04/25/17 09:49; Admin Dose 100 MLS/HR; Start 04/24/17 at 10:00 Lisinopril 10 mg 10 mg BID GTB Last administered on 04/25/17 09:33; Admin Dose 10 MG; Start 04/24/17 at 21:00 Vancomycin HCl (Vancocin) 250 ml @ 125 mls/hr Q96H IVPB Last administered on 10:45; Admin Dose 125 MLS/HR; Start 04/25/17 at 11:00 MAIRA HUIZAR NP Apr 25, 2017 15:44
--- NOTE | 2017-04-25 15:49 | PN ---
Date/Time of Note Date/Time of Note DATE: 04/25/17 TIME: 15:48 Assessment/Plan VTE Prophylaxis VTE Prophylaxis Intervention: other Lines/Catheters IV Catheter Type (from Nrs): PICC Line Central line still needed: Yes Urinary Cath still in place: Yes Reason Cath still needed: other (indicate) Assessment/Plan Chief Complaint/Hosp Course 1. Sepsis secondary to healthcare associated pneumonia Patient's antibiotics to be managed as per IM/ and infectious disease 2. End-stage renal disease. -Continue intermittent hemodialysis - HD per renal 3. HX of extensive CAD; S/P RI, S/P CABG, S/P PCI ( most recently in Nov 2016) cont plavix. coreg 4 CHF / ischemic cardiomyopathy: cont betablocker and ARABELLA. inc as tolerated. 5. Ventilator dependent respiratory failure; s/p trach -Follow-up with pulmonary 6. sick sinus syndrome/ ischemic cardiomyopathy: -Status post pacemaker ICD placement -Continue medical management 7. Seizure disorder -will defer to IM. PT IS ON Keppra 8. Hypothyroidism -Continue Synthroid 9. Dysphagia status post PEG -Continue tube feeds Problems: Subjective 24 Hr Interval Summary Free Text/Dictation CARDIOLOGY FOLLOW UP NOTE: D/W staff and rhythm was reviewed. pt remains in NSR / A paced. he is still s/p trach on vent. no reports of any chest pain or pressure. no reported bleeding OBJECTIVE: General: S/P trach on vent. HEENT: NC/AT. pupils are equal. round. NECK: s/p trach. . no stridor. CV: RRR. systolic murmur; no gallop or rubs. PULM:+ diffuse rhonchi. GI: SOFT, NT, ND, no rebound or guarding Extremity: trace B/L LE edema. no clubbing. neuro: awake and alert, . Psych: calm and pleasant rectal: deferred : normal male chest: s/p L ICD, S/P R HD access Exam/Review of Systems Vital Signs Vitals Vital Signs Date Time Temp Pulse Resp B/P Pulse Ox O2 Delivery O2 Flow Rate FiO2 04/25/17 14:09 59 30 97 40 04/25/17 11:41 97.8 160/82 04/23/17 17:00 Mechanical Ventilator 10.0 Intake and Output 04/24/17 04/24/17 04/25/17 15:00 23:00 07:00 Intake Total 1115 ml Output Total 40 ml Balance -40 ml 1115 ml Results Result Diagram: 04/25/17 0600 04/25/17 0600 Results 24 hrs Laboratory Tests Test 04/25/17 06:00 White Blood Count 10.0 Red Blood Count 2.79 L Hemoglobin 8.5 L Hematocrit 27.7 L Mean Corpuscular Volume 99.3 Mean Corpuscular Hemoglobin 30.5 Mean Corpuscular Hemoglobin Concent 30.7 L Red Cell Distribution Width 18.3 H Platelet Count 248 Mean Platelet Volume 10.8 H Neutrophils % 76.7 Lymphocytes % 13.1 L Monocytes % 6.7 Eosinophils % 2.1 Basophils % 0.4 Nucleated Red Blood Cells % 0.0 Neutrophils # 7.6 H Lymphocytes # 1.3 Monocytes # 0.7 Eosinophils # 0.2 Basophils # 0.0 Nucleated Red Blood Cells # 0.0 Sodium Level 145 H Potassium Level 3.6 Chloride Level 102 Carbon Dioxide Level 26 Anion Gap 21 H Blood Urea Nitrogen 65 H Creatinine 2.88 H Glucose Level 155 Calcium Level 8.4 Phosphorus Level 2.2 L Magnesium Level 1.9 Random Vancomycin Level 17.5 Medications Medications Current Medications Atorvastatin Calcium (Lipitor) 20 mg QHS GTB Last administered on 04/24/17 20: 26; Admin Dose 20 MG; Start 04/23/17 at 21:00 Carvedilol (Coreg) 3.125 mg BID GTB Last administered on 04/25/17 09:33; Admin Dose 3.125 MG; Start 04/23/17 at 21:00 Chlorhexidine Gluconate (Peridex) 10 ml Q12 MM Last administered on 04/25/17 09:32; Admin Dose 10 ML; Start 04/23/17 at 21:00 Clonidine (Catapres) 0.1 mg Q4H PRN GTB SBP GREATER THAN 170; Start 04/23/17 at 12:00 Clopidogrel Bisulfate (plaVIX) 75 mg DAILY GTB Last administered on 04/25/17 09:32; Admin Dose 75 MG; Start 04/24/17 at 09:00 Diphenhydramine HCl (Benadryl Liquid Cup) 25 mg Q6H PRN GTB ITCHING; Start at 12:00 Acetaminophen/ Hydrocodone Bitart ([place] (5/325)) 1 tab Q8 PRN GTB SEVERE PAIN LEVEL 7-10; Start 04/23/17 at 12:00 Isosorbide Dinitrate (Isordil) 10 mg TID GTB Last administered on 04/25/17 13: 00; Admin Dose 10 MG; Start 04/23/17 at 13:00 Lactobacillus Acidophilus/ Rhamnosus (Culturelle) 1 cap DAILY GTB Last administered on 04/25/17 09:33; Admin Dose 1 CAP; Start 04/24/17 at 09:00 Lansoprazole (Prevacid) 30 mg DAILY@06 GTB Last administered on 04/25/17 05:21 ; Admin Dose 30 MG; Start 04/24/17 at 06:00 Levetiracetam (Keppra) 1,000 mg BID GTB Last administered on 04/25/17 09:33; Admin Dose 1,000 MG; Start 04/23/17 at 21:00 Levothyroxine Sodium (Synthroid) 88 mcg DAILY@06 GTB Last administered on 05:21; Admin Dose 88 MCG; Start 04/24/17 at 06:00 Lorazepam (Ativan) 0.5 mg Q4 PRN GTB ANXIETY Last administered on 04/25/17 00: 01; Admin Dose 0.5 MG; Start 04/23/17 at 12:00 Multivit/Ca Carb/ B Cmplx/FA/Prenat (Thelma-Bebeto) 1 tab DAILY GTB Last administered on 04/25/17 09:33; Admin Dose 1 TAB; Start 04/24/17 at 09:00 Multivitamins Therapeutic (Theragran) 1 tab DAILY GTB Last administered on 04/25 09:32; Admin Dose 1 TAB; Start 04/24/17 at 09:00 Sodium Phosphate (Neutra-Phos) 250 mg BID GTB Last administered on 04/25/17 09 :33; Admin Dose 250 MG; Start 04/23/17 at 21:00 Spironolactone (Aldactone) 25 mg DAILY GTB Last administered on 04/25/17 09:33 ; Admin Dose 25 MG; Start 04/24/17 at 09:00 Miscellaneous Information This patient jenkins... PRN PRN XX WOUND CARE; Start 04/23 at 18:30 Cefepime HCl (Maxipime 1gm/50 ml (Pmx)) 50 ml @ 100 mls/hr Q24H IVPB Last administered on 04/25/17 09:49; Admin Dose 100 MLS/HR; Start 04/24/17 at 10:00 Lisinopril 10 mg 10 mg BID GTB Last administered on 04/25/17 09:33; Admin Dose 10 MG; Start 04/24/17 at 21:00 Vancomycin HCl (Vancocin) 250 ml @ 125 mls/hr Q96H IVPB Last administered on 10:45; Admin Dose 125 MLS/HR; Start 04/25/17 at 11:00 MOOKIE BESS MD Apr 25, 2017 15:49
[2017-04-25] MEDS ORDERED: HYDROCODONE/APAP (5/325) TAB PO PRN (20:30)
[2017-04-25] MEDS: ATORVASTATIN 20 MG TAB GTB SCH (20:47)
[2017-04-26] VITALS (33 sets, daily range): BP systolic 102–149; BP diastolic 65–78; PULSE 59–78; RESP 18–30
[2017-04-26] MEDS: ALBUTEROL 18 GM INHALER INH SCH ×4 (02:06→20:25)
[2017-04-26] MEDS: IPRATROPIUM (HFA) 12.9 GM INHALER INH SCH ×4 (02:08→20:25)
[2017-04-26] MEDS: LORAZEPAM 0.5 MG TAB GTB PRN (02:29)
[2017-04-26] MEDS: LANSOPRAZOLE 30 MG CAP GTB SCH (05:21)
[2017-04-26] MEDS: LEVOTHYROXINE 88 MCG TAB GTB SCH (05:21)
[2017-04-26] MEDS: LACTOBACILLUS RHAMNOSUS CAP GTB SCH (09:01)
[2017-04-26] MEDS: NEUTRA-PHOS 250 MG PACKET GTB SCH ×2 (09:01→21:00)
[2017-04-26] MEDS: CHLORHEXIDINE GLUCONATE 15 ML UD CUP MM SCH ×2 (09:01→21:00)
[2017-04-26] MEDS: CLOPIDOGREL 75 MG TAB GTB SCH (09:03)
[2017-04-26] MEDS: LEVETIRACETAM 500 MG TAB GTB SCH ×2 (09:03→21:00)
[2017-04-26] MEDS: SPIRONOLACTONE 25 MG TAB GTB SCH (09:04)
[2017-04-26] MEDS: MULTIVIT/CA CARB/B CMPLX/FA TAB GTB SCH (09:04)
[2017-04-26] MEDS: MULTIVITAMINS THERAPEUTIC TAB GTB SCH (09:04)
[2017-04-26] MEDS: ISOSORBIDE DINITRATE 10 MG TAB GTB SCH ×3 (09:05→21:00)
[2017-04-26] MEDS: LISINOPRIL 10 MG TAB GTB SCH ×2 (09:05→21:00)
[2017-04-26] MEDS: CEFEPIME 1GM/50 ML (PMX) 50 ML IVPB SCH (09:05)
--- NOTE | 2017-04-26 10:28 | PN ---
Date/Time of Note Date/Time of Note DATE: 04/26/17 TIME: 10:27 Assessment/Plan Lines/Catheters IV Catheter Type (from Nrs): PICC Line Urinary Cath still in place: No Assessment/Plan Chief Complaint/Hosp Course 1. Sepsis secondary to healthcare associated pneumonia Patient's on broad-spectrum antibiotics tolerating well Blood cultures have been reviewed Continue to monitor, follow-up with infectious disease 2. End-stage renal disease. -Continue intermittent hemodialysis - HD today 3. Mineral bone disorder -Monitor calcium phosphorus levels 4 volume overload secondary to CHF end-stage renal disease -Continue ultrafiltration with dialysis 5. Ventilator dependent respiratory failure -Vent settings, ABG reviewed -Follow-up with pulmonary 6. Coronary disease,/cardiomyopathy -Status post pacemaker ICD placement -Continue medical management -Follow-up with cardiology 7. Seizure disorder -Continue Keppra 8. Hypothyroidism -Continue Synthroid 9. Dysphagia status post PEG -Continue tube feeds 10. Acute on chronic encephalotomy -Etiology toxic metabolic -Continue to monitor 11. Hypertension continue current blood pressure regimen 12. GI/DVT prophylaxis 13. Hypokalemia hypomagnesemia/hyponatremia -Improved with HD Problems: Subjective 24 Hr Interval Summary Free Text/Dictation Patient seen and examined Plan for dialysis today No other events noted Exam/Review of Systems Vital Signs Vitals Vital Signs Date Time Temp Pulse Resp B/P Pulse Ox O2 Delivery O2 Flow Rate FiO2 04/26/17 09:00 66 26 98 40 04/26/17 08:06 98.4 149/70 04/23/17 17:00 Mechanical Ventilator 10.0 Intake and Output 04/25/17 04/25/17 04/26/17 15:00 23:00 07:00 Intake Total 300 ml 1100 ml Balance 300 ml 1100 ml Exam HEENT: Head is normocephalic. NECK: Supple. HEART: Regular rate LUNGS: Show diminished breath sounds at base. ABDOMEN: Soft, nontender to palpation without rebound or guarding. EXTREMITIES: Negative for clubbing, cyanosis. DERMATOLOGIC: No rashes. MUSCULOSKELETAL: No joint effusions, NEUROLOGIC: No change in exam. Results Result Diagram: 04/25/17 0600 04/25/17 0600 Medications Medications Current Medications Atorvastatin Calcium (Lipitor) 20 mg QHS GTB Last administered on 04/25/17t 20: 47; Admin Dose 20 MG; Start 04/23/17 at 21:00 Carvedilol (Coreg) 3.125 mg BID GTB Last administered on 04/26/17 09:04; Admin Dose 3.125 MG; Start 04/23/17 at 21:00 Chlorhexidine Gluconate (Peridex) 10 ml Q12 MM Last administered on 04/26/17 09:01; Admin Dose 10 ML; Start 04/23/17 at 21:00 Clonidine (Catapres) 0.1 mg Q4H PRN GTB SBP GREATER THAN 170; Start 04/23/17 at 12:00 Clopidogrel Bisulfate (plaVIX) 75 mg DAILY GTB Last administered on 04/26/17 09:03; Admin Dose 75 MG; Start 04/24/17 at 09:00 Diphenhydramine HCl (Benadryl Liquid Cup) 25 mg Q6H PRN GTB ITCHING Last administered on 04/26/17 02:41; Admin Dose 25 MG; Start 04/23/17 at 12:00 Acetaminophen/ Hydrocodone Bitart ([place] (5/325)) 1 tab Q8 PRN GTB SEVERE PAIN LEVEL 7-10; Start 04/23/17 at 12:00 Isosorbide Dinitrate (Isordil) 10 mg TID GTB Last administered on 04/26/17 09: 05; Admin Dose 10 MG; Start 04/23/17 at 13:00 Lactobacillus Acidophilus/ Rhamnosus (Culturelle) 1 cap DAILY GTB Last administered on 04/26/17 09:01; Admin Dose 1 CAP; Start 04/24/17 at 09:00 Lansoprazole (Prevacid) 30 mg DAILY@06 GTB Last administered on 04/26/17 05:21 ; Admin Dose 30 MG; Start 04/24/17 at 06:00 Levetiracetam (Keppra) 1,000 mg BID GTB Last administered on 04/26/17 09:03; Admin Dose 1,000 MG; Start 04/23/17 at 21:00 Levothyroxine Sodium (Synthroid) 88 mcg DAILY@06 GTB Last administered on 05:21; Admin Dose 88 MCG; Start 04/24/17 at 06:00 Lorazepam (Ativan) 0.5 mg Q4 PRN GTB ANXIETY Last administered on 04/26/17 02: 29; Admin Dose 0.5 MG; Start 04/23/17 at 12:00 Multivit/Ca Carb/ B Cmplx/FA/Prenat (Thelma-Bebeto) 1 tab DAILY GTB Last administered on 04/26/17 09:04; Admin Dose 1 TAB; Start 04/24/17 at 09:00 Multivitamins Therapeutic (Theragran) 1 tab DAILY GTB Last administered on 04/26 09:04; Admin Dose 1 TAB; Start 04/24/17 at 09:00 Sodium Phosphate (Neutra-Phos) 250 mg BID GTB Last administered on 04/26/17 09 :01; Admin Dose 250 MG; Start 04/23/17 at 21:00 Spironolactone (Aldactone) 25 mg DAILY GTB Last administered on 04/26/17 09:04 ; Admin Dose 25 MG; Start 04/24/17 at 09:00 Miscellaneous Information This patient jenkins... PRN PRN XX WOUND CARE; Start 04/23 at 18:30 Cefepime HCl (Maxipime 1gm/50 ml (Pmx)) 50 ml @ 100 mls/hr Q24H IVPB Last administered on 04/26/17 09:05; Admin Dose 100 MLS/HR; Start 04/24/17 at 10:00 Lisinopril 10 mg 10 mg BID GTB Last administered on 04/26/17 09:05; Admin Dose 10 MG; Start 04/24/17 at 21:00 Vancomycin HCl (Vancocin) 250 ml @ 125 mls/hr Q96H IVPB Last administered on 10:45; Admin Dose 125 MLS/HR; Start 04/25/17 at 11:00 ANNABELLE MENDOZA DO Apr 26, 2017 10:28
--- NOTE | 2017-04-26 16:14 | PN ---
Date/Time of Note Date/Time of Note DATE: 04/26/17 TIME: 16:12 Assessment/Plan VTE Prophylaxis VTE Prophylaxis Intervention: other Lines/Catheters IV Catheter Type (from Nrs): PICC Line Central line still needed: Yes Urinary Cath still in place: Yes Reason Cath still needed: other (indicate) Assessment/Plan Chief Complaint/Hosp Course 1. Sepsis secondary to healthcare associated pneumonia Patient's antibiotics to be managed as per IM/ and infectious disease 2. End-stage renal disease. -Continue intermittent hemodialysis - HD per renal 3. HX of extensive CAD; S/P CT, S/P CABG, S/P PCI ( most recently in Nov 2016) cont plavix. coreg 4 CHF / ischemic cardiomyopathy: cont betablocker and ARABELLA. inc as tolerated. 5. Ventilator dependent respiratory failure; s/p trach -Follow-up with pulmonary 6. sick sinus syndrome/ ischemic cardiomyopathy: -Status post pacemaker ICD placement -Continue medical management 7. Seizure disorder -will defer to IM. PT IS ON Keppra 8. Hypothyroidism -Continue Synthroid 9. Dysphagia status post PEG -Continue tube feeds Problems: Subjective 24 Hr Interval Summary Free Text/Dictation CARDIOLOGY FOLLOW UP NOTE: D/W staff and rhythm was reviewed. pt remains in NSR / A paced. he is still s/p trach on vent. no reports of any chest pain or pressure. no reported bleeding pt is on HD. OBJECTIVE: General: S/P trach on vent. HEENT: NC/AT. pupils are equal. round. NECK: s/p trach. . no stridor. CV: RRR. systolic murmur; no gallop or rubs. PULM:+ diffuse rhonchi. GI: SOFT, NT, ND, no rebound or guarding Extremity: trace B/L LE edema. no clubbing. neuro: awake and alert, . Psych: calm and pleasant rectal: deferred : normal male chest: s/p L ICD, S/P R HD access Exam/Review of Systems Vital Signs Vitals Vital Signs Date Time Temp Pulse Resp B/P Pulse Ox O2 Delivery O2 Flow Rate FiO2 04/26/17 16:05 98.4 66 19 119/66 98 04/26/17 13:35 40 04/23/17 17:00 Mechanical Ventilator 10.0 Intake and Output 04/25/17 04/25/17 04/26/17 15:00 23:00 07:00 Intake Total 300 ml 1100 ml Balance 300 ml 1100 ml Results Result Diagram: 04/25/17 0600 04/25/17 0600 Medications Medications Current Medications Atorvastatin Calcium (Lipitor) 20 mg QHS GTB Last administered on 04/25/17 20: 47; Admin Dose 20 MG; Start 04/23/17 at 21:00 Carvedilol (Coreg) 3.125 mg BID GTB Last administered on 04/26/17 09:04; Admin Dose 3.125 MG; Start 04/23/17 at 21:00 Chlorhexidine Gluconate (Peridex) 10 ml Q12 MM Last administered on 04/26/17 09:01; Admin Dose 10 ML; Start 04/23/17 at 21:00 Clonidine (Catapres) 0.1 mg Q4H PRN GTB SBP GREATER THAN 170; Start 04/23/17 at 12:00 Clopidogrel Bisulfate (plaVIX) 75 mg DAILY GTB Last administered on 04/26/17 09:03; Admin Dose 75 MG; Start 04/24/17 at 09:00 Diphenhydramine HCl (Benadryl Liquid Cup) 25 mg Q6H PRN GTB ITCHING Last administered on 04/26/17 02:41; Admin Dose 25 MG; Start 04/23/17 at 12:00 Acetaminophen/ Hydrocodone Bitart ([place] (5/325)) 1 tab Q8 PRN GTB SEVERE PAIN LEVEL 7-10; Start 04/23/17 at 12:00 Isosorbide Dinitrate (Isordil) 10 mg TID GTB Last administered on 04/26/17 09: 05; Admin Dose 10 MG; Start 04/23/17 at 13:00 Lactobacillus Acidophilus/ Rhamnosus (Culturelle) 1 cap DAILY GTB Last administered on 04/26/17 09:01; Admin Dose 1 CAP; Start 04/24/17 at 09:00 Lansoprazole (Prevacid) 30 mg DAILY@06 GTB Last administered on 04/26/17 05:21 ; Admin Dose 30 MG; Start 04/24/17 at 06:00 Levetiracetam (Keppra) 1,000 mg BID GTB Last administered on 04/26/17 09:03; Admin Dose 1,000 MG; Start 04/23/17 at 21:00 Levothyroxine Sodium (Synthroid) 88 mcg DAILY@06 GTB Last administered on 05:21; Admin Dose 88 MCG; Start 04/24/17 at 06:00 Lorazepam (Ativan) 0.5 mg Q4 PRN GTB ANXIETY Last administered on 04/26/17 02: 29; Admin Dose 0.5 MG; Start 04/23/17 at 12:00 Multivit/Ca Carb/ B Cmplx/FA/Prenat (Thelma-Bebeto) 1 tab DAILY GTB Last administered on 04/26/17 09:04; Admin Dose 1 TAB; Start 04/24/17 at 09:00 Multivitamins Therapeutic (Theragran) 1 tab DAILY GTB Last administered on 04/26 09:04; Admin Dose 1 TAB; Start 04/24/17 at 09:00 Sodium Phosphate (Neutra-Phos) 250 mg BID GTB Last administered on 04/26/17 09 :01; Admin Dose 250 MG; Start 04/23/17 at 21:00 Spironolactone (Aldactone) 25 mg DAILY GTB Last administered on 04/26/17 09:04 ; Admin Dose 25 MG; Start 04/24/17 at 09:00 Miscellaneous Information This patient jenkins... PRN PRN XX WOUND CARE; Start 04/23 at 18:30 Cefepime HCl (Maxipime 1gm/50 ml (Pmx)) 50 ml @ 100 mls/hr Q24H IVPB Last administered on 04/26/17 09:05; Admin Dose 100 MLS/HR; Start 04/24/17 at 10:00 Lisinopril 10 mg 10 mg BID GTB Last administered on 04/26/17 09:05; Admin Dose 10 MG; Start 04/24/17 at 21:00 Vancomycin HCl (Vancocin) 250 ml @ 125 mls/hr Q96H IVPB Last administered on 10:45; Admin Dose 125 MLS/HR; Start 04/25/17 at 11:00 MOOKIE BESS MD Apr 26, 2017 16:14
[2017-04-26] MEDS: ATORVASTATIN 20 MG TAB GTB SCH (21:00)
[2017-04-27] VITALS (24 sets, daily range): BP systolic 101–153; BP diastolic 52–74; PULSE 60–75; RESP 19–28
[2017-04-27] MEDS: ALBUTEROL 18 GM INHALER INH SCH ×4 (02:00→19:53)
[2017-04-27] MEDS: LANSOPRAZOLE 30 MG CAP GTB SCH (05:35)
[2017-04-27] MEDS: LEVOTHYROXINE 88 MCG TAB GTB SCH (05:35)
[2017-04-27] MEDS: IPRATROPIUM (HFA) 12.9 GM INHALER INH SCH ×3 (07:18→19:53)
[2017-04-27] MEDS: CHLORHEXIDINE GLUCONATE 15 ML UD CUP MM SCH ×2 (08:18→21:21)
[2017-04-27] MEDS: CLOPIDOGREL 75 MG TAB GTB SCH (08:21)
[2017-04-27] MEDS: LEVETIRACETAM 500 MG TAB GTB SCH ×2 (08:21→21:20)
[2017-04-27] MEDS: MULTIVIT/CA CARB/B CMPLX/FA TAB GTB SCH (08:21)
[2017-04-27] MEDS: ISOSORBIDE DINITRATE 10 MG TAB GTB SCH ×3 (08:21→21:00)
[2017-04-27] MEDS: SPIRONOLACTONE 25 MG TAB GTB SCH (08:21)
[2017-04-27] MEDS: LACTOBACILLUS RHAMNOSUS CAP GTB SCH (08:21)
[2017-04-27] MEDS: LISINOPRIL 10 MG TAB GTB SCH ×2 (08:22→21:00)
[2017-04-27] MEDS: MULTIVITAMINS THERAPEUTIC TAB GTB SCH (08:22)
[2017-04-27] MEDS: NEUTRA-PHOS 250 MG PACKET GTB SCH ×2 (08:25→21:24)
[2017-04-27] MEDS: CEFEPIME 1GM/50 ML (PMX) 50 ML IVPB SCH (09:58)
--- NOTE | 2017-04-27 12:07 | CONS ---
Date/Time of Note Date/Time of Note DATE: 04/27/17 TIME: 12:04 Assessment/Plan Assessment/Plan Chief Complaint/Hosp Course Assessment/Plan Chief Complaint/Hosp Course No acute changes. Awake. No Acute Distress. Blood culture since admission remain negative Indwelling's: Trach, PICC right IJ permacath, permanent pacemaker Antimicrobials: Cefepime vancomycin Physical examination: Well-developed, chronically ill-appearing elderly male who is in no distress. Head atraumatic normocephalic sclera nonicteric. Neck is supple tracheostomy present. Chest rise symmetrical, breath sounds diminished basis. Abdomen soft, bowel tones present. Extremities with trace edema. Assessment: 1. Sepsis 2. HCAP 3. Chronic respiratory failure with pseudomonas aeruginosa + sputum 3. End-stage renal disease, hemodialysis dependent 4. Anemia 5. Dysphasia 6. Encephalopathy 7. Coronary artery disease, history permanent pacemaker Plan: Remains stable. Continue Antibiotics. Follow pulmonary recommendations. Hemodialysis per renal specialist. Monitor Labs. Discussed with staff. Problems: Consultation Date/Type/Reason Admit Date/Time Apr 23, 2017 at 09:56 Initial Consult Date 04/23/17 Type of Consultation: ID Exam/Review of Systems Vital Signs Vitals Vital Signs Date Time Temp Pulse Resp B/P Pulse Ox O2 Delivery O2 Flow Rate FiO2 04/27/17 11:15 99.0 72 20 101/55 100 04/27/17 11:15 30 04/23/17 17:00 Mechanical Ventilator 10.0 Intake and Output 04/26/17 04/26/17 04/27/17 15:00 23:00 07:00 Intake Total 1600 ml 1050 ml Output Total 3000 ml Balance -1400 ml 1050 ml Results Result Diagram: 04/25/17 0600 04/25/17 0600 Medications Medications Current Medications Atorvastatin Calcium (Lipitor) 20 mg QHS GTB Last administered on 04/26/17 21: 00; Admin Dose 20 MG; Start 04/23/17 at 21:00 Carvedilol (Coreg) 3.125 mg BID GTB Last administered on 04/26/17 09:04; Admin Dose 3.125 MG; Start 04/23/17 at 21:00 Chlorhexidine Gluconate (Peridex) 10 ml Q12 MM Last administered on 04/27/17 08:18; Admin Dose 10 ML; Start 04/23/17 at 21:00 Clonidine (Catapres) 0.1 mg Q4H PRN GTB SBP GREATER THAN 170; Start 04/23/17 at 12:00 Clopidogrel Bisulfate (plaVIX) 75 mg DAILY GTB Last administered on 04/27/17 08:21; Admin Dose 75 MG; Start 04/24/17 at 09:00 Diphenhydramine HCl (Benadryl Liquid Cup) 25 mg Q6H PRN GTB ITCHING Last administered on 04/26/17 02:41; Admin Dose 25 MG; Start 04/23/17 at 12:00 Acetaminophen/ Hydrocodone Bitart ([place] (5/325)) 1 tab Q8 PRN GTB SEVERE PAIN LEVEL 7-10; Start 04/23/17 at 12:00 Isosorbide Dinitrate (Isordil) 10 mg TID GTB Last administered on 04/27/17 08: 21; Admin Dose 10 MG; Start 04/23/17 at 13:00 Lactobacillus Acidophilus/ Rhamnosus (Culturelle) 1 cap DAILY GTB Last administered on 04/27/17 08:21; Admin Dose 1 CAP; Start 04/24/17 at 09:00 Lansoprazole (Prevacid) 30 mg DAILY@06 GTB Last administered on 04/27/17 05:35 ; Admin Dose 30 MG; Start 04/24/17 at 06:00 Levetiracetam (Keppra) 1,000 mg BID GTB Last administered on 04/27/17 08:21; Admin Dose 1,000 MG; Start 04/23/17 at 21:00 Levothyroxine Sodium (Synthroid) 88 mcg DAILY@06 GTB Last administered on 05:35; Admin Dose 88 MCG; Start 04/24/17 at 06:00 Lorazepam (Ativan) 0.5 mg Q4 PRN GTB ANXIETY Last administered on 04/26/17 02: 29; Admin Dose 0.5 MG; Start 04/23/17 at 12:00 Multivit/Ca Carb/ B Cmplx/FA/Prenat (Thelma-Bebeto) 1 tab DAILY GTB Last administered on 04/27/17 08:21; Admin Dose 1 TAB; Start 04/24/17 at 09:00 Multivitamins Therapeutic (Theragran) 1 tab DAILY GTB Last administered on 04/27 08:22; Admin Dose 1 TAB; Start 04/24/17 at 09:00 Sodium Phosphate (Neutra-Phos) 250 mg BID GTB Last administered on 04/27/17 08 :25; Admin Dose 250 MG; Start 04/23/17 at 21:00 Spironolactone (Aldactone) 25 mg DAILY GTB Last administered on 04/27/17 08:21 ; Admin Dose 25 MG; Start 04/24/17 at 09:00 Miscellaneous Information This patient jenkins... PRN PRN XX WOUND CARE; Start 04/23 at 18:30 Cefepime HCl (Maxipime 1gm/50 ml (Pmx)) 50 ml @ 100 mls/hr Q24H IVPB Last administered on 04/27/17 09:58; Admin Dose 100 MLS/HR; Start 04/24/17 at 10:00 Lisinopril 10 mg 10 mg BID GTB Last administered on 04/27/17 08:22; Admin Dose 10 MG; Start 04/24/17 at 21:00 Vancomycin HCl (Vancocin) 250 ml @ 125 mls/hr Q96H IVPB Last administered on 10:45; Admin Dose 125 MLS/HR; Start 04/25/17 at 11:00 TRENTON HER NP Apr 27, 2017 12:07
--- NOTE | 2017-04-27 15:13 | PN ---
Date/Time of Note Date/Time of Note DATE: 04/27/17 TIME: 15:12 Assessment/Plan VTE Prophylaxis VTE Prophylaxis Intervention: other Lines/Catheters IV Catheter Type (from [facility]): permacath Urinary Cath still in place: No Assessment/Plan Chief Complaint/Hosp Course 1. Sepsis secondary to healthcare associated pneumonia Patient's antibiotics to be managed as per IM/ and infectious disease 2. End-stage renal disease. -Continue intermittent hemodialysis - HD per renal 3. HX of extensive CAD; S/P [place], S/P CABG, S/P PCI ( most recently in Nov 2016) cont plavix. coreg 4 CHF / ischemic cardiomyopathy: cont betablocker and ARABELLA. inc as tolerated. 5. Ventilator dependent respiratory failure; s/p trach -Follow-up with pulmonary 6. sick sinus syndrome/ ischemic cardiomyopathy: -Status post pacemaker ICD placement -Continue medical management 7. Seizure disorder -will defer to IM. PT IS ON Keppra 8. Hypothyroidism -Continue Synthroid 9. Dysphagia status post PEG -Continue tube feeds Problems: Subjective 24 Hr Interval Summary Free Text/Dictation CARDIOLOGY FOLLOW UP NOTE: D/W staff and rhythm was reviewed. pt remains in NSR / A paced. he is s/p trach on vent. no reports of any chest pain or pressure. no reported bleeding . OBJECTIVE: General: S/P trach on vent. HEENT: NC/AT. pupils are equal. round. NECK: s/p trach. . no stridor. CV: RRR. systolic murmur; no gallop or rubs. PULM:+ diffuse rhonchi. GI: SOFT, NT, ND, no rebound or guarding Extremity: trace B/L LE edema. no clubbing. neuro: awake and alert, . Psych: calm and pleasant rectal: deferred : normal male chest: s/p L ICD, S/P R HD access Exam/Review of Systems Vital Signs Vitals Vital Signs Date Time Temp Pulse Resp B/P Pulse Ox O2 Delivery O2 Flow Rate FiO2 04/27/17 15:03 99.0 67 20 107/52 100 04/27/17 13:07 40 04/23/17 17:00 Mechanical Ventilator 10.0 Intake and Output 04/26/17 04/26/17 04/27/17 15:00 23:00 07:00 Intake Total 1600 ml 1050 ml Output Total 3000 ml Balance -1400 ml 1050 ml Results Result Diagram: 04/25/17 0600 04/25/17 0600 Medications Medications Current Medications Atorvastatin Calcium (Lipitor) 20 mg QHS GTB Last administered on 04/26/17 21: 00; Admin Dose 20 MG; Start 04/23/17 at 21:00 Carvedilol (Coreg) 3.125 mg BID GTB Last administered on 04/26/17 09:04; Admin Dose 3.125 MG; Start 04/23/17 at 21:00 Chlorhexidine Gluconate (Peridex) 10 ml Q12 MM Last administered on 04/27/17 08:18; Admin Dose 10 ML; Start 04/23/17 at 21:00 Clonidine (Catapres) 0.1 mg Q4H PRN GTB SBP GREATER THAN 170; Start 04/23/17 at 12:00 Clopidogrel Bisulfate (plaVIX) 75 mg DAILY GTB Last administered on 04/27/17 08:21; Admin Dose 75 MG; Start 04/24/17 at 09:00 Diphenhydramine HCl (Benadryl Liquid Cup) 25 mg Q6H PRN GTB ITCHING Last administered on 04/26/17 02:41; Admin Dose 25 MG; Start 04/23/17 at 12:00 Acetaminophen/ Hydrocodone Bitart ([place] (5/325)) 1 tab Q8 PRN GTB SEVERE PAIN LEVEL 7-10; Start 04/23/17 at 12:00 Isosorbide Dinitrate (Isordil) 10 mg TID GTB Last administered on 04/27/17 13: 56; Admin Dose 10 MG; Start 04/23/17 at 13:00 Lactobacillus Acidophilus/ Rhamnosus (Culturelle) 1 cap DAILY GTB Last administered on 04/27/17 08:21; Admin Dose 1 CAP; Start 04/24/17 at 09:00 Lansoprazole (Prevacid) 30 mg DAILY@06 GTB Last administered on 04/27/17 05:35 ; Admin Dose 30 MG; Start 04/24/17 at 06:00 Levetiracetam (Keppra) 1,000 mg BID GTB Last administered on 04/27/17 08:21; Admin Dose 1,000 MG; Start 04/23/17 at 21:00 Levothyroxine Sodium (Synthroid) 88 mcg DAILY@06 GTB Last administered on 05:35; Admin Dose 88 MCG; Start 04/24/17 at 06:00 Lorazepam (Ativan) 0.5 mg Q4 PRN GTB ANXIETY Last administered on 04/26/17 02: 29; Admin Dose 0.5 MG; Start 04/23/17 at 12:00 Multivit/Ca Carb/ B Cmplx/FA/Prenat (Thelma-Bebeto) 1 tab DAILY GTB Last administered on 04/27/17 08:21; Admin Dose 1 TAB; Start 04/24/17 at 09:00 Multivitamins Therapeutic (Theragran) 1 tab DAILY GTB Last administered on 04/27 08:22; Admin Dose 1 TAB; Start 04/24/17 at 09:00 Sodium Phosphate (Neutra-Phos) 250 mg BID GTB Last administered on 04/27/17 08 :25; Admin Dose 250 MG; Start 04/23/17 at 21:00 Spironolactone (Aldactone) 25 mg DAILY GTB Last administered on 04/27/17 08:21 ; Admin Dose 25 MG; Start 04/24/17 at 09:00 Miscellaneous Information This patient jenkins... PRN PRN XX WOUND CARE; Start 04/23 at 18:30 Cefepime HCl (Maxipime 1gm/50 ml (Pmx)) 50 ml @ 100 mls/hr Q24H IVPB Last administered on 04/27/17 09:58; Admin Dose 100 MLS/HR; Start 04/24/17 at 10:00 Lisinopril 10 mg 10 mg BID GTB Last administered on 04/27/17 08:22; Admin Dose 10 MG; Start 04/24/17 at 21:00 Vancomycin HCl (Vancocin) 250 ml @ 125 mls/hr Q96H IVPB Last administered on 10:45; Admin Dose 125 MLS/HR; Start 04/25/17 at 11:00 MOOKIE BESS MD Apr 27, 2017 15:13
[2017-04-27] MEDS ORDERED: ACETAMINOPHEN 650MG/20.3ML CUP GTB PRN (16:00)
[2017-04-27] MEDS ORDERED: COLLAGENASE 30 GM TUBE TOP PRN (16:30)
[2017-04-27] MEDS: COLLAGENASE 30 GM TUBE TOP SCH (17:30)
[2017-04-27] MEDS: ATORVASTATIN 20 MG TAB GTB SCH (21:20)
[2017-04-28] VITALS (32 sets, daily range): BP systolic 101–142; BP diastolic 55–73; PULSE 68–78; RESP 18–66
[2017-04-28] MEDS: ALBUTEROL 18 GM INHALER INH SCH ×4 (01:36→20:14)
[2017-04-28] MEDS: LEVOTHYROXINE 88 MCG TAB GTB SCH (05:43)
[2017-04-28] MEDS: LANSOPRAZOLE 30 MG CAP GTB SCH (05:43)
[2017-04-28 07:16] LABS: BASOPHILS % 0.2 % (0.0-2.0); EOSINOPHILS # 0.3 10^3/ul (0.0-0.5); EOSINOPHILS % 3.1 % (0.0-7.0); HEMOGLOBIN 8.2 g/dl (14.0-18.0); LYMPHOCYTES # 1.3 10^3/ul (0.8-2.9); LYMPHOCYTES % 12.8 % (15.0-51.0); MEAN CORPUSCULAR HEMOGLOBIN 30.8 pg (29.0-33.0); MEAN CORPUSCULAR HGB CONC 31.5 g/dl (32.0-37.0); MEAN CORPUSCULAR VOLUME 97.7 fl (82.0-101.0); MONOCYTE # 0.8 10^3/ul (0.3-0.9); MONOCYTES % 7.4 % (0.0-11.0); NEUTROPHIL # 7.8 10^3/ul (1.6-7.5); NEUTROPHILS % 75.4 % (39.0-77.0); PLATELET COUNT 197 10^3/UL (140-415); RED BLOOD COUNT 2.66 10^6/ul (4.70-6.10); RED CELL DISTRIBUTION WIDTH 17.9 % (11.5-14.5); WHITE BLOOD COUNT 10.3 10^3/ul (4.8-10.8)
[2017-04-28 07:43] LABS: CALCIUM 8.1 mg/dl (8.4-10.2); CREATININE 3.28 mg/dl (0.61-1.24); MAGNESIUM 1.6 mg/dl (1.7-2.5); PHOSPHORUS 2.8 mg/dl (2.5-4.9); POTASSIUM 4.9 mmol/L (3.5-5.1)
--- NOTE | 2017-04-28 08:33 | PN ---
Date/Time of Note Date/Time of Note DATE: 04/28/17 TIME: 08:32 Assessment/Plan VTE Prophylaxis VTE Prophylaxis Intervention: other Lines/Catheters IV Catheter Type (from Nrs): PICC Line Central line still needed: Yes Urinary Cath still in place: No Assessment/Plan Chief Complaint/Hosp Course 1. Sepsis /pneumonia: improved. Patient's antibiotics to be managed as per IM/ and infectious disease 2. End-stage renal disease. -Continue intermittent hemodialysis - HD per renal 3. HX of extensive CAD; S/P [place], S/P CABG, S/P PCI ( most recently in Nov 2016) cont plavix. coreg 4 CHF / ischemic cardiomyopathy: cont betablocker and ARABELLA. inc as tolerated. ( hold ARABELLA for SBP < 100 only). 5. Ventilator dependent respiratory failure; s/p trach -Follow-up with pulmonary 6. sick sinus syndrome/ ischemic cardiomyopathy: -Status post pacemaker ICD placement -Continue medical management 7. Seizure disorder -will defer to IM. PT IS ON Keppra 8. Hypothyroidism -Continue Synthroid 9. Dysphagia status post PEG -Continue tube feeds Problems: Subjective 24 Hr Interval Summary Free Text/Dictation CARDIOLOGY FOLLOW UP NOTE: D/W staff and rhythm was reviewed. pt remains in NSR / A paced. he is s/p trach on vent. no reports of any chest pain or pressure. no reported bleeding . OBJECTIVE: General: S/P trach on vent. HEENT: NC/AT. pupils are equal. round. NECK: s/p trach. . no stridor. CV: RRR. systolic murmur; no gallop or rubs. PULM:+ diffuse rhonchi. GI: SOFT, NT, ND, no rebound or guarding Extremity: trace B/L LE edema. no clubbing. neuro: awake and alert, . Psych: calm and pleasant rectal: deferred : normal male chest: s/p L ICD, S/P R HD access Exam/Review of Systems Vital Signs Vitals Vital Signs Date Time Temp Pulse Resp B/P Pulse Ox O2 Delivery O2 Flow Rate FiO2 04/28/17 08:22 73 04/28/17 07:22 98.5 18 137/73 99 04/28/17 05:48 40 Intake and Output 04/27/17 04/27/17 04/28/17 15:00 23:00 07:00 Intake Total 50 ml 870 ml Balance 50 ml 870 ml Results Result Diagram: 04/28/17 0700 04/28/17 0700 Results 24 hrs Laboratory Tests Test 04/28/17 07:00 White Blood Count 10.3 Red Blood Count 2.66 L Hemoglobin 8.2 L Hematocrit 26.0 L Mean Corpuscular Volume 97.7 Mean Corpuscular Hemoglobin 30.8 Mean Corpuscular Hemoglobin Concent 31.5 L Red Cell Distribution Width 17.9 H Platelet Count 197 # Mean Platelet Volume 11.0 H Neutrophils % 75.4 Lymphocytes % 12.8 L Monocytes % 7.4 Eosinophils % 3.1 Basophils % 0.2 Nucleated Red Blood Cells % 0.0 Neutrophils # 7.8 H Lymphocytes # 1.3 Monocytes # 0.8 Eosinophils # 0.3 Basophils # 0.0 Nucleated Red Blood Cells # 0.0 Sodium Level 132 L Potassium Level 4.9 Chloride Level 94 L Carbon Dioxide Level 28 Anion Gap 15 Blood Urea Nitrogen 91 H Creatinine 3.28 H Glucose Level 129 Calcium Level 8.1 L Phosphorus Level 2.8 Magnesium Level 1.6 L Medications Medications Current Medications Atorvastatin Calcium (Lipitor) 20 mg QHS GTB Last administered on 04/27/17 21: 20; Admin Dose 20 MG; Start 04/23/17 at 21:00 Carvedilol (Coreg) 3.125 mg BID GTB Last administered on 04/26/17 09:04; Admin Dose 3.125 MG; Start 04/23/17 at 21:00 Chlorhexidine Gluconate (Peridex) 10 ml Q12 MM Last administered on 04/27/17 21:21; Admin Dose 10 ML; Start 04/23/17 at 21:00 Clonidine (Catapres) 0.1 mg Q4H PRN GTB SBP GREATER THAN 170; Start 04/23/17 at 12:00 Clopidogrel Bisulfate (plaVIX) 75 mg DAILY GTB Last administered on 04/27/17 08:21; Admin Dose 75 MG; Start 04/24/17 at 09:00 Diphenhydramine HCl (Benadryl Liquid Cup) 25 mg Q6H PRN GTB ITCHING Last administered on 04/26/17 02:41; Admin Dose 25 MG; Start 04/23/17 at 12:00 Acetaminophen/ Hydrocodone Bitart ([place] (5/325)) 1 tab Q8 PRN GTB SEVERE PAIN LEVEL 7-10; Start 04/23/17 at 12:00 Isosorbide Dinitrate (Isordil) 10 mg TID GTB Last administered on 04/27/17 13: 56; Admin Dose 10 MG; Start 04/23/17 at 13:00 Lactobacillus Acidophilus/ Rhamnosus (Culturelle) 1 cap DAILY GTB Last administered on 04/27/17 08:21; Admin Dose 1 CAP; Start 04/24/17 at 09:00 Lansoprazole (Prevacid) 30 mg DAILY@06 GTB Last administered on 04/28/17 05:43 ; Admin Dose 30 MG; Start 04/24/17 at 06:00 Levetiracetam (Keppra) 1,000 mg BID GTB Last administered on 04/27/17 21:20; Admin Dose 1,000 MG; Start 04/23/17 at 21:00 Levothyroxine Sodium (Synthroid) 88 mcg DAILY@06 GTB Last administered on 05:43; Admin Dose 88 MCG; Start 04/24/17 at 06:00 Lorazepam (Ativan) 0.5 mg Q4 PRN GTB ANXIETY Last administered on 04/26/17 02: 29; Admin Dose 0.5 MG; Start 04/23/17 at 12:00 Multivit/Ca Carb/ B Cmplx/FA/Prenat (Thelma-Bebeto) 1 tab DAILY GTB Last administered on 04/27/17 08:21; Admin Dose 1 TAB; Start 04/24/17 at 09:00 Multivitamins Therapeutic (Theragran) 1 tab DAILY GTB Last administered on 04/27 08:22; Admin Dose 1 TAB; Start 04/24/17 at 09:00 Sodium Phosphate (Neutra-Phos) 250 mg BID GTB Last administered on 04/27/17 21 :24; Admin Dose 250 MG; Start 04/23/17 at 21:00 Spironolactone (Aldactone) 25 mg DAILY GTB Last administered on 04/27/17 08:21 ; Admin Dose 25 MG; Start 04/24/17 at 09:00 Miscellaneous Information This patient jenkins... PRN PRN XX WOUND CARE; Start 04/23 at 18:30 Cefepime HCl (Maxipime 1gm/50 ml (Pmx)) 50 ml @ 100 mls/hr Q24H IVPB Last administered on 04/27/17 09:58; Admin Dose 100 MLS/HR; Start 04/24/17 at 10:00 Lisinopril 10 mg 10 mg BID GTB Last administered on 04/27/17 08:22; Admin Dose 10 MG; Start 04/24/17 at 21:00 Vancomycin HCl (Vancocin) 250 ml @ 125 mls/hr Q96H IVPB Last administered on 10:45; Admin Dose 125 MLS/HR; Start 04/25/17 at 11:00 Acetaminophen (Tylenol Liquid) 650 mg Q6H PRN GTB PAIN AND OR ELEVATED TEMP Last administered on 04/27/17 15:53; Admin Dose 650 MG; Start 04/27/17 at 16:00 Collagenase (Santyl) 1 applic DAILY TOP Last administered on 04/27/17 17:30; Admin Dose 1 APPLIC; Start 04/27/17 at 17:30 Collagenase (Santyl) 1 applic PRN PRN TOP WOUND CARE; Start 04/27/17 at 16:30 MOOKIE BESS MD Apr 28, 2017 08:33
[2017-04-28] MEDS: IPRATROPIUM (HFA) 12.9 GM INHALER INH SCH ×3 (08:45→20:14)
[2017-04-28] MEDS: SPIRONOLACTONE 25 MG TAB GTB SCH (09:00)
[2017-04-28] MEDS: ISOSORBIDE DINITRATE 10 MG TAB GTB SCH ×3 (09:00→20:49)
[2017-04-28] MEDS: LISINOPRIL 10 MG TAB GTB SCH ×2 (09:00→20:49)
[2017-04-28] MEDS: NEUTRA-PHOS 250 MG PACKET GTB SCH ×2 (09:12→20:47)
[2017-04-28] MEDS: MULTIVITAMINS THERAPEUTIC TAB GTB SCH (09:12)
[2017-04-28] MEDS: LACTOBACILLUS RHAMNOSUS CAP GTB SCH (09:12)
[2017-04-28] MEDS: LEVETIRACETAM 500 MG TAB GTB SCH ×2 (09:12→20:48)
[2017-04-28] MEDS: MULTIVIT/CA CARB/B CMPLX/FA TAB GTB SCH (09:12)
[2017-04-28] MEDS: CLOPIDOGREL 75 MG TAB GTB SCH (09:12)
[2017-04-28] MEDS: CHLORHEXIDINE GLUCONATE 15 ML UD CUP MM SCH ×2 (09:13→20:47)
[2017-04-28] MEDS: CEFEPIME 1GM/50 ML (PMX) 50 ML IVPB SCH (09:13)
[2017-04-28] MEDS: COLLAGENASE 30 GM TUBE TOP SCH (09:16)
--- NOTE | 2017-04-28 17:38 | CONS ---
Date/Time of Note Date/Time of Note DATE: 04/28/17 TIME: 17:14 Assessment/Plan Assessment/Plan Chief Complaint/Hosp Course INFECTIOUS DISEASES PROGRESS NOTE TOTAL ABX DAY #6 => Cefepime vancomycin 04/28/17 0700 04/28/17 0700 24H INTERVAL SUMMARY * 81 yo M, noncommunicative, vented, no fevers, VSS, looks comfortable * Sent to [facility] from [facility] for difficulty breathing, Afib w/RVR, sepsis, CHF, PNA -> 04/23/ Blood culture since admission remain negative * Hx of HCAP (+)PSAR @ [place] RESPIRATORY CULTURE Final Organism 1 PSEUDOMONAS AERUGINOSA QUANTITY 1+ P.AERUG M.I.C. RX --------- --- AMIKACIN 8 S AZTREONAM I CEFEPIME 8 S CEFTAZIDIME 4 S CIPROFLOXACIN 2 I GENTAMICIN 2 S IMIPENEM >=16 R LEVOFLOXACIN >=8 R TOBRAMYCIN <=1 S PIPERACILLIN/TAZOBACTAM 16 S PHYSICAL EXAMINATION: GENERAL 81 yo M, noncommunicative on the vent HEENT: Unremarkable . NECK: (+)Trach-> Vent CHEST: Rise symmetrical, without dyspnea on observation, course BS vent tubing CV: RRR ABDOMEN: Soft. 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 Sepsis w/leukocytosis on admission, Afib w/RVR 130's, CHF & PNA = RESOLVED * No fevers, WBC normalized, BCx (-), VSS 2. HCAP = Hx of PSAR 04/09/17 sputum * 04/23/17 CXR on admission: Interval improvement in airspace disease in the left lower lung. Persistent air space disease in the right mid and lower lung, not significantly changed. Small to moderate right pleural effusion, slightly increased compared to prior study. 3. Chronic respiratory failure-> (+)Trach 4. CV issues: CHF w/pulm edema per CXR 04/23/17; Afib; HX of extensive CAD; S/P AR, S/P CABG, S/P PCI ( most recently in Nov 2016) * 04/23/17 CXR: Mild cardiomegaly with persistent pulmonary vascular congestion and interstitial edema. 5. Anemia w/(-)FOBT x2 @ [facility] 6. Dysphasia-> peg 7. End-stage renal disease, hemodialysis dependent 8. Decubs (-)MRSA 04/07/17 @ [place] INVASIVES: : Trach, PICC right IJ permacath, permanent pacemaker CURRENT ABX: TOTAL ABX DAY # #6 => Cefepime, Vancomycin ID RECOMMENDATIONS/PLAN: 1. Sepsis has resolved & patient is stable 2. When cleared by PMD, patient may TNS to [place] vs SNF on current ABX to complete 14 day course -> Last day 05/16/17 . Problems: Consultation Date/Type/Reason Admit Date/Time Apr 23, 2017 at 09:56 Initial Consult Date 04/23/17 Type of Consultation: ID Exam/Review of Systems Vital Signs Vitals Vital Signs Date Time Temp Pulse Resp B/P Pulse Ox O2 Delivery O2 Flow Rate FiO2 04/28/17 16:37 70 04/28/17 15:16 97.7 18 126/58 96 04/28/17 13:38 40 Intake and Output 04/27/17 04/27/17 04/28/17 15:00 23:00 07:00 Intake Total 50 ml 870 ml Balance 50 ml 870 ml Results Result Diagram: 04/28/17 0700 04/28/17 0700 Results 24 hrs Laboratory Tests Test 04/28/17 07:00 White Blood Count 10.3 Red Blood Count 2.66 L Hemoglobin 8.2 L Hematocrit 26.0 L Mean Corpuscular Volume 97.7 Mean Corpuscular Hemoglobin 30.8 Mean Corpuscular Hemoglobin Concent 31.5 L Red Cell Distribution Width 17.9 H Platelet Count 197 # Mean Platelet Volume 11.0 H Neutrophils % 75.4 Lymphocytes % 12.8 L Monocytes % 7.4 Eosinophils % 3.1 Basophils % 0.2 Nucleated Red Blood Cells % 0.0 Neutrophils # 7.8 H Lymphocytes # 1.3 Monocytes # 0.8 Eosinophils # 0.3 Basophils # 0.0 Nucleated Red Blood Cells # 0.0 Sodium Level 132 L Potassium Level 4.9 Chloride Level 94 L Carbon Dioxide Level 28 Anion Gap 15 Blood Urea Nitrogen 91 H Creatinine 3.28 H Glucose Level 129 Calcium Level 8.1 L Phosphorus Level 2.8 Magnesium Level 1.6 L Medications Medications Current Medications Atorvastatin Calcium (Lipitor) 20 mg QHS GTB Last administered on 04/27/17 21: 20; Admin Dose 20 MG; Start 04/23/17 at 21:00 Carvedilol (Coreg) 3.125 mg BID GTB Last administered on 04/26/17 09:04; Admin Dose 3.125 MG; Start 04/23/17 at 21:00 Chlorhexidine Gluconate (Peridex) 10 ml Q12 MM Last administered on 04/28/17 09:13; Admin Dose 10 ML; Start 04/23/17 at 21:00 Clonidine (Catapres) 0.1 mg Q4H PRN GTB SBP GREATER THAN 170; Start 04/23/17 at 12:00 Clopidogrel Bisulfate (plaVIX) 75 mg DAILY GTB Last administered on 04/28/17 09:12; Admin Dose 75 MG; Start 04/24/17 at 09:00 Diphenhydramine HCl (Benadryl Liquid Cup) 25 mg Q6H PRN GTB ITCHING Last administered on 04/26/17 02:41; Admin Dose 25 MG; Start 04/23/17 at 12:00 Acetaminophen/ Hydrocodone Bitart ([place] (5/325)) 1 tab Q8 PRN GTB SEVERE PAIN LEVEL 7-10; Start 04/23/17 at 12:00 Isosorbide Dinitrate (Isordil) 10 mg TID GTB Last administered on 04/28/17 13: 03; Admin Dose 10 MG; Start 04/23/17 at 13:00 Lactobacillus Acidophilus/ Rhamnosus (Culturelle) 1 cap DAILY GTB Last administered on 04/28/17 09:12; Admin Dose 1 CAP; Start 04/24/17 at 09:00 Lansoprazole (Prevacid) 30 mg DAILY@06 GTB Last administered on 04/28/17 05:43 ; Admin Dose 30 MG; Start 04/24/17 at 06:00 Levetiracetam (Keppra) 1,000 mg BID GTB Last administered on 04/28/17 09:12; Admin Dose 1,000 MG; Start 04/23/17 at 21:00 Levothyroxine Sodium (Synthroid) 88 mcg DAILY@06 GTB Last administered on 05:43; Admin Dose 88 MCG; Start 04/24/17 at 06:00 Lorazepam (Ativan) 0.5 mg Q4 PRN GTB ANXIETY Last administered on 04/26/17 02: 29; Admin Dose 0.5 MG; Start 04/23/17 at 12:00 Multivit/Ca Carb/ B Cmplx/FA/Prenat (Thelma-Bebeto) 1 tab DAILY GTB Last administered on 04/28/17 09:12; Admin Dose 1 TAB; Start 04/24/17 at 09:00 Multivitamins Therapeutic (Theragran) 1 tab DAILY GTB Last administered on 04/28 09:12; Admin Dose 1 TAB; Start 04/24/17 at 09:00 Sodium Phosphate (Neutra-Phos) 250 mg BID GTB Last administered on 04/28/17 09 :12; Admin Dose 250 MG; Start 04/23/17 at 21:00 Spironolactone (Aldactone) 25 mg DAILY GTB Last administered on 04/27/17 08:21 ; Admin Dose 25 MG; Start 04/24/17 at 09:00 Miscellaneous Information This patient jenkins... PRN PRN XX WOUND CARE; Start 04/23 at 18:30 Cefepime HCl (Maxipime 1gm/50 ml (Pmx)) 50 ml @ 100 mls/hr Q24H IVPB Last administered on 04/28/17 09:13; Admin Dose 100 MLS/HR; Start 04/24/17 at 10:00 Lisinopril 10 mg 10 mg BID GTB Last administered on 04/27/17 08:22; Admin Dose 10 MG; Start 04/24/17 at 21:00 Vancomycin HCl (Vancocin) 250 ml @ 125 mls/hr Q96H IVPB Last administered on 10:45; Admin Dose 125 MLS/HR; Start 04/25/17 at 11:00 Acetaminophen (Tylenol Liquid) 650 mg Q6H PRN GTB PAIN AND OR ELEVATED TEMP Last administered on 04/27/17 15:53; Admin Dose 650 MG; Start 04/27/17 at 16:00 Collagenase (Santyl) 1 applic DAILY TOP Last administered on 04/28/17t 09:16; Admin Dose 1 APPLIC; Start 04/27/17 at 17:30 Collagenase (Santyl) 1 applic PRN PRN TOP WOUND CARE; Start 04/27/17 at 16:30 Miscellaneous Information (*Rx Drug Level Order Reminder*) VANCO TROUGH @ 1, 000 ON... ONCE ONCE XX ; Start 04/29/17 at 10:00; Stop 04/29/17 at 10:01 JESSICA MERCADO NP Apr 28, 2017 17:24
[2017-04-28] MEDS: ATORVASTATIN 20 MG TAB GTB SCH (20:48)
[2017-04-29] VITALS (24 sets, daily range): BP systolic 96–161; BP diastolic 49–73; PULSE 60–70; RESP 16–28
[2017-04-29] MEDS: IPRATROPIUM (HFA) 12.9 GM INHALER INH SCH ×4 (01:30→20:20)
[2017-04-29] MEDS: ALBUTEROL 18 GM INHALER INH SCH ×4 (01:31→20:20)
[2017-04-29] MEDS: LEVOTHYROXINE 88 MCG TAB GTB SCH (06:00)
[2017-04-29] MEDS: LANSOPRAZOLE 30 MG CAP GTB SCH (06:01)
--- NOTE | 2017-04-29 06:09 | CONS ---
DATE OF ADMISSION: 04/23/2017 DATE OF CONSULTATION: 04/23/2017 REFERRING PHYSICIAN: Marciano Darby DO REASON FOR CONSULTATION: Coronary artery disease, history of PCI, history of sick sinus syndrome, history of cardiomyopathy and congestive heart failure and ICD placement. HISTORY OF PRESENT ILLNESS: Dear Dr. Darby thank you for this referring. History was obtained from extensive review of the old chart, discussion with the physicians and the staff, and review of the old chart. The patient also very well known from previous admissions to the hospital. This is an 81-year-old, unfortunate gentleman with complicated medical history who was brought back from subacute/long-term due to increased respiratory failure and shortness of breath. The patient was admitted for further workup. The patient has extensive coronary artery disease and cardiac disorder for which Cardiology has been asked to evaluate. At this point he denies any chest pain or pressure. He is being dialyzed and the fluid is being removed. His saturations have improved with subsequent trach on the vent. PAST MEDICAL HISTORY: Significant for coronary artery disease, history of NH, serial coronary bypass grafts, multiple PCIs. Review of the old chart showed the most recent PCI in November using a drug eluting stent. History of ischemic cardiomyopathy with ejection fraction 30 percent as of January. History of sick sinus syndrome, status post ICD placement for both sick sinus, as well as his ischemic cardiomyopathy. History of congestive hear failure, history of renal failure on dialysis. History of respiratory failure, status post tracheostomy and vent dependence. History of recurrent rectal bleeding and anemia. Dysphagia status post PEG placement. SOCIAL HISTORY: The patient apparent smoked in the past. FAMILY HISTORY: No reported coronary artery. ALLERGIES: NO REPORTED ALLERGIES. MEDICATION: As per medication reconciliation and has been reviewed. REVIEW OF SYSTEMS: Unable to obtain, as above only that could be obtained. PHYSICAL EXAMINATION: VITAL SIGNS: Temperature 98.2, heart rate of 70, blood pressure 108/63, respiratory rate 20, and satting 99 percent. HEENT: Normocephalic, atraumatic, status post tracheostomy on the vent. CARDIOVASCULAR: Regular rate and rhythm. Systolic murmur. Left- sided pacemaker. Right-sided hemodialysis access in place. Denies any bleeding. PULMONARY: with more rhonchi diffuse mostly on the right side. GASTROINTESTINAL: Soft. , however, no rebound or guarding. EXTREMITIES: With no significant lower extremity edema. NEUROLOGIC: Awake, appears alert. Follows commands. Relatively calm. LABORATORY: WBC 19.3, hemoglobin 9.6, platelets 287. Sodium 140, potassium 4.7, BUN of 58, creatinine 2.78, and glucose of 161. Chest x-ray done today shows cardiomegaly, peripheral vascular congestion, interstitial edema, improvement in airspace disease in the left lower lung, persistent airspace in the right main and right lower lung with no significant change, mild to moderate pleural effusion, that is increased compared to before. Small left pleural effusion. ASSESSMENT AND PLAN: 1. Acute hypoxemic respiratory failure and chronic respiratory failure. 2. Possible pneumonia. 3. Congestive heart failure. 4. Chronic secondary systolic dysfunction. 5. Coronary artery disease. 6. History of myocardial infarction (NH). 7. History of coronary bypass. 8. History of percutaneous coronary intervention (PCI), most recent in November. 9. Severe anemia. 10. Pleural effusion. 11. Hypertension. 12. Ischemic cardiomyopathy. 13. Sick sinus syndrome. 14. History of pacemaker. 15. History of dyslipidemia. 16. Renal failure on dialysis now. RECOMMENDATIONS: We will continue with the Plavix. Full dialysis. Aldactone with be continued as tolerated. The statin will be continued. Coreg will be continued at the current dose and increased as needed and tolerated. We will continue with the ARABELLA inhibitor. Will be monitored on telemetry. Respiratory care and vent support as per Pulmonary will be continued. Antibiotic as per Internal Medicine and Pulmonary recommendation. Dialysis will be continued as per primary Renal team. We will continue to follow along with you. Thank you for this referral. Dictated By: Yony Guajardo MD /[email or web address]/olvin /Document#: [id number] CC: Marciano Darby DO;*End*
--- NOTE | 2017-04-29 08:26 | PN ---
Date/Time of Note Date/Time of Note DATE: 04/29/17 TIME: 08:24 Assessment/Plan VTE Prophylaxis VTE Prophylaxis Intervention: other Lines/Catheters IV Catheter Type (from Nrs): PICC Line Central line still needed: Yes Urinary Cath still in place: No Assessment/Plan Chief Complaint/Hosp Course 1. Sepsis /pneumonia: improved. Patient's antibiotics to be managed as per IM/ and infectious disease 2. End-stage renal disease. -Continue intermittent hemodialysis - HD per renal 3. HX of extensive CAD; S/P LA, S/P CABG, S/P PCI ( most recently in Nov 2016) cont plavix. coreg 4 CHF / ischemic cardiomyopathy/ NSVT: cont betablocker and ARABELLA. inc as tolerated. ( hold ARABELLA for SBP < 100 only). 5. Ventilator dependent respiratory failure; s/p trach -Follow-up with pulmonary 6. sick sinus syndrome/ ischemic cardiomyopathy/ NSVT: -Status post pacemaker /ICD placement -Continue medical management 7. Seizure disorder -will defer to IM. PT IS ON Keppra 8. Hypothyroidism -Continue Synthroid 9. Dysphagia status post PEG -Continue tube feeds Problems: Subjective 24 Hr Interval Summary Free Text/Dictation CARDIOLOGY FOLLOW UP NOTE: D/W staff and rhythm was reviewed. pt remains in NSR / A paced. pt with a short run of monomorphic NSVT he is s/p trach on vent. no reports of any chest pain or pressure. no reported bleeding . OBJECTIVE: General: S/P trach on vent. HEENT: NC/AT. pupils are equal. round. NECK: s/p trach. . no stridor. CV: RRR. systolic murmur; no gallop or rubs. PULM:+ diffuse rhonchi. GI: SOFT, NT, ND, no rebound or guarding Extremity: trace B/L LE edema. no clubbing. neuro: awake and alert, . Psych: calm and pleasant rectal: deferred : normal male chest: s/p L ICD, S/P R HD access Exam/Review of Systems Vital Signs Vitals Vital Signs Date Time Temp Pulse Resp B/P Pulse Ox O2 Delivery O2 Flow Rate FiO2 04/29/17 07:37 97.8 65 18 128/64 98 04/29/17 06:04 40 Intake and Output 04/28/17 04/28/17 04/29/17 15:00 23:00 07:00 Intake Total 400 ml 700 ml 1095 ml Output Total 2400 ml Balance -2000 ml 700 ml 1095 ml Results Result Diagram: 04/28/17 0704/28/17 0700 Medications Medications Current Medications Atorvastatin Calcium (Lipitor) 20 mg QHS GTB Last administered on 04/28/17 20: 48; Admin Dose 20 MG; Start 04/23/17 at 21:00 Carvedilol (Coreg) 3.125 mg BID GTB Last administered on 04/28/17 20:50; Admin Dose 3.125 MG; Start 04/23/17 at 21:00 Chlorhexidine Gluconate (Peridex) 10 ml Q12 MM Last administered on 04/28/17 20:47; Admin Dose 10 ML; Start 04/23/17 at 21:00 Clonidine (Catapres) 0.1 mg Q4H PRN GTB SBP GREATER THAN 170; Start 04/23/17 at 12:00 Clopidogrel Bisulfate (plaVIX) 75 mg DAILY GTB Last administered on 04/28/17 09:12; Admin Dose 75 MG; Start 04/24/17 at 09:00 Diphenhydramine HCl (Benadryl Liquid Cup) 25 mg Q6H PRN GTB ITCHING Last administered on 04/26/17 02:41; Admin Dose 25 MG; Start 04/23/17 at 12:00 Acetaminophen/ Hydrocodone Bitart ([place] (5/325)) 1 tab Q8 PRN GTB SEVERE PAIN LEVEL 7-10; Start 04/23/17 at 12:00 Isosorbide Dinitrate (Isordil) 10 mg TID GTB Last administered on 04/28/17 20: 49; Admin Dose 10 MG; Start 04/23/17 at 13:00 Lactobacillus Acidophilus/ Rhamnosus (Culturelle) 1 cap DAILY GTB Last administered on 04/28/17 09:12; Admin Dose 1 CAP; Start 04/24/17 at 09:00 Lansoprazole (Prevacid) 30 mg DAILY@06 GTB Last administered on 04/29/17 06:01 ; Admin Dose 30 MG; Start 04/24/17 at 06:00 Levetiracetam (Keppra) 1,000 mg BID GTB Last administered on 04/28/17 20:48; Admin Dose 1,000 MG; Start 04/23/17 at 21:00 Levothyroxine Sodium (Synthroid) 88 mcg DAILY@06 GTB Last administered on 06:00; Admin Dose 88 MCG; Start 04/24/17 at 06:00 Lorazepam (Ativan) 0.5 mg Q4 PRN GTB ANXIETY Last administered on 04/26/17 02: 29; Admin Dose 0.5 MG; Start 04/23/17 at 12:00 Multivit/Ca Carb/ B Cmplx/FA/Prenat (Thelma-Bebeto) 1 tab DAILY GTB Last administered on 04/28/17 09:12; Admin Dose 1 TAB; Start 04/24/17 at 09:00 Multivitamins Therapeutic (Theragran) 1 tab DAILY GTB Last administered on 04/28 09:12; Admin Dose 1 TAB; Start 04/24/17 at 09:00 Sodium Phosphate (Neutra-Phos) 250 mg BID GTB Last administered on 04/28/17 20 :47; Admin Dose 250 MG; Start 04/23/17 at 21:00 Spironolactone (Aldactone) 25 mg DAILY GTB Last administered on 04/27/17 08:21 ; Admin Dose 25 MG; Start 04/24/17 at 09:00 Miscellaneous Information This patient jenkins... PRN PRN XX WOUND CARE; Start 04/23 at 18:30 Cefepime HCl (Maxipime 1gm/50 ml (Pmx)) 50 ml @ 100 mls/hr Q24H IVPB Last administered on 04/28/17 09:13; Admin Dose 100 MLS/HR; Start 04/24/17 at 10:00 Lisinopril 10 mg 10 mg BID GTB Last administered on 04/28/17 20:49; Admin Dose 10 MG; Start 04/24/17 at 21:00 Vancomycin HCl (Vancocin) 250 ml @ 125 mls/hr Q96H IVPB Last administered on 10:45; Admin Dose 125 MLS/HR; Start 04/25/17 at 11:00 Acetaminophen (Tylenol Liquid) 650 mg Q6H PRN GTB PAIN AND OR ELEVATED TEMP Last administered on 04/27/17 15:53; Admin Dose 650 MG; Start 04/27/17 at 16:00 Collagenase (Santyl) 1 applic DAILY TOP Last administered on 04/28/17 09:16; Admin Dose 1 APPLIC; Start 04/27/17 at 17:30 Collagenase (Santyl) 1 applic PRN PRN TOP WOUND CARE; Start 04/27/17 at 16:30 Miscellaneous Information (*Rx Drug Level Order Reminder*) VANCO TROUGH @ 1, 000 ON... ONCE ONCE XX ; Start 04/29/17 at 10:00; Stop 04/29/17 at 10:01 MOOKIE BESS MD Apr 29, 2017 08:26
[2017-04-29] MEDS ORDERED: SCOPOLAMINE 1.5 MG PATCH TRANSDERM SCH (09:00)
--- NOTE | 2017-04-29 09:08 | PN ---
Date/Time of Note Date/Time of Note DATE: 04/29/17 TIME: 09:05 Assessment/Plan Lines/Catheters IV Catheter Type (from Nrs): PICC Line Urinary Cath still in place: No Assessment/Plan Chief Complaint/Hosp Course 1. Sepsis secondary to healthcare associated pneumonia Patient's on broad-spectrum antibiotics tolerating well Blood cultures have been reviewed Continue to monitor, follow-up with infectious disease 2. End-stage renal disease. -Continue intermittent hemodialysis - HD today 3. Mineral bone disorder -Monitor calcium phosphorus levels 4 volume overload secondary to CHF end-stage renal disease -Continue ultrafiltration with dialysis 5. Ventilator dependent respiratory failure -Vent settings, ABG reviewed -Patient having copious amount of secretions We will start scopolamine patch -Follow-up with pulmonary 6. Coronary disease,/cardiomyopathy -Status post pacemaker ICD placement -Continue medical management -Follow-up with cardiology 7. Seizure disorder -Continue Keppra 8. Hypothyroidism -Continue Synthroid 9. Dysphagia status post PEG -Continue tube feeds 10. Acute on chronic encephalotomy -Etiology toxic metabolic -Continue to monitor 11. Hypertension continue current blood pressure regimen 12. GI/DVT prophylaxis 13. Hypokalemia hypomagnesemia/hyponatremia -Improved with HD Problems: Subjective 24 Hr Interval Summary Free Text/Dictation Patient seen and examined Continues to have copious amount of secretions Remained stable on ventilatory settings Continues on IV antibiotics Discussed case with patient's brother yesterday Exam/Review of Systems Vital Signs Vitals Vital Signs Date Time Temp Pulse Resp B/P Pulse Ox O2 Delivery O2 Flow Rate FiO2 04/29/17 07:37 97.8 65 18 128/64 98 04/29/17 06:04 40 Intake and Output 04/28/17 04/28/17 04/29/17 15:00 23:00 07:00 Intake Total 400 ml 700 ml 1095 ml Output Total 2400 ml Balance -2000 ml 700 ml 1095 ml Exam HEENT: Head is normocephalic. NECK: Supple. HEART: Regular rate LUNGS: Show diminished breath sounds at base. ABDOMEN: Soft, nontender to palpation without rebound or guarding. EXTREMITIES: Negative for clubbing, cyanosis. DERMATOLOGIC: No rashes. MUSCULOSKELETAL: No joint effusions, NEUROLOGIC: No change in exam. Results Result Diagram: 04/28/17 0700 04/28/17 07 Medications Medications Current Medications Atorvastatin Calcium (Lipitor) 20 mg QHS GTB Last administered on 04/28/17 20: 48; Admin Dose 20 MG; Start 04/23/17 at 21:00 Carvedilol (Coreg) 3.125 mg BID GTB Last administered on 04/28/17 20:50; Admin Dose 3.125 MG; Start 04/23/17 at 21:00 Chlorhexidine Gluconate (Peridex) 10 ml Q12 MM Last administered on 04/28/17 20:47; Admin Dose 10 ML; Start 04/23/17 at 21:00 Clonidine (Catapres) 0.1 mg Q4H PRN GTB SBP GREATER THAN 170; Start 04/23/17 at 12:00 Clopidogrel Bisulfate (plaVIX) 75 mg DAILY GTB Last administered on 04/28/17 09:12; Admin Dose 75 MG; Start 04/24/17 at 09:00 Diphenhydramine HCl (Benadryl Liquid Cup) 25 mg Q6H PRN GTB ITCHING Last administered on 04/26/17 02:41; Admin Dose 25 MG; Start 04/23/17 at 12:00 Acetaminophen/ Hydrocodone Bitart ([place] (5/325)) 1 tab Q8 PRN GTB SEVERE PAIN LEVEL 7-10; Start 04/23/17 at 12:00 Isosorbide Dinitrate (Isordil) 10 mg TID GTB Last administered on 04/28/17 20: 49; Admin Dose 10 MG; Start 04/23/17 at 13:00 Lactobacillus Acidophilus/ Rhamnosus (Culturelle) 1 cap DAILY GTB Last administered on 04/28/17 09:12; Admin Dose 1 CAP; Start 04/24/17 at 09:00 Lansoprazole (Prevacid) 30 mg DAILY@06 GTB Last administered on 04/29/17 06:01 ; Admin Dose 30 MG; Start 04/24/17 at 06:00 Levetiracetam (Keppra) 1,000 mg BID GTB Last administered on 04/28/17 20:48; Admin Dose 1,000 MG; Start 04/23/17 at 21:00 Levothyroxine Sodium (Synthroid) 88 mcg DAILY@06 GTB Last administered on 06:00; Admin Dose 88 MCG; Start 04/24/17 at 06:00 Lorazepam (Ativan) 0.5 mg Q4 PRN GTB ANXIETY Last administered on 04/26/17 02: 29; Admin Dose 0.5 MG; Start 04/23/17 at 12:00 Multivit/Ca Carb/ B Cmplx/FA/Prenat (Thelma-Bebeto) 1 tab DAILY GTB Last administered on 04/28/17 09:12; Admin Dose 1 TAB; Start 04/24/17 at 09:00 Multivitamins Therapeutic (Theragran) 1 tab DAILY GTB Last administered on 04/28 09:12; Admin Dose 1 TAB; Start 04/24/17 at 09:00 Sodium Phosphate (Neutra-Phos) 250 mg BID GTB Last administered on 04/28/17 20 :47; Admin Dose 250 MG; Start 04/23/17 at 21:00 Spironolactone (Aldactone) 25 mg DAILY GTB Last administered on 04/27/17 08:21 ; Admin Dose 25 MG; Start 04/24/17 at 09:00 Miscellaneous Information This patient jenkins... PRN PRN XX WOUND CARE; Start 04/23 at 18:30 Cefepime HCl (Maxipime 1gm/50 ml (Pmx)) 50 ml @ 100 mls/hr Q24H IVPB Last administered on 04/28/17 09:13; Admin Dose 100 MLS/HR; Start 04/24/17 at 10:00 Lisinopril 10 mg 10 mg BID GTB Last administered on 04/28/17 20:49; Admin Dose 10 MG; Start 04/24/17 at 21:00 Vancomycin HCl (Vancocin) 250 ml @ 125 mls/hr Q96H IVPB Last administered on 10:45; Admin Dose 125 MLS/HR; Start 04/25/17 at 11:00 Acetaminophen (Tylenol Liquid) 650 mg Q6H PRN GTB PAIN AND OR ELEVATED TEMP Last administered on 04/27/17 15:53; Admin Dose 650 MG; Start 04/27/17 at 16:00 Collagenase (Santyl) 1 applic DAILY TOP Last administered on 04/28/17 09:16; Admin Dose 1 APPLIC; Start 04/27/17 at 17:30 Collagenase (Santyl) 1 applic PRN PRN TOP WOUND CARE; Start 04/27/17 at 16:30 Miscellaneous Information (*Rx Drug Level Order Reminder*) VANCO TROUGH @ 1, 000 ON... ONCE ONCE XX ; Start 04/29/17 at 10:00; Stop 04/29/17 at 10:01 ANNABELLE MENDOZA DO Apr 29, 2017 09:08
[2017-04-29] MEDS: CLOPIDOGREL 75 MG TAB GTB SCH (09:54)
[2017-04-29] MEDS: MULTIVITAMINS THERAPEUTIC TAB GTB SCH (09:54)
[2017-04-29] MEDS: SPIRONOLACTONE 25 MG TAB GTB SCH (09:55)
[2017-04-29] MEDS: LACTOBACILLUS RHAMNOSUS CAP GTB SCH (09:55)
[2017-04-29] MEDS: MULTIVIT/CA CARB/B CMPLX/FA TAB GTB SCH (09:55)
[2017-04-29] MEDS: ISOSORBIDE DINITRATE 10 MG TAB GTB SCH ×3 (09:56→21:25)
[2017-04-29] MEDS: LISINOPRIL 10 MG TAB GTB SCH ×2 (09:57→21:26)
[2017-04-29] MEDS: NEUTRA-PHOS 250 MG PACKET GTB SCH ×2 (09:58→21:19)
[2017-04-29] MEDS: LEVETIRACETAM 500 MG TAB GTB SCH ×2 (10:00→21:00)
[2017-04-29] MEDS: CEFEPIME 1GM/50 ML (PMX) 50 ML IVPB SCH (10:00)
[2017-04-29] MEDS: CHLORHEXIDINE GLUCONATE 15 ML UD CUP MM SCH ×2 (10:54→21:19)
[2017-04-29] MEDS: COLLAGENASE 30 GM TUBE TOP SCH (11:19)
--- NOTE | 2017-04-29 14:40 | PN ---
DATE: 04/27/2017 SUBJECTIVE DATA: The patient is stable. No events overnight. The patient had a low-grade fever. OBJECTIVE DATA: VITAL SIGNS: Blood pressure 116/56, respirations 20, pulse 71, temperature 100. HEENT: Head is normocephalic. NECK: Supple. HEART: Regular rate. LUNGS: Diminished breath sounds at the base. ABDOMEN: Soft, nontender to palpation. No rebound or guarding. EXTREMITIES: Negative for clubbing or cyanosis. No edema. DERMATOLOGIC: No rashes. MUSCULOSKELETAL: No joint effusions. NEUROLOGIC: No change in exam. MEDICATIONS: Reviewed. LABORATORY AND DIAGNOSTIC DATA: Reviewed. No new labs. ASSESSMENT AND PLAN: 1. Sepsis secondary to healthcare-associated pneumonia. The patient has been on antibiotics, tolerating well. Continue. Follow up with infectious disease. 2. End-stage renal disease. Plan for hemodialysis tomorrow. 3. Mineral bone disorder. Will monitor calcium and phosphorus levels. 4. Volume overload secondary to congestive heart failure and end-stage renal disease. Continue ultrafiltration dialysis. 5. Ventilator-dependent respiratory failure. reviewed. ABGs have been reviewed. Follow up with pulmonary. 6. Coronary artery disease with cardiomyopathy status post ICD placement. Continue medical management. 7. Seizure disorder. Continue Keppra. 8. Hypothyroidism. Continue Synthroid. 9. Dysphagia status post PEG. Continue tube feeding. 10. Acute on chronic encephalopathy. Etiology is toxic metabolic. Continue to monitor. 11. Hypertension. Continue current blood pressure regimen. Dictated By: Marciano Darby DO /[email or web address]/ec /Document#: [id number]
--- NOTE | 2017-04-29 15:29 | PN ---
DATE: 04/28/2017 SUBJECTIVE DATA: The patient is stable. No events overnight. The patient is having hemodialysis and tolerating well. OBJECTIVE DATA: VITAL SIGNS: Blood pressure 137/73, respirations 18, pulse 77, temperature 98.5. HEENT: Head is normocephalic. NECK: Supple. HEART: Regular rate. LUNGS: Diminished breath sounds at the base. ABDOMEN: Soft, nontender to palpation. No rebound or guarding. EXTREMITIES: Negative for clubbing or cyanosis. No edema. DERMATOLOGIC: No rashes. MUSCULOSKELETAL: No joint effusions. NEUROLOGIC: No change in exam. MEDICATIONS: Reviewed. LABORATORY AND DIAGNOSTIC DATA: Sodium 132, potassium 4.9, BUN 91, creatinine 3.28. White count 10.3, hemoglobin 8.2, hematocrit 26, platelet count 197,000. ASSESSMENT AND PLAN: 1. Sepsis secondary to healthcare-associated pneumonia. The patient is on broad-spectrum antibiotics, tolerating well. Continue current antibiotic regimen. 2. End-stage renal disease. Continue intermittent hemodialysis. 3. Mineral bone disorder. Continue to monitor calcium and phosphorus levels. 4. Volume overload secondary to congestive heart failure. Continue ultrafiltration dialysis. 5. Ventilatory-dependent respiratory failure. Vent settings have been reviewed. ABG has been reviewed. Continue to monitor. Follow up with pulmonary. 6. Coronary artery disease, cardiomyopathy. The patient status post ICD placement. Continue current medical management. Follow up with cardiology. 7. Seizure disorder. Continue Keppra. 8. Hypothyroidism. Continue Synthroid. 9. Dysphagia status post PEG. 10. Acute on chronic encephalopathy. Etiology is toxic metabolic. Stable. 11. Hypertension. Continue current blood pressure regimen. Dictated By: Marciano Darby DO /[email or web address]/ec /Document#: [id number]
[2017-04-29] MEDS ORDERED: ALTEPLASE (CATHFLO) 2 MG INJ CATHETER PRN (17:00)
--- NOTE | 2017-04-29 19:28 | CONS ---
Date/Time of Note Date/Time of Note DATE: 04/29/17 TIME: 19:26 Assessment/Plan Assessment/Plan Chief Complaint/Hosp Course INFECTIOUS DISEASES PROGRESS NOTE TOTAL ABX DAY #7 => Cefepime vancomycin 24H INTERVAL SUMMARY * No new issues, stable, noncommunicative on Vent * Sent to [facility] from [facility] for difficulty breathing, Afib w/RVR, sepsis, CHF, PNA -> 04/23/ Blood culture since admission remain negative PHYSICAL EXAMINATION: GENERAL 81 yo M, noncommunicative on the vent HEENT: Unremarkable . NECK: (+)Trach-> Vent CHEST: Rise symmetrical, without dyspnea on observation, course BS vent tubing CV: RRR ABDOMEN: Soft. 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 Sepsis w/leukocytosis on admission, Afib w/RVR 130's, CHF & PNA = RESOLVED * No fevers, WBC normalized, BCx (-), VSS 2. HCAP = Hx of PSAR 04/09/17 sputum * 04/23/17 CXR on admission: Interval improvement in airspace disease in the left lower lung. Persistent air space disease in the right mid and lower lung, not significantly changed. Small to moderate right pleural effusion, slightly increased compared to prior study. 3. Chronic respiratory failure-> (+)Trach 4. CV issues: CHF w/pulm edema per CXR 04/23/17; Afib; HX of extensive CAD; S/P HI, S/P CABG, S/P PCI ( most recently in Nov 2016) * 04/23/17 CXR: Mild cardiomegaly with persistent pulmonary vascular congestion and interstitial edema. 5. Anemia w/(-)FOBT x2 @ [facility] 6. Dysphasia-> peg 7. End-stage renal disease, hemodialysis dependent 8. Decubs (-)MRSA 04/07/17 @ [place] INVASIVES: : Trach, PICC right IJ permacath, permanent pacemaker CURRENT ABX: TOTAL ABX DAY #7 => Cefepime, Vancomycin ID RECOMMENDATIONS/PLAN: 1. Sepsis has resolved & patient is stable 2. When cleared by PMD, patient may TNS to [place] vs [facility] on current ABX to complete 14 day course -> Last day 05/06/17 . Problems: Consultation Date/Type/Reason Admit Date/Time Apr 23, 2017 at 09:56 Initial Consult Date 04/23/17 Type of Consultation: ID Exam/Review of Systems Vital Signs Vitals Vital Signs Date Time Temp Pulse Resp B/P Pulse Ox O2 Delivery O2 Flow Rate FiO2 04/29/17 17:35 65 22 98 40 04/29/17 15:08 97.8 115/59 Intake and Output 04/28/17 04/28/17 04/29/17 14:59 22:59 06:59 Intake Total 400 ml 700 ml 1095 ml Output Total 2400 ml Balance -2000 ml 700 ml 1095 ml Results Result Diagram: 04/28/17 0700 04/28/17 0700 Results 24 hrs Laboratory Tests Test 04/29/17 09:57 Vancomycin Level Trough 17.2 Medications Medications Current Medications Atorvastatin Calcium (Lipitor) 20 mg QHS GTB Last administered on 04/28/17 20: 48; Admin Dose 20 MG; Start 04/23/17 at 21:00 Carvedilol (Coreg) 3.125 mg BID GTB Last administered on 04/29/17 09:58; Admin Dose 3.125 MG; Start 04/23/17 at 21:00 Chlorhexidine Gluconate (Peridex) 10 ml Q12 MM Last administered on 04/29/17 10:54; Admin Dose 10 ML; Start 04/23/17 at 21:00 Clonidine (Catapres) 0.1 mg Q4H PRN GTB SBP GREATER THAN 170; Start 04/23/17 at 12:00 Clopidogrel Bisulfate (plaVIX) 75 mg DAILY GTB Last administered on 04/29/17 09:54; Admin Dose 75 MG; Start 04/24/17 at 09:00 Diphenhydramine HCl (Benadryl Liquid Cup) 25 mg Q6H PRN GTB ITCHING Last administered on 04/26/17 02:41; Admin Dose 25 MG; Start 04/23/17 at 12:00 Acetaminophen/ Hydrocodone Bitart ([place] (5/325)) 1 tab Q8 PRN GTB SEVERE PAIN LEVEL 7-10 Last administered on 04/29/17 12:44; Admin Dose 1 TAB; Start at 12:00 Isosorbide Dinitrate (Isordil) 10 mg TID GTB Last administered on 04/29/17 12: 21; Admin Dose 10 MG; Start 04/23/17 at 13:00 Lactobacillus Acidophilus/ Rhamnosus (Culturelle) 1 cap DAILY GTB Last administered on 04/29/17 09:55; Admin Dose 1 CAP; Start 04/24/17 at 09:00 Lansoprazole (Prevacid) 30 mg DAILY@06 GTB Last administered on 04/29/17 06:01 ; Admin Dose 30 MG; Start 04/24/17 at 06:00 Levetiracetam (Keppra) 1,000 mg BID GTB Last administered on 04/29/17 10:00; Admin Dose 1,000 MG; Start 04/23/17 at 21:00 Levothyroxine Sodium (Synthroid) 88 mcg DAILY@06 GTB Last administered on 06:00; Admin Dose 88 MCG; Start 04/24/17 at 06:00 Lorazepam (Ativan) 0.5 mg Q4 PRN GTB ANXIETY Last administered on 04/26/17 02: 29; Admin Dose 0.5 MG; Start 04/23/17 at 12:00 Multivit/Ca Carb/ B Cmplx/FA/Prenat (Thelma-Bebeto) 1 tab DAILY GTB Last administered on 04/29/17 09:55; Admin Dose 1 TAB; Start 04/24/17 at 09:00 Multivitamins Therapeutic (Theragran) 1 tab DAILY GTB Last administered on 04/29 09:54; Admin Dose 1 TAB; Start 04/24/17 at 09:00 Sodium Phosphate (Neutra-Phos) 250 mg BID GTB Last administered on 04/29/17 09 :58; Admin Dose 250 MG; Start 04/23/17 at 21:00 Spironolactone (Aldactone) 25 mg DAILY GTB Last administered on 04/29/17 09:55 ; Admin Dose 25 MG; Start 04/24/17 at 09:00 Miscellaneous Information This patient jenkins... PRN PRN XX WOUND CARE; Start 04/23 at 18:30 Cefepime HCl (Maxipime 1gm/50 ml (Pmx)) 50 ml @ 100 mls/hr Q24H IVPB Last administered on 04/29/17 10:00; Admin Dose 100 MLS/HR; Start 04/24/17 at 10:00 Lisinopril (Zestril) 10 mg BID GTB Last administered on 04/29/17 09:57; Admin Dose 10 MG; Start 04/24/17 at 21:00 Acetaminophen (Tylenol Liquid) 650 mg Q6H PRN GTB PAIN AND OR ELEVATED TEMP Last administered on 04/27/17 15:53; Admin Dose 650 MG; Start 04/27/17 at 16:00 Collagenase (Santyl) 1 applic DAILY TOP Last administered on 04/29/17 11:19; Admin Dose 1 APPLIC; Start 04/27/17 at 17:30 Collagenase (Santyl) 1 applic PRN PRN TOP WOUND CARE; Start 04/27/17 at 16:30 Scopolamine 1 patch 1 patch Q72H TRANSDERM Last administered on 04/29/17 12:16 ; Admin Dose 1 PATCH; Start 04/29/17 at 09:00 Vancomycin HCl (Vancocin) 250 ml @ 125 mls/hr Q5D IVPB ; Start 04/30/17 at 11: 00 JESSICA MERCADO NP Apr 29, 2017 19:28
[2017-04-29] MEDS: ATORVASTATIN 20 MG TAB GTB SCH (21:19)
[2017-04-29] MEDS: LEVETIRACETAM (100 MG/ML) 5ML CUP GTB SCH (21:31)
[2017-04-30] VITALS (24 sets, daily range): BP systolic 113–149; BP diastolic 55–79; PULSE 58–80; RESP 18–34
[2017-04-30] MEDS: ALBUTEROL 18 GM INHALER INH SCH ×3 (01:36→13:24)
[2017-04-30] MEDS: IPRATROPIUM (HFA) 12.9 GM INHALER INH SCH ×3 (01:36→13:25)
[2017-04-30] MEDS: LORAZEPAM 0.5 MG TAB GTB PRN (05:26)
[2017-04-30] MEDS: LANSOPRAZOLE 30 MG CAP GTB SCH (05:27)
[2017-04-30] MEDS: LEVOTHYROXINE 88 MCG TAB GTB SCH (05:28)
[2017-04-30 06:48] LABS: BASOPHIL # 0.1 10^3/ul (0.0-0.1); BASOPHILS % 0.5 % (0.0-2.0); EOSINOPHILS # 0.3 10^3/ul (0.0-0.5); EOSINOPHILS % 3.3 % (0.0-7.0); HEMATOCRIT 25.5 % (42.0-52.0); LYMPHOCYTES # 1.6 10^3/ul (0.8-2.9); LYMPHOCYTES % 16.5 % (15.0-51.0); MEAN CORPUSCULAR HGB CONC 31.4 g/dl (32.0-37.0); MEAN CORPUSCULAR VOLUME 95.5 fl (82.0-101.0); MEAN PLATELET VOLUME 12.4 fl (7.4-10.4); MONOCYTE # 0.8 10^3/ul (0.3-0.9); MONOCYTES % 7.8 % (0.0-11.0); NEUTROPHIL # 6.8 10^3/ul (1.6-7.5); NEUTROPHILS % 70.4 % (39.0-77.0); PLATELET COUNT 194 10^3/UL (140-415); RED BLOOD COUNT 2.67 10^6/ul (4.70-6.10); RED CELL DISTRIBUTION WIDTH 17.3 % (11.5-14.5); WHITE BLOOD COUNT 9.7 10^3/ul (4.8-10.8)
[2017-04-30 07:42] LABS: CALCIUM 8.4 mg/dl (8.4-10.2); CREATININE 3.39 mg/dl (0.61-1.24); MAGNESIUM 1.6 mg/dl (1.7-2.5); PHOSPHORUS 4.2 mg/dl (2.5-4.9); POTASSIUM 5.2 mmol/L (3.5-5.1)
[2017-04-30] MEDS: CHLORHEXIDINE GLUCONATE 15 ML UD CUP MM SCH (08:42)
[2017-04-30] MEDS ORDERED: VANCOMYCIN 1 GM in NS 250 ML IVPB SCH (11:00)
[2017-04-30] MEDS: CEFEPIME 1GM/50 ML (PMX) 50 ML IVPB SCH (11:06)
[2017-04-30] MEDS: NEUTRA-PHOS 250 MG PACKET GTB SCH (11:38)
[2017-04-30] MEDS: MULTIVITAMINS THERAPEUTIC TAB GTB SCH (11:38)
[2017-04-30] MEDS: LEVETIRACETAM (100 MG/ML) 5ML CUP GTB SCH (11:38)
[2017-04-30] MEDS: CLOPIDOGREL 75 MG TAB GTB SCH (11:38)
[2017-04-30] MEDS: MULTIVIT/CA CARB/B CMPLX/FA TAB GTB SCH (11:38)
[2017-04-30] MEDS: SPIRONOLACTONE 25 MG TAB GTB SCH (11:41)
[2017-04-30] MEDS: ISOSORBIDE DINITRATE 10 MG TAB GTB SCH ×2 (11:41→13:00)
[2017-04-30] MEDS: LISINOPRIL 10 MG TAB GTB SCH (11:42)
[2017-04-30] MEDS: COLLAGENASE 30 GM TUBE TOP SCH (11:43)
[2017-04-30] MEDS: LACTOBACILLUS RHAMNOSUS CAP GTB SCH (11:45)
--- NOTE | 2017-04-30 13:02 | PN ---
DATE: 04/30/2017 SUBJECTIVE DATA: The patient is serious but stable condition. No other events noted. The patient has been to hemodialysis today. OBJECTIVE DATA: Blood pressure 134/62. Respirations 18. Pulse 86. Temperature 97.8. HEENT: Head is normocephalic. Neck supple. Heart: Regular rate. Lungs show diminished breath sounds at the base. Abdomen soft, nontender on palpation. No guarding. Extremities are negative for clubbing, cyanosis. No edema. Dermatologic: No rashes. Musculoskeletal: No joint effusion. The patient is neurologically unchanged. MEDICATIONS: Medications reviewed. LABORATORY AND DIAGNOSTIC DATA: White count 9.7, hemoglobin 9.0, platelet count 194. Sodium 134, potassium 5.2, chloride 91, BUN 109, creatinine 3.39. ASSESSMENT AND PLAN: 1. Sepsis. Secondary hypotension. 2. Pneumonia. The patient is on broad-spectrum antibiotics. Tolerating well. Continue. Cultures have been reviewed. 3. End-stage renal disease. Continue intermittent dialysis. Plan for dialysis today. 4. Metabolic bone disorder. Monitor calcium and phosphorus levels. 5. . 6. Congestive heart failure. Continue ultrafiltration on dialysis. 7. Ventilator-dependent respiratory failure. Vent settings reviewed. ABGs reviewed. Continue to monitor. Follow by Pulmonary. 8. Coronary artery disease. Cardiomyopathy. The patient is status post AICD placement. Continue medical management. 9. Seizure disorder, continue Keppra. 10. Hypothyroidism. Continue Synthroid. 11. Dysphagia. Continue tube feeding. 12. encephalopathy. 13. Hypertension. Continue blood pressure management. 14. GI and DVT prophylaxis. 15. Electrolyte abnormalities. Continue to monitor and replete. Dictated By: Marciano Darby DO /[email or web address] /Document#: [id number]
--- NOTE | 2017-04-30 15:49 | CONS ---
Date/Time of Note Date/Time of Note DATE: 04/30/17 TIME: 15:48 Consult Date/Type/Reason Admit Date/Time Apr 23, 2017 at 09:56 Initial Consult Date 04/23/17 Type of Consultation: Pulmonary Subjective Patient comfortable this morning no acute distress. Objective Vital Signs Date Time Temp Pulse Resp B/P Pulse Ox O2 Delivery O2 Flow Rate FiO2 04/30/17 15:38 98.5 62 18 142/64 100 04/30/17 13:28 40 Intake and Output 04/29/17 04/29/17 04/30/17 15:00 23:00 07:00 Intake Total 900 ml 795 ml Balance 900 ml 795 ml Exam PHYSICAL EXAMINATION GENERAL: Elderly gentleman, on mechanical ventilation, opens eyes and appears somewhat agitated VITAL SIGNS: see below. HEENT: Pupils equal, round, and reactive to light. Tracheostomy site clean and intact. CARDIAC: S1, S2, 1/6 systolic ejection murmur CHEST: Diminished air entry bilaterally. ABDOMEN: Mildly distended. Bowel sounds present no guarding or rebound EXTREMITIES: No cyanosis, clubbing edema +1 NEUROLOGIC: Generalized weakness Results/Medications Result Diagram: 04/30/17 0612 04/30/17 0612 Results 24 hrs Laboratory Tests Test 04/30/17 06:12 White Blood Count 9.7 Red Blood Count 2.67 L Hemoglobin 8.0 L Hematocrit 25.5 L Mean Corpuscular Volume 95.5 Mean Corpuscular Hemoglobin 30.0 Mean Corpuscular Hemoglobin Concent 31.4 L Red Cell Distribution Width 17.3 H Platelet Count 194 Mean Platelet Volume 12.4 H Neutrophils % 70.4 Lymphocytes % 16.5 Monocytes % 7.8 Eosinophils % 3.3 Basophils % 0.5 Nucleated Red Blood Cells % 0.0 Neutrophils # 6.8 Lymphocytes # 1.6 Monocytes # 0.8 Eosinophils # 0.3 Basophils # 0.1 Nucleated Red Blood Cells # 0.0 Sodium Level 134 L Potassium Level 5.2 H Chloride Level 91 L Carbon Dioxide Level 25 Anion Gap 23 #H Blood Urea Nitrogen 109 H Creatinine 3.39 H Glucose Level 90 Calcium Level 8.4 Phosphorus Level 4.2 Magnesium Level 1.6 L Medications Current Medications Atorvastatin Calcium (Lipitor) 20 mg QHS GTB Last administered on 04/29/17t 21: 19; Admin Dose 20 MG; Start 04/23/17 at 21:00 Carvedilol (Coreg) 3.125 mg BID GTB Last administered on 04/30/17 11:42; Admin Dose 3.125 MG; Start 04/23/17 at 21:00 Chlorhexidine Gluconate (Peridex) 10 ml Q12 MM Last administered on 04/30/17 08:42; Admin Dose 10 ML; Start 04/23/17 at 21:00 Clonidine (Catapres) 0.1 mg Q4H PRN GTB SBP GREATER THAN 170; Start 04/23/17 at 12:00 Clopidogrel Bisulfate (plaVIX) 75 mg DAILY GTB Last administered on 04/30/17 11:38; Admin Dose 75 MG; Start 04/24/17 at 09:00 Diphenhydramine HCl (Benadryl Liquid Cup) 25 mg Q6H PRN GTB ITCHING Last administered on 04/26/17 02:41; Admin Dose 25 MG; Start 04/23/17 at 12:00 Acetaminophen/ Hydrocodone Bitart ([place] (5/325)) 1 tab Q8 PRN GTB SEVERE PAIN LEVEL 7-10 Last administered on 04/29/17 12:44; Admin Dose 1 TAB; Start at 12:00 Isosorbide Dinitrate (Isordil) 10 mg TID GTB Last administered on 04/30/17 11: 41; Admin Dose 10 MG; Start 04/23/17 at 13:00 Lactobacillus Acidophilus/ Rhamnosus (Culturelle) 1 cap DAILY GTB Last administered on 04/30/17 11:45; Admin Dose 1 CAP; Start 04/24/17 at 09:00 Lansoprazole (Prevacid) 30 mg DAILY@06 GTB Last administered on 04/30/17 05:27 ; Admin Dose 30 MG; Start 04/24/17 at 06:00 Levothyroxine Sodium (Synthroid) 88 mcg DAILY@06 GTB Last administered on 05:28; Admin Dose 88 MCG; Start 04/24/17 at 06:00 Lorazepam (Ativan) 0.5 mg Q4 PRN GTB ANXIETY Last administered on 04/30/17 05: 26; Admin Dose 0.5 MG; Start 04/23/17 at 12:00 Multivit/Ca Carb/ B Cmplx/FA/Prenat (Thelma-Bebeto) 1 tab DAILY GTB Last administered on 04/30/17 11:38; Admin Dose 1 TAB; Start 04/24/17 at 09:00 Multivitamins Therapeutic (Theragran) 1 tab DAILY GTB Last administered on 04/30 11:38; Admin Dose 1 TAB; Start 04/24/17 at 09:00 Sodium Phosphate (Neutra-Phos) 250 mg BID GTB Last administered on 04/30/17 11 :38; Admin Dose 250 MG; Start 04/23/17 at 21:00 Spironolactone (Aldactone) 25 mg DAILY GTB Last administered on 04/30/17 11:41 ; Admin Dose 25 MG; Start 04/24/17 at 09:00 Miscellaneous Information This patient jenkins... PRN PRN XX WOUND CARE; Start 04/23 at 18:30 Cefepime HCl (Maxipime 1gm/50 ml (Pmx)) 50 ml @ 100 mls/hr Q24H IVPB Last administered on 04/30/17 11:06; Admin Dose 100 MLS/HR; Start 04/24/17 at 10:00 Lisinopril (Zestril) 10 mg BID GTB Last administered on 04/30/17 11:42; Admin Dose 10 MG; Start 04/24/17 at 21:00 Acetaminophen (Tylenol Liquid) 650 mg Q6H PRN GTB PAIN AND OR ELEVATED TEMP Last administered on 04/27/17 15:53; Admin Dose 650 MG; Start 04/27/17 at 16:00 Collagenase (Santyl) 1 applic DAILY TOP Last administered on 04/30/17 11:43; Admin Dose 1 APPLIC; Start 04/27/17 at 17:30 Collagenase (Santyl) 1 applic PRN PRN TOP WOUND CARE; Start 04/27/17 at 16:30 Scopolamine 1 patch 1 patch Q72H TRANSDERM Last administered on 04/29/17 12:16 ; Admin Dose 1 PATCH; Start 04/29/17 at 09:00 Vancomycin HCl (Vancocin) 250 ml @ 125 mls/hr Q5D IVPB Last administered on 12:05; Admin Dose 125 MLS/HR; Start 04/30/17 at 11:00 Levetiracetam (Keppra Liquid) 1,000 mg BID GTB Last administered on 04/30/17t 11:38; Admin Dose 1,000 MG; Start 04/29/17 at 21:20 Assessment/Plan Chief Complaint/Hosp Course Assessment 1. Chronic hypoxemic respiratory failure requiring mechanical ventilation 2. Severe sepsis with right lower lobe pneumonia likely aspiration. 3. History of neuromuscular disorder 4. History of arrhythmias 5 renal insufficiency 6. Anemia of chronic disease Plan 1. Continue mechanical ventilation 2. Antibiotics per infectious diseases 3. Tube feeding per G-tube 4. Renal recommendations with correction of electrolyte abnormality 5. DVT and GI prophylaxis Problems: ZULMA MAE MD[facility] Apr 30, 2017 15:49
--- NOTE | 2017-04-30 17:36 | CONS ---
Date/Time of Note Date/Time of Note DATE: 04/30/17 TIME: 17:35 Assessment/Plan Assessment/Plan Chief Complaint/Hosp Course INFECTIOUS DISEASES PROGRESS NOTE TOTAL ABX DAY #8 => Cefepime vancomycin 24H INTERVAL SUMMARY * WBC down to 9.7, afebrile -> Clinically improved on ABX and stable, no new issues, stable, noncommunicative on Vent * Sent to [facility] from [facility] for difficulty breathing, Afib w/RVR, sepsis, CHF, PNA -> 04/23/ Blood culture since admission remain negative PHYSICAL EXAMINATION: GENERAL 81 yo M, noncommunicative on the vent HEENT: Unremarkable . NECK: (+)Trach-> Vent CHEST: Rise symmetrical, without dyspnea on observation, course BS vent tubing CV: RRR ABDOMEN: Soft. 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 Sepsis w/leukocytosis on admission, Afib w/RVR 130's, CHF & PNA = RESOLVED * No fevers, WBC normalized, BCx (-), VSS 2. HCAP = Hx of PSAR 04/09/17 sputum * 04/23/17 CXR on admission: Interval improvement in airspace disease in the left lower lung. Persistent air space disease in the right mid and lower lung, not significantly changed. Small to moderate right pleural effusion, slightly increased compared to prior study. 3. Chronic respiratory failure-> (+)Trach 4. CV issues: CHF w/pulm edema per CXR 04/23/17; Afib; HX of extensive CAD; S/P [place], S/P CABG, S/P PCI ( most recently in Nov 2016) * 04/23/17 CXR: Mild cardiomegaly with persistent pulmonary vascular congestion and interstitial edema. 5. Anemia w/(-)FOBT x2 @ [facility] 6. Dysphasia-> peg 7. End-stage renal disease, hemodialysis dependent 8. Decubs (-)MRSA 04/07/17 @ [place] INVASIVES: : Trach, PICC right IJ permacath, permanent pacemaker CURRENT ABX: TOTAL ABX DAY #8 => Cefepime, Vancomycin ID RECOMMENDATIONS/PLAN: 1. Sepsis has resolved & patient is stable 2. When cleared by PMD, patient may TNS to [facility] vs SNF on current ABX to complete 14 day course -> Last day 05/06/17 . Problems: Consultation Date/Type/Reason Admit Date/Time Apr 23, 2017 at 09:56 Initial Consult Date 04/23/17 Type of Consultation: ID Exam/Review of Systems Vital Signs Vitals Vital Signs Date Time Temp Pulse Resp B/P Pulse Ox O2 Delivery O2 Flow Rate FiO2 04/30/17 17:22 60 04/30/17 15:51 40 04/30/17 15:38 98.5 18 142/64 100 Intake and Output 04/29/17 04/29/17 04/30/17 15:00 23:00 07:00 Intake Total 900 ml 795 ml Balance 900 ml 795 ml Results Result Diagram: 04/30/1761104/30/1712 Results 24 hrs Laboratory Tests Test 04/30/17 06:12 White Blood Count 9.7 Red Blood Count 2.67 L Hemoglobin 8.0 L Hematocrit 25.5 L Mean Corpuscular Volume 95.5 Mean Corpuscular Hemoglobin 30.0 Mean Corpuscular Hemoglobin Concent 31.4 L Red Cell Distribution Width 17.3 H Platelet Count 194 Mean Platelet Volume 12.4 H Neutrophils % 70.4 Lymphocytes % 16.5 Monocytes % 7.8 Eosinophils % 3.3 Basophils % 0.5 Nucleated Red Blood Cells % 0.0 Neutrophils # 6.8 Lymphocytes # 1.6 Monocytes # 0.8 Eosinophils # 0.3 Basophils # 0.1 Nucleated Red Blood Cells # 0.0 Sodium Level 134 L Potassium Level 5.2 H Chloride Level 91 L Carbon Dioxide Level 25 Anion Gap 23 #H Blood Urea Nitrogen 109 H Creatinine 3.39 H Glucose Level 90 Calcium Level 8.4 Phosphorus Level 4.2 Magnesium Level 1.6 L Medications Medications Current Medications Atorvastatin Calcium (Lipitor) 20 mg QHS GTB Last administered on 04/29/17 21: 19; Admin Dose 20 MG; Start 04/23/17 at 21:00 Carvedilol (Coreg) 3.125 mg BID GTB Last administered on 04/30/17 11:42; Admin Dose 3.125 MG; Start 04/23/17 at 21:00 Chlorhexidine Gluconate (Peridex) 10 ml Q12 MM Last administered on 04/30/17 08:42; Admin Dose 10 ML; Start 04/23/17 at 21:00 Clonidine (Catapres) 0.1 mg Q4H PRN GTB SBP GREATER THAN 170; Start 04/23/17 at 12:00 Clopidogrel Bisulfate (plaVIX) 75 mg DAILY GTB Last administered on 04/30/17 11:38; Admin Dose 75 MG; Start 04/24/17 at 09:00 Diphenhydramine HCl (Benadryl Liquid Cup) 25 mg Q6H PRN GTB ITCHING Last administered on 04/26/17 02:41; Admin Dose 25 MG; Start 04/23/17 at 12:00 Acetaminophen/ Hydrocodone Bitart ([place] (5/325)) 1 tab Q8 PRN GTB SEVERE PAIN LEVEL 7-10 Last administered on 04/29/17 12:44; Admin Dose 1 TAB; Start at 12:00 Isosorbide Dinitrate (Isordil) 10 mg TID GTB Last administered on 04/30/17 11: 41; Admin Dose 10 MG; Start 04/23/17 at 13:00 Lactobacillus Acidophilus/ Rhamnosus (Culturelle) 1 cap DAILY GTB Last administered on 04/30/17 11:45; Admin Dose 1 CAP; Start 04/24/17 at 09:00 Lansoprazole (Prevacid) 30 mg DAILY@06 GTB Last administered on 04/30/17 05:27 ; Admin Dose 30 MG; Start 04/24/17 at 06:00 Levothyroxine Sodium (Synthroid) 88 mcg DAILY@06 GTB Last administered on 05:28; Admin Dose 88 MCG; Start 04/24/17 at 06:00 Lorazepam (Ativan) 0.5 mg Q4 PRN GTB ANXIETY Last administered on 04/30/17 05: 26; Admin Dose 0.5 MG; Start 04/23/17 at 12:00 Multivit/Ca Carb/ B Cmplx/FA/Prenat (Thelma-Bebeto) 1 tab DAILY GTB Last administered on 04/30/17 11:38; Admin Dose 1 TAB; Start 04/24/17 at 09:00 Multivitamins Therapeutic (Theragran) 1 tab DAILY GTB Last administered on 04/30 11:38; Admin Dose 1 TAB; Start 04/24/17 at 09:00 Sodium Phosphate (Neutra-Phos) 250 mg BID GTB Last administered on 04/30/17 11 :38; Admin Dose 250 MG; Start 04/23/17 at 21:00 Spironolactone (Aldactone) 25 mg DAILY GTB Last administered on 04/30/17 11:41 ; Admin Dose 25 MG; Start 04/24/17 at 09:00 Miscellaneous Information This patient jenkins... PRN PRN XX WOUND CARE; Start 04/23 at 18:30 Cefepime HCl (Maxipime 1gm/50 ml (Pmx)) 50 ml @ 100 mls/hr Q24H IVPB Last administered on 04/30/17 11:06; Admin Dose 100 MLS/HR; Start 04/24/17 at 10:00 Lisinopril (Zestril) 10 mg BID GTB Last administered on 04/30/17 11:42; Admin Dose 10 MG; Start 04/24/17 at 21:00 Acetaminophen (Tylenol Liquid) 650 mg Q6H PRN GTB PAIN AND OR ELEVATED TEMP Last administered on 04/27/17 15:53; Admin Dose 650 MG; Start 04/27/17 at 16:00 Collagenase (Santyl) 1 applic DAILY TOP Last administered on 04/30/17 11:43; Admin Dose 1 APPLIC; Start 04/27/17 at 17:30 Collagenase (Santyl) 1 applic PRN PRN TOP WOUND CARE; Start 04/27/17 at 16:30 Scopolamine 1 patch 1 patch Q72H TRANSDERM Last administered on 04/29/17 12:16 ; Admin Dose 1 PATCH; Start 04/29/17 at 09:00 Vancomycin HCl (Vancocin) 250 ml @ 125 mls/hr Q5D IVPB Last administered on 12:05; Admin Dose 125 MLS/HR; Start 04/30/17 at 11:00 Levetiracetam (Keppra Liquid) 1,000 mg BID GTB Last administered on 04/30/17 11:38; Admin Dose 1,000 MG; Start 04/29/17 at 21:20 JESSICA MERCADO NP Apr 30, 2017 17:36
--- NOTE | 2017-04-30 17:44 | PN ---
Date/Time of Note Date/Time of Note DATE: 04/30/17 TIME: 17:42 Assessment/Plan VTE Prophylaxis VTE Prophylaxis Intervention: other Lines/Catheters IV C[facility] Type (from [facility]): PICC Line Central line still needed: Yes Urinary Cath still in place: No Reason Cath still needed: other (indicate) Assessment/Plan Chief Complaint/Hosp Course 1. Sepsis /pneumonia: improved. Patient's antibiotics to be managed as per IM/ and infectious disease 2. End-stage renal disease. -Continue intermittent hemodialysis - HD per renal 3. HX of extensive CAD; S/P WA, S/P CABG, S/P PCI ( most recently in Nov 2016) cont plavix. coreg 4 CHF / ischemic cardiomyopathy/ NSVT: cont betablocker and ARABELLA. inc as tolerated. ( hold ARABELLA for SBP < 100 only). 5. Ventilator dependent respiratory failure; s/p trach -Follow-up with pulmonary 6. sick sinus syndrome/ ischemic cardiomyopathy/ NSVT: -Status post pacemaker /ICD placement -Continue medical management 7. Seizure disorder -will defer to IM. PT IS ON Keppra 8. Hypothyroidism -Continue Synthroid 9. Dysphagia status post PEG -Continue tube feeds THANK YOU. Problems: Subjective 24 Hr Interval Summary Free Text/Dictation CARDIOLOGY FOLLOW UP NOTE: D/W staff and rhythm was reviewed. pt remains in NSR / A paced. he is s/p trach on vent. no reports of any chest pain or pressure. no reported bleeding . OBJECTIVE: General: S/P trach on vent. HEENT: NC/AT. pupils are equal. round. NECK: s/p trach. . no stridor. CV: RRR. systolic murmur; no gallop or rubs. PULM:+ diffuse rhonchi. GI: SOFT, NT, ND, no rebound or guarding Extremity: trace B/L LE edema. no clubbing. neuro: awake and alert, . Psych: calm and pleasant rectal: deferred : normal male chest: s/p L ICD, S/P R HD access Exam/Review of Systems Vital Signs Vitals Vital Signs Date Time Temp Pulse Resp B/P Pulse Ox O2 Delivery O2 Flow Rate FiO2 04/30/17 17:35 65 24 98 40 04/30/17 15:38 98.5 142/64 Intake and Output 04/29/17 04/29/17 04/30/17 15:00 23:00 07:00 Intake Total 900 ml 795 ml Balance 900 ml 795 ml Results Result Diagram: 04/30/17 0612 04/30/17 0612 Results 24 hrs Laboratory Tests Test 04/30/17 06:12 White Blood Count 9.7 Red Blood Count 2.67 L Hemoglobin 8.0 L Hematocrit 25.5 L Mean Corpuscular Volume 95.5 Mean Corpuscular Hemoglobin 30.0 Mean Corpuscular Hemoglobin Concent 31.4 L Red Cell Distribution Width 17.3 H Platelet Count 194 Mean Platelet Volume 12.4 H Neutrophils % 70.4 Lymphocytes % 16.5 Monocytes % 7.8 Eosinophils % 3.3 Basophils % 0.5 Nucleated Red Blood Cells % 0.0 Neutrophils # 6.8 Lymphocytes # 1.6 Monocytes # 0.8 Eosinophils # 0.3 Basophils # 0.1 Nucleated Red Blood Cells # 0.0 Sodium Level 134 L Potassium Level 5.2 H Chloride Level 91 L Carbon Dioxide Level 25 Anion Gap 23 #H Blood Urea Nitrogen 109 H Creatinine 3.39 H Glucose Level 90 Calcium Level 8.4 Phosphorus Level 4.2 Magnesium Level 1.6 L Medications Medications Current Medications Atorvastatin Calcium (Lipitor) 20 mg QHS GTB Last administered on 04/29/17 21: 19; Admin Dose 20 MG; Start 04/23/17 at 21:00 Carvedilol (Coreg) 3.125 mg BID GTB Last administered on 04/30/17 11:42; Admin Dose 3.125 MG; Start 04/23/17 at 21:00 Chlorhexidine Gluconate (Peridex) 10 ml Q12 MM Last administered on 04/30/17 08:42; Admin Dose 10 ML; Start 04/23/17 at 21:00 Clonidine (Catapres) 0.1 mg Q4H PRN GTB SBP GREATER THAN 170; Start 04/23/17 at 12:00 Clopidogrel Bisulfate (plaVIX) 75 mg DAILY GTB Last administered on 04/30/17 11:38; Admin Dose 75 MG; Start 04/24/17 at 09:00 Diphenhydramine HCl (Benadryl Liquid Cup) 25 mg Q6H PRN GTB ITCHING Last administered on 04/26/17 02:41; Admin Dose 25 MG; Start 04/23/17 at 12:00 Acetaminophen/ Hydrocodone Bitart (Hazel (5/325)) 1 tab Q8 PRN GTB SEVERE PAIN LEVEL 7-10 Last administered on 04/29/17 12:44; Admin Dose 1 TAB; Start at 12:00 Isosorbide Dinitrate (Isordil) 10 mg TID GTB Last administered on 04/30/17 11: 41; Admin Dose 10 MG; Start 04/23/17 at 13:00 Lactobacillus Acidophilus/ Rhamnosus (Culturelle) 1 cap DAILY GTB Last administered on 04/30/17 11:45; Admin Dose 1 CAP; Start 04/24/17 at 09:00 Lansoprazole (Prevacid) 30 mg DAILY@06 GTB Last administered on 04/30/17 05:27 ; Admin Dose 30 MG; Start 04/24/17 at 06:00 Levothyroxine Sodium (Synthroid) 88 mcg DAILY@06 GTB Last administered on 05:28; Admin Dose 88 MCG; Start 04/24/17 at 06:00 Lorazepam (Ativan) 0.5 mg Q4 PRN GTB ANXIETY Last administered on 04/30/17 05: 26; Admin Dose 0.5 MG; Start 04/23/17 at 12:00 Multivit/Ca Carb/ B Cmplx/FA/Prenat (Thelma-Bebeot) 1 tab DAILY GTB Last administered on 04/30/17 11:38; Admin Dose 1 TAB; Start 04/24/17 at 09:00 Multivitamins Therapeutic (Theragran) 1 tab DAILY GTB Last administered on 04/30 11:38; Admin Dose 1 TAB; Start 04/24/17 at 09:00 Sodium Phosphate (Neutra-Phos) 250 mg BID GTB Last administered on 04/30/17 11 :38; Admin Dose 250 MG; Start 04/23/17 at 21:00 Spironolactone (Aldactone) 25 mg DAILY GTB Last administered on 04/30/17 11:41 ; Admin Dose 25 MG; Start 04/24/17 at 09:00 Miscellaneous Information This patient jenkins... PRN PRN XX WOUND CARE; Start 04/23 at 18:30 Cefepime HCl (Maxipime 1gm/50 ml (Pmx)) 50 ml @ 100 mls/hr Q24H IVPB Last administered on 04/30/17 11:06; Admin Dose 100 MLS/HR; Start 04/24/17 at 10:00 Lisinopril (Zestril) 10 mg BID GTB Last administered on 04/30/17 11:42; Admin Dose 10 MG; Start 04/24/17 at 21:00 Acetaminophen (Tylenol Liquid) 650 mg Q6H PRN GTB PAIN AND OR ELEVATED TEMP Last administered on 04/27/17 15:53; Admin Dose 650 MG; Start 04/27/17 at 16:00 Collagenase (Santyl) 1 applic DAILY TOP Last administered on 04/30/17 11:43; Admin Dose 1 APPLIC; Start 04/27/17 at 17:30 Collagenase (Santyl) 1 applic PRN PRN TOP WOUND CARE; Start 04/27/17 at 16:30 Scopolamine 1 patch 1 patch Q72H TRANSDERM Last administered on 04/29/17 12:16 ; Admin Dose 1 PATCH; Start 04/29/17 at 09:00 Vancomycin HCl (Vancocin) 250 ml @ 125 mls/hr Q5D IVPB Last administered on 12:05; Admin Dose 125 MLS/HR; Start 04/30/17 at 11:00 Levetiracetam (Keppra Liquid) 1,000 mg BID GTB Last administered on 04/30/17 11:38; Admin Dose 1,000 MG; Start 04/29/17 at 21:20 MOOKIE BESS MD Apr 30, 2017 17:44
--- NOTE | 2017-05-03 11:30 | PN ---
DATE: 04/25/2017 SUBJECTIVE DATA: The patient is stable. No events overnight. No fevers, chills, nausea, vomiting. OBJECTIVE DATA: VITAL SIGNS: Blood pressure 164/74, respiration 18, pulse 58, temperature 98.6 degrees. HEENT: Head is normocephalic. NECK: Supple. CARDIAC: Heart is regular rate. RESPIRATORY: Lungs show diminished breath sounds at the bases. ABDOMEN: Soft, nontender to palpation. No rebound or guarding. EXTREMITIES: Negative for clubbing, cyanosis. No edema. SKIN: No rashes. MUSCULOSKELETAL: No joint effusion. NEUROLOGIC: No change in exam. The patient's medications were reviewed. LABORATORY AND DIAGNOSTIC DATA: White count 10, hemoglobin 8.5, hematocrit 27.7, platelet count 248,000. Sodium 148, BUN 65, creatinine 2.88, phosphorus 2.2. ASSESSMENT AND PLAN: 1. Sepsis secondary to healthcare associated pneumonia. The patient is currently on broad-spectrum antibiotics . Blood cultures have been reviewed. Continue current antibiotic regimen. Follow up with Infectious Disease. 2. End-stage renal disease. The patient on dialysis Wednesday, Wednesday, Wednesday. Plan for dialysis tomorrow. 3. Metabolic bone disorder. Monitor calcium and phosphorous levels. 4. congestive heart failure. Continue ultrafiltration dialysis. 5. Ventilator-dependent respiratory failure. Vent settings were reviewed. Arterial blood gases have been reviewed. Continue to monitor. Follow up with Pulmonary. 6. Coronary artery disease, cardiomyopathy. The patient is status post implantable cardioverter defibrillator placement. Continue to monitor. Follow up with Cardiology. 7. Seizure disorder. Continue Keppra. 8. Hypothyroidism. Continue Synthroid. 9. Dysphagia status post PEG. Continue tube feeding. 10. Acute on chronic encephalopathy. Etiology is toxic metabolic. Continue to monitor. 11. Hypertension. Continue current blood pressure regimen. 12. Hyperkalemia, resolved. Continue to monitor. Dictated By: Marciano Darby DO /[email or web address] /Document#: [id number]
== END 2017-04-30 18:01 | DRG 870 ==
LOC: E/R 06:52 → TEL 09:56
PROVIDERS: ADMIT Internal Medicine; ATTEND Internal Medicine
PROC: 5A1955Z Respiratory Ventilation, Greater than 96 Consecutive Hours (ICD-10-PCS; principal; 2017-04-23)
PROC: 5A1D60Z (ICD-10-PCS; 2017-04-23)
DX: A41.9 Sepsis, unspecified organism (principal); J69.0 Pneumonitis due to inhalation of food and vomit; G92 Toxic encephalopathy; I13.2 Hypertensive heart and chronic kidney disease with heart failure and with stage 5 chronic kidney disease, or end stage renal disease; L89.153 Pressure ulcer of sacral region, stage 3; Z99.11 Dependence on respirator [ventilator] status; J96.11 Chronic respiratory failure with hypoxia; N18.6 End stage renal disease; I50.22 Chronic systolic (congestive) heart failure; E87.1 Hypo-osmolality and hyponatremia; R65.20 Severe sepsis without septic shock; I25.5 Ischemic cardiomyopathy; G40.909 Epilepsy, unspecified, not intractable, without status epilepticus; I25.10 Atherosclerotic heart disease of native coronary artery without angina pectoris; I25.2 Old myocardial infarction; E78.5 Hyperlipidemia, unspecified; B96.5 Pseudomonas (aeruginosa) (mallei) (pseudomallei) as the cause of diseases classified elsewhere; D63.8 Anemia in other chronic diseases classified elsewhere; E03.9 Hypothyroidism, unspecified; E87.6 Hypokalemia; E83.42 Hypomagnesemia; E87.70 Fluid overload, unspecified; M62.81 Muscle weakness (generalized); Z99.2 Dependence on renal dialysis; Z93.0 Tracheostomy status; Z93.1 Gastrostomy status; Z95.1 Presence of aortocoronary bypass graft; Z95.810 Presence of automatic (implantable) cardiac defibrillator; Z95.5 Presence of coronary angioplasty implant and graft
CPT/HCPCS: 36415; 36600; 71010; 80048; 80053; 80202; 82803; 83605; 83735; 84100; 84484; 85025; 85610; 85730; 87040; 90935; 93005; 94002; 94003; 94640; 94664; 96374; 96375; 96376; J0692; J2060; J2997; J3370; J7030; J7040; J7050